=== PATIENT | male | born 1970 | race Caucasian/White ===

== ENCOUNTER 2016-10-31 15:01 | Emergency (ER) | payer OTHER ==
[2016-10-31] MEDS ORDERED: ONDANSETRON 4 MG/2 ML VIAL IVP STA (15:22)
[2016-10-31] MEDS ORDERED: SODIUM CHLORIDE 0.9% 1,000 ML IV STA ×2 (15:22)
[2016-10-31] MEDS ORDERED: ACETAMINOPHEN IV (For NPO) 1,000 MG in SALINE 100 100ML.BAG IVPB STA (15:23)
--- NOTE | 2016-10-31 15:24 | ED ---
General Adult HPI - General Chief complaint: Nausea/Vomiting/Diarrhea Stated complaint: Abd Pain Time Seen by Provider: 10/31/16 15:16 Source: patient, EMS, RN notes reviewed Mode of arrival: EMS Limitations: no limitations - History of Present Illness Initial comments: Patient 46-year-old male who presents emergency room today with chief complaint of abdominal pain. He does admit that he has been on and off over the last several months. Patient does admit that pains located in the epigastric area. He states he has not noticed that makes it better or worse. Does admit to nausea vomiting. He denies any other complaints or associated symptoms currently. Denies any past mental history. Patient denies any recent fever, chills, shortness of breath, chest pain, back pain, numbness or tingling, dysuria or hematuria, constipation or diarrhea, headaches or visual changes, or any other complaints. - Related Data Home Medications Medication Instructions Recorded Confirmed HYDROcodone/APAP 10-325MG [[place] 1 tab PO DIRECTED PRN 05/26/15 10/31/16 10-325] Previous Rx's Medication Instructions Recorded Omeprazole 20 mg PO DAILY 10 Days 10/31/16 Allergies Allergy/AdvReac Type Severity Reaction Status Date / Time No Known Allergies Allergy Verified 10/31/16 15:19 Review of Systems ROS Statement: Those systems with pertinent positive or pertinent negative responses have been documented in the HPI. ROS Other: All systems not noted in ROS Statement are negative. Past Medical History Past Medical History: No Reported History History of Any Multi-Drug Resistant Organisms: None Reported Past Surgical History: Orthopedic Surgery Additional Past Surgical History / Comment(s): foot Past Psychological History: Schizophrenia Smoking Status: Current some day smoker Past Alcohol Use History: Occasional Past Drug Use History: None Reported General Exam - General Exam Comments Initial Comments: General: The patient is awake and alert, in no distress, and does not appear acutely ill. Eye: Pupils are equal, round and reactive to light, extra-ocular movements are intact. No nystagmus. There is normal conjunctiva bilaterally. No signs of icterus. Ears, nose, mouth and throat: There are moist mucous membranes and no oral lesions. Neck: The neck is supple, there is no tenderness or JVD. Cardiovascular: There is a regular rate and rhythm. No murmur, rub or gallop is appreciated. Respiratory: Lungs are clear to auscultation, respirations are non-labored, breath sounds are equal. No wheezes, stridor, rales, or rhonchi. Gastrointestinal: Normal appearance abdomen. Normal bowel sounds. Abdomen soft on palpation. Patient does have mild tenderness epigastric and both left and right upper quadrants. No rebound tenderness. No guarding. No CVA tenderness. Musculoskeletal: Normal ROM, no tenderness. Strength 5/5. Sensation intact. Pulses equal bilaterally 2+. Neurological: A&O x 3. CN II-XII intact, There are no obvious motor or sensory deficits. Coordination appears grossly intact. Speech is normal. Skin: Skin is warm and dry and no rashes or lesions are noted. Psychiatric: Cooperative, appropriate mood & affect, normal judgment. Limitations: no limitations Course Vital Signs 10/31/16 10/31/16 15:03 16:28 Temperature 97.7 F Pulse Rate 72 77 Respiratory 15 15 Rate Blood Pressure 167/107 149/107 O2 Sat by Pulse 100 100 Oximetry - Reevaluation(s) Reevaluation #1: 10/31/16 15:54 I did review the nursing notes which does state that EMS was called for a GI bleed bright red blood per bowel movement yesterday. Did discuss with nursing staff states that he denied this to her. Did ask the patient separately and he does admit that he did have a bloody bowel movement yesterday. He states it was bright color. States never had that in the past. Patient has declined rectal exam. Procedures - Procedures Initial comment: Patient's CAT scan reviewed and does show an L5 spondylolysis with first-degree L5-S1 spondylolisthesis. Possible small hiatal hernia. Otherwise a negative computed tomography scan of the abdomen and pelvis. Results were discussed with patient. Labs were reviewed and shows elevated white count of 13,000. Again, patient declined rectal exam here. Was discussed with patient about the importance of following up with family doctor and GI for colonoscopy. Patient states understanding. At this time discharged home with starter on omeprazole. Advised return if any symptoms increase or worsen. Medical Decision Making - Lab Data Result diagrams: 10/31/16 15:26 10/31/16 02:44 Lab Results 10/31/16 10/31/16 Range/Units 02:44 15:26 WBC 13.4 H (3.8-10.6) k/uL RBC 4.72 (4.30-5.90) m/uL Hgb 14.3 (13.0-17.5) gm/dL Hct 43.4 (39.0-53.0) % MCV 91.9 (80.0-100.0) fL MCH 30.3 (25.0-35.0) pg MCHC 32.9 (31.0-37.0) g/dL RDW 13.4 (11.5-15.5) % Plt Count 327 (150-450) k/uL Neutrophils % 80 % Lymphocytes % 12 % Monocytes % 6 % Eosinophils % 1 % Basophils % 0 % Neutrophils # 10.7 H (1.3-7.7) k/uL Lymphocytes # 1.6 (1.0-4.8) k/uL Monocytes # 0.7 (0-1.0) k/uL Eosinophils # 0.2 (0-0.7) k/uL Basophils # 0.0 (0-0.2) k/uL Sodium 142 (137-145) mmol/L Potassium 4.4 (3.5-5.1) mmol/L Chloride 103 (98-107) mmol/L Carbon Dioxide 27 (22-30) mmol/L Anion Gap 12 mmol/L BUN 10 (9-20) mg/dL Creatinine 0.88 (0.66-1.25) mg/dL Est GFR (MDRD) Af Amer >60 (>60 ml/min/1.73 sqM) Est GFR (MDRD) Non-Af >60 (>60 ml/min/1.73 sqM) Glucose 104 H (74-99) mg/dL Calcium 9.7 (8.4-10.2) mg/dL Total Bilirubin 0.6 (0.2-1.3) mg/dL AST 19 (17-59) U/L ALT 33 (21-72) U/L Alkaline Phosphatase 90 (38-126) U/L Total Protein 7.3 (6.3-8.2) g/dL Albumin 4.3 (3.5-5.0) g/dL Amylase 40 (30-110) U/L Lipase 76 (23-300) U/L Disposition Clinical Impression: Abdominal pain Disposition: HOME SELF-CARE Condition: Good Instructions: Abdominal Pain (ED) Additional Instructions: Please use medication as discussed. Please follow-up with family doctor/GI specialist in the next 2 days. Please discuss options of colonoscopy. Please return to emergency room if the symptoms increase or worsen or for any other concerns. Prescriptions: Omeprazole 20 mg PO DAILY 10 Days Referrals: None,Stated [Primary Care Provider] - 1-2 days Radha Flores MD [STAFF PHYSICIAN] - 1-2 days Brianna Joy MD [STAFF PHYSICIAN] - 1-2 days Time of Disposition: 18:09
[2016-10-31 15:50] LABS: ALT 33 U/L (21-72); AST 19 U/L (17-59); Alkaline Phosphatase 90 U/L (38-126); Amylase 40 U/L (30-110); Anion Gap 12 mmol/L; Blood Urea Nitrogen 10 mg/dL (9-20); Calcium 9.7 mg/dL (8.4-10.2); Carbon Dioxide 27 mmol/L (22-30); Chloride 103 mmol/L (98-107); Glucose 104 mg/dL (74-99); Non-African American GFR(MDRD) >60 (>60 ml/min/1.73 sqM); Potassium 4.4 mmol/L (3.5-5.1); Sodium 142 mmol/L (137-145); Total Bilirubin 0.6 mg/dL (0.2-1.3); Total Protein 7.3 g/dL (6.3-8.2)
--- NOTE | 2016-10-31 15:57 | XR ---
EXAMINATION TYPE: XR KUB DATE OF EXAM: 10/31/2016 3:49 PM COMPARISON: NONE HISTORY: Abdominal pain TECHNIQUE: 2 views FINDINGS: Bowel gas pattern is normal. There is no sign of intestinal obstruction or pneumoperitoneum . Fecal pattern is normal. Lung bases are clear. There are no pathologic calcifications. Bony structu res are intact. IMPRESSION: Nonacute abdomen.
[2016-10-31 16:08] LABS: Basophils % (A) 0 %; CH 30.5; CHCM 33.4; Eosinophils # (A) 0.2 k/uL (0-0.7); Eosinophils % (A) 1 %; HCT 43.4 % (39.0-53.0); HDW 2.39; HGB 14.3 gm/dL (13.0-17.5); Luc # (Auto) 0.17; Luc % (Auto) 1; Lymphocytes # (A) 1.6 k/uL (1.0-4.8); Lymphocytes % (A) 12 %; MCH 30.3 pg (25.0-35.0); MCHC 32.9 g/dL (31.0-37.0); MCV 91.9 fL (80.0-100.0); Mean Platelet Volume 7.7; Monocytes # (A) 0.7 k/uL (0-1.0); Monocytes % (A) 6 %; Neutrophils # (A) 10.7 k/uL (1.3-7.7); Neutrophils % (A) 80 %; RBC 4.72 m/uL (4.30-5.90); RDW 13.4 % (11.5-15.5); WBC 13.4 k/uL (3.8-10.6); WBC (Perox) 13.44
[2016-10-31] MEDS ORDERED: HYDROmorphone 1 MG/ML 1 ML SYRINGE IVP STA (16:13)
[2016-10-31] MEDS ORDERED: PANTOPRAZOLE 40 MG/10 ML VIAL IVP STA (16:13)
[2016-10-31] MEDS ORDERED: RX INFO: IV CONTRAST WAS GIVEN 1 EACH MISC MISCELLANE PRN (17:03)
--- NOTE | 2016-10-31 17:54 | CT ---
EXAMINATION TYPE: CT abdomen pelvis w con DATE OF EXAM: 10/31/2016 5:43 PM COMPARISON: NONE HISTORY: Nausea, vomiting bile and bright red blood in stool. CT DLP: 443.30 mGycm Automated exposure control for dose reduction was used. TECHNIQUE: Helical acquisition of images was performed from the lung bases through the pelvis. CONTRAST: Performed without Oral Contrast and with IV Contrast, patient injected with 100 mL of Omnipaque 300. FINDINGS: Lung bases are clear. There is no pleural effusion. Heart size is normal. There is probably a small h iatal hernia. Liver spleen pancreas and gallbladder appear normal. Bile ducts are not dilated. There is no adrenal mass. Kidneys have normal size and contour. There is no hydronephrosis. There is no retroperitoneal a denopathy. I see no intestinal wall thickening. There are no dilated loops. Bladder distends smoothly. Appendix appears normal. There is no ascites. There is no pelvic mass. There is anterior subluxation of L5 in relation S1 with bilateral L5 spondylolysis. IMPRESSION: L5 SPONDYLOLYSIS WITH FIRST-DEGREE L5-S1 SPONDYLOLISTHESIS. POSSIBLE SMALL HIATAL HERNIA. OTHERWISE N EGATIVE CT SCAN OF THE ABDOMEN AND PELVIS.
[2016-10-31 18:27] VITALS: BP 151/95; PULSE 81; RESP 16; TEMP 98
== END 2016-10-31 18:38 | disposition home or self-care (01) ==
LOC: EC 15:01
DX: R10.13 Epigastric pain (principal); K92.1 Melena; F17.200 Nicotine dependence, unspecified, uncomplicated
CPT/HCPCS: 99285; 96374; 96375 ×2; 96361; 36415; 80053; 82150; 83690; 85025; 74000; 74177; J1170; Q9967; J0131; C9113

== ENCOUNTER 2018-09-25 15:28 | Inpatient (IN) | payer OTHER ==
[2018-09-25] MEDS ORDERED: KETOROLAC 30 MG/ML 1 ML VIAL IVP STA (15:43)
[2018-09-25] MEDS ORDERED: SODIUM CHLORIDE 0.9% 500 ML 500 ML IV STA ×2 (15:43→17:33)
[2018-09-25] MEDS ORDERED: SODIUM CHLORIDE 0.9% 1,000 ML IV STA ×2 (15:43→17:33)
--- NOTE | 2018-09-25 15:44 | ED ---
Abdominal Pain HPI - General Chief Complaint: Abdominal Pain Stated Complaint: ABD PAIN Time Seen by Provider: 09/25/18 15:43 Source: patient, RN notes reviewed, old records reviewed Mode of arrival: EMS Limitations: no limitations - History of Present Illness Initial Comments: This is a 48-year-old male the ER for evaluation of severe sudden onset of abdominal pain worsening abdominal pain. Patient states his pain is diffuse and severe pain with nausea and vomiting. Patient states he does have history of ulcers, denies any other significant medical history. No significant surgical history, no modifying factors for symptoms and patient denies fever. No change in bowel movements MD Complaint: abdominal pain -: hour(s) Location: diffuse, epigastric, suprapubic Radiation: none Migration to: no migration Severity scale (1-10): 10 Quality: aching, fullness, sharp Consistency: constant Improves With: nothing Worsens With: nothing Associated Symptoms: nausea, vomiting - Related Data Home Medications Medication Instructions Recorded Confirmed Ranitidine HCl [Zantac] 150 mg PO DAILY 09/25/18 09/25/18 Allergies Allergy/AdvReac Type Severity Reaction Status Date / Time No Known Allergies Allergy Verified 09/25/18 15:53 Review of Systems ROS Statement: Those systems with pertinent positive or pertinent negative responses have been documented in the HPI. ROS Other: All systems not noted in ROS Statement are negative. Past Medical History Past Medical History: No Reported History History of Any Multi-Drug Resistant Organisms: None Reported Past Surgical History: Orthopedic Surgery Additional Past Surgical History / Comment(s): foot Past Psychological History: Schizophrenia Smoking Status: Current every day smoker Past Alcohol Use History: Occasional Past Drug Use History: Marijuana General Exam Limitations: no limitations General appearance: alert, anxious, in distress Head exam: Present: atraumatic, normocephalic, normal inspection Eye exam: Present: normal appearance, PERRL, EOMI. Absent: scleral icterus, conjunctival injection, periorbital swelling ENT exam: Present: normal exam, mucous membranes moist Neck exam: Present: normal inspection. Absent: tenderness, meningismus, lymphadenopathy Respiratory exam: Present: normal lung sounds bilaterally. Absent: respiratory distress, wheezes, rales, rhonchi, stridor Cardiovascular Exam: Present: regular rate, normal rhythm, normal heart sounds. Absent: systolic murmur, diastolic murmur, rubs, gallop, clicks GI/Abdominal exam: Present: soft, distended, tenderness, guarding, normal bowel sounds. Absent: rebound, rigid Extremities exam: Present: normal inspection, full ROM, normal capillary refill. Absent: tenderness, pedal edema, joint swelling, calf tenderness Back exam: Present: normal inspection Neurological exam: Present: alert, oriented X3, CN II-XII intact Psychiatric exam: Present: normal affect, normal mood Skin exam: Present: warm, dry, intact, normal color. Absent: rash Course Vital Signs 09/25/18 09/25/18 09/25/18 15:29 17:14 18:18 Temperature 98.1 F Pulse Rate 65 78 74 Respiratory 18 20 22 Rate Blood Pressure 142/109 154/92 120/78 O2 Sat by Pulse 100 99 97 Oximetry - Reevaluation(s) Reevaluation #1: 09/25/18 18:41 Medical record is reviewed Reevaluation #2: 09/25/18 18:[address] Farmer he is aware of this patient Reevaluation #3: 09/25/18 18:41 Patient has pain control currently Medical Decision Making - Medical Decision Making 48 male the ER for evaluation. Patient presents today for evaluation regards to severe sudden onset of abdominal pain. Patient hasn't. No free air and significant inguinal hernia, small bowel suction developing, patient be admitted for IV antibiotics IV resuscitation pain control - Lab Data Result diagrams: 09/25/18 15:36 09/25/18 15:36 Lab Results 09/25/18 09/25/18 Range/Units 15:36 15:36 WBC 7.9 (3.8-10.6) k/uL RBC 4.39 (4.30-5.90) m/uL Hgb 13.8 (13.0-17.5) gm/dL Hct 40.6 (39.0-53.0) % MCV 92.6 (80.0-100.0) fL MCH 31.4 (25.0-35.0) pg MCHC 33.9 (31.0-37.0) g/dL RDW 12.9 (11.5-15.5) % Plt Count 267 (150-450) k/uL Neutrophils % 56 % Lymphocytes % 32 % Monocytes % 5 % Eosinophils % 4 % Basophils % 1 % Neutrophils # 4.4 (1.3-7.7) k/uL Lymphocytes # 2.5 (1.0-4.8) k/uL Monocytes # 0.4 (0-1.0) k/uL Eosinophils # 0.3 (0-0.7) k/uL Basophils # 0.0 (0-0.2) k/uL Sodium 141 (137-145) mmol/L Potassium 4.2 (3.5-5.1) mmol/L Chloride 106 (98-107) mmol/L Carbon Dioxide 25 (22-30) mmol/L Anion Gap 10 mmol/L BUN 14 (9-20) mg/dL Creatinine 0.74 (0.66-1.25) mg/dL Est GFR (CKD-EPI)AfAm >90 (>60 ml/min/1.73 sqM) Est GFR (CKD-EPI)NonAf >90 (>60 ml/min/1.73 sqM) Glucose 81 (74-99) mg/dL Calcium 9.0 (8.4-10.2) mg/dL Total Bilirubin 0.4 (0.2-1.3) mg/dL AST 32 (17-59) U/L ALT 33 (21-72) U/L Alkaline Phosphatase 46 (38-126) U/L Total Protein 7.1 (6.3-8.2) g/dL Albumin 4.1 (3.5-5.0) g/dL Amylase 167 H (30-110) U/L Lipase 670 H (23-300) U/L - Radiology Data Radiology results: report reviewed (CT abdomen and pelvis positive [place] perineal free air, inguinal hernia, ascites,obstruction), image reviewed Disposition Clinical Impression: Abdominal pain, Free intraperitoneal air, Pancreatitis, Ascites, SBO (small bowel obstruction), Acute abdomen Disposition: ADMITTED IP TO THIS [facility] Condition: Serious Is patient prescribed a controlled substance at d/c from ED?: No Referrals: None,Stated [Primary Care Provider] - 1-2 days
[2018-09-25] MEDS ORDERED: MORPHINE SULFATE 4 MG/ML SYRINGE IVP STA (16:02)
[2018-09-25] MEDS ORDERED: ONDANSETRON 4 MG/2 ML VIAL IVP STA (16:02)
[2018-09-25] MEDS ORDERED: PANTOPRAZOLE 40 MG/10 ML VIAL IVP STA (16:02)
[2018-09-25 16:04] LABS: Basophils % (A) 1 %; Eosinophils # (A) 0.3 k/uL (0-0.7); Eosinophils % (A) 4 %; HCT 40.6 % (39.0-53.0); HGB 13.8 gm/dL (13.0-17.5); Lymphocytes # (A) 2.5 k/uL (1.0-4.8); Lymphocytes % (A) 32 %; MCH 31.4 pg (25.0-35.0); MCHC 33.9 g/dL (31.0-37.0); MCV 92.6 fL (80.0-100.0); Mean Platelet Volume 8.3; Monocytes # (A) 0.4 k/uL (0-1.0); Monocytes % (A) 5 %; Neutrophils # (A) 4.4 k/uL (1.3-7.7); Neutrophils % (A) 56 %; Platelet Count 267 k/uL (150-450); RBC 4.39 m/uL (4.30-5.90); RDW 12.9 % (11.5-15.5); WBC 7.9 k/uL (3.8-10.6)
[2018-09-25 16:13] LABS: ALT 33 U/L (21-72); AST 32 U/L (17-59); Albumin 4.1 g/dL (3.5-5.0); Alkaline Phosphatase 46 U/L (38-126); Amylase 167 U/L (30-110); Anion Gap 10 mmol/L; Blood Urea Nitrogen 14 mg/dL (9-20); Carbon Dioxide 25 mmol/L (22-30); Chloride 106 mmol/L (98-107); Glucose 81 mg/dL (74-99); Lipase 670 U/L (23-300); Potassium 4.2 mmol/L (3.5-5.1); Sodium 141 mmol/L (137-145); Total Bilirubin 0.4 mg/dL (0.2-1.3); Total Protein 7.1 g/dL (6.3-8.2)
[2018-09-25] MEDS ORDERED: AMPICILLIN-SULBACTAM 3 GM in SODIUM CHLORIDE 0.9% 100 ML IVPB STA (17:33)
--- NOTE | 2018-09-25 17:38 | CT ---
EXAMINATION TYPE: CT abdomen pelvis w con DATE OF EXAM: 09/25/2018 COMPARISON: 10/31/2016 HISTORY: Right lower quadrant and bilateral flank pain. CT DLP: 679.6 mGycm Automated exposure control for dose reduction was used. TECHNIQUE: Helical acquisition of images was performed from the lung bases through the pelvis. CONTRAST: Performed without Oral Contrast and with IV Contrast, patient injected with 100 mL of Isovue M300. FINDINGS: Lung bases are clear. There is no pleural effusion. Heart size is normal. There is no pericardial eff usion. There is ascites. There is free air in the abdomen. Liver shows no focal defect. Bile ducts ar e not dilated. Gallbladder appears normal. Spleen appears normal. There is no pancreatic mass. There are some mid small bowel loops with wall thickening up to 1 cm in thickness. Bladder distends smoothl y. There is right-sided scrotal hernia that contains fluid. There is possible small bowel also in the right inguinal hernia. There are some fluid-filled distended loops of small bowel in the mid and low er abdomen. These measure up to 2.8 cm. Appendix appears to be partly filled with air and appears nor mal. There is spondylolysis of L5. There is a 5 mm L5-S1 spondylolisthesis. There is no evidence of a n acute fracture. Bony pelvis is intact. There is normal contrast opacification of the kidneys. There is no hydronephrosis. There is no adrena l mass. Ureters are not dilated. There is no retroperitoneal adenopathy. IMPRESSION: THERE IS MODERATE FREE AIR IN THE ABDOMEN. THERE IS ASCITES. THERE IS INCARCERATED RIGHT INGUINAL HER MARGARET THAT CONTAINS FLUID AND PROBABLY ALSO A LOOP OF SMALL BOWEL. PARTIAL MECHANICAL OBSTRUCTION IS SCOTT SPECTED. THIS EXAM WAS DISCUSSED WITH THE ER PHYSICIAN AT 5:35 PM. ABNORMALITIES ARE ALL NEW COMPARED TO OLD CT SCAN.
[2018-09-25] MEDS ORDERED: HYDROmorphone 1 MG/ML 1 ML SYRINGE IVP STA ×2 (18:26→19:05)
[2018-09-25] MEDS ORDERED: ONDANSETRON 4 MG/2 ML VIAL IVP PRN (18:26)
[2018-09-25] MEDS ORDERED: IOPAMIDOL-300 CONTRAST 30 ML VIAL (ORAL USE) PO PRN (18:42)
[2018-09-25] MEDS ORDERED: MORPHINE SULFATE 2 MG/ML SYRINGE IV PRN (20:05)
[2018-09-25] MEDS ORDERED: HYDROmorphone 0.5 MG/0.5 ML SYRINGE IVP PRN (20:05)
[2018-09-25] MEDS ORDERED: NALOXONE 0.4 MG/ML 1 ML VIAL IV PRN ×3 (20:52→22:33)
[2018-09-25] MEDS ORDERED: fentaNYL (PF) 50 MCG/ML 2 ML AMP ONE (21:12)
[2018-09-25] MEDS ORDERED: HYDROmorphone (PF) 1 MG/ML ONE (21:12)
[2018-09-25] MEDS ORDERED: LIDOCAINE 1% INJ 10MG/ML (20 ML MDV) ONE (21:12)
[2018-09-25] MEDS ORDERED: GLYCOPYRROLATE 0.2 MG/ML 2 ML VIAL ONE (21:12)
[2018-09-25] MEDS ORDERED: ROCURONIUM BROMIDE 10 MG/ML 10 ML VIAL IV ONE (21:12)
[2018-09-25] MEDS ORDERED: MIDAZOLAM 2 MG/2 ML VIAL ONE (21:12)
[2018-09-25] MEDS ORDERED: ONDANSETRON 4 MG/2 ML VIAL ONE (21:12)
[2018-09-25] MEDS ORDERED: IV FLUID CONTINUATION 1,000 ML IV ONE ×2 (21:12)
[2018-09-25] MEDS ORDERED: NEOSTIGMINE 1 MG/ML 10 ML VIAL ONE (21:12)
[2018-09-25] MEDS ORDERED: SUCCINYLCHOLINE CHLORIDE 100 MG/5 ML SYR IV ONE (21:12)
--- NOTE | 2018-09-25 21:16 | P.GSHP ---
History of Present Illness H&P Date: 09/25/18 Chief Complaint: Perforated viscus This is a 48-year-old male who presents to the emergency room with complaints of severe abdominal pain. Patient states the pain was sudden and started approximately 2 PM this afternoon. Patient underwent CAT scan was found have evidence of free air with ascites. Patient also has an incarcerated right inguinal hernia. Past Medical History Past Medical History: No Reported History History of Any Multi-Drug Resistant Organisms: None Reported Past Surgical History: Orthopedic Surgery Additional Past Surgical History / Comment(s): foot Past Psychological History: Schizophrenia Smoking Status: Current every day smoker Past Alcohol Use History: Occasional Past Drug Use History: Marijuana Medications and Allergies Home Medications Medication Instructions Recorded Confirmed Type Ranitidine HCl [Zantac] 150 mg PO DAILY 09/25/18 09/25/18 History Allergies Allergy/AdvReac Type Severity Reaction Status Date / Time No Known Allergies Allergy Verified 09/25/18 15:53 Surgical - Exam Vital Signs Temp Pulse Resp BP Pulse Ox 98.1 F 65 18 142/109 100 09/25/18 15:29 09/25/18 15:29 09/25/18 15:29 09/25/18 15:29 09/25/18 15:29 - General well developed, moderate distress - Eyes PERRL - ENT normal pinna - Neck no masses - Respiratory normal expansion - Cardiovascular Rhythm: regular - Abdomen Right inguinal hernia Abdomen: soft, tender, guarding, rigid Results - Labs 09/25/18 15:36 09/25/18 15:36 Abnormal Lab Results - Last 24 Hours (Table) 09/25/18 Range/Units 15:36 Amylase 167 H (30-110) U/L Lipase 670 H (23-300) U/L Diabetes panel 09/25/18 Range/Units 15:36 Sodium 141 (137-145) mmol/L Potassium 4.2 (3.5-5.1) mmol/L Chloride 106 (98-107) mmol/L Carbon Dioxide 25 (22-30) mmol/L BUN 14 (9-20) mg/dL Creatinine 0.74 (0.66-1.25) mg/dL Glucose 81 (74-99) mg/dL Calcium 9.0 (8.4-10.2) mg/dL AST 32 (17-59) U/L ALT 33 (21-72) U/L Alkaline Phosphatase 46 (38-126) U/L Total Protein 7.1 (6.3-8.2) g/dL Albumin 4.1 (3.5-5.0) g/dL Calcium panel 09/25/18 Range/Units 15:36 Calcium 9.0 (8.4-10.2) mg/dL Albumin 4.1 (3.5-5.0) g/dL Pituitary panel 09/25/18 Range/Units 15:36 Sodium 141 (137-145) mmol/L Potassium 4.2 (3.5-5.1) mmol/L Chloride 106 (98-107) mmol/L Carbon Dioxide 25 (22-30) mmol/L BUN 14 (9-20) mg/dL Creatinine 0.74 (0.66-1.25) mg/dL Glucose 81 (74-99) mg/dL Calcium 9.0 (8.4-10.2) mg/dL Adrenal panel 09/25/18 Range/Units 15:36 Sodium 141 (137-145) mmol/L Potassium 4.2 (3.5-5.1) mmol/L Chloride 106 (98-107) mmol/L Carbon Dioxide 25 (22-30) mmol/L BUN 14 (9-20) mg/dL Creatinine 0.74 (0.66-1.25) mg/dL Glucose 81 (74-99) mg/dL Calcium 9.0 (8.4-10.2) mg/dL Total Bilirubin 0.4 (0.2-1.3) mg/dL AST 32 (17-59) U/L ALT 33 (21-72) U/L Alkaline Phosphatase 46 (38-126) U/L Total Protein 7.1 (6.3-8.2) g/dL Albumin 4.1 (3.5-5.0) g/dL Assessment and Plan Assessment: Perforated viscus patient will undergo exploratory laparotomy today.
[2018-09-25] MEDS ORDERED: SODIUM CHLORIDE 0.9% 100 ML with ceFAZolin 2,000 MG IV ONE ×2 (21:20)
[2018-09-25] MEDS: LACTATED RINGERS 1,000 ML IV SCH (21:22)
[2018-09-25] MEDS ORDERED: LACTATED RINGERS 1,000 ML IV ONE ×4 (22:09→22:18)
--- NOTE | 2018-09-25 22:09 | P.OP ---
Date of Procedure: 09/25/18 Preoperative Diagnosis: Perforated viscus Postoperative Diagnosis: Perforated gastric ulcer Procedure(s) Performed: Repair of perforated gastric ulcer Anesthesia: CELIA Surgeon: Jordan Farmer Estimated Blood Loss (ml): 15 Pathology: none sent Condition: stable Disposition: PACU Description of Procedure: The patient's placed on the operating table in the supine position. He received general anesthesia. The abdomen was prepped and draped in sterile fashion. The abdomen was entered through midline incision. Upon entering the abdomen there is some free air noted there is also ascitic fluid approximately 300 mL of ascites was aspirated. The bowel was examined. The colon appeared normal. The small bowel appeared normal. In the stomach on the anterior gastric wall just proximal to the pylorus there was a perforation seen. This was closed with 3-0 GI silk sutures. And then a modified Bruce patch was performed using piece of omentum was placed over top the repair and secured. The abdomen was irrigated. There is no bleeding seen. A CHRISTINE drains placed through separate stab incision and placed along the ulcer repair. The fascia is closed loop #1 PDS suture. Skin was closed lebron. Patient top she will was sent to recovery in stable condition.
[2018-09-25] MEDS ORDERED: diphenhydrAMINE 50 MG/ML 1 ML VIAL IVP PRN (22:33)
[2018-09-25] MEDS: SODIUM CHLORIDE 0.9% EPIDURAL PRN ×2 (23:15→23:43)
[2018-09-25] MEDS: ROPIVACAINE EPIDURAL PRN ×2 (23:15→23:43)
[2018-09-25] MEDS: HYDROMORPHONE EPIDURAL PRN ×2 (23:15→23:43)
[2018-09-26 00:25] VITALS: BMI 27.4
[2018-09-26] MEDS: AMPICILLIN-SULBACTAM 3 GM in SODIUM CHLORIDE 0.9% 100 ML IVPB SCH ×3 (00:27→11:18)
[2018-09-26] MEDS ORDERED: ACETAMINOPHEN IV (For NPO) 1,000 MG in EMPTY BAG 1 BAG IVPB PRN (03:18)
[2018-09-26] MEDS ORDERED: SODIUM CHLORIDE 0.9% 1,000 ML IV ONE (03:20)
--- NOTE | 2018-09-26 05:51 | P.PN ---
Progress Note - Text Progress Note Date: 09/26/18 48 yo male s/p exploratory laparotomy. POD#1. He reports good pain relief from the epidural. VAS=3. No itching, no headache, no motor deficit. Bromage scale of 0. Epidural currently running at 7cc/hr. Will continue the same regimen.
[2018-09-26] MEDS: ENOXAPARIN 40 MG/0.4 ML SYRINGE SQ SCH (09:42)
[2018-09-26] MEDS ORDERED: diphenhydrAMINE 25 MG CAP PO PRN (10:54)
--- NOTE | 2018-09-26 12:29 | P.PN ---
Subjective Progress Note Date: 09/26/18 48-year-old seen in the postop surgical visit. Patient postop September 25 repair of perforated gastric ulcer currently nasal gastric tube to suction no output indwelling Kelly catheter in place CHRISTINE drain serous drainage Lipase 670, amylase 167, AST 32 ALTs 33 patient initially presented to the emergency room with a chief complaint of severe abdominal pain came on suddenly. CAT scan the emergency room showed evidence of free air with ascites. Patient was also noted to have an incarcerated right inguinal hernia Objective - Vital Signs Vital signs: Vital Signs Temp 98.9 F 09/26/18 07:27 Pulse 82 09/26/18 07:27 Resp 16 09/26/18 07:27 BP 95/60 09/26/18 07:27 Pulse Ox 95 09/26/18 07:27 Intake & Output 09/25/18 09/26/18 09/26/18 18:59 06:59 18:59 Intake Total 3457 Output Total 1175 Balance 2282 Weight 72.575 kg 72.575 kg Intake: IV 1608 Intake, IV Titration 1849 Amount ACETAMINOPHEN IV (For NPO 400 ) 1,000 mg In Empty Bag 1 bag @ 400 mls/hr IVPB Q6HR PRN Rx#:[id number] Lactated Ringers 1,000 ml 450 @ 150 mls/hr IV .Q6H40M ONE Rx#:[id number] Sodium Chloride 0.9% 1, 999 000 ml @ 999 mls/hr IV . Q1H1M ONE Rx#:[id number] Output: Drainage 170 Left Abdomen 170 Urine 975 Uretheral (Kelly) 500 Estimated Blood Loss 30 Other: Voiding Method Indwelling Catheter Indwelling Catheter - Exam Physical exam 48-year-old male resting in bed appearing in no acute distress Lungs adequate air movement bilaterally Heart S1-S2 audible regular Abdomen abdominal binder in place surgical dressing dry CHRISTINE drain in place scant amount of serous drainage noted nasal gastric tube to suction no output few hypoactive bowel tones surgical tenderness appropriate indwelling Kelly catheter in place reports no nausea vomiting tolerating ice chips Extremities no edema - Constitutional Constitutional Comment(s): Physical exam 48 year old male resting in bed appearing in no acute distress Lungs essentially clear adequate air movement sats 95% on room air Heart S1-S2 audible regular mildly tachycardic heart rate in the 90s to 100s Abdomen abdominal binder in place indwelling Kelly catheter in place nasal gastric tube connected to suction no drainage noted to drain right lower quadrant no drainage noted reports of nausea vomiting surgical tenderness appropriate nondistended few hypoactive bowel tones Extremities no edema noted - Labs CBC & Chem 7: 09/25/18 15:36 09/25/18 15:36 Labs: Abnormal Lab Results - Last 24 Hours (Table) 09/25/18 Range/Units 15:36 Amylase 167 H (30-110) U/L Lipase 670 H (23-300) U/L Assessment and Plan Assessment: Impression Present on admission severe intractable abdominal pain with nausea vomiting with a CAT scan of the abdomen and pelvis showing evidence of free air with ascites with incarcerated right inguinal hernia History of gastric ulcerative disease Repair of a perforated gastric ulcer due to perforated viscus Plan Remove the indwelling Kelly catheter now Epidural for pain control per anesthesia IV Zosyn as ordered Monitor labs Further surgical recommendations pending The above impression and plan of care have been discussed and directed by signing physician. Ritu Mcguire nurse practitioner acting as scribe for signing physician.
[2018-09-26] MEDS: HYDROmorphone 1 MG/ML 1 ML SYRINGE IVP PRN ×3 (14:48→22:49)
--- NOTE | 2018-09-26 15:53 | CONS ---
CONSULTATION DATE OF SERVICE: 09/26/2018 REASON FOR CONSULTATION: Advice regarding schizophrenia and other medical issues, requested by Dr. Farmer. HISTORY OF PRESENT ILLNESS: This 48-year-old gentleman with a past medical history of schizophrenia, current smoking and THC was having abdominal pains. Because of severe abdominal pain, the patient came in yesterday. Patient underwent repair of perforated gastric ulcer by Dr. Farmer. There is no history of any fever, rigor or chills. No history of headache, loss of consciousness, seizures at this time. PAST MEDICAL HISTORY: 1. Schizophrenia. 2. History of smoking. 3. THC. MEDICATIONS: Medications prior to admission include Zantac 150 daily. ALLERGIES: NONE. FAMILY HISTORY: No history of heart disease or strokes in the family. SOCIAL HISTORY: History of smoking. Occasional THC. REVIEW OF SYSTEMS: ENT: No diminished hearing. Diminished vision. CARDIOVASCULAR SYSTEM: No angina, palpitations. RESPIRATORY SYSTEM: No cough, hemoptysis. GI: As mentioned earlier. : No dysuria or retention. NERVOUS SYSTEM: No numbness, weakness. ALLERGY/IMMUNOLOGY: No asthma, hayfever. MUSCULOSKELETAL: As mentioned earlier. HEMATOLOGY/ONCOLOGY: No history of anemia. ENDOCRINE: No history of diabetes, hypothyroidism. CONSTITUTIONAL: As mentioned earlier. DERMATOLOGY: Negative. RHEUMATOLOGY: Negative. PSYCHIATRY: As mentioned earlier. PHYSICAL EXAMINATION: Patient is alert and oriented x3. Pulse 82, blood pressure 95/60, respiration 16, temperature 98 degrees, T-max 100.4, pulse ox 94% on room air. HEENT: Conjunctivae normal. Oral mucosa moist. NECK: No jugular venous distention. No carotid bruit. No lymph node enlargement. CARDIOVASCULAR SYSTEM: S1, S2 muffled. RESPIRATORY SYSTEM: Breath sounds diminished at the bases. A few scattered rhonchi. No crackles. ABDOMEN: Soft. Status post surgery. No mass palpable. No guarding. No rigidity. Tender. Bowel sounds diminished. LEGS: No edema. No swelling. NERVOUS SYSTEM: Higher functions as mentioned earlier. Moves all 4 limbs. No focal motor or sensory deficit. LYMPHATICS: No lymph node palpable in neck, axillae or groin. SKIN: No ulcer, rash, bleeding. LABS: CBC within normal limits. Amylase is 167, lipase 670. CT scan of abdomen and pelvis showed moderate air in the abdomen, ascites, incarcerated right inguinal hernia. ASSESSMENT: 1. Acute abdomen with perforated gastric ulcer, status repair of the perforated gastric ulcer. 2. Inguinal hernia in the CT scan. 3. Fever. 4. Increased amylase and lipase. 5. History of schizophrenia. 6. History of nicotine dependence. 7. History of tetrahydrocannabinol. RECOMMENDATIONS AND DISCUSSION: In this 48-year-old gentleman who presented with multiple complex medical issues., at this time I recommend to continue current medication, continue symptomatic treatment. I recommend broad-spectrum IV antibiotics. Cultures. Basic workup. Continue to monitor. See orders for further details. Prognosis guarded. Will follow the patient closely with you. DVT prophylaxis. Incentive spirometry. Thank you, Dr. Farmer, for letting us participate in the care of this patient. MMQASIML / IJN: [id number] /
--- NOTE | 2018-09-26 16:07 | XR ---
EXAMINATION TYPE: XR chest 1V portable DATE OF EXAM: 09/26/2018 COMPARISON: 05/19/1715 HISTORY: Chest pain TECHNIQUE: Single frontal view of the chest is obtained. FINDINGS: There is no focal air space opacity, pleural effusion, or pneumothorax seen. NG tube is seen coursin g into the stomach. The cardiac silhouette size is within normal limits. The osseous structures are intact. IMPRESSION: 1. No acute process.
[2018-09-26] MEDS: PIPERACILLIN-TAZOBACTAM 3.375 GM in SODIUM CHLORIDE 0.9% 100 ML IVPB SCH (17:52)
[2018-09-26] MEDS: LORazepam 2 MG/ML INJ IV PRN (22:59)
[2018-09-27] MEDS: LACTATED RINGERS 1,000 ML IV SCH ×2 (02:21→23:30)
[2018-09-27] MEDS: PIPERACILLIN-TAZOBACTAM 3.375 GM in SODIUM CHLORIDE 0.9% 100 ML IVPB SCH ×4 (02:21→23:29)
[2018-09-27] MEDS: HYDROmorphone 1 MG/ML 1 ML SYRINGE IVP PRN ×5 (03:59→20:53)
[2018-09-27] MEDS: ENOXAPARIN 40 MG/0.4 ML SYRINGE SQ SCH (08:08)
[2018-09-27] MEDS: NICOTINE 14MG/24HR PATCH TRANSDERM SCH (08:09)
[2018-09-27 08:13] LABS: Amylase <30 U/L (30-110); Anion Gap 5 mmol/L; Blood Urea Nitrogen 13 mg/dL (9-20); Calcium 8.5 mg/dL (8.4-10.2); Carbon Dioxide 25 mmol/L (22-30); Chloride 106 mmol/L (98-107); Glucose 73 mg/dL (74-99); Lipase 14 U/L (23-300); Potassium 4.2 mmol/L (3.5-5.1); Sodium 136 mmol/L (137-145)
[2018-09-27 08:41] LABS: Basophils % (A) 0 %; Eosinophils # (A) 0.1 k/uL (0-0.7); Eosinophils % (A) 1 %; HCT 33.8 % (39.0-53.0); HGB 10.9 gm/dL (13.0-17.5); Lymphocytes # (A) 1.4 k/uL (1.0-4.8); Lymphocytes % (A) 8 %; MCH 30.3 pg (25.0-35.0); MCHC 32.1 g/dL (31.0-37.0); MCV 94.3 fL (80.0-100.0); Mean Platelet Volume 8.8; Monocytes # (A) 0.8 k/uL (0-1.0); Monocytes % (A) 4 %; Neutrophils # (A) 14.5 k/uL (1.3-7.7); Neutrophils % (A) 86 %; Platelet Count 209 k/uL (150-450); RBC 3.59 m/uL (4.30-5.90); RDW 12.9 % (11.5-15.5); WBC 16.9 k/uL (3.8-10.6)
--- NOTE | 2018-09-27 13:42 | P.PN ---
Progress Note - Text 09/27 2273 48-year-old male status post exploratory lap by Dr. fair. Patient has an epidural catheter for postop pain control with the solution running at 8 mL an hour, his pain control is not adequate secondary to his drug use. No motor or sensory deficit noted were DC the epidural tomorrow morning
[2018-09-27] MEDS: LORazepam 2 MG/ML INJ IV PRN (14:23)
--- NOTE | 2018-09-27 15:51 | P.PN ---
Subjective Progress Note Date: 09/27/18 48-year-old male resting in bed talking out loud caring on a conversation with known in the room. Patient oriented to self and place. Epidural in place for pain control nasal gastric tube to intermittent suction. Indwelling Kelly catheter in place as well. CHRISTINE drain serous drainage. Nursing is using the [facility] protocol for impending DTs patient is slightly diaphoretic but just received IV Ativan. Heart rate in the 60s sats on room air 97% white count is elevated to 16.9 the lipase is down to 14 it was 670 the day before postop September 25 repair of perforated gastric ulcer Objective - Vital Signs Vital signs: Vital Signs Temp 98.4 F 09/27/18 14:44 Pulse 64 09/27/18 14:44 Resp 18 09/27/18 14:44 BP 127/79 09/27/18 14:44 Pulse Ox 97 09/27/18 14:44 Intake & Output 09/26/18 09/27/18 09/27/18 18:59 06:59 18:59 Intake Total 1773 550 380 Output Total 1510 1970 Balance 263 -1420 380 Intake: Intake, IV Titration 1413 550 260 Amount Lactated Ringers 1,000 ml 1350 @ 0 mls/hr IV .[facility] Rx#:[id number] Lactated Ringers 1,000 ml 350 @ 150 mls/hr IV .Q6H40M [facility] Rx#:[id number] Lactated Ringers 1,000 ml 100 160 @ 20 mls/hr IV .Q24H [facility] Rx#:[id number] Piperacillin-Tazobactam 3 100 100 .375 gm In Sodium Chloride 0.9% 100 ml @ 25 mls/hr IVPB Q8HR [facility] Rx# :[id number] Ropivacaine 500 mg 63 Hydromorphone (Pf) 7.5 mg In Sodium Chloride 0.9% 149 ml @ Per Protocol EPIDURAL .Q0M [facility] Rx#: [id number] Oral 360 120 Output: Gastric Drainage 1400 170 Drainage 110 Left Abdomen 110 Urine 1800 Uretheral (Kelly) 1800 Other: Voiding Method Indwelling Catheter - Exam Physical exam 48-year-old male resting in bed slightly diaphoretic oriented to self and place cooperative talking out loud caring on a conversation with self Lungs adequate air movement bilaterally on room air sats are 92% Heart S1-S2 audible regular heart rate in the 80s to 70s Abdomen abdominal binder in place surgical dressing dry CHRISTINE drain in place scant amount of serous drainage noted nasal gastric tube to intermittent suction few hypoactive bowel tones surgical tenderness appropriate indwelling Kelly catheter in place reports no nausea vomiting tolerating ice chips no stool Extremities no edema - Labs CBC & Chem 7: 09/27/18 07:29 09/27/18 07:29 Labs: Abnormal Lab Results - Last 24 Hours (Table) 09/27/18 09/27/18 Range/Units 07:29 07:29 WBC 16.9 H (3.8-10.6) k/uL RBC 3.59 L (4.30-5.90) m/uL Hgb 10.9 L (13.0-17.5) gm/dL Hct 33.8 L (39.0-53.0) % Neutrophils # 14.5 H (1.3-7.7) k/uL Sodium 136 L (137-145) mmol/L Glucose 73 L (74-99) mg/dL Amylase <30 L (30-110) U/L Lipase 14 L (23-300) U/L Microbiology - Last 24 Hours (Table) 09/26/18 Unknown Urine Culture - Preliminary Urine,Catheterized Assessment and Plan Assessment: Impression Present on admission severe intractable abdominal pain with nausea vomiting with a CAT scan of the abdomen and pelvis showing evidence of free air with ascites with incarcerated right inguinal hernia History of gastric ulcerative disease Repair of a perforated gastric ulcer due to perforated viscus History of daily use of alcohol use last drink 4 days prior New-onset confusion toxic encephalopathy suspected due to impending DTs from chronic alcoholism Plan Remove the indwelling Kelly catheter once the epidural has been removed Epidural for pain control per anesthesia IV Zosyn as ordered Monitor labs Further surgical recommendations pending [facility] protocol for impending DTs The above impression and plan of care have been discussed and directed by signing physician. Ritu Mcguire nurse practitioner acting as scribe for signing physician.
--- NOTE | 2018-09-27 16:39 | PN ---
PROGRESS NOTE DATE OF SERVICE: 09/27/2018 This 48-year-old gentleman who was admitted with gastric ulcer perforation had surgery. Patient has NG tube. The patient is being closely monitored. No chest pain. No palpitations. No fever. The most recent chest x-ray which was done was reviewed which showed no acute process. On exam, alert and oriented x3. Pulse is 71, blood pressure 110/73, respiration 16, temperature 98.4, pulse ox 94% on room air. HEENT: Conjunctivae normal. NECK: No jugular venous distention. CARDIOVASCULAR SYSTEM: S1, S2 muffled. RESPIRATORY SYSTEM: Breath sounds diminished at the bases. A few scattered rhonchi. No crackles. ABDOMEN: Soft. Status post surgery. LEGS: No edema. No swelling. NERVOUS SYSTEM: No focal deficit. LABS: WBC 16.9, hemoglobin 10.9. Amylase and lipase noted. ASSESSMENT: 1. Acute abdomen with perforated gastric ulcer, status post repair of perforated gastric ulcer. 2. Increased white count. 3. Inguinal hernia on the CT scan. 4. Anemia. 5. Hyponatremia, mild. 6. Increased amylase, lipase, improved. 7. History of schizophrenia. 8. History nicotine dependence. 9. History of tetrahydrocannabinol. RECOMMENDATIONS AND DISCUSSION: I recommend to continue current medication, continue symptomatic treatment. Otherwise at this time we will monitor the patient closely. Recommend a set of cultures. Guarded prognosis. Further recommendations to follow. DVT prophylaxis. Closely follow with Surgery. MMODL / THIAGON: [id number] /
[2018-09-28] MEDS: HYDROmorphone 1 MG/ML 1 ML SYRINGE IVP PRN ×6 (00:25→22:07)
[2018-09-28 08:49] LABS: Basophils % (A) 0 %; Eosinophils # (A) 0.2 k/uL (0-0.7); Eosinophils % (A) 2 %; HCT 35.4 % (39.0-53.0); HGB 11.2 gm/dL (13.0-17.5); Lymphocytes # (A) 0.9 k/uL (1.0-4.8); Lymphocytes % (A) 6 %; MCH 29.6 pg (25.0-35.0); MCHC 31.7 g/dL (31.0-37.0); MCV 93.3 fL (80.0-100.0); Mean Platelet Volume 7.8; Monocytes # (A) 0.6 k/uL (0-1.0); Monocytes % (A) 4 %; Neutrophils # (A) 13.4 k/uL (1.3-7.7); Neutrophils % (A) 88 %; Platelet Count 255 k/uL (150-450); RDW 12.8 % (11.5-15.5); WBC 15.3 k/uL (3.8-10.6)
[2018-09-28 09:05] LABS: Amylase <30 U/L (30-110); Anion Gap 11 mmol/L; Blood Urea Nitrogen 13 mg/dL (9-20); Calcium 8.4 mg/dL (8.4-10.2); Carbon Dioxide 24 mmol/L (22-30); Chloride 102 mmol/L (98-107); Glucose 59 mg/dL (74-99); Lipase 13 U/L (23-300); Potassium 3.9 mmol/L (3.5-5.1); Sodium 137 mmol/L (137-145)
[2018-09-28] MEDS: PANTOPRAZOLE 40 MG/10 ML VIAL IVP SCH ×2 (09:26→22:08)
[2018-09-28] MEDS: NICOTINE 14MG/24HR PATCH TRANSDERM SCH (09:27)
[2018-09-28] MEDS: PIPERACILLIN-TAZOBACTAM 3.375 GM in SODIUM CHLORIDE 0.9% 100 ML IVPB SCH ×2 (09:27→17:01)
[2018-09-28] MEDS: ENOXAPARIN 40 MG/0.4 ML SYRINGE SQ SCH (09:27)
[2018-09-28] MEDS: LORazepam 2 MG/ML INJ IV PRN (13:32)
[2018-09-28 15:28] LABS: Glucose,Whole Blood 71 mg/dL (75-99)
--- NOTE | 2018-09-28 16:06 | PN ---
PROGRESS NOTE DATE OF SERVICE: 09/28/2018 This 48-year-old gentleman who was admitted with acute abdomen with perforated gastric ulcer is improving significantly. No chest pain. No palpitations. No fever. On exam, alert and oriented x3. Pulse is 74, blood pressure 136/94, respiration 16, temperature 98.7, pulse ox 96% on room air. HEENT: Conjunctivae normal. NECK: No jugular venous distention. CARDIOVASCULAR SYSTEM: S1, S2 muffled. RESPIRATORY SYSTEM: Breath sounds diminished at the bases. A few scattered rhonchi. ABDOMEN: Soft. Status post surgery. NERVOUS SYSTEM: No focal deficit. LABS: WBC 15.3, hemoglobin 11.2. Other labs are noted. ASSESSMENT: 1. Acute abdomen with perforated gastric ulcer, status post repair of perforated gastric ulcer. 2. Increased white count. 3. Inguinal hernia on the CT scan. 4. Anemia. 5. Hyponatremia, mild. 6. Increased amylase and lipase, improved. 7. History of schizophrenia. 8. History of nicotine dependence. 9. History of tetrahydrocannabinol. RECOMMENDATIONS AND DISCUSSION: I recommend to continue current management, continue with symptomatic treatment. Otherwise at this time I recommend continuing with current medications. Continue with antibiotics. Closely follow with Surgery. Incentive spirometry. DVT prophylaxis. Further recommendations to follow. MMODL / IJN: [id number] /
--- NOTE | 2018-09-28 16:45 | P.PN ---
Progress Note - Text Progress Note Date: 09/28/18 postoperative day 2 Patient is doing well. He has some complaints of incisional pain. He is resting comfortably in his bed. On exam his vital signs are stable. His abdomen is soft. Incision site is clean dry and intact. Status post repair of perforated gastric ulcer. Patient will have diet starting today.
[2018-09-28 22:00] LABS: Appearance,Urine Clear (Clear); Bacteria,Urine Rare /hpf; Bilirubin,Urine Negative (Negative); Blood,Urine Trace (Negative); Color,Urine Yellow; Glucose,Urine (UA) Negative (Negative); Ketones,Urine 4+ (Negative); Leukocyte Esterase,Urine Negative (Negative); Mucus,Urine Rare /hpf; Nitrite,Urine Negative (Negative); Protein,Urine Trace (Negative); RBC,Urine 3 /hpf (0-5); Urobilinogen,Urine <2.0 mg/dL (<2.0); WBC,Urine 6 /hpf (0-5)
[2018-09-28] MEDS: LACTATED RINGERS 1,000 ML IV SCH (22:08)
[2018-09-29] MEDS: PIPERACILLIN-TAZOBACTAM 3.375 GM in SODIUM CHLORIDE 0.9% 100 ML IVPB SCH ×3 (01:12→16:30)
[2018-09-29] MEDS: HYDROmorphone 1 MG/ML 1 ML SYRINGE IVP PRN ×5 (01:12→20:18)
[2018-09-29] MEDS: LORazepam 2 MG/ML INJ IV PRN ×2 (05:19→16:30)
[2018-09-29 08:02] LABS: Basophils % (A) 0 %; Eosinophils # (A) 0.4 k/uL (0-0.7); Eosinophils % (A) 4 %; HCT 33.8 % (39.0-53.0); HGB 10.9 gm/dL (13.0-17.5); Lymphocytes # (A) 0.8 k/uL (1.0-4.8); Lymphocytes % (A) 8 %; MCH 30.1 pg (25.0-35.0); MCHC 32.3 g/dL (31.0-37.0); MCV 93.4 fL (80.0-100.0); Mean Platelet Volume 7.7; Monocytes # (A) 0.6 k/uL (0-1.0); Monocytes % (A) 6 %; Neutrophils % (A) 82 %; Platelet Count 271 k/uL (150-450); RBC 3.62 m/uL (4.30-5.90); RDW 12.6 % (11.5-15.5)
[2018-09-29 08:05] LABS: Anion Gap 9 mmol/L; Blood Urea Nitrogen 10 mg/dL (9-20); Calcium 8.3 mg/dL (8.4-10.2); Carbon Dioxide 25 mmol/L (22-30); Chloride 103 mmol/L (98-107); Glucose 106 mg/dL (74-99); Potassium 3.6 mmol/L (3.5-5.1); Sodium 137 mmol/L (137-145)
[2018-09-29] MEDS: ENOXAPARIN 40 MG/0.4 ML SYRINGE SQ SCH (09:18)
[2018-09-29] MEDS: PANTOPRAZOLE 40 MG/10 ML VIAL IVP SCH ×2 (09:18→20:18)
[2018-09-29] MEDS: NICOTINE 14MG/24HR PATCH TRANSDERM SCH (09:18)
--- NOTE | 2018-09-29 12:26 | P.PN ---
Subjective Progress Note Date: 09/29/18 48-year-old male awake resting in bed. Patient's resting comfortably. Patient states he is up ambulating in the room. Reports having incisional abdominal discomfort Abdomen soft surgical dressing dry chest Rogelio drain in place serous drainage white count 11 afebrile states urinating no difficulty no stooling Status post repair of perforated gastric ulcer Objective - Vital Signs Vital signs: Vital Signs Temp 98.6 F 09/29/18 07:15 Pulse 73 09/29/18 07:15 Resp 18 09/29/18 07:15 BP 130/82 09/29/18 07:15 Pulse Ox 96 09/29/18 07:15 Intake & Output 09/28/18 09/29/18 09/29/18 18:59 06:59 18:59 Intake Total 689 240 Output Total 180 660 Balance -180 29 240 Weight 72.575 kg Intake: Intake, IV Titration 269 Amount Lactated Ringers 1,000 ml 169 @ 20 mls/hr IV .Q24H [facility] Rx#:[id number] Piperacillin-Tazobactam 3 100 .375 gm In Sodium Chloride 0.9% 100 ml @ 25 mls/hr IVPB Q8HR [facility] Rx# :[id number] Oral 420 240 Output: Gastric Drainage 100 Drainage 80 10 Left Abdomen 80 10 Urine 650 Other: Voiding Method Indwelling Catheter Urinal # Voids 1 - Exam Physical exam Abdomen surgical dressing dry ROGELIO drain in place serous drainage surgical tenderness appropriate few hypoactive bowel tones states no stool urinating no difficulty tolerating a diet of clear liquids with no nausea no vomiting - Labs CBC & Chem 7: 09/29/18 07:21 09/29/18 07:21 Labs: Abnormal Lab Results - Last 24 Hours (Table) 09/28/18 09/28/18 09/29/18 Range/Units 15:21 21:13 07:21 WBC 11.0 H (3.8-10.6) k/uL RBC 3.62 L (4.30-5.90) m/uL Hgb 10.9 L (13.0-17.5) gm/dL Hct 33.8 L (39.0-53.0) % Neutrophils # 9.0 H (1.3-7.7) k/uL Lymphocytes # 0.8 L (1.0-4.8) k/uL Creatinine (0.66-1.25) mg/dL Glucose (74-99) mg/dL POC Glucose (mg/dL) 71 L (75-99) mg/dL Calcium (8.4-10.2) mg/dL Urine Protein Trace H (Negative) Urine Ketones 4+ H (Negative) Urine Blood Trace H (Negative) Urine WBC 6 H (0-5) /hpf Urine Bacteria Rare H (None) /hpf Urine Mucus Rare H (None) /hpf 09/29/18 Range/Units 07:21 WBC (3.8-10.6) k/uL RBC (4.30-5.90) m/uL Hgb (13.0-17.5) gm/dL Hct (39.0-53.0) % Neutrophils # (1.3-7.7) k/uL Lymphocytes # (1.0-4.8) k/uL Creatinine 0.65 L (0.66-1.25) mg/dL Glucose 106 H (74-99) mg/dL POC Glucose (mg/dL) (75-99) mg/dL Calcium 8.3 L (8.4-10.2) mg/dL Urine Protein (Negative) Urine Ketones (Negative) Urine Blood (Negative) Urine WBC (0-5) /hpf Urine Bacteria (None) /hpf Urine Mucus (None) /hpf Microbiology - Last 24 Hours (Table) 09/26/18 15:45 Blood Culture - Preliminary Blood No Growth after 48 hours 09/27/18 16:01 Blood Culture - Preliminary Blood No Growth after 24 hours Assessment and Plan Assessment: Impression Present on admission severe intractable abdominal pain with nausea vomiting with a CAT scan of the abdomen and pelvis showing evidence of free air with ascites with incarcerated right inguinal hernia History of gastric ulcerative disease Repair of a perforated gastric ulcer due to perforated viscus History of daily use of alcohol use last drink 4 days prior New-onset confusion toxic encephalopathy suspected due to impending DTs from chronic alcoholism resolved Plan [place] for pain IV Zosyn as ordered Monitor labs Further surgical recommendations pending [facility] protocol for impending DTs The above impression and plan of care have been discussed and directed by signing physician. Ritu Mcguire nurse practitioner acting as scribe for signing physician.
[2018-09-29] MEDS: HYDROcodone/APAP 7.5-325MG 1 EACH TAB PO PRN ×3 (13:01→22:12)
--- NOTE | 2018-09-29 16:20 | PN ---
PROGRESS NOTE DATE OF SERVICE: 09/29/2018 This 48-year-old gentleman who was admitted with acute abdomen with perforated gastric ulcer is being closely monitored. No chest pain. No palpitations. No fever. On exam, alert and oriented x3. Pulse 73, blood pressure 130/82, respiration 18, temperature 98.6, pulse ox 96% on room air. HEENT: Conjunctivae normal. NECK: No jugular venous distention. CARDIOVASCULAR SYSTEM: S1, S2 muffled. RESPIRATORY SYSTEM: Breath sounds diminished at the bases. Scattered rhonchi and crackles. ABDOMEN: Soft. Status post surgery. LEGS: No edema. No swelling. NERVOUS SYSTEM: No focal deficit. LABS: WBC is 11, hemoglobin 10.9. ASSESSMENT: 1. Acute abdomen with perforated gastric ulcer, status post repair of perforated gastric ulcer. 2. Increased white count. 3. Inguinal hernia on the CT scan. 4. Anemia. 5. Hyponatremia, mild. 6. Increased amylase, lipase, improved. 7. History of schizophrenia. 8. History of nicotine dependence. 9. History of tetrahydrocannabinol. RECOMMENDATIONS AND DISCUSSION: I recommend to continue current medication, continue symptomatic treatment. Continue with the broad-spectrum IV antibiotics. Monitor CBC closely. Otherwise, incentive spirometry, DVT prophylaxis. Will follow the patient closely with you. Thank you, Dr. Farmer. WOOL / THIAGON: [id number] /
[2018-09-29] MEDS: TEMAZEPAM 15 MG CAP PO PRN (22:12)
[2018-09-29] MEDS: LACTATED RINGERS 1,000 ML IV SCH (22:15)
[2018-09-30] MEDS: PIPERACILLIN-TAZOBACTAM 3.375 GM in SODIUM CHLORIDE 0.9% 100 ML IVPB SCH ×4 (01:01→23:25)
[2018-09-30] MEDS: HYDROmorphone 1 MG/ML 1 ML SYRINGE IVP PRN ×3 (02:39→23:24)
[2018-09-30] MEDS: LORazepam 2 MG/ML INJ IV PRN ×4 (03:30→23:50)
[2018-09-30] MEDS: NICOTINE 14MG/24HR PATCH TRANSDERM SCH (08:41)
[2018-09-30] MEDS: PANTOPRAZOLE 40 MG/10 ML VIAL IVP SCH ×2 (08:41→20:08)
[2018-09-30] MEDS: ENOXAPARIN 40 MG/0.4 ML SYRINGE SQ SCH (08:42)
--- NOTE | 2018-09-30 10:45 | P.PN ---
Subjective Progress Note Date: 09/30/18 Principal diagnosis: Perforated ulcer Patient still complaining of abdominal pain. He says it slightly better. He is tolerating some of his diet. He is ambulating. Drain is serosanguineous. Objective - Vital Signs Vital signs: Vital Signs Temp 98.0 F 09/30/18 08:38 Pulse 85 09/30/18 08:38 Resp 16 09/30/18 08:38 BP 136/88 09/30/18 08:38 Pulse Ox 98 09/30/18 08:38 Intake & Output 09/29/18 09/30/18 09/30/18 18:59 06:59 18:59 Intake Total 780 1220 Output Total 20 Balance 780 1200 Intake: Intake, IV Titration 140 Amount Lactated Ringers 1,000 ml 40 @ 20 mls/hr IV .Q24H [facility] Rx#:[id number] Piperacillin-Tazobactam 3 100 .375 gm In Sodium Chloride 0.9% 100 ml @ 25 mls/hr IVPB Q8HR [facility] Rx# :[id number] Oral 780 1080 Output: Drainage 20 Left Abdomen 20 Other: Voiding Method Urinal # Voids 2 2 - Exam Abdomen: Soft, nondistended, mild incisional tenderness, incision clean and dry - Labs CBC & Chem 7: 09/29/18 07:21 09/29/18 07:21 Labs: Microbiology - Last 24 Hours (Table) 09/26/18 15:45 Blood Culture - Preliminary Blood No Growth after 72 hours 09/27/18 16:01 Blood Culture - Preliminary Blood No Growth after 48 hours Assessment and Plan (1) Free intraperitoneal air Narrative/Plan: Continue antiacids. Continue pain control. Continue diet as tolerated. Repeat labs tomorrow. Current Visit: Yes Status: Acute Code(s): K66.8 - OTHER SPECIFIED DISORDERS OF PERITONEUM SNOMED Code(s): 64112042
[2018-09-30 11:15] LABS: Basophils % (A) 0 %; Eosinophils # (A) 0.5 k/uL (0-0.7); Eosinophils % (A) 5 %; HCT 34.8 % (39.0-53.0); HGB 11.3 gm/dL (13.0-17.5); Lymphocytes # (A) 1.3 k/uL (1.0-4.8); Lymphocytes % (A) 14 %; MCH 30.1 pg (25.0-35.0); MCHC 32.3 g/dL (31.0-37.0); MCV 93.2 fL (80.0-100.0); Mean Platelet Volume 7.9; Monocytes # (A) 0.8 k/uL (0-1.0); Monocytes % (A) 9 %; Neutrophils # (A) 6.4 k/uL (1.3-7.7); Neutrophils % (A) 71 %; Platelet Count 316 k/uL (150-450); RBC 3.74 m/uL (4.30-5.90); RDW 12.7 % (11.5-15.5)
[2018-09-30 11:49] LABS: Anion Gap 7 mmol/L; Calcium 8.5 mg/dL (8.4-10.2); Carbon Dioxide 29 mmol/L (22-30); Chloride 104 mmol/L (98-107); Glucose 107 mg/dL (74-99); Potassium 3.7 mmol/L (3.5-5.1); Sodium 140 mmol/L (137-145)
[2018-09-30 12:20] LABS: Blood Urea Nitrogen 6 mg/dL (9-20)
[2018-09-30] MEDS: TEMAZEPAM 15 MG CAP PO PRN (20:08)
[2018-09-30] MEDS: LACTATED RINGERS 1,000 ML IV SCH (20:45)
--- NOTE | 2018-10-01 00:05 | PN ---
PROGRESS NOTE DATE OF SERVICE: 09/30/2018 This 48-year-old gentleman admitted with abdominal gastric perforation had surgery. The patient is being closely monitored. No chest pain. No palpitations. No fever. Diet is being implemented at this time. EXAM: Alert and oriented x3. Pulse 63, blood pressure 109/68 respirations 16, temperature 98.3, pulse ox 98% on room air. HEENT: Conjunctivae normal. Oral mucosa moist. NECK: No jugular venous distention. No lymph node enlargement. CARDIOVASCULAR: S1, S2. RESPIRATORY: Diminished breath sounds at the bases. A few scattered rhonchi, no crackles. ABDOMEN: Soft, nontender. LEGS: No swelling. NERVOUS SYSTEM: No focal deficits. LABS: WBC 9 hemoglobin 7.3. UA noted. ASSESSMENT: 1. Acute abdomen with perforated gastric ulcer, status post repair of perforated gastric ulcer. 2. Increased WBC. 3. ( ) the CT scan. 4. Anemia. 5. Hyponatremia. 6. Increased amylase and lipase, improved. 7. History of schizophrenia. 8. History of nicotine dependence. 9. History of THC. RECOMMENDATIONS AND DISCUSSION: Continue current management and continue symptomatic treatment. Otherwise, at this time I recommend to continue with broad-spectrum IV antibiotics. Closely follow with surgery. Further recommendations to follow. MMODL / IJN: [id number] /
[2018-10-01] MEDS: LORazepam 2 MG/ML INJ IV PRN ×2 (05:02→08:46)
[2018-10-01] MEDS: HYDROmorphone 1 MG/ML 1 ML SYRINGE IVP PRN (06:09)
[2018-10-01 07:45] LABS: Basophils % (A) 0 %; Eosinophils # (A) 0.5 k/uL (0-0.7); Eosinophils % (A) 5 %; HCT 35.6 % (39.0-53.0); HGB 11.3 gm/dL (13.0-17.5); Lymphocytes # (A) 1.6 k/uL (1.0-4.8); Lymphocytes % (A) 15 %; MCH 29.3 pg (25.0-35.0); MCHC 31.7 g/dL (31.0-37.0); MCV 92.5 fL (80.0-100.0); Mean Platelet Volume 7.5; Monocytes # (A) 0.7 k/uL (0-1.0); Monocytes % (A) 7 %; Neutrophils # (A) 7.5 k/uL (1.3-7.7); Neutrophils % (A) 72 %; Platelet Count 366 k/uL (150-450); RBC 3.84 m/uL (4.30-5.90); RDW 12.8 % (11.5-15.5); WBC 10.5 k/uL (3.8-10.6)
[2018-10-01 07:47] LABS: Anion Gap 8 mmol/L; Blood Urea Nitrogen 7 mg/dL (9-20); Calcium 8.9 mg/dL (8.4-10.2); Carbon Dioxide 28 mmol/L (22-30); Chloride 105 mmol/L (98-107); Glucose 84 mg/dL (74-99); Potassium 4.1 mmol/L (3.5-5.1); Sodium 141 mmol/L (137-145)
[2018-10-01] MEDS: PANTOPRAZOLE 40 MG/10 ML VIAL IVP SCH (08:44)
[2018-10-01] MEDS: ENOXAPARIN 40 MG/0.4 ML SYRINGE SQ SCH (08:45)
[2018-10-01] MEDS: NICOTINE 14MG/24HR PATCH TRANSDERM SCH (08:45)
[2018-10-01] MEDS: PIPERACILLIN-TAZOBACTAM 3.375 GM in SODIUM CHLORIDE 0.9% 100 ML IVPB SCH (08:46)
--- NOTE | 2018-10-01 11:35 | P.PN ---
Subjective Progress Note Date: 10/01/18 Principal diagnosis: Perforated ulcer Patient doing well today. He would like to go home. He says he has no pain at rest. White blood cell count normal. Drain serosanguineous. Tolerating all of his regular diet. Objective - Vital Signs Vital signs: Vital Signs Temp 98.1 F 09/30/18 23:00 Pulse 70 09/30/18 23:00 Resp 16 09/30/18 23:00 BP 114/76 09/30/18 23:00 Pulse Ox 97 09/30/18 23:00 Intake & Output 09/30/18 10/01/18 10/01/18 18:59 06:59 18:59 Output Total 1420 1110 Balance -1420 -1110 Output: Drainage 20 10 Left Abdomen 20 10 Urine 1400 1100 Other: Voiding Method Urinal # Voids 1 # Bowel Movements 1 - Exam Abdomen: Soft, nondistended, incision clean and dry, minimal tenderness - Labs CBC & Chem 7: 10/01/18 06:41 10/01/18 06:41 Labs: Abnormal Lab Results - Last 24 Hours (Table) 09/30/18 10/01/18 10/01/18 Range/Units 09:24 06:41 06:41 RBC 3.84 L (4.30-5.90) m/uL Hgb 11.3 L (13.0-17.5) gm/dL Hct 35.6 L (39.0-53.0) % BUN 6 L 7 L (9-20) mg/dL Creatinine 0.65 L (0.66-1.25) mg/dL Glucose 107 H (74-99) mg/dL Microbiology - Last 24 Hours (Table) 09/26/18 15:45 Blood Culture - Preliminary Blood No Growth after 96 hours 09/27/18 16:01 Blood Culture - Preliminary Blood No Growth after 72 hours Assessment and Plan (1) Free intraperitoneal air Narrative/Plan: Continue antiacids. Continue diet as tolerated. Will remove drain. Stable for discharge. Current Visit: Yes Status: Acute Code(s): K66.8 - OTHER SPECIFIED DISORDERS OF PERITONEUM SNOMED Code(s): 19600081
[2018-10-01] MEDS: HYDROcodone/APAP 7.5-325MG 1 EACH TAB PO PRN ×2 (12:03→16:40)
[2018-10-01 14:28] VITALS: BP 169/79; PULSE 78; RESP 18; TEMP 97.9
--- NOTE | 2018-10-01 17:51 | PN ---
PROGRESS NOTE DATE OF SERVICE: 10/01/2018 This 44-year-old gentleman was admitted with acute abdominal pain, perforated gastric ulcer, status post repair of perforated gastric is improving significantly. No chest pain. No palpitations. No fever. EXAM: Alert and oriented times three. Pulse is 78. Blood pressure 169/70, respiration 18, temperature 97.9, pulse ox 92% on room air. HEENT: Conjunctivae normal. NECK: No jugular venous distention. Cardiovascular: S1, S2. Respiratory: Breath sounds diminished in the bases. No rhonchi. No crackles. Abdomen soft, status post surgery. Nontender. Legs are no edema, no swelling. Central nervous system: No focal deficits. LAB STUDIES: WBC 11.1, hemoglobin 11.3. ASSESSMENT: 1. Acute abdomen with perforated gastric ulcer, status post repair of perforated gastric ulcer. 2. Increased WBC. 3. Anemia. 4. Hyponatremia. 5. Increased amylase, lipase is improved. 6. Schizophrenia. 7. History of nicotine dependence. 8. History of THC. RECOMMENDATIONS AND DISCUSSION: Recommend to continue current medications, management. Symptomatic treatment. Otherwise, at this time, I recommend follow with primary physician in the outpatient setting. Complete the course of antibiotics also. Further recommendations surgery per surgery. Smoking cessation. Further recommendations to follow. MMODL / IJN: [id number] /
--- NOTE | 2018-10-04 07:22 | CDI ---
Last Revision, September 2017 Documentation Clarification Form Date: 10/18/18 From: Marcie Juan Sharon Wells, Adding Machine Operator Hours-8:30 am & 5 pm Toby Admit Date: 09/25/2018 6:27:00 PM Patient Name: Fred Khoury Visit Number: [id number] Discharge Date: 10/01/18 ATTENTION: The Clinical Documentation Specialists (CDI) and [facility] Coding Staff appreciate your assistance in clarifying documentation. Please respond to the clarification below the line at the bottom and electronically sign. The CDI & [facility] Coding staff will review the response and follow-up if needed. Please note: Queries are made part of the Legal Health Record. If you have any questions, please contact the author of this message via ITS. Dr. Farmer, Conflicting documentation has been found in the medical record. Pancreatitis is documented in the ED Note. Increased amylase and lipase documented in the consult, PNs 09/27, 09/28, 09/29 , 09/30 & 10/[address] Farmer [address] Lara. Risk Factors: perforated gastric ulcer repaired, alcohol dependence Clinical Indicators: amylase-167, lipase-670 Treatment: CT abd-ascites; pain meds, In your opinion what is the most clinically appropriate diagnosis for this patient? Acute pancreatitis ruled in Acute pancreatitis ruled out Other explanation of clinical findings Unable to determine (no explanation for clinical findings) ruled out MTDD
--- NOTE | 2018-10-04 07:46 | CDI ---
Last Revision, September 2017 Documentation Clarification Form Date: 10/04/18 From: Marcie Juan Sharon Wells, Clearance Cutter Hours-8:30 am & 5 pm Toby Admit Date: 09/25/2018 6:27:00 PM Patient Name: Fred Khoury Visit Number: [id number] Discharge Date: 10/01/18 ATTENTION: The Clinical Documentation Specialists (CDI) and [facility] Coding Staff appreciate your assistance in clarifying documentation. Please respond to the clarification below the line at the bottom and electronically sign. The CDI & [facility] Coding staff will review the response and follow-up if needed. Please note: Queries are made part of the Legal Health Record. If you have any questions, please contact the author of this message via ITS. Gee Cochran MD New onset of confusion - Toxic encephalopathy is documented in the 09/27 & PNs. History/Risk factors: alcoholic Clinical Indicators: CIWA total of 6: mild anxiety, agitation- slight increase activity, forehead w beads of sweat, mild itch/numbness/burn Labs: no blood alcohol CT/MRI Brain: none Treatment: Ativan 1 mg IV Q 4hr prn X 1 then IV Q 6hr prn x 1 Consults: none In your professional opinion, can you please clarify the specific type of confusion, if known? Alcoholic withdrawal delirium Alcoholic encephalopathy Toxic Encephalopathy Hepatic Encephalopathy, if indicated, please clarify: Other, please specify Unable to determine Please continue to document in your progress notes and discharge summary in order to capture severity of illness and risk of mortality. Include clinical findings that support your diagnosis. Alcoholic withdrawal delirium MTDD
--- NOTE | 2018-10-15 13:29 | P.DS ---
Providers Date of admission: 09/25/18 18:27 Expected date of discharge: 10/01/18 Attending physician: Jordan Farmer Consults: 09/25/18 22:11 Consult Physician Routine Consulting Provider: Justino Lara Consult Reason/Comments: Medical management Do you want consulting provider notified?: Yes Primary care physician: Stated None Hospital Course: This a 48-year-old male who was admitted to the emergency room with complaints of abdominal pain. Patient's workup found evidence of perforated viscus. He underwent exploratory laparotomy sent to have a perforated gastric ulcer. Please see hospital chart for details. Procedures: Exposure laparotomy, repair of gastric ulcer Patient Condition at Discharge: Serious Plan - Discharge Summary Discharge Rx Participant: Yes New Discharge Prescriptions: New HYDROcodone/APAP 7.5-325MG [[place] 7.5-325] 1 tab PO Q4H PRN 3 Days #18 tab PRN Reason: Pain Omeprazole 20 mg PO QAM #90 tablet. Amoxic-Pot Clav 875-125Mg [Augmentin 875-125] 1 tab PO BID 3 Days #21 tab No Action Ranitidine HCl [Zantac] 150 mg PO DAILY Discharge Medication List Ranitidine HCl [Zantac] 150 mg PO DAILY 09/25/18 [History] Amoxic-Pot Clav 875-125Mg [Augmentin 875-125] 1 tab PO BID 3 Days #21 tab [Rx] HYDROcodone/APAP 7.5-325MG [[place] 7.5-325] 1 tab PO Q4H PRN 3 Days #18 tab 10/01 [Rx] Omeprazole 20 mg PO QAM #90 tablet. 10/01/18 [Rx] Follow up Appointment(s)/Referral(s): Carter Ayers MD [REFERRING] - 1 Week Jordan Farmer MD [STAFF PHYSICIAN] - 1 Week Discharge Disposition: HOME SELF-CARE
--- NOTE | 2018-10-17 13:16 | P.PN ---
Progress Note - Text Progress Note Date: 09/28/18 S/p Ex -lap Pain well controlled Catheter removed today no complications, site clean, dry, intact primary team to manage
== END 2018-10-01 19:30 | disposition home or self-care (01) | DRG 330 ==
LOC: EC 15:28 → 4SSUR 18:27
PROVIDERS: ADMIT Surgery; ATTEND Surgery
PROC: 0DU907Z Supplement Duodenum with Autologous Tissue Substitute, Open Approach (ICD-10-PCS; principal; 2018-09-25 19:54)
DX: K25.5 Chronic or unspecified gastric ulcer with perforation (principal); R18.8 Other ascites; F10.231 Alcohol dependence with withdrawal delirium; E87.1 Hypo-osmolality and hyponatremia; F20.9 Schizophrenia, unspecified; D64.9 Anemia, unspecified; K40.90 Unilateral inguinal hernia, without obstruction or gangrene, not specified as recurrent; R74.8 Abnormal levels of other serum enzymes; F17.200 Nicotine dependence, unspecified, uncomplicated; Z71.6 Tobacco abuse counseling; Z79.899 Other long term (current) drug therapy; Z87.11 Personal history of peptic ulcer disease; G31.2 Degeneration of nervous system due to alcohol
CPT/HCPCS: 36415; 71045; 74177; 80048; 80053; 81001; 82150; 83690; 85025; 87040; 87086; 96360; 96361; 96365; 96375; 99285

== ENCOUNTER 2019-03-25 04:15 | Inpatient (IN) | payer OTHER ==
[2019-03-25] MEDS ORDERED: VANCOMYCIN IV PER PHARMACY 1 EACH MISC MISCELLANE PRN ×2 (04:32→06:02)
[2019-03-25] MEDS ORDERED: ACETAMINOPHEN TAB 325 MG TAB PO STA (04:32)
[2019-03-25] MEDS ORDERED: PIPERACILLIN-TAZOBACTAM 3.375 GM in SODIUM CHLORIDE 0.9% 100 ML IVPB STA (04:32)
[2019-03-25] MEDS ORDERED: MORPHINE SULFATE 4 MG/ML SYRINGE IV STA (04:33)
[2019-03-25] MEDS ORDERED: ONDANSETRON 4 MG/2 ML VIAL IVP STA (04:33)
[2019-03-25] MEDS ORDERED: VANCOMYCIN 1,000 MG in SODIUM CHLORIDE 0.9% 250 ML IVPB STA (04:34)
[2019-03-25] MEDS ORDERED: DIPH,PERTUS(ACELL)TETVAC-LF 0.5 ML VIAL IM ONE (04:38)
--- NOTE | 2019-03-25 04:38 | ED ---
Skin/Abscess/FB HPI - General Chief complaint: Skin/Abscess/Foreign Body Stated complaint: Rt arm infection Time Seen by Provider: 03/25/19 04:24 Source: patient, EMS - History of Present Illness Initial comments: This patient is a 49-year-old man who presents to be evaluated for right arm pain and swelling. The patient states this been getting worse over the past few days. He believes that it came on after he had attempted to inject methamphetamine. The patient has not noted systemic symptoms. MD complaint: abscess/boil -: days(s) Tetanus Up to Date: unsure Location: RUE Severity: moderate Quality: aching Consistency: constant Improves with: none Worsens with: palpation Context: IVDA Associated symptoms: denies other symptoms - Related Data Allergies Allergy/AdvReac Type Severity Reaction Status Date / Time No Known Allergies Allergy Verified 03/25/19 07:33 Review of Systems ROS Statement: Those systems with pertinent positive or pertinent negative responses have been documented in the HPI. ROS Other: All systems not noted in ROS Statement are negative. Constitutional: Denies: fever, chills Respiratory: Denies: cough, dyspnea Cardiovascular: Denies: chest pain, palpitations, dyspnea on exertion, orthopnea, syncope Gastrointestinal: Denies: abdominal pain, vomiting, diarrhea Musculoskeletal: Reports: as per HPI, myalgia (Right forearm). Denies: back pain Skin: Denies: rash Neurological: Denies: headache, weakness, numbness Hematological/Lymphatic: Denies: easy bleeding Past Medical History Past Medical History: No Reported History Additional Past Medical History / Comment(s): ulcers, History of Any Multi-Drug Resistant Organisms: None Reported Past Surgical History: Orthopedic Surgery Additional Past Surgical History / Comment(s): foot Past Anesthesia/Blood Transfusion Reactions: No Reported Reaction Past Psychological History: Schizophrenia Smoking Status: Current every day smoker Past Alcohol Use History: Occasional Past Drug Use History: Marijuana - Past Family History Father Family Medical History: No Reported History Mother Family Medical History: No Reported History General Exam General appearance: alert, in no apparent distress Head exam: Present: atraumatic, normocephalic Eye exam: Present: normal appearance. Absent: scleral icterus, conjunctival injection Respiratory exam: Present: normal lung sounds bilaterally. Absent: respiratory distress, wheezes, rales, rhonchi, stridor Cardiovascular Exam: Present: regular rate, normal rhythm, normal heart sounds. Absent: systolic murmur, diastolic murmur, rubs, gallop GI/Abdominal exam: Present: soft. Absent: tenderness, guarding, rebound, rigid, mass Extremities exam: Present: tenderness, normal capillary refill, other (Patient's right forearm has redness, warmth, induration. No definite fluctuant area.) Back exam: Present: normal inspection. Absent: CVA tenderness (R), CVA tenderness (L) Neurological exam: Present: alert. Absent: motor sensory deficit Skin exam: Present: warm, dry, intact, erythema (Right forearm). Absent: rash Course Vital Signs 03/25/19 03/25/19 03/25/19 04:17 05:00 05:10 Temperature Pulse Rate 96 Respiratory 16 Rate Blood Pressure 141/103 154/97 152/94 O2 Sat by Pulse 98 Oximetry 03/25/19 03/25/19 03/25/19 05:40 06:10 06:20 Temperature 98.6 F Pulse Rate 82 Respiratory 17 Rate Blood Pressure 148/87 142/93 142/93 O2 Sat by Pulse Oximetry 03/25/19 03/25/19 03/25/19 06:40 06:58 07:10 Temperature Pulse Rate 97 98 Respiratory 16 16 Rate Blood Pressure 133/87 133/87 150/81 O2 Sat by Pulse 97 Oximetry Medical Decision Making - Medical Decision Making Patient's 49-year-old man with right forearm cellulitis, possible abscess but no definite fluctuant area. Patient be admitted for IV antibiotics, ultrasound of the extremity and surgical consultation for possible I&D. - Lab Data Result diagrams: 03/29/19 09:32 03/29/19 09:32 Lab Results 03/25/19 03/25/19 03/25/19 Range/Units 04:26 04:26 04:26 WBC 27.7 H (3.8-10.6) k/uL RBC 4.98 (4.30-5.90) m/uL Hgb 15.0 (13.0-17.5) gm/dL Hct 45.2 (39.0-53.0) % MCV 90.7 (80.0-100.0) fL MCH 30.1 (25.0-35.0) pg MCHC 33.2 (31.0-37.0) g/dL RDW 13.8 (11.5-15.5) % Plt Count 285 (150-450) k/uL Neutrophils % 88 % Lymphocytes % 6 % Monocytes % 5 % Eosinophils % 1 % Basophils % 0 % Neutrophils # 24.3 H (1.3-7.7) k/uL Lymphocytes # 1.6 (1.0-4.8) k/uL Monocytes # 1.4 H (0-1.0) k/uL Eosinophils # 0.2 (0-0.7) k/uL Basophils # 0.0 (0-0.2) k/uL PT (9.0-12.0) sec INR (<1.2) APTT (22.0-30.0) sec Sodium 133 L (137-145) mmol/L Potassium 4.1 (3.5-5.1) mmol/L Chloride 102 (98-107) mmol/L Carbon Dioxide 20 L (22-30) mmol/L Anion Gap 11 mmol/L BUN 10 (9-20) mg/dL Creatinine 0.61 L (0.66-1.25) mg/dL Est GFR (CKD-EPI)AfAm >90 (>60 ml/min/1.73 sqM) Est GFR (CKD-EPI)NonAf >90 (>60 ml/min/1.73 sqM) Glucose 109 H (74-99) mg/dL Plasma Lactic Acid Daquan 1.2 (0.7-2.0) mmol/L Calcium 9.6 (8.4-10.2) mg/dL Total Bilirubin 1.1 (0.2-1.3) mg/dL AST 31 (17-59) U/L ALT 23 (21-72) U/L Alkaline Phosphatase 106 (38-126) U/L Total Protein 7.4 (6.3-8.2) g/dL Albumin 4.4 (3.5-5.0) g/dL 03/25/19 Range/Units 04:26 WBC (3.8-10.6) k/uL RBC (4.30-5.90) m/uL Hgb (13.0-17.5) gm/dL Hct (39.0-53.0) % MCV (80.0-100.0) fL MCH (25.0-35.0) pg MCHC (31.0-37.0) g/dL RDW (11.5-15.5) % Plt Count (150-450) k/uL Neutrophils % % Lymphocytes % % Monocytes % % Eosinophils % % Basophils % % Neutrophils # (1.3-7.7) k/uL Lymphocytes # (1.0-4.8) k/uL Monocytes # (0-1.0) k/uL Eosinophils # (0-0.7) k/uL Basophils # (0-0.2) k/uL PT 10.6 (9.0-12.0) sec INR 1.0 (<1.2) APTT 25.4 (22.0-30.0) sec Sodium (137-145) mmol/L Potassium (3.5-5.1) mmol/L Chloride (98-107) mmol/L Carbon Dioxide (22-30) mmol/L Anion Gap mmol/L BUN (9-20) mg/dL Creatinine (0.66-1.25) mg/dL Est GFR (CKD-EPI)AfAm (>60 ml/min/1.73 sqM) Est GFR (CKD-EPI)NonAf (>60 ml/min/1.73 sqM) Glucose (74-99) mg/dL Plasma Lactic Acid Daquan (0.7-2.0) mmol/L Calcium (8.4-10.2) mg/dL Total Bilirubin (0.2-1.3) mg/dL AST (17-59) U/L ALT (21-72) U/L Alkaline Phosphatase (38-126) U/L Total Protein (6.3-8.2) g/dL Albumin (3.5-5.0) g/dL - EKG Data -: EKG Interpreted by In EKG shows normal: sinus rhythm, axis (Normal), intervals (Normal), QRS complexes (Normal), ST-T waves (Normal) Rate: normal (Rate 82 bpm) Interpretation: normal EKG Disposition Clinical Impression: Infected forearm Disposition: ADMITTED IP TO THIS [facility] Condition: Serious Is patient prescribed a controlled substance at d/c from ED?: No
[2019-03-25 04:43] LABS: Basophils % (A) 0 %; Eosinophils # (A) 0.2 k/uL (0-0.7); Eosinophils % (A) 1 %; HCT 45.2 % (39.0-53.0); Lymphocytes # (A) 1.6 k/uL (1.0-4.8); Lymphocytes % (A) 6 %; MCH 30.1 pg (25.0-35.0); MCHC 33.2 g/dL (31.0-37.0); MCV 90.7 fL (80.0-100.0); Mean Platelet Volume 8.5; Monocytes # (A) 1.4 k/uL (0-1.0); Monocytes % (A) 5 %; Neutrophils # (A) 24.3 k/uL (1.3-7.7); Neutrophils % (A) 88 %; Platelet Count 285 k/uL (150-450); RBC 4.98 m/uL (4.30-5.90); RDW 13.8 % (11.5-15.5); WBC 27.7 k/uL (3.8-10.6)
[2019-03-25] MEDS: SODIUM CHLORIDE 0.9% 500 ML 500 ML IV SCH ×4 (04:44→08:58)
[2019-03-25 04:48] LABS: ALT 23 U/L (21-72); AST 31 U/L (17-59); Albumin 4.4 g/dL (3.5-5.0); Alkaline Phosphatase 106 U/L (38-126); Anion Gap 11 mmol/L; Blood Urea Nitrogen 10 mg/dL (9-20); Calcium 9.6 mg/dL (8.4-10.2); Carbon Dioxide 20 mmol/L (22-30); Chloride 102 mmol/L (98-107); Glucose 109 mg/dL (74-99); Potassium 4.1 mmol/L (3.5-5.1); Sodium 133 mmol/L (137-145); Total Bilirubin 1.1 mg/dL (0.2-1.3); Total Protein 7.4 g/dL (6.3-8.2)
[2019-03-25 05:16] LABS: Partial Thromboplastin Time 25.4 sec (22.0-30.0); Prothrombin Time 10.6 sec (9.0-12.0)
--- NOTE | 2019-03-25 05:21 | XR ---
EXAM: XR Chest, 1 View CLINICAL HISTORY: ITS.REASON XR Reason: Fever TECHNIQUE: Frontal view of the chest. COMPARISON: CXR 09/26/18 and 05/26/15 FINDINGS: Lungs: Left lower lung platelike atelectasis/scarring. Pleural space: Unremarkable. No pneumothorax. Heart: Unremarkable. No cardiomegaly. Mediastinum: Unremarkable. Bones/joints: Unremarkable. IMPRESSION: Left lower lung platelike atelectasis/scarring.
[2019-03-25] MEDS ORDERED: NALOXONE 0.4 MG/ML 1 ML VIAL IV PRN (05:59)
[2019-03-25] MEDS ORDERED: ACETAMINOPHEN TAB 325 MG TAB PO PRN (05:59)
[2019-03-25 07:01] LABS: Appearance,Urine Clear (Clear); Bilirubin,Urine Negative (Negative); Blood,Urine Negative (Negative); Color,Urine Yellow; Glucose,Urine (UA) Negative (Negative); Ketones,Urine 2+ (Negative); Leukocyte Esterase,Urine Negative (Negative); Nitrite,Urine Negative (Negative); PH, Urine 5.5 (5.0-8.0); Protein,Urine Negative (Negative); Urobilinogen,Urine <2.0 mg/dL (<2.0)
[2019-03-25] MEDS: MORPHINE SULFATE 4 MG/ML SYRINGE IV PRN ×3 (08:56→16:45)
[2019-03-25] MEDS: SODIUM CHLORIDE 0.9% 1,000 ML IV SCH ×2 (08:58→16:45)
[2019-03-25] MEDS: FAMOTIDINE 20 MG TAB PO SCH ×2 (08:59→23:30)
[2019-03-25] MEDS: PANTOPRAZOLE 40 MG TABLET PO SCH (08:59)
--- NOTE | 2019-03-25 10:13 | P.GSCN ---
History of Present Illness Consult date: 03/25/19 Reason for Consult: Forearm infection rule out abscess History of present illness: The patient's a 49-year-old man who presented to the ER with pain and swelling in the right arm. He attempted an injection of methamphetamine about 3 days ago. No previous history of MRSA infections or infections due to injection. No fevers or chills. Main pain is in the forearm. Some discomfort in his hand and fingers Review of Systems All systems: negative Past Medical History Past Medical History: No Reported History Additional Past Medical History / Comment(s): ulcers, History of Any Multi-Drug Resistant Organisms: None Reported Past Surgical History: Orthopedic Surgery Additional Past Surgical History / Comment(s): foot Past Anesthesia/Blood Transfusion Reactions: No Reported Reaction Past Psychological History: Schizophrenia Smoking Status: Current every day smoker Past Alcohol Use History: Occasional Past Drug Use History: Marijuana - Past Family History Father Family Medical History: No Reported History Mother Family Medical History: No Reported History Medications and Allergies Allergies Allergy/AdvReac Type Severity Reaction Status Date / Time No Known Allergies Allergy Verified 03/25/19 07:33 Surgical - Exam Osteopathic Statement: *. No significant issues noted on an osteopathic structural exam other than those noted in the History and Physical/Consult. Vital Signs Pulse Resp BP Pulse Ox 96 16 141/103 98 03/25/19 04:17 03/25/19 04:17 03/25/19 04:17 03/25/19 04:17 - General well developed, well nourished, no distress - Eyes normal ocular movement - Integumentary He has erythema from the antecubital fossa to just above the wrist. This is fairly circumferential. No definite skin breakdown. - Musculoskeletal Mild edema of the fingers of the right hand. The forearm is fairly tense. Normal radial pulse. I don't feel any definite abscess. Results - Labs 03/25/19 04:26 03/25/19 04:26 Abnormal Lab Results - Last 24 Hours (Table) 03/25/19 03/25/19 03/25/19 Range/Units 04:26 04:26 06:49 WBC 27.7 H (3.8-10.6) k/uL Neutrophils # 24.3 H (1.3-7.7) k/uL Monocytes # 1.4 H (0-1.0) k/uL Sodium 133 L (137-145) mmol/L Carbon Dioxide 20 L (22-30) mmol/L Creatinine 0.61 L (0.66-1.25) mg/dL Glucose 109 H (74-99) mg/dL Urine Ketones 2+ H (Negative) Microbiology - Last 24 Hours (Table) 03/25/19 04:32 Urine Culture - Preliminary Urine,Clean Catch Diabetes panel 03/25/19 Range/Units 04:26 Sodium 133 L (137-145) mmol/L Potassium 4.1 (3.5-5.1) mmol/L Chloride 102 (98-107) mmol/L Carbon Dioxide 20 L (22-30) mmol/L BUN 10 (9-20) mg/dL Creatinine 0.61 L (0.66-1.25) mg/dL Glucose 109 H (74-99) mg/dL Calcium 9.6 (8.4-10.2) mg/dL AST 31 (17-59) U/L ALT 23 (21-72) U/L Alkaline Phosphatase 106 (38-126) U/L Total Protein 7.4 (6.3-8.2) g/dL Albumin 4.4 (3.5-5.0) g/dL Calcium panel 03/25/19 Range/Units 04:26 Calcium 9.6 (8.4-10.2) mg/dL Albumin 4.4 (3.5-5.0) g/dL Pituitary panel 03/25/19 Range/Units 04:26 Sodium 133 L (137-145) mmol/L Potassium 4.1 (3.5-5.1) mmol/L Chloride 102 (98-107) mmol/L Carbon Dioxide 20 L (22-30) mmol/L BUN 10 (9-20) mg/dL Creatinine 0.61 L (0.66-1.25) mg/dL Glucose 109 H (74-99) mg/dL Calcium 9.6 (8.4-10.2) mg/dL Adrenal panel 03/25/19 Range/Units 04:26 Sodium 133 L (137-145) mmol/L Potassium 4.1 (3.5-5.1) mmol/L Chloride 102 (98-107) mmol/L Carbon Dioxide 20 L (22-30) mmol/L BUN 10 (9-20) mg/dL Creatinine 0.61 L (0.66-1.25) mg/dL Glucose 109 H (74-99) mg/dL Calcium 9.6 (8.4-10.2) mg/dL Total Bilirubin 1.1 (0.2-1.3) mg/dL AST 31 (17-59) U/L ALT 23 (21-72) U/L Alkaline Phosphatase 106 (38-126) U/L Total Protein 7.4 (6.3-8.2) g/dL Albumin 4.4 (3.5-5.0) g/dL Assessment and Plan (1) Infection of injection site Current Visit: Yes Status: Acute Code(s): T80.29XA - INFCT FOL OTH INFUSION, TRANSFUSE AND THERAPUTC INJECT, INIT SNOMED Code(s): 53320248 (2) Infected forearm Current Visit: Yes Status: Acute Code(s): L08.9 - LOCAL INFECTION OF THE SKIN AND SUBCUTANEOUS TISSUE, UNSP SNOMED Code(s): 94059507 Plan: I will order an urgent ultrasound of the arm to rule out abscess. If there is an abscess he'll need to be surgically drained. Have nursing assess distal pulses regularly. IV antibiotics. Further recommendations to follow.
--- NOTE | 2019-03-25 11:41 | US ---
EXAMINATION TYPE: US extremity nonvasculr ltd RT DATE OF EXAM: 03/25/2019 COMPARISON: NONE CLINICAL HISTORY: Erythema and edema. red, swollen antecubital fossa at area of puncture wound Edema with diffuse, heterogenous collection seen under skin surface. Ill-defined edema channels extend within the muscular layer as well as subcutaneous tissues. IMPRESSION: Findings compatible underlying phlegmon, abscess
[2019-03-25] MEDS ORDERED: PIPERACILLIN-TAZOBACTAM 3.375 GM in SODIUM CHLORIDE 0.9% 100 ML IVPB SCH (16:00)
[2019-03-25 16:07] VITALS: BMI 22.3
[2019-03-25] MEDS: VANCOMYCIN 1,000 MG in SODIUM CHLORIDE 0.9% 250 ML IVPB SCH (16:45)
--- NOTE | 2019-03-25 18:17 | P.PN ---
Progress Note - Text Progress Note Date: 03/25/19 The patient is reevaluated. Complaining of more swelling in his hand and now in the upper arm. Patient has some minimal edema in his fingers. There is some in his hand. No significant pain with passive movement of the fingers or thumb. The forearm is tense and red circumferentially. He now has erythema and some swelling progressing up the posterior portion of the right arm. Radial pulses palpable The ultrasound did not show a distinct abscess. There was edema and an ill- defined collection in the subcu which could be phlegmon. Assessment: Infection right upper extremity, extending from the forearm into the arm Plan: Since infection as it extending on IV antibiotics are recommended an incision and drainage. Even if there is a small amount of fluid that is drained, can be cultured and will allow relief of the pressure from the edema. At this point he does not have a compartment syndrome. Concern would be that it could occur in the future. I did discuss the case with Ortho continuous improvement facilitator in the would be available if the patient did develop a compartment syndrome. The procedure risks and complications were discussed with patient. We'll do this for him this evening.
[2019-03-25] MEDS ORDERED: PROPOFOL 10 MG/ML 20 ML VIAL IV ONE (20:15)
[2019-03-25] MEDS ORDERED: LIDOCAINE 1% INJ 10MG/ML (20 ML MDV) ONE (20:15)
[2019-03-25] MEDS ORDERED: MIDAZOLAM 2 MG/2 ML VIAL ONE (20:15)
[2019-03-25] MEDS ORDERED: fentaNYL (PF) 50 MCG/ML 2 ML AMP ONE (20:15)
[2019-03-25] MEDS ORDERED: IV FLUID CONTINUATION 1,000 ML IV ONE (20:19)
[2019-03-25] MEDS ORDERED: LACTATED RINGERS 1,000 ML IV ONE (21:10)
--- NOTE | 2019-03-25 21:25 | HP ---
HISTORY AND PHYSICAL SUBJECTIVE: Dwmkx[age][id number]-gtun-old white male with pain, swelling in the right arm, apparently injected methamphetamine in that arm 3 days ago. No previous history of MRSA. No fevers or chills. No discomfort in his hands or fingers. 14-point review of systems negative. PAST MEDICAL HISTORY: Negative. SURGICAL HISTORY: Orthopedic surgery. PAST PSYCH HISTORY: Schizophrenia. SOCIAL HISTORY: Current everyday smoker. Occasional alcohol marijuana. FAMILY HISTORY: Father negative. Mother negative for family history. ALLERGIES: Are negative. PHYSICAL EXAMINATION: VITAL SIGNS: Respiratory 14-16, pulse 90-96, blood pressure 141/103, O2 98%. HEENT normocephalic, atraumatic. CARDIOVASCULAR: S1, S2. LUNGS clear. GI soft. HEMATOLOGY negative Homans. INTEGUMENT: Left arm swollen, red. Antecubital fossa to just above the wrist. Cefepime has been ordered. Surgical consult has been ordered. Monitor CBCs. Possible infectious disease consult is also going to be ordered. Please see further orders. MMODL / IJN: [id number] /
--- NOTE | 2019-03-25 22:12 | P.CONS ---
History of Present Illness - Reason for Consult Consult date: 03/25/19 Right upper extremity cellulitis Requesting physician: Kole Leach - Chief Complaint Pain swelling and redness of the right arm 2 days - History of Present Illness Patient is a 49-year-old male with a past medical history significant for IV drug use last time he use and drug 3 days ago injected him with his right antecubital foci awaiting next day the patient started having the pain swelling and redness that has gradually progressed to involve his right forearm mostly marked in the antecubital foci area patient has been describing the pain to be probably almost 10 out of 10 with some extension of the pain to the left side of the chest patient mentioning keeping the arm down makes the pain and lipid worse induration seems some help has been complaining of chills with these symptoms patient has been evaluated by the ER physician admitted to the hospital has been seen by general surgery and ultrasound has been done we did show some phelgem formation but no definite abscess collection patient has been treated with vancomycin and Zosyn and infectious disease was consulted for further recommendation regarding antibiotic therapy Review of Systems CONSTITUTIONAL: Positive for weakness. Fever EYES: No complaint. ENT:No complaint. RESPIRATORY: No complaint. CARDIOVASCULAR: No complaint. GENITOURINARY: No complaint. GASTROINTESTINAL: No complaint. MUSCULOSKELETAL: As per history of present illness INTEGUMENTARY: As per history of present illness PSYCHOLOGICAL: No complaint. ENDOCRINE: No complaint. NEUROLOGIC: No complaint. Past Medical History Past Medical History: No Reported History Additional Past Medical History / Comment(s): ulcers, History of Any Multi-Drug Resistant Organisms: None Reported Past Surgical History: Orthopedic Surgery Additional Past Surgical History / Comment(s): foot Past Anesthesia/Blood Transfusion Reactions: No Reported Reaction Past Psychological History: Schizophrenia Smoking Status: Current every day smoker Past Alcohol Use History: Occasional Past Drug Use History: Marijuana - Past Family History Father Family Medical History: No Reported History Mother Family Medical History: No Reported History Medications and Allergies Allergies Allergy/AdvReac Type Severity Reaction Status Date / Time No Known Allergies Allergy Verified 03/25/19 07:33 Physical Exam Vitals: Vital Signs Temp Pulse Pulse Resp BP BP Pulse Ox 03/25/19 08:00 14 03/25/19 07:45 98.8 F 71 18 128/70 97 03/25/19 07:10 98 16 150/81 03/25/19 06:58 97 16 133/87 97 03/25/19 06:40 133/87 03/25/19 06:20 142/93 03/25/19 06:10 98.6 F 82 17 142/93 03/25/19 05:40 148/87 03/25/19 05:10 152/94 03/25/19 05:00 154/97 03/25/19 04:17 96 16 141/103 98 Intake and Output 03/24/19 03/25/19 03/25/19 22:59 06:59 14:59 Other: Weight 58.9 kg GENERAL DESCRIPTION: Middle-aged male lying in bed, no distress. No tachypnea or accessory muscle of respiration use. HEENT: Shows Pallor , no scleral icterus. Oral mucous membrane is dry. No pharyngeal erythema or thrush NECK: Trachea central, no thyromegaly. LUNGS: Unlabored breathing. Clear to auscultation anteriorly. No wheeze or crackle. HEART: S1, S2, regular rate and rhythm. No loud murmur ABDOMEN: Soft, no tenderness , guarding or rigidity, no organomegaly EXTREMITIES: Right upper arm is swollen most marked at the antecubital foci area slightly tense and tender to touch no open area or any drainage SKIN: No rash, no masses palpable. NEUROLOGICAL: The patient is awake, alert, oriented x3, mood and affect normal Results CBC & Chem 7: 03/25/19 04:26 03/25/19 04:26 Labs: Abnormal Lab Results - Last 24 Hours (Table) 03/25/19 03/25/19 03/25/19 Range/Units 04:26 04:26 06:49 WBC 27.7 H (3.8-10.6) k/uL Neutrophils # 24.3 H (1.3-7.7) k/uL Monocytes # 1.4 H (0-1.0) k/uL Sodium 133 L (137-145) mmol/L Carbon Dioxide 20 L (22-30) mmol/L Creatinine 0.61 L (0.66-1.25) mg/dL Glucose 109 H (74-99) mg/dL Urine Ketones 2+ H (Negative) Microbiology - Last 24 Hours (Table) 03/25/19 04:32 Urine Culture - Preliminary Urine,Clean Catch Assessment and Plan Assessment: 1-patient presented to hospital with pain swelling redness of his right arm in this patient who did have a history of IV drug use injecting the same area about 3 days ago with the likely organism due to, will be to gram-positive skin for such as strep and MRSA, gram-negative infection not entirely excluded (1) Right forearm cellulitis Current Visit: Yes Status: Acute Code(s): L03.113 - CELLULITIS OF RIGHT UPPER LIMB SNOMED Code(s): 55799313 (2) Infected forearm Current Visit: Yes Status: Acute Code(s): L08.9 - LOCAL INFECTION OF THE SKIN AND SUBCUTANEOUS TISSUE, UNSP SNOMED Code(s): 06934453 (3) Infection of injection site Current Visit: Yes Status: Acute Code(s): T80.29XA - INFCT FOL OTH INFUSION, TRANSFUSE AND THERAPUTC INJECT, INIT SNOMED Code(s): 71440797 Plan: 1-vancomycin pharmacy to dose target trough of 15 while watching his kidney f unction and Vanco trough closely 2-discontinue Zosyn to decrease risk of nephrotoxicity and add cefepime 2 g every 12hr to cover for gram negatives 3-await surgical drainage and deep cultures We will follow-up on clinical condition and cultures to further adjust medication if needed Thank you for this consultation will follow this patient along with you Time with Patient: Greater than 30
--- NOTE | 2019-03-25 22:29 | P.OP ---
Date of Procedure: 03/25/19 Preoperative Diagnosis: Infection right upper extremity Postoperative Diagnosis: Infection right upper extremity, muscle necrosis Anesthesia: HAWAA Surgeon: Giulia Mendes Whitewasher #1: Niels Robb (Case turned over intraoperatively) Pathology: other (Culture, muscle biopsy for culture) Condition: stable Disposition: PACU Indications for Procedure: Patient presented with progressive pain and swelling in the right upper extremity several days after injection of methamphetamine Operative Findings: Muscle necrosis, probably due to intramuscular injection of methamphetamine Description of Procedure: The patient's taken the operative suite where he is prepped and draped in the usual sterile manner under general endotracheal anesthetic. Lines are marked for skin incision a skin incision was made. There was no evidence of any overt abscess or phlegmon. The muscle did appear edematous and discolored through the fascia therefore the case was turned over to Dr. Robb. See his dictation for the operative report.
[2019-03-25] MEDS: CEFEPIME 2 GM in SODIUM CHLORIDE 0.9% 100 ML IVPB SCH (23:29)
--- NOTE | 2019-03-26 | P.OP ---
Date of Procedure: 03/25/19 Preoperative Diagnosis: 1. Extensive edema of the right elbow/forearm - possible abscess Postoperative Diagnosis: 1. Extensive edema of the right elbow/forearm 2. 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 Exploration of right elbow and forearm 2. Irrigation and excisional debridement of right forearm with partial resection of the brachioradialis muscle 3. Fasciotomy of the right volar forearm and anterior arm Anesthesia: CELIA Surgeon: Niels Robb Patient Account Liaison #1: Giulia Mendes Estimated Blood Loss (ml): 15 Pathology: other (Swabs and muscle for culture) Condition: stable Disposition: PACU Indications for Procedure: The patient had pain and swelling in the arm after injecting methamphetamine in the antecubital space. With suspicion for a deep abscess, he was taken for incision and drainage by Dr. Mendes. No discrete abscess was identified but the subcutaneous tissues were markedly edematous. The muscle of the mobile wad and superficial volar compartment appeared unhealthy and intraoperative consult was requested. Operative Findings: Diffuse edema throughout the anterior distal arm and volar proximal forearm with necrosis of the brachioradialis muscle Description of Procedure: The patient was positioned supine with the operative limb on an arm board. General anesthesia was administered uneventfully. The right upper extremity was prepped and draped in standard, sterile fashion. A sterile tourniquet was placed on the arm. A time-out was performed, confirming the patient, the operative side, site and the procedure to be performed: all team members expressed agreement. The limb was exsanguinated with gravity and the tourniquet was inflated. An S-shaped incision was marked over the antecubital fossa. Skin was sharply incised and full-thickness skin flaps were elevated. There was diffuse edema throughout the subcutaneous tissues as well as within the musculature of the arm and forearm. No discrete abscess or purulence was identified but there was thick exudative tissue over the mobile wad. This was sharply excised. The ulnar half of the proximal aspect of the brachioradialis appeared dusky. Th is was bluntly explored and the muscle consistency was very poor. It easily gave way and deteriorated with spreading dissection. It was noncontractile when touched with cautery. The muscle necrosis was likely secondary to direct intramuscular injection of methamphetamine. Culture swabs were obtained. The nonviable muscle was sharply resected back to pink, contractile muscle with good consistency. A specimen of the muscle was also sent for tissue culture. A fasciotomy was performed, releasing the fascia over the mobile wad, volar forearm and anterior arm were released. The underlying muscles were bluntly and explored. These were again edematous but no discrete abscess or necrotic material was identified. The tourniquet was released. Good hemostasis was obtained with held pressure and electrocautery. The wound was closed over a 10 mm flat CHRISTINE drain was inserted into the deep space left by the resected muscle. The incision was closed with interrupted 3-0 Prolene sutures. Sterile dressings of Adaptic, 4 x 4's, ABD's Kerlix and Coban were applied. All sponge, needle and instrument counts were correct at the end of the case. The patient tolerated the procedure well and was taken to recovery in stable condition.
[2019-03-26] MEDS: VANCOMYCIN 1,000 MG in SODIUM CHLORIDE 0.9% 250 ML IVPB SCH ×3 (01:17→16:12)
[2019-03-26] MEDS: MORPHINE SULFATE 4 MG/ML SYRINGE IV PRN ×5 (01:22→20:12)
[2019-03-26] MEDS: ONDANSETRON 4 MG/2 ML VIAL IVP PRN (01:31)
[2019-03-26] MEDS: SODIUM CHLORIDE 0.9% 1,000 ML IV SCH ×3 (04:34→20:12)
[2019-03-26] MEDS: PANTOPRAZOLE 40 MG TABLET PO SCH (08:53)
[2019-03-26] MEDS: FAMOTIDINE 20 MG TAB PO SCH ×2 (08:53→20:12)
[2019-03-26] MEDS: HYDROcodone/APAP 7.5-325MG 1 EACH TAB PO PRN ×3 (08:54→18:59)
[2019-03-26] MEDS: CEFEPIME 2 GM in SODIUM CHLORIDE 0.9% 100 ML IVPB SCH ×2 (08:54→20:12)
[2019-03-26 09:04] LABS: Basophils % (A) 0 %; Eosinophils # (A) 0.2 k/uL (0-0.7); Eosinophils % (A) 1 %; HCT 48.1 % (39.0-53.0); HGB 15.7 gm/dL (13.0-17.5); Lymphocytes # (A) 1.7 k/uL (1.0-4.8); Lymphocytes % (A) 6 %; MCH 29.9 pg (25.0-35.0); MCHC 32.6 g/dL (31.0-37.0); MCV 91.9 fL (80.0-100.0); Mean Platelet Volume 8.8; Monocytes # (A) 1.9 k/uL (0-1.0); Monocytes % (A) 7 %; Neutrophils # (A) 24.3 k/uL (1.3-7.7); Neutrophils % (A) 85 %; Platelet Count 208 k/uL (150-450); RBC 5.23 m/uL (4.30-5.90); WBC 28.4 k/uL (3.8-10.6)
[2019-03-26 09:15] LABS: Anion Gap 6 mmol/L; Blood Urea Nitrogen 11 mg/dL (9-20); Calcium 8.2 mg/dL (8.4-10.2); Carbon Dioxide 22 mmol/L (22-30); Chloride 103 mmol/L (98-107); Glucose 109 mg/dL (74-99); Potassium 4.8 mmol/L (3.5-5.1); Sodium 131 mmol/L (137-145)
--- NOTE | 2019-03-26 11:42 | P.PN ---
Subjective Progress Note Date: 03/26/19 The patient states that the postop pain is well-controlled. He reports decreased sensation of pressure around the elbow and forearm but still feels stiffness and swelling. He denies any numbness or tingling. Objective - Vital Signs Vital signs: Vital Signs Temp 97.3 F L 03/26/19 04:54 Pulse 75 03/26/19 04:54 Resp 18 03/26/19 04:54 BP 146/86 03/26/19 04:54 Pulse Ox 100 03/26/19 04:54 Intake & Output 03/25/19 03/26/19 03/26/19 18:59 06:59 18:59 Intake Total 1150 Output Total 645 350 Balance 505 -350 Intake: IV 1150 Output: Drainage 30 Right Arm 30 Urine 600 350 Estimated Blood Loss 15 Other: Voiding Method Urinal # Voids 1 0 # Bowel Movements 0 - Exam Dressings are clean, dry and in place. No shadowing or strikethrough. Drain is in place. Moderate persisting edema of the hand and distal arm. Increased turgor with palpation but compartments are soft and compressible. No discrete palpable fluctuance. He is able to make a loose fist and can actively extend the wrist and fingers with minimal discomfort. - Labs CBC & Chem 7: 03/26/19 08:37 03/26/19 08:37 Labs: Abnormal Lab Results - Last 24 Hours (Table) 03/25/19 03/25/19 03/26/19 Range/Units 23:29 23:29 08:37 WBC 28.4 H (3.8-10.6) k/uL Neutrophils # 24.3 H (1.3-7.7) k/uL Monocytes # 1.9 H (0-1.0) k/uL ESR 18 H (0-15) mm/hr Sodium (137-145) mmol/L Creatinine (0.66-1.25) mg/dL Glucose (74-99) mg/dL Calcium (8.4-10.2) mg/dL C-Reactive Protein 183.5 H (<10.0) mg/L 03/26/19 Range/Units 08:37 WBC (3.8-10.6) k/uL Neutrophils # (1.3-7.7) k/uL Monocytes # (0-1.0) k/uL ESR (0-15) mm/hr Sodium 131 L (137-145) mmol/L Creatinine 0.63 L (0.66-1.25) mg/dL Glucose 109 H (74-99) mg/dL Calcium 8.2 L (8.4-10.2) mg/dL C-Reactive Protein (<10.0) mg/L Microbiology - Last 24 Hours (Table) 03/25/19 21:13 Anaerobic Culture - Preliminary Arm - Right 03/25/19 21:13 Wound Culture - Preliminary Arm - Right 03/25/19 21:13 Anaerobic Culture - Preliminary Arm - Right 03/25/19 21:13 Wound Culture - Preliminary Arm - Right 03/25/19 04:32 Urine Culture - Final Urine,Clean Catch 03/25/19 04:26 Blood Culture - Preliminary Blood No Growth after 24 hours Assessment and Plan Assessment: 1. Postop day #1 status post I&D of right elbow and forearm with fasciotomies of the anterior arm and volar forearm. 2. Myonecrosis of the brachioradialis secondary to IM methamphetamine injection 3. Polysubstance abuse Plan: I discussed the intraoperative findings with the patient. Cultures are pending. There may be a superimposed infection in addition to the muscle damage. Even if cultures are initially negative, the possibility for developing an infection still remains. We discussed the possible need for a repeat surgical debridement. I encouraged him to continue working on gentle active and passive motion of his hand, wrist and elbow. I will change the dressings tomorrow and likely remove the drain if the output remains low. Encourage ambulation for DVT prophylaxis.
--- NOTE | 2019-03-26 12:10 | P.CNOR ---
History of Present Illness - HPI Consult date: 03/25/19 Requesting physician: Giulia Mendes Consult reason: other (forearm infection) History of present illness: Mr. Khoury is a pleasant 49-year-old [id number] male who was admitted for treatment of progressive pain and swelling in his right elbow and forearm. He states that this began after he allowed a friend to inject methamphetamine into his right antecubital space. He reports continued worsening, even after admission and beginning IV antibiotics. He localizes the pain to the elbow and proximal forearm as well as the distal arm. He denies numbness, tingling or pain with range of motion of the hand or wrist. He is a current smoker states he only smokes a few cigarettes a day. He smokes more marijuana. He admits to having "an addictive personality." Past Medical History Past Medical History: No Reported History Additional Past Medical History / Comment(s): ulcers, History of Any Multi-Drug Resistant Organisms: None Reported Past Surgical History: Orthopedic Surgery Additional Past Surgical History / Comment(s): foot Past Anesthesia/Blood Transfusion Reactions: No Reported Reaction Past Psychological History: Schizophrenia Smoking Status: Current every day smoker Past Alcohol Use History: Occasional Past Drug Use History: Marijuana - Past Family History Father Family Medical History: No Reported History Mother Family Medical History: No Reported History Medications and Allergies Allergies Allergy/AdvReac Type Severity Reaction Status Date / Time No Known Allergies Allergy Verified 03/25/19 07:33 Physical Examination Right upper extremity: Extensive, diffuse edema is present throughout the anterior aspect of the elbow, arm and proximal forearm. The anterior/volar compartments are quite tense but not significantly tender to palpation. There is no subcutaneous crepitus. He is able to actively open and close his hand as well as flex and extend his wrist with only mild discomfort at the extremes, though range of motion is somewhat limited. There is mild erythema and calor around the antecubital fossa. There are no visible or draining wounds. Mild edema is noted extending into the dorsal forearm but the compartment is soft and nontender. Results - Labs Labs: Abnormal Lab Results - Last 24 Hours (Table) 03/25/19 03/25/19 03/26/19 Range/Units 23:29 23:29 08:37 WBC 28.4 H (3.8-10.6) k/uL Neutrophils # 24.3 H (1.3-7.7) k/uL Monocytes # 1.9 H (0-1.0) k/uL ESR 18 H (0-15) mm/hr Sodium (137-145) mmol/L Creatinine (0.66-1.25) mg/dL Glucose (74-99) mg/dL Calcium (8.4-10.2) mg/dL C-Reactive Protein 183.5 H (<10.0) mg/L 03/26/19 Range/Units 08:37 WBC (3.8-10.6) k/uL Neutrophils # (1.3-7.7) k/uL Monocytes # (0-1.0) k/uL ESR (0-15) mm/hr Sodium 131 L (137-145) mmol/L Creatinine 0.63 L (0.66-1.25) mg/dL Glucose 109 H (74-99) mg/dL Calcium 8.2 L (8.4-10.2) mg/dL C-Reactive Protein (<10.0) mg/L Microbiology - Last 24 Hours (Table) 03/25/19 21:13 Anaerobic Culture - Preliminary Arm - Right 03/25/19 21:13 Wound Culture - Preliminary Arm - Right 03/25/19 21:13 Anaerobic Culture - Preliminary Arm - Right 03/25/19 21:13 Wound Culture - Preliminary Arm - Right 03/25/19 04:32 Urine Culture - Final Urine,Clean Catch 03/25/19 04:26 Blood Culture - Preliminary Blood No Growth after 24 hours H & H 03/25/19 03/26/19 Range/Units 04:26 08:37 Hgb 15.0 15.7 (13.0-17.5) gm/dL Hct 45.2 48.1 (39.0-53.0) % Coagulation 03/25/19 Range/Units 04:26 INR 1.0 (<1.2) Result Diagrams: 03/26/19 08:37 03/26/19 08:37 Assessment and Plan Assessment: 1. Right elbow pain and swelling status post methamphetamine injection - possible infection with concern for deep abscess 2. Polysubstance abuse Plan: I discussed the clinical findings with the patient as well as with Dr. Mendes. No acute compartment syndrome on exam but there is definitely concern for the development of one, based on the extent of the significant amount of edema and increasing pressure in the forearm. I agree with Dr. Mendes's plan for urgent surgical exploration and I will assist.
--- NOTE | 2019-03-26 14:16 | P.PN ---
Progress Note - Text Progress Note Date: 03/26/19 The patient is feeling well. He still has pain in his arm but it's much improved from preop. The dressing is clean and dry Assessment: Muscle necrosis from intramuscular injection of methamphetamine, status post debridement of necrotic muscle and fasciotomy Plan: Orthopedics will continue to follow. Cultures were sent. I'll follow up on a when necessary basis.
--- NOTE | 2019-03-26 17:32 | PN ---
PROGRESS NOTE DATE OF SERVICE: 03/26/2019. REASON FOR FOLLOWUP: Right arm cellulitis and fasciitis. INTERVAL HISTORY: The patient was taken to the OR yesterday. The patient is status post extensive debridement of the right forearm abscess fasciotomy and resection of some necrotic muscle. The patient still has significant pain to the right arm area though decreased from yesterday. Has been breathing comfortably. No chest pain. No shortness of breath or cough. No abdominal pain or diarrhea. PHYSICAL EXAMINATION: Blood pressure 146/87 with a pulse of 72, temperature 98.7, he is 97% on room air. General description is a middle-aged male lying in bed in no distress. Respiratory system: Unlabored breathing. Clear to auscultation anteriorly. Heart S1, S2. Regular rate and rhythm. Abdomen soft, no tenderness. EXTREMITIES: Right arm is currently dressed up. No obvious drainage on the dressing. LABS: Hemoglobin is 15. White count slightly improved to 8.4 with a BUN of 11, creatinine 0.63. DIAGNOSTIC IMPRESSION/PLAN: Patient with right arm abscess, cellulitis with concern for underlying fasciitis status post extensive surgery. Cultures are currently pending. Patient is covered with vancomycin and the Cefepime to continue adjusting it further based on the culture report. Continue supportive care. MMODL / IJN: [id number] /
[2019-03-26] MEDS ORDERED: VANCOMYCIN TROUGH DUE 1 EACH MISC MISCELLANE ONE (23:00)
[2019-03-27] MEDS: VANCOMYCIN 1,000 MG in SODIUM CHLORIDE 0.9% 250 ML IVPB SCH ×2 (00:03→10:14)
[2019-03-27] MEDS: MORPHINE SULFATE 4 MG/ML SYRINGE IV PRN ×6 (01:20→20:42)
[2019-03-27] MEDS: PANTOPRAZOLE 40 MG TABLET PO SCH (08:51)
[2019-03-27] MEDS: HYDROcodone/APAP 7.5-325MG 1 EACH TAB PO PRN ×3 (08:51→20:42)
[2019-03-27] MEDS: FAMOTIDINE 20 MG TAB PO SCH (08:52)
[2019-03-27] MEDS: CEFEPIME 2 GM in SODIUM CHLORIDE 0.9% 100 ML IVPB SCH ×2 (08:53→20:38)
[2019-03-27] MEDS: SODIUM CHLORIDE 0.9% 1,000 ML IV SCH ×2 (08:55→17:05)
[2019-03-27 10:03] LABS: Anion Gap 4 mmol/L; Blood Urea Nitrogen 10 mg/dL (9-20); Calcium 7.5 mg/dL (8.4-10.2); Carbon Dioxide 24 mmol/L (22-30); Chloride 102 mmol/L (98-107); Glucose 154 mg/dL (74-99); Potassium 4.3 mmol/L (3.5-5.1); Sodium 130 mmol/L (137-145)
[2019-03-27 10:07] LABS: HCT 45.9 % (39.0-53.0); HGB 14.5 gm/dL (13.0-17.5); MCH 28.9 pg (25.0-35.0); MCHC 31.7 g/dL (31.0-37.0); MCV 91.3 fL (80.0-100.0); Mean Platelet Volume 9.5; Platelet Count 199 k/uL (150-450); RBC 5.03 m/uL (4.30-5.90); RDW 14.4 % (11.5-15.5); WBC 24.7 k/uL (3.8-10.6)
--- NOTE | 2019-03-27 15:43 | P.PN ---
Subjective Progress Note Date: 03/27/19 Principal diagnosis: This is a 49-year-old gentleman admitted with myonecrosis of the right arm secondary to injection of methamphetamines, status post extensive I&D. Maintained on cefepime and vancomycin. Wound cultures pending. Pain control improving with morphine and [place] every 4 hours as needed. Denies chest pain, palpitations or shortness of breath. Afebrile, leukocytosis improving, down to 24.7. Hyponatremia, continues on IV fluid hydration. Objective - Vital Signs Vital signs: Vital Signs Temp 97.9 F 03/27/19 14:23 Pulse 79 03/27/19 14:23 Resp 18 03/27/19 14:23 BP 125/77 03/27/19 14:23 Pulse Ox 97 03/27/19 14:23 Intake & Output 03/26/19 03/27/19 03/27/19 18:59 06:59 18:59 Intake Total 900 240 Output Total 360 1020 Balance -360 900 -780 Intake: Oral 900 240 Output: Drainage 10 20 Right Arm 10 20 Urine 350 1000 Other: Voiding Method Urinal Urinal # Voids 1 2 2 # Bowel Movements 0 0 - Exam PHYSICAL EXAM: VITAL SIGNS: As above GENERAL: Sitting up in bed, no acute distress HEENT: Conjunctivae normal. eyes normal. Oral mucosa moist NECK: No JVD. No thyroid enlargement. No LNs CARDIOVASCULAR: S1, S2 regular.. No murmur, rubs or gallops. RESPIRATION: Breath sounds diminished in the bases. No rhonchi or crackles. No wheezing ABDOMEN: Soft, nontender . No guarding. no masses palpable. Bowel sounds heard. LEGS: No edema. no swelling PSYCHIATRY: Alert and oriented -3, mood and affect normal. NERVOUS SYSTEM: Cranial N 2-12 grossly normal. Moves all 4 limbs. Diffuse weakness No focal deficits. No sensory deficit. No signs of cerebellar dysfucntion. Skin: warm,dry. Right arm decreasing edema, positive radial pulse, capillary refill less than 2 seconds,initial surgical dressing intact-appears clean and dry. CHRISTINE with small amount of sanguinous drainage. Positive gross and fine motor movements. - Labs CBC & Chem 7: 03/27/19 08:50 03/27/19 08:50 Labs: Abnormal Lab Results - Last 24 Hours (Table) 03/27/19 03/27/19 Range/Units 08:50 08:50 WBC 24.7 H (3.8-10.6) k/uL Sodium 130 L (137-145) mmol/L Creatinine 0.53 L (0.66-1.25) mg/dL Glucose 154 H (74-99) mg/dL Calcium 7.5 L (8.4-10.2) mg/dL Microbiology - Last 24 Hours (Table) 03/25/19 21:13 Gram Stain - Preliminary Arm - Right Tissue Culture - Preliminary 03/25/19 21:13 Gram Stain - Preliminary Arm - Right Wound Culture - Preliminary 03/25/19 21:13 Gram Stain - Preliminary Arm - Right Wound Culture - Preliminary 03/25/19 04:26 Blood Culture - Preliminary Blood No Growth after 48 hours 03/25/19 18:09 Blood Culture - Preliminary Blood No Growth after 24 hours 03/25/19 21:13 Anaerobic Culture - Preliminary Arm - Right Assessment and Plan Assessment: -Right forearm, elbow abscess, cellulitis, status post I&D with fasciotomies of forearm with resection secondary to necrotic muscle. -Myonecrosis of the brachioradialis secondary to injecting methamphetamine -Polysubstance abuse -Hyponatremia Plan: Continue on current medication regime ,monitoring and symptomatic treatment. IV antibiotics of vancomycin and cefepime as per ID. Follow cultures closely. Wound care as per orthopedic surgery, risk of infection/fasciitis with possible repeat surgical debridement. Close monitoring of electrolytes and renal function with repeat labs ordered for a.m. Increase ambulation as tolerated. Further recommendations to follow. The impression and plan of care has been dictated as directed. : I performed a history and examination of this patient, discussed the same with the dictator. I agree with the dictator's note ,documented as a scribe. Any additional findings or plans will be noted.
[2019-03-27] MEDS: VANCOMYCIN 1,250 MG in SODIUM CHLORIDE 0.9% 250 ML IVPB SCH (17:04)
--- NOTE | 2019-03-27 18:50 | P.PN ---
Progress Note - Text Progress Note Date: 03/27/19 Cultures have been negative to date. Await final results of the cultures. Continue the antibiotics in the meantime.
--- NOTE | 2019-03-27 19:45 | PN ---
PROGRESS NOTE DATE OF SERVICE: 03/27/2019 REASON FOR FOLLOWUP: Right arm abscess, cellulitis, possible fasciitis. INTERVAL HISTORY: The patient is currently afebrile. The patient has been breathing comfortably. Pain to the right arm is currently controlled. No chest pain, shortness of breath or cough. No abdominal pain or diarrhea. PHYSICAL EXAMINATION: Blood pressure 125/77 with a pulse of 79, temperature 97.9. He is 97% on room air. General description is a middle-aged male lying in bed in no distress. RESPIRATORY SYSTEM: Unlabored breathing. Clear to auscultation anteriorly. HEART: S1, S2. Regular rate and rhythm. ABDOMEN: Soft. Right arm is currently dressed up. No obvious drainage on the dressing. LABS: Hemoglobin is 14.5, white count 24.7, BUN of 10, creatinine 0.53. Vancomycin trough has been on the low side. DIAGNOSTIC IMPRESSION AND PLAN: Patient with right arm and chest cellulitis and abscess, status post extensive debridement patient is currently covered with cefepime and vancomycin, dose to be adjusted up to keep the trough around 15 while monitoring his clinical course closely. Continue with supportive care. MMODL / IJN: [id number] /
--- NOTE | 2019-03-27 21:06 | P.PN ---
Subjective Progress Note Date: 03/27/19 Patient states the pain level is gradually decreasing. Well controlled with medication. Still feels stiffness and swelling in the elbow. Has been working on ROM. Denies new issues or concerns. Objective - Vital Signs Vital signs: Vital Signs Temp 97.9 F 03/27/19 14:23 Pulse 79 03/27/19 14:23 Resp 18 03/27/19 14:23 BP 125/77 03/27/19 14:23 Pulse Ox 97 03/27/19 14:23 Intake & Output 03/27/19 03/27/19 03/28/19 06:59 18:59 06:59 Intake Total 900 240 Output Total 1020 Balance 900 -780 Intake: Oral 900 240 Output: Drainage 20 Right Arm 20 Urine 1000 Other: Voiding Method Urinal # Voids 2 2 # Bowel Movements 0 - Exam Dressings were removed. The incision is well approximated with no erythema or purulence. Drain was removed atraumatically (20cc sanguinous drainage in reservoir). Persisting edema from hand to distal arm. Compartments are nontender and fairly soft. Able to perform active elbow ROM from 15 to 100 degrees with discomfort only at the extremes. - Labs CBC & Chem 7: 03/27/19 08:50 03/27/19 08:50 Labs: Abnormal Lab Results - Last 24 Hours (Table) 03/27/19 03/27/19 Range/Units 08:50 08:50 WBC 24.7 H (3.8-10.6) k/uL Sodium 130 L (137-145) mmol/L Creatinine 0.53 L (0.66-1.25) mg/dL Glucose 154 H (74-99) mg/dL Calcium 7.5 L (8.4-10.2) mg/dL Microbiology - Last 24 Hours (Table) 03/25/19 18:09 Blood Culture - Preliminary Blood No Growth after 48 hours 03/25/19 21:13 Gram Stain - Preliminary Arm - Right Tissue Culture - Preliminary 03/25/19 21:13 Gram Stain - Preliminary Arm - Right Wound Culture - Preliminary 03/25/19 21:13 Gram Stain - Preliminary Arm - Right Wound Culture - Preliminary 03/25/19 04:26 Blood Culture - Preliminary Blood No Growth after 48 hours Assessment and Plan Assessment: 1. POD #2 s/p I&D of right elbow and forearm with fasciotomies of the anterior arm and volar forearm 2. Myonecrosis of the brachioradialis secondary to IM injection of meth amphetamine 3. Polysubstance abuse Plan: Sterile dressings were reapplied. These may be changed as needed if saturated. Intraop cultures still pending. Continue antibiotics per ID Instructed patient to perform active and passive mobilization of the hand, wrist and elbow. Encourage ambulation for DVT prophylaxis.
[2019-03-28] MEDS: MORPHINE SULFATE 4 MG/ML SYRINGE IV PRN ×6 (01:18→21:28)
[2019-03-28] MEDS: VANCOMYCIN 1,250 MG in SODIUM CHLORIDE 0.9% 250 ML IVPB SCH ×3 (01:19→17:53)
[2019-03-28] MEDS: HYDROcodone/APAP 7.5-325MG 1 EACH TAB PO PRN ×5 (01:19→21:28)
[2019-03-28] MEDS: SODIUM CHLORIDE 0.9% 1,000 ML IV SCH ×3 (03:38→23:18)
[2019-03-28] MEDS: CEFEPIME 2 GM in SODIUM CHLORIDE 0.9% 100 ML IVPB SCH ×2 (08:24→21:28)
[2019-03-28] MEDS: PANTOPRAZOLE 40 MG TABLET PO SCH (08:24)
[2019-03-28 11:10] LABS: Anion Gap 4 mmol/L; Blood Urea Nitrogen 10 mg/dL (9-20); Calcium 7.4 mg/dL (8.4-10.2); Carbon Dioxide 27 mmol/L (22-30); Chloride 101 mmol/L (98-107); Glucose 115 mg/dL (74-99); Potassium 5.1 mmol/L (3.5-5.1); Sodium 132 mmol/L (137-145)
[2019-03-28 11:14] LABS: Basophils # (A) 0.1 k/uL (0-0.2); Basophils % (A) 0 %; Eosinophils # (A) 0.1 k/uL (0-0.7); Eosinophils % (A) 1 %; HCT 43.4 % (39.0-53.0); HGB 13.7 gm/dL (13.0-17.5); Lymphocytes # (A) 1.4 k/uL (1.0-4.8); Lymphocytes % (A) 8 %; MCH 29.1 pg (25.0-35.0); MCHC 31.6 g/dL (31.0-37.0); MCV 92.3 fL (80.0-100.0); Mean Platelet Volume 8.9; Monocytes # (A) 1.3 k/uL (0-1.0); Monocytes % (A) 8 %; Neutrophils # (A) 13.7 k/uL (1.3-7.7); Neutrophils % (A) 82 %; Platelet Count 201 k/uL (150-450); RBC 4.71 m/uL (4.30-5.90); RDW 13.9 % (11.5-15.5); WBC 16.7 k/uL (3.8-10.6)
--- NOTE | 2019-03-28 11:43 | P.PN ---
Subjective Progress Note Date: 03/28/19 The patient states the pain level is stable and well controlled. He feels the hand and wrist are moving better. Still experiencing pain and tightness in the antecubital fossa. Objective - Vital Signs Vital signs: Vital Signs Temp 98.3 F 03/28/19 05:52 Pulse 91 03/28/19 05:52 Resp 18 03/28/19 05:52 BP 146/77 03/28/19 05:52 Pulse Ox 97 03/28/19 05:52 Intake & Output 03/27/19 03/28/19 03/28/19 18:59 06:59 18:59 Intake Total 240 1000 240 Output Total 1020 350 Balance -780 1000 -110 Intake: Oral 240 1000 240 Output: Drainage 20 Right Arm 20 Urine 1000 350 Other: Voiding Method Urinal Urinal Urinal # Voids 2 3 1 # Bowel Movements 0 - Exam Dressings clean, dry and in place. No shadowing or strikethrough. Mild interval worsening of erythema and calor over the anterior distal arm at the edge of the dressing. Tenderness to palpation is unchanged but the subcutaneous tissues were marginally more tense. No palpable focal fluid collection. Minimal discomfort with midrange active elbow range of motion. - Labs CBC & Chem 7: 03/28/19 10:07 03/28/19 10:07 Labs: Abnormal Lab Results - Last 24 Hours (Table) 03/28/19 03/28/19 Range/Units 10:07 10:07 WBC 16.7 H (3.8-10.6) k/uL Neutrophils # 13.7 H (1.3-7.7) k/uL Monocytes # 1.3 H (0-1.0) k/uL Sodium 132 L (137-145) mmol/L Creatinine 0.64 L (0.66-1.25) mg/dL Glucose 115 H (74-99) mg/dL Calcium 7.4 L (8.4-10.2) mg/dL Microbiology - Last 24 Hours (Table) 03/25/19 21:13 Anaerobic Culture - Preliminary Arm - Right 03/25/19 21:13 Anaerobic Culture - Preliminary Arm - Right 03/25/19 21:13 Gram Stain - Preliminary Arm - Right Tissue Culture - Preliminary 03/25/19 21:13 Gram Stain - Final Arm - Right Wound Culture - Final 03/25/19 21:13 Gram Stain - Final Arm - Right Wound Culture - Final 03/25/19 04:26 Blood Culture - Preliminary Blood No Growth after 72 hours 03/25/19 18:09 Blood Culture - Preliminary Blood No Growth after 48 hours Assessment and Plan Assessment: 1. POD #3 s/p I&D of right elbow and forearm with fasciotomies of the anterior arm and volar forearm 2. 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 Polysubstance abuse Plan: Marginal worsening of edema and erythema. Based on the intraoperative findings and the present appearance of the arm, a repeat I&D may be necessary. Will reevaluate tomorrow morning. Intraop cultures still pending. Continue antibiotics per ID Instructed patient to perform active and passive mobilization of the hand, wrist and elbow. Encourage ambulation for DVT prophylaxis.
--- NOTE | 2019-03-28 20:32 | PN ---
PROGRESS NOTE DATE OF SERVICE: 03/28/2019 REASON FOR FOLLOWUP: Right arm cellulitis and necrotic muscle. INTERVAL HISTORY: The patient is complaining of is currently controlled. Patient denies having any chest pain or shortness of breath or cough. No abdominal pain or any diarrhea. PHYSICAL EXAMINATION: Blood pressure 135/86, pulse 84, temperature 98.2. He is 99% on room air. General description is a middle-aged male lying in bed in no distress. RESPIRATORY SYSTEM: Unlabored breathing. Clear to auscultation anteriorly. HEART: S1, S2. Regular rate and rhythm. ABDOMEN: Soft. No tenderness. Right arm incision is currently clean with no significant redness. Some swelling was there and blood-stained drainage with no purulence. LABS: Hemoglobin is 13.7, white count 16.7, BUN of 10, creatinine 0.64. Culture has been negative so far. DIAGNOSTIC IMPRESSION AND PLAN: Patient admitted to hospital with right arm swelling and redness with concern for possible abscess. However, no abscess was noted at the time of surgical drainage. He did have evidence of necrotic muscle that has been dissected and fasciotomy. Culture has been negative so far. Currently covered with cefepime and vancomycin. If the cultures remain negative, hopefully he can finish therapy with a short course of oral antibiotics. Continue with supportive care. MMODL / IJN: [id number] /
[2019-03-29] MEDS: HYDROcodone/APAP 7.5-325MG 1 EACH TAB PO PRN ×5 (02:08→22:53)
[2019-03-29] MEDS: VANCOMYCIN 1,250 MG in SODIUM CHLORIDE 0.9% 250 ML IVPB SCH ×3 (02:08→17:32)
[2019-03-29] MEDS: MORPHINE SULFATE 4 MG/ML SYRINGE IV PRN ×4 (02:09→22:43)
[2019-03-29] MEDS: CEFEPIME 2 GM in SODIUM CHLORIDE 0.9% 100 ML IVPB SCH ×2 (07:03→22:55)
[2019-03-29] MEDS: PANTOPRAZOLE 40 MG TABLET PO SCH (07:03)
--- NOTE | 2019-03-29 07:27 | P.PN ---
Subjective Progress Note Date: 03/29/19 The patient states he has been working hard on range of motion. He feels the swelling and tightness has decreased. Pain is well-controlled. Objective - Vital Signs Vital signs: Vital Signs Temp 98.1 F 03/29/19 05:28 Pulse 88 03/29/19 05:28 Resp 16 03/29/19 05:28 BP 134/98 03/29/19 05:28 Pulse Ox 95 03/29/19 05:28 Intake & Output 03/28/19 03/29/19 03/29/19 18:59 06:59 18:59 Intake Total 480 Output Total 350 550 Balance 130 -550 Intake: Oral 480 Output: Urine 350 550 Other: Voiding Method Urinal Urinal Urinal # Voids 2 1 # Bowel Movements 0 - Exam Dressings were removed. Interval improvement in erythema and edema. The incision is well approximated without dehiscence or drainage. There are a couple small evolving blisters along the proximal third of the incision. The subcutaneous tissue around the antecubital fossa is still somewhat firm but softer than yesterday. It is minimally tender to palpation. - Labs CBC & Chem 7: 03/28/19 10:07 03/28/19 10:07 Labs: Abnormal Lab Results - Last 24 Hours (Table) 03/28/19 03/28/19 Range/Units 10:07 10:07 WBC 16.7 H (3.8-10.6) k/uL Neutrophils # 13.7 H (1.3-7.7) k/uL Monocytes # 1.3 H (0-1.0) k/uL Sodium 132 L (137-145) mmol/L Creatinine 0.64 L (0.66-1.25) mg/dL Glucose 115 H (74-99) mg/dL Calcium 7.4 L (8.4-10.2) mg/dL Microbiology - Last 24 Hours (Table) 03/25/19 04:26 Blood Culture - Preliminary Blood No Growth after 96 hours 03/25/19 18:09 Blood Culture - Preliminary Blood No Growth after 72 hours 03/25/19 21:13 Anaerobic Culture - Preliminary Arm - Right 03/25/19 21:13 Anaerobic Culture - Preliminary Arm - Right 03/25/19 21:13 Gram Stain - Preliminary Arm - Right Tissue Culture - Preliminary 03/25/19 21:13 Gram Stain - Final Arm - Right Wound Culture - Final 03/25/19 21:13 Gram Stain - Final Arm - Right Wound Culture - Final Assessment and Plan Assessment: 1. POD #4 s/p I&D of right elbow and forearm with fasciotomies of the anterior arm and volar forearm 2. 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 Polysubstance abuse Plan: The elbow is showing clinical improvement. It does not need repeat debridement at this time but we will continue to monitor its progress. I recommended beginning some physical/occupational therapy to work on range of motion and mobilization of the elbow as well as addressing edema control. Intraop cultures still pending. Continue antibiotics per ID Instructed patient to perform active and passive mobilization of the hand, wrist and elbow. Encourage ambulation for DVT prophylaxis.
[2019-03-29] MEDS ORDERED: VANCOMYCIN TROUGH DUE 1 EACH MISC MISCELLANE ONE (09:00)
[2019-03-29 10:12] LABS: Basophils # (A) 0.1 k/uL (0-0.2); Basophils % (A) 0 %; Eosinophils # (A) 0.2 k/uL (0-0.7); Eosinophils % (A) 1 %; HCT 40.8 % (39.0-53.0); HGB 13.1 gm/dL (13.0-17.5); Lymphocytes # (A) 1.5 k/uL (1.0-4.8); Lymphocytes % (A) 10 %; MCH 29.3 pg (25.0-35.0); MCV 91.5 fL (80.0-100.0); Mean Platelet Volume 8.8; Monocytes % (A) 7 %; Neutrophils # (A) 11.8 k/uL (1.3-7.7); Neutrophils % (A) 80 %; Platelet Count 169 k/uL (150-450); RBC 4.46 m/uL (4.30-5.90); RDW 14.2 % (11.5-15.5); WBC 14.8 k/uL (3.8-10.6)
[2019-03-29 10:28] LABS: Anion Gap 2 mmol/L; Blood Urea Nitrogen 10 mg/dL (9-20); Calcium 7.3 mg/dL (8.4-10.2); Carbon Dioxide 26 mmol/L (22-30); Chloride 103 mmol/L (98-107); Glucose 123 mg/dL (74-99); Potassium 4.3 mmol/L (3.5-5.1); Sodium 131 mmol/L (137-145)
[2019-03-29] MEDS: SODIUM CHLORIDE 0.9% 1,000 ML IV SCH ×2 (10:42→22:55)
--- NOTE | 2019-03-29 16:57 | P.PN ---
Subjective Progress Note Date: 03/28/19 Principal diagnosis: This is a 49-year-old gentleman admitted with myonecrosis of the right arm secondary to injection of methamphetamines, status post extensive I&D. Maintained on cefepime and vancomycin. Wound cultures pending. Pain control improving with morphine and [place] every 4 hours as needed. Denies chest pain, palpitations or shortness of breath. Afebrile, leukocytosis improving, down to 24.7. Hyponatremia, continues on IV fluid hydration. 03/28/2019 maintained on cefepime and vancomycin .afebrile, WBC down to 16. Cultures pending. CHRISTINE dc'd yesterday. Surgical dressing changed, minimal serosanguineous drainage. Pain improving. Objective - Vital Signs Vital signs: Vital Signs Temp 98.2 F 03/28/19 13:17 Pulse 84 03/28/19 13:17 Resp 18 03/28/19 13:17 BP 135/86 03/28/19 13:17 Pulse Ox 99 03/28/19 13:17 Intake & Output 03/27/19 03/28/19 03/28/19 18:59 06:59 18:59 Intake Total 240 1000 480 Output Total 1020 350 Balance -780 1000 130 Intake: Oral 240 1000 480 Output: Drainage 20 Right Arm 20 Urine 1000 350 Other: Voiding Method Urinal Urinal Urinal # Voids 2 3 2 # Bowel Movements 0 0 - Exam PHYSICAL EXAM: VITAL SIGNS: As above GENERAL: Sitting up in bed, no acute distress HEENT: Conjunctivae normal. eyes normal. Oral mucosa moist NECK: No JVD. No thyroid enlargement. No LNs CARDIOVASCULAR: S1, S2 regular.. No murmur, rubs or gallops. RESPIRATION: Breath sounds diminished in the bases. No rhonchi or crackles. No wheezing ABDOMEN: Soft, nontender . No guarding. no masses palpable. Bowel sounds heard. LEGS: No edema. no swelling PSYCHIATRY: Alert and oriented -3, mood and affect normal. NERVOUS SYSTEM: Cranial N 2-12 grossly normal. Moves all 4 limbs. Diffuse weakness No focal deficits. No sensory deficit. No signs of cerebellar dysfucnt ion. Skin: warm,dry. Right arm edema,erythema, positive radial pulse, capillary refill less than 2 seconds, dressing clean dry and intact. Positive gross and fine motor movements. Microbiology - Last 24 Hours (Table) 03/25/19 21:13 Anaerobic Culture - Preliminary Arm - Right 03/25/19 21:13 Anaerobic Culture - Preliminary Arm - Right 03/25/19 21:13 Gram Stain - Preliminary Arm - Right Tissue Culture - Preliminary 03/25/19 21:13 Gram Stain - Final Arm - Right Wound Culture - Final 03/25/19 21:13 Gram Stain - Final Arm - Right Wound Culture - Final 03/25/19 04:26 Blood Culture - Preliminary Blood No Growth after 72 hours 03/25/19 18:09 Blood Culture - Preliminary Blood No Growth after 48 hours - Labs CBC & Chem 7: 03/29/19 09:32 03/29/19 09:32 Labs: Abnormal Lab Results - Last 24 Hours (Table) 03/28/19 03/28/19 Range/Units 10:07 10:07 WBC 16.7 H (3.8-10.6) k/uL Neutrophils # 13.7 H (1.3-7.7) k/uL Monocytes # 1.3 H (0-1.0) k/uL Sodium 132 L (137-145) mmol/L Creatinine 0.64 L (0.66-1.25) mg/dL Glucose 115 H (74-99) mg/dL Calcium 7.4 L (8.4-10.2) mg/dL Microbiology - Last 24 Hours (Table) 03/25/19 21:13 Anaerobic Culture - Preliminary Arm - Right 03/25/19 21:13 Anaerobic Culture - Preliminary Arm - Right 03/25/19 21:13 Gram Stain - Preliminary Arm - Right Tissue Culture - Preliminary 03/25/19 21:13 Gram Stain - Final Arm - Right Wound Culture - Final 03/25/19 21:13 Gram Stain - Final Arm - Right Wound Culture - Final 03/25/19 04:26 Blood Culture - Preliminary Blood No Growth after 72 hours 03/25/19 18:09 Blood Culture - Preliminary Blood No Growth after 48 hours Assessment and Plan Assessment: -Right forearm, elbow abscess, cellulitis, status post I&D with fasciotomies of forearm with resection secondary to necrotic muscle. -Myonecrosis of the brachioradialis secondary to injecting methamphetamine -Polysubstance abuse -Hyponatremia Plan: Continue on current medication regime ,monitoring and symptomatic treatment. IV antibiotics of vancomycin and cefepime as per ID. Final cultures pending. Wound care as per orthopedic surgery, potential repeat I&D. Increase ambulation as tolerated. Further recommendations to follow. The impression and plan of care has been dictated as directed. : I performed a history and examination of this patient, discussed the same with the dictator. I agree with the dictator's note ,documented as a scribe. Any ad ditional findings or plans will be noted.
--- NOTE | 2019-03-29 17:04 | P.PN ---
Subjective Progress Note Date: 03/28/19 Principal diagnosis: This is a 49-year-old gentleman admitted with myonecrosis of the right arm secondary to injection of methamphetamines, status post extensive I&D. Maintained on cefepime and vancomycin. Wound cultures pending. Pain control improving with morphine and [place] every 4 hours as needed. Denies chest pain, palpitations or shortness of breath. Afebrile, leukocytosis improving, down to 24.7. Hyponatremia, continues on IV fluid hydration. 03/28/2019 maintained on cefepime and vancomycin .afebrile, WBC down to 16. Cultures pending. CHRISTINE dc'd yesterday. Surgical dressing changed, minimal serosanguineous drainage. Pain improving. 03/29/2019, T-max 99.2, leukocytosis continues to improve down to 14.8. Final Cultures pending. Sodium 131. Denies chest pain, palpitations or shortness of breath. Denies lightheadedness dizziness or focal deficits. Reports decreased "tightness "of the affected extremity, Pain controlled. No repeat debridement recommended at this time per orthopedic surgery. Objective - Vital Signs Vital signs: Vital Signs Temp 96.9 F L 03/29/19 14:23 Pulse 86 03/29/19 14:23 Resp 16 03/29/19 14:23 BP 146/99 03/29/19 14:23 Pulse Ox 98 03/29/19 14:23 Intake & Output 03/28/19 03/29/19 03/29/19 18:59 06:59 18:59 Intake Total 480 Output Total 350 550 Balance 130 -550 Intake: Oral 480 Output: Urine 350 550 Other: Voiding Method Urinal Urinal Urinal # Voids 2 1 3 # Bowel Movements 0 0 - Exam PHYSICAL EXAM: VITAL SIGNS: As above GENERAL: Sitting up in bed, no acute distress HEENT: Conjunctivae normal. eyes normal. Oral mucosa moist NECK: No JVD. No thyroid enlargement. No LNs CARDIOVASCULAR: S1, S2 regular.. No murmur, rubs or gallops. RESPIRATION: Breath sounds diminished in the bases. No rhonchi or crackles. No wheezing ABDOMEN: Soft, nontender . No guarding. no masses palpable. Bowel sounds heard. LEGS: No edema. no swelling PSYCHIATRY: Alert and oriented -3, mood and affect normal. NERVOUS SYSTEM: Cranial N 2-12 grossly normal. Moves all 4 limbs. Diffuse weakness No focal deficits. No sensory deficit. No signs of cerebellar dysfucntion. Skin: warm,dry. Right arm improving edema,erythema, positive radial pulse, capillary refill less than 2 seconds, dressing clean dry and intact. Positive gross and fine motor movements. Microbiology 03/25/19 21:13 Arm - Right Anaerobic Culture - Preliminary 03/25/19 21:13 Arm - Right Gram Stain - Preliminary 03/25/19 21:13 Arm - Right Tissue Culture - Preliminary 03/25/19 04:26 Blood Blood Culture - Preliminary No Growth after 96 hours 03/25/19 18:09 Blood Blood Culture - Preliminary No Growth after 72 hours 03/25/19 21:13 Arm - Right Anaerobic Culture - Preliminary 03/25/19 21:13 Arm - Right Anaerobic Culture - Preliminary 03/25/19 21:13 Arm - Right Gram Stain - Final 03/25/19 21:13 Arm - Right Wound Culture - Final 03/25/19 21:13 Arm - Right Gram Stain - Final 03/25/19 21:13 Arm - Right Wound Culture - Final 03/25/19 04:32 Urine,Clean Catch Urine Culture - Final - Labs CBC & Chem 7: 03/29/19 09:32 03/29/19 09:32 Labs: Abnormal Lab Results - Last 24 Hours (Table) 03/29/19 03/29/19 Range/Units 09:32 09:32 WBC 14.8 H (3.8-10.6) k/uL Neutrophils # 11.8 H (1.3-7.7) k/uL Sodium 131 L (137-145) mmol/L Creatinine 0.53 L (0.66-1.25) mg/dL Glucose 123 H (74-99) mg/dL Calcium 7.3 L (8.4-10.2) mg/dL Microbiology - Last 24 Hours (Table) 03/25/19 21:13 Anaerobic Culture - Preliminary Arm - Right 03/25/19 21:13 Gram Stain - Preliminary Arm - Right Tissue Culture - Preliminary 03/25/19 04:26 Blood Culture - Preliminary Blood No Growth after 96 hours 03/25/19 18:09 Blood Culture - Preliminary Blood No Growth after 72 hours Assessment and Plan Assessment: -Right forearm, elbow abscess, cellulitis, status post I&D with fasciotomies of forearm with resection secondary to necrotic muscle. -Myonecrosis of the brachioradialis secondary to injecting methamphetamine -Polysubstance abuse -Hyponatremia Plan: Continue on current medication regime ,monitoring and symptomatic treatment. Discharge planning in progress pending Final cultures results. Wound care as per orthopedic surgery. Antibiotics as per ID. Increase ambulation as tolerated. Further recommendations to follow. The impression and plan of care has been dictated as directed. : I performed a history and examination of this patient, discussed the same with the dictator. I agree with the dictator's note ,documented as a scribe. Any additional findings or plans will be noted.
--- NOTE | 2019-03-29 17:47 | PN ---
PROGRESS NOTE DATE OF SERVICE: 03/29/2019 REASON FOR FOLLOWUP: Right arm brachioradialis myonecrosis from IV drug use and cellulitis. INTERVAL HISTORY: The patient is currently afebrile. Pain to the right hip is currently controlled. Denies having any chest pain or shortness of breath or cough. No abdominal pain or diarrhea. PHYSICAL EXAMINATION: Blood pressure 146/99 with a pulse of 86, temperature 96.9. He is 98% on room air. General description is a middle-aged male lying in bed in no distress. RESPIRATORY SYSTEM: Unlabored breathing. Clear to auscultation anteriorly. HEART: S1, S2. Regular rate and rhythm. ABDOMEN: Soft. No tenderness. LABS: Hemoglobin 13.1, white count 14.8. BUN of 10, creatinine 0.53. Cultures are still pending. DIAGNOSTIC IMPRESSION AND PLAN: Patient with right arm swelling and redness with concern for possible abscess. The patient is status post extensive surgery with resection of the brachioradialis muscle with myonecrosis, but no evidence of any abscess. Cultures are so far negative. Currently on cefepime and vancomycin. That will be transitioned to oral antibiotic if the cultures remain negative and close outpatient followup. MMODL / IJN: [id number] /
[2019-03-29 23:41] LABS: Hepatitis A Antibody IgM Non-Reactive (Non-Reactive); Hepatitis B Core IgM Non-Reactive (Non-Reactive)
[2019-03-30] MEDS: VANCOMYCIN 1,250 MG in SODIUM CHLORIDE 0.9% 250 ML IVPB SCH ×2 (01:50→09:47)
[2019-03-30] MEDS: MORPHINE SULFATE 4 MG/ML SYRINGE IV PRN ×4 (03:12→15:20)
[2019-03-30] MEDS: PANTOPRAZOLE 40 MG TABLET PO SCH (07:07)
[2019-03-30] MEDS: CEFEPIME 2 GM in SODIUM CHLORIDE 0.9% 100 ML IVPB SCH (07:08)
[2019-03-30] MEDS: SODIUM CHLORIDE 0.9% 1,000 ML IV SCH (07:08)
[2019-03-30] MEDS: HYDROcodone/APAP 7.5-325MG 1 EACH TAB PO PRN ×2 (09:48→14:09)
[2019-03-30] MEDS: ONDANSETRON 4 MG/2 ML VIAL IVP PRN (09:55)
[2019-03-30 10:19] LABS: Basophils # (A) 0.1 k/uL (0-0.2); Basophils % (A) 0 %; Eosinophils # (A) 0.1 k/uL (0-0.7); Eosinophils % (A) 1 %; HCT 40.3 % (39.0-53.0); HGB 13.1 gm/dL (13.0-17.5); Lymphocytes # (A) 1.7 k/uL (1.0-4.8); Lymphocytes % (A) 12 %; MCH 29.4 pg (25.0-35.0); MCHC 32.4 g/dL (31.0-37.0); MCV 90.8 fL (80.0-100.0); Mean Platelet Volume 9.1; Monocytes % (A) 7 %; Neutrophils # (A) 11.4 k/uL (1.3-7.7); Neutrophils % (A) 79 %; Platelet Count 166 k/uL (150-450); RBC 4.44 m/uL (4.30-5.90); RDW 14.2 % (11.5-15.5); WBC 14.5 k/uL (3.8-10.6)
[2019-03-30 10:21] LABS: Anion Gap 3 mmol/L; Blood Urea Nitrogen 10 mg/dL (9-20); Calcium 7.6 mg/dL (8.4-10.2); Carbon Dioxide 29 mmol/L (22-30); Chloride 102 mmol/L (98-107); Glucose 114 mg/dL (74-99); Sodium 134 mmol/L (137-145)
[2019-03-30 13:47] VITALS: BP 158/85; PULSE 95; RESP 16; TEMP 96.5
--- NOTE | 2019-03-30 14:15 | PN ---
PROGRESS NOTE DATE OF SERVICE: 03/30/2019 REASON FOR FOLLOWUP: Right arm cellulitis. INTERVAL HISTORY: The patient is currently afebrile. The patient has been breathing comfortably. The pain to the right arm is currently controlled. Denies having any chest pain or shortness of breath or cough. No abdominal pain or any diarrhea. Overall, he is feeling better. PHYSICAL EXAMINATION: On examination, blood pressure 138/93 with a pulse of 85, temperature 98.2. He is 98% on room air. General description is a middle-aged male lying in bed in no distress. RESPIRATORY SYSTEM: Unlabored breathing, clear to auscultation anteriorly. HEART: S1, S2. Regular rate and rhythm. ABDOMEN: Soft, no tenderness. RIGHT ARM: Swelling has improved. Did have minimal redness. No drainage. LABS: Hemoglobin 13.1, white count 14.5. BUN of 10, creatinine 0.56. Cultures remain to be negative. DIAGNOSTIC IMPRESSION AND PLAN: Patient with right arm myonecrosis of the brachioradialis muscle from into the muscle, status post resection of the same, fasciotomy and primary closure. Tissue culture has been negative as well as response antibiotic to finish with short course of oral Keflex with close outpatient followup, was cleared for discharge from ortho standpoint. Continue supportive care. MMODL / IJN: [id number] /
--- NOTE | 2019-03-30 14:50 | P.PN ---
Subjective Progress Note Date: 03/30/19 The patient is a 49-year-old male who is status post I&D of the right elbow and forearm with fasciotomies of the anterior arm and volar forearm. He is postop day #4. He states he has been continuing to work hard on range of motion. The patient feels that his swelling and tightness have continued to improve. Pain is well-controlled. Dr. Lewis prescribed Keflex for 10 days on an outpatient basis and he is now ready for discharge. Objective - Vital Signs Vital signs: Vital Signs Temp 96.5 F L 03/30/19 13:46 Pulse 95 03/30/19 13:46 Resp 16 03/30/19 13:46 BP 158/85 03/30/19 13:46 Pulse Ox 98 03/30/19 13:46 Intake & Output 03/29/19 03/30/19 03/30/19 18:59 06:59 18:59 Output Total 800 800 Balance -800 -800 Weight 58.9 kg Output: Urine 800 800 Other: Voiding Method Urinal # Voids 3 2 # Bowel Movements 0 - Exam The patient is alert and oriented 3. Dressing was removed. There is continued improvement of erythema and edema. Incision is well approximated without dehiscence or drainage. There are blisters along the proximal third of the incision that appeared to be improving. The subq tissue around the antecubital fossa continues to improve. There is minimal tenderness upon palpation. Neurological and circulatory status is intact. - Labs CBC & Chem 7: 03/30/19 09:12 03/30/19 09:12 Labs: Abnormal Lab Results - Last 24 Hours (Table) 03/30/19 03/30/19 Range/Units 09:12 09:12 WBC 14.5 H (3.8-10.6) k/uL Neutrophils # 11.4 H (1.3-7.7) k/uL Sodium 134 L (137-145) mmol/L Creatinine 0.56 L (0.66-1.25) mg/dL Glucose 114 H (74-99) mg/dL Calcium 7.6 L (8.4-10.2) mg/dL Microbiology - Last 24 Hours (Table) 03/25/19 21:13 Anaerobic Culture - Final Arm - Right 03/25/19 21:13 Anaerobic Culture - Final Arm - Right 03/25/19 21:13 Anaerobic Culture - Final Arm - Right 03/25/19 21:13 Gram Stain - Final Arm - Right Tissue Culture - Final 03/25/19 04:26 Blood Culture - Preliminary Blood No Growth after 120 hours 03/25/19 18:09 Blood Culture - Preliminary Blood No Growth after 96 hours Assessment and Plan (1) Infected forearm Current Visit: Yes Status: Acute Code(s): L08.9 - LOCAL INFECTION OF THE SKIN AND SUBCUTANEOUS TISSUE, UNSP SNOMED Code(s): 52214771 (2) Right forearm cellulitis Current Visit: Yes Status: Acute Code(s): L03.113 - CELLULITIS OF RIGHT UPPER LIMB SNOMED Code(s): 51582745 Plan: The clinical findings were discussed with the patient and Dr. Robb. The patient may discharge home today with oral antibiotics per Dr. Lewis and he will follow-up in our office in 1 week. He was instructed to call the office sooner if issues arise such as increased swelling, redness, and drainage. All questions were answered to the best of my ability and discharge instructions were written.
--- NOTE | 2019-03-30 16:20 | P.DS ---
Providers Date of admission: 03/25/19 06:02 Attending physician: Kole Leach Consults: 03/25/19 06:00 Consult Physician Urgent Consulting Provider: Giulia Mendes Consult Reason/Comments: forearm infection Do you want consulting provider notified?: Yes 03/25/19 12:27 Consult Physician Routine Consulting Provider: Yenifer Lewis Consult Reason/Comments: RIGHT ARM INFECTION Do you want consulting provider notified?: Yes 03/25/19 18:20 Consult Physician Routine Consulting Provider: Niels Robb Consult Reason/Comments: forearm infection Do you want consulting provider notified?: Already Contacted Primary care physician: Stated None Hospital Course: This is a 49-year-old gentleman admitted with myonecrosis of the right arm secondary to injection of methamphetamines, status post extensive I&D. Maintained on cefepime and vancomycin. Wound cultures pending. Pain control improving with morphine and [place] every 4 hours as needed. Denies chest pain, palpitations or shortness of breath. Afebrile, leukocytosis improving, down to 24.7. Hyponatremia, continues on IV fluid hydration. 03/28/2019 maintained on cefepime and vancomycin .afebrile, WBC down to 16. Cultures pending. CHRISTINE dc'd yesterday. Surgical dressing changed, minimal serosanguineous drainage. Pain improving. 03/29/2019, T-max 99.2, leukocytosis continues to improve down to 14.8. Final Cultures pending. Sodium 131. Denies chest pain, palpitations or shortness of breath. Denies lightheadedness dizziness or focal deficits. Reports decreased "tightness "of the affected extremity, Pain controlled. No repeat debridement recommended at this time per orthopedic surgery. 03/30/2018: Patient seen and examined covering for Dr. Granda. The patient states that his range of motion is improving markedly. The patient's been cleared by orthopedics as well as infectious disease for discharge. The patient will be placed on Keflex 500 mg 3 times a day for 10 days. He will follow-up with orthopedics as well as infectious disease. White blood cell count is improving and is 14.5. Renal function is stable. The patient has been afebrile and hemodynamically stable. Patient Condition at Discharge: Serious Plan - Discharge Summary New Discharge Prescriptions: New HYDROcodone/APAP 5-325MG [[place] 5] 1 each PO Q4HR PRN #25 tab PRN Reason: Pain Cephalexin [Keflex] 500 mg PO Q8HR #30 cap Discharge Medication List Cephalexin [Keflex] 500 mg PO Q8HR #30 cap 03/30/19 [Rx] HYDROcodone/APAP 5-325MG [[place] 5] 1 each PO Q4HR PRN #25 tab 03/30/19 [Rx] Follow up Appointment(s)/Referral(s): Kole Leach MD [STAFF PHYSICIAN] - 1 Week (Patient is to adress getting back [facility] on his own. If he obtains this he can follow-up with Dr. Leach. Otherwise see different pcp that takes his [place] insurance. ) Niels Robb DO [Medical Doctor] - 04/05/19 2:15 pm () Yenifer Lewis MD [STAFF PHYSICIAN] - 04/09/19 9:15 am Patient Instructions/Handouts: Wound Infection (DC) Activity/Diet/Wound Care/Special Instructions: Keep incision clean and dry May shower uncovered Cover incision with dressing if there is drainage. Otherwise, do not have to keep incision covered. Perform range of motion exercises of the elbow Light use of the hand Follow up with Dr. Robb in 1 week. Call [facility] with any questions or concerns, . Discharge Disposition: HOME SELF-CARE
== END 2019-03-30 16:06 | disposition home or self-care (01) | DRG 854 ==
LOC: EC 04:15 → 4MS4W 06:02
PROVIDERS: ADMIT Family Medicine; ATTEND Family Medicine
PROC: 0KB90ZZ Excision of Right Lower Arm and Wrist Muscle, Open Approach (ICD-10-PCS; principal; 2019-03-25 19:43)
PROC: 0JBG0ZZ Excision of Right Lower Arm Subcutaneous Tissue and Fascia, Open Approach (ICD-10-PCS; principal; 2019-03-25 19:43)
DX: A48.0 Gas gangrene (principal); L03.113 Cellulitis of right upper limb; E87.1 Hypo-osmolality and hyponatremia; L02.413 Cutaneous abscess of right upper limb; F17.210 Nicotine dependence, cigarettes, uncomplicated; F20.9 Schizophrenia, unspecified
CPT/HCPCS: 36415; 71045; 80048; 80053; 80074; 80202; 81003; 83605; 85025; 85027; 85610; 85652; 85730; 86140; 87040; 87070; 87075; 87086; 87205; 88304; 90471; 90715; 93005; 96365; 96366; 96374; 99285

== ENCOUNTER 2019-03-31 05:05 | Observation (INO) | payer OTHER ==
[2019-03-31 05:14] VITALS: RESP 18
--- NOTE | 2019-03-31 05:49 | ED ---
SOB HPI - General Chief Complaint: Shortness of Breath Stated Complaint: JOSE C Time Seen by Provider: 03/31/19 05:37 Source: patient, EMS Mode of arrival: EMS Limitations: no limitations - History of Present Illness Initial Comments: This patient is a 49-year-old man who presents with complaint that he feels he is developing some shortness of breath, and he also has noted some swelling into his scrotum. He states is been going on since he left the hospital a number of hours ago. Patient had been admitted in the hospital to have incision and drainage of a right forearm abscess related to IVDA. Patient denies chest pain. No fever or chills. No cough or sputum. Patient denies leg pain or swelling. He states that he does feel like his abdomen is swelling. MD Complaint: shortness of breath -: days(s) Severity: mild Consistency: constant Improves With: nothing Worsens With: nothing Associated Symptoms: other (Edema) Treatments Prior to Arrival: none - Related Data Home Oxygen Therapy: No Previous Rx's Medication Instructions Recorded Cephalexin [Keflex] 500 mg PO Q8HR #30 cap 03/30/19 HYDROcodone/APAP 5-325MG [[place] 5] 1 each PO Q4HR PRN #25 tab 03/30/19 Allergies Allergy/AdvReac Type Severity Reaction Status Date / Time No Known Allergies Allergy Verified 03/31/19 05:13 Review of Systems ROS Statement: Those systems with pertinent positive or pertinent negative responses have been documented in the HPI. ROS Other: All systems not noted in ROS Statement are negative. Constitutional: Denies: fever, chills, weakness Respiratory: Reports: dyspnea. Denies: cough, wheezes Cardiovascular: Reports: edema (Scrotum). Denies: chest pain, palpitations, syncope Gastrointestinal: Reports: nausea. Denies: abdominal pain, vomiting, diarrhea Genitourinary: Denies: dysuria, hematuria Musculoskeletal: Denies: back pain Skin: Denies: rash Neurological: Denies: headache, weakness, numbness Past Medical History Past Medical History: No Reported History Additional Past Medical History / Comment(s): ulcers, History of Any Multi-Drug Resistant Organisms: None Reported Past Surgical History: Orthopedic Surgery Additional Past Surgical History / Comment(s): foot, right elbow Past Anesthesia/Blood Transfusion Reactions: No Reported Reaction Past Psychological History: Schizophrenia Smoking Status: Current every day smoker Past Alcohol Use History: Occasional Past Drug Use History: Heroin, IV Drug Use, Marijuana - Past Family History Father Family Medical History: No Reported History Mother Family Medical History: No Reported History General Exam Limitations: no limitations General appearance: alert, in no apparent distress Head exam: Present: atraumatic, normocephalic Eye exam: Present: normal appearance. Absent: scleral icterus, conjunctival injection ENT exam: Present: normal oropharynx Neck exam: Present: normal inspection Respiratory exam: Present: normal lung sounds bilaterally. Absent: respiratory distress, wheezes, rales, rhonchi, stridor Cardiovascular Exam: Present: regular rate, normal rhythm, normal heart sounds. Absent: systolic murmur, diastolic murmur, rubs, gallop GI/Abdominal exam: Present: soft, tenderness (There is mild right upper quadrant tenderness no rebound or guarding). Absent: distended, guarding, rebound, rigid, mass Extremities exam: Present: normal capillary refill, other (Inspection of the right arm). Absent: pedal edema, calf tenderness Back exam: Present: normal inspection. Absent: CVA tenderness (R), CVA tenderness (L) Neurological exam: Present: alert Skin exam: Present: warm, dry, intact, normal color. Absent: rash Course Vital Signs 03/31/19 03/31/19 05:08 06:49 Temperature 98.7 F Pulse Rate 90 87 Respiratory 18 18 Rate Blood Pressure 154/102 143/87 O2 Sat by Pulse 97 98 Oximetry Medical Decision Making - Medical Decision Making Patient's 49-year-old man presenting with complaint of dyspnea and scrotal edema. He is found to have elevation of his transaminase levels in comparison with 5 days ago. Patient states that he has not to his knowledge overdosed on Tylenol-containing analgesic products, but I have concerns that he may have accidentally overdosed on these medications and will treat with acetylcysteine as a precaution. Case discussed with Dr. Hardy. Unfortunately Tylenol level is still pending at the time of shift change. - Lab Data Result diagrams: 03/31/19 05:23 03/31/19 05:23 Lab Results 03/31/19 03/31/19 03/31/19 Range/Units 05:23 05:23 05:23 WBC 12.5 H (3.8-10.6) k/uL RBC 3.90 L (4.30-5.90) m/uL Hgb 11.6 L (13.0-17.5) gm/dL Hct 35.4 L (39.0-53.0) % MCV 90.6 (80.0-100.0) fL MCH 29.9 (25.0-35.0) pg MCHC 32.9 (31.0-37.0) g/dL RDW 14.6 (11.5-15.5) % Plt Count 182 (150-450) k/uL Neutrophils % 76 % Lymphocytes % 10 % Monocytes % 7 % Eosinophils % 3 % Basophils % 0 % Neutrophils # 9.5 H (1.3-7.7) k/uL Lymphocytes # 1.3 (1.0-4.8) k/uL Monocytes # 0.9 (0-1.0) k/uL Eosinophils # 0.3 (0-0.7) k/uL Basophils # 0.0 (0-0.2) k/uL PT 9.9 (9.0-12.0) sec INR 0.9 (<1.2) APTT 23.5 (22.0-30.0) sec Sodium 137 (137-145) mmol/L Potassium 4.1 (3.5-5.1) mmol/L Chloride 102 (98-107) mmol/L Carbon Dioxide 31 H (22-30) mmol/L Anion Gap 4 mmol/L BUN 12 (9-20) mg/dL Creatinine 0.60 L (0.66-1.25) mg/dL Est GFR (CKD-EPI)AfAm >90 (>60 ml/min/1.73 sqM) Est GFR (CKD-EPI)NonAf >90 (>60 ml/min/1.73 sqM) Glucose 107 H (74-99) mg/dL Calcium 7.9 L (8.4-10.2) mg/dL Total Bilirubin <0.1 L (0.2-1.3) mg/dL AST 198 H (17-59) U/L ALT 124 H (21-72) U/L Alkaline Phosphatase 95 (38-126) U/L Troponin I (0.000-0.034) ng/mL NT-Pro-B Natriuret Pep pg/mL Total Protein 5.0 L (6.3-8.2) g/dL Albumin 2.6 L (3.5-5.0) g/dL Acetaminophen ug/mL 03/31/19 03/31/19 03/31/19 Range/Units 05:23 05:23 05:23 WBC (3.8-10.6) k/uL RBC (4.30-5.90) m/uL Hgb (13.0-17.5) gm/dL Hct (39.0-53.0) % MCV (80.0-100.0) fL MCH (25.0-35.0) pg MCHC (31.0-37.0) g/dL RDW (11.5-15.5) % Plt Count (150-450) k/uL Neutrophils % % Lymphocytes % % Monocytes % % Eosinophils % % Basophils % % Neutrophils # (1.3-7.7) k/uL Lymphocytes # (1.0-4.8) k/uL Monocytes # (0-1.0) k/uL Eosinophils # (0-0.7) k/uL Basophils # (0-0.2) k/uL PT (9.0-12.0) sec INR (<1.2) APTT (22.0-30.0) sec Sodium (137-145) mmol/L Potassium (3.5-5.1) mmol/L Chloride (98-107) mmol/L Carbon Dioxide (22-30) mmol/L Anion Gap mmol/L BUN (9-20) mg/dL Creatinine (0.66-1.25) mg/dL Est GFR (CKD-EPI)AfAm (>60 ml/min/1.73 sqM) Est GFR (CKD-EPI)NonAf (>60 ml/min/1.73 sqM) Glucose (74-99) mg/dL Calcium (8.4-10.2) mg/dL Total Bilirubin (0.2-1.3) mg/dL AST (17-59) U/L ALT (21-72) U/L Alkaline Phosphatase (38-126) U/L Troponin I <0.012 (0.000-0.034) ng/mL NT-Pro-B Natriuret Pep 224 pg/mL Total Protein (6.3-8.2) g/dL Albumin (3.5-5.0) g/dL Acetaminophen <10.0 ug/mL - EKG Data -: EKG Interpreted by Me EKG shows normal: sinus rhythm, axis (Normal), intervals (Normal), QRS complexes (Normal), ST-T waves (Normal) Rate: normal (Rate 90 bpm) Interpretation: normal EKG Disposition Clinical Impression: Transaminitis Disposition: ADMITTED IP TO THIS [facility] Condition: Fair Is patient prescribed a controlled substance at d/c from ED?: No Referrals: None,Stated [Primary Care Provider] - 1-2 days
--- NOTE | 2019-03-31 06:05 | XR ---
EXAM: XR Chest, 2 Views CLINICAL HISTORY: ITS.REASON XR Reason: Pain TECHNIQUE: Frontal and lateral views of the chest. COMPARISON: 03/25/19 FINDINGS: Lungs: Hazy lower lung opacities which may represent pleural effusion with infiltrates/atelectasis. Pleural space: No significant pneumothorax. Heart: Likely stable cardiomediastinal silhouette. Mediastinum: See above. Bones/joints: Stable. IMPRESSION: Hazy lower lung opacities which may represent pleural effusion with infiltrates/atelectasis.
[2019-03-31 06:14] LABS: Basophils % (A) 0 %; Eosinophils # (A) 0.3 k/uL (0-0.7); Eosinophils % (A) 3 %; HCT 35.4 % (39.0-53.0); HGB 11.6 gm/dL (13.0-17.5); Lymphocytes # (A) 1.3 k/uL (1.0-4.8); Lymphocytes % (A) 10 %; MCH 29.9 pg (25.0-35.0); MCHC 32.9 g/dL (31.0-37.0); MCV 90.6 fL (80.0-100.0); Mean Platelet Volume 8.8; Monocytes # (A) 0.9 k/uL (0-1.0); Monocytes % (A) 7 %; Neutrophils # (A) 9.5 k/uL (1.3-7.7); Neutrophils % (A) 76 %; Platelet Count 182 k/uL (150-450); RDW 14.6 % (11.5-15.5); WBC 12.5 k/uL (3.8-10.6)
[2019-03-31 06:23] LABS: INR 0.9 (<1.2); Partial Thromboplastin Time 23.5 sec (22.0-30.0); Prothrombin Time 9.9 sec (9.0-12.0)
[2019-03-31 06:39] LABS: ALT 124 U/L (21-72); AST 198 U/L (17-59); Albumin 2.6 g/dL (3.5-5.0); Alkaline Phosphatase 95 U/L (38-126); Anion Gap 4 mmol/L; Blood Urea Nitrogen 12 mg/dL (9-20); Calcium 7.9 mg/dL (8.4-10.2); Carbon Dioxide 31 mmol/L (22-30); Chloride 102 mmol/L (98-107); Glucose 107 mg/dL (74-99); Potassium 4.1 mmol/L (3.5-5.1); Sodium 137 mmol/L (137-145); Total Bilirubin <0.1 mg/dL (0.2-1.3)
[2019-03-31] MEDS ORDERED: ACETYLCYSTEINE IV 10,500 MG in DEXTROSE 5% IN WATER 200 ML IV ONE ×2 (07:24)
[2019-03-31] MEDS ORDERED: MORPHINE SULFATE 4 MG/ML SYRINGE IV PRN ×2 (07:27→08:47)
[2019-03-31] MEDS ORDERED: NALOXONE 0.4 MG/ML 1 ML VIAL IV PRN (07:27)
[2019-03-31] MEDS ORDERED: ONDANSETRON 4 MG/2 ML VIAL IVP PRN (07:27)
[2019-03-31] MEDS ORDERED: SODIUM CHLORIDE 0.9% 1,000 ML IV SCH (07:30)
[2019-03-31] MEDS ORDERED: DEXTROSE 5% IN WATER 500 ML with ACETYLCYSTEINE IV 3,500 MG IV ONE (09:00)
[2019-03-31] MEDS ORDERED: NICOTINE POLACRILEX 2 MG GUM BUCCAL PRN (10:20)
[2019-03-31] MEDS ORDERED: TEMAZEPAM 15 MG CAP PO PRN (10:20)
[2019-03-31] MEDS ORDERED: ALPRAZolam 0.5 MG TAB PO PRN (10:32)
[2019-03-31] MEDS ORDERED: MELATONIN 5 MG TABLET PO PRN (10:32)
[2019-03-31] MEDS ORDERED: cloNIDine HCL 0.1 MG TAB PO PRN (10:32)
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
[2019-03-31 10:49] VITALS: BMI 26.4
[2019-03-31] MEDS: FUROSEMIDE 10 MG/ML 4 ML VIAL IV SCH ×2 (10:55→19:41)
[2019-03-31] MEDS: KETOROLAC 30 MG/ML 1 ML VIAL IVP PRN ×2 (10:56→19:42)
--- NOTE | 2019-03-31 12:41 | US ---
EXAMINATION TYPE: US liver DATE OF EXAM: 03/31/2019 COMPARISON: CT 09/25/2018 CLINICAL HISTORY: elevated LFT. EXAM MEASUREMENTS: Liver Length: 17.4 cm Gallbladder Wall: 0.3 cm CBD: 0.6 cm Right Kidney: 10.5 x 5.5 x 5.7 cm Pancreas: Duct visualized measuring 0.3 cm Liver: Measuring upper limits of normal. Echogenic parenchyma Gallbladder: Probable polyp visualized. Gallbladder wall measuring upper limits of normal Evidence for sonographic Stringer's sign: No CBD: wnl as visualized Right Kidney: No hydronephrosis or masses seen Visualized portions of the pancreas are unremarkable. The liver is normal in size and unremarkable. There is a questionable small polyp within the body of the gallbladder. Gallbladder wall is upper key its of normal measuring 3 mm. There is no sonographic Stringer's sign. Right kidney is normal. IMPRESSION: GALLBLADDER POLYP.
[2019-03-31] MEDS ORDERED: DEXTROSE 5% IN WATER 1,000 ML with ACETYLCYSTEINE IV 7,000 MG IV ONE (13:00)
[2019-03-31] MEDS: MORPHINE SULFATE 4 MG/ML SYRINGE IV PRN ×2 (16:12→22:00)
[2019-03-31] MEDS: CEPHALEXIN 500 MG CAP PO SCH ×2 (16:13→21:59)
[2019-03-31 17:54] LABS: Hepatitis A Antibody IgM Non-Reactive (Non-Reactive); Hepatitis B Core IgM Non-Reactive (Non-Reactive)
[2019-04-01] MEDS: KETOROLAC 30 MG/ML 1 ML VIAL IVP PRN ×2 (03:32→09:30)
[2019-04-01] MEDS: MORPHINE SULFATE 4 MG/ML SYRINGE IV PRN ×2 (06:17→12:10)
[2019-04-01 07:30] LABS: HCT 35.3 % (39.0-53.0); HGB 11.6 gm/dL (13.0-17.5); MCH 30.2 pg (25.0-35.0); MCV 91.6 fL (80.0-100.0); Mean Platelet Volume 8.9; Platelet Count 195 k/uL (150-450); RBC 3.85 m/uL (4.30-5.90); RDW 14.9 % (11.5-15.5); WBC 9.5 k/uL (3.8-10.6)
[2019-04-01 07:42] LABS: ALT 120 U/L (21-72); AST 128 U/L (17-59); Albumin 2.4 g/dL (3.5-5.0); Alkaline Phosphatase 69 U/L (38-126); Anion Gap 3 mmol/L; Blood Urea Nitrogen 11 mg/dL (9-20); Calcium 7.8 mg/dL (8.4-10.2); Carbon Dioxide 34 mmol/L (22-30); Chloride 102 mmol/L (98-107); Glucose 86 mg/dL (74-99); Magnesium 1.8 mg/dL (1.6-2.3); Potassium 3.8 mmol/L (3.5-5.1); Sodium 139 mmol/L (137-145); Total Bilirubin 0.2 mg/dL (0.2-1.3); Total Protein 4.8 g/dL (6.3-8.2)
[2019-04-01] MEDS: FUROSEMIDE 10 MG/ML 4 ML VIAL IV SCH (09:30)
[2019-04-01] MEDS: CEPHALEXIN 500 MG CAP PO SCH (09:31)
--- NOTE | 2019-04-01 09:38 | ECHOF ---
Referral Reason:CHF MEASUREMENTS -------- HEIGHT: 162.6 cm WEIGHT: 70.3 kg BP: 140/95 IVSd: 1.1 cm (0.6 - 1.1) LVIDd: 3.8 cm (3.9 - 5.3) LVPWd: 1.2 cm (0.6 - 1.1) EDV(Teich): 60 ml IVSs: 1.5 cm LVIDs: 2.4 cm LVPWs: 1.9 cm %IVS Thck: 45 % ESV(Teich): 20 ml EF(Teich): 67 % %FS: 37 % SV(Teich): 41 ml LA Diam: 2.4 cm (2.7 - 3.8) RVIDd: 3.5 cm (< 3.3) IVC: 19.93 mm LALs A4C: 4.2 cm LAAs A4C: 13.8 cm LAESV A-L A4C: 39 ml LAESV MOD A4C: 38 ml LALs A2C: 5.2 cm LAAs A2C: 15.9 cm LAESV A-L A2C: 41 ml LAESV MOD A2C: 34 ml LAESV(A-L): 44 ml LAESV Index (A-L): 25.22 ml/m Ao Diam: 3.3 cm (2.0 - 3.7) AV Cusp: 2.3 cm (1.5 - 2.6) EPSS: 1.2 cm MV E Erik: 1.04 m/s MV DecT: 241 ms MV Dec [place]: 4.3 m/s MV A Erik: 0.87 m/s MV E/A Ratio: 1.19 MV PHT: 70 ms AV Vmax: 1.72 m/s AV maxP.85 mmHg AV Vmax: 1.85 m/s AV Vmean: 1.00 m/s AV maxP.70 mmHg AV meanP.12 mmHg AV Env.Ti: 277 ms AV VTI: 27.6 cm TR Vmax: 4.25 m/s TR maxP.41 mmHg RAP: 5.00 mmHg RVSP: 77.41 mmHg MV EF SLOPE: 41.34 mm/s (70 - 150) MV EXCURSION: 19.20 mm (> 18.000) FINDINGS -------- Sinus rhythm. This was a technically good study. The left ventricular size is normal. There is borderline concentric left ventricular hypertrophy. Overall left ventricular systolic function is normal with, an EF between 60 - 65 %. The right ventricle is mildly enlarged. Normal LA size by volume 22+/-6 ml/m2. The right atrium is normal in size. Interatrial and interventricular septum intact. The aortic valve is trileaflet and appears structurally normal. The mitral valve is normal. Mild tricuspid regurgitation present. There is severe pulmonary hypertension. The right ventricul ar systolic pressure, as measured by Doppler, is 77.41mmHg. There is no pulmonic regurgitation present. The aortic root size is normal. Normal inferior vena cava with normal inspiratory collapse consistent with estimated right atrial pre ssure of 5 mmHg. There is a small, generalized pericardial effusion present. CONCLUSIONS -------- 1. Sinus rhythm. 2. This was a technically good study. 3. The left ventricular size is normal. 4. There is borderline concentric left ventricular hypertrophy. 5. Overall left ventricular systolic function is normal with, an EF between 60 - 65 %. 6. The right ventricle is mildly enlarged. 7. Normal LA size by volume 22+/-6 ml/m2. 8. The right atrium is normal in size. 9. Interatrial and interventricular septum intact. 10. The aortic valve is trileaflet and appears structurally normal. 11. The mitral valve is normal. 12. Mild tricuspid regurgitation present. 13. There is severe pulmonary hypertension. 14. The right ventricular systolic pressure, as measured by Doppler, is 77.41mmHg. 15. There is no pulmonic regurgitation present. 16. The aortic root size is normal. 17. Normal inferior vena cava with normal inspiratory collapse consistent with estimated right atrial pressure of 5 mmHg. 18. There is a small, generalized pericardial effusion present. TEST DECK SUPERVISOR: Marii Diaz, DANUTA
[2019-04-01 09:49] VITALS: BP 124/79; PULSE 86; TEMP 98.6
--- NOTE | 2019-04-01 10:28 | P.DS ---
Providers Date of admission: 03/31/19 07:49 Expected date of discharge: 04/01/19 Attending physician: Melissa Lazo DO Primary care physician: Stated None Hospital Course: Discharge Diagnosis: Fluid overload due to high salt content fluids Tranaminitis, undetermined etiology Right arm infection with necrotic tissue Tobacco abuse History of IVDA use Hx of gastric ulcer Hospital Course: Patient is a 49-year-old male with a history of gastric ulcers requiring pain or for perforation, and IVDA, and tobacco abuse who presented to the ER with complaints of scrotal swelling. Patient was admitted here from 03/25 through 03/30 secondary to right forearm infection. He underwent surgery with an I&D. Cultures were negative. He was told to take Keflex and given a p rescription for [place], and was subsequently discharged home. In the ER he underwent extensive evaluation. His vital signs within normal limits on admission. Initial laboratory analysis revealed white blood cell count 12.5 (down from 14), AST 198, ALT 124, total bilirubin less than 0.1. There was concern for possible Tylenol overdose with his recent [place]'s prescription. Patient was started on IV fluids and N-acetylcysteine. Chest x-ray reviewed which showed fluid overload. He was started on lasix and the fluid overload was felt to be due to high salt content IV fluids. Second tylenol level was less than 10 and patient denied taking extra norco. His NAC drip was stopped. He had a live ultrasound that showed possible gallbladder polyp but no other acute abnormalities. Hepatitis profile negative. His breathing had improved by the morning after admission. His scrot edema also improved per patient. Verbal report of echo shows pulm HTN with preserved EF and no significant valvular dysf unction. He was determined stable for discharge home. He will follow up with Dr. Robb and Dr. Lewis as previouslt scheduled. He has also been given the [facility] to establish a PCP. He was given Dr. Farmer to see for gallbladder polyp. He can continue with his norco that was prescribed previous and he should complete his course of keflex. Patient seen and examined at bedside. Breathing better, still having arm pain, no chest pain, scrotal edema better Vital signs reviewed and stable. General: non toxic, no distress, appears at stated age, disheveled Derm: warm, dry Head: atraumatic, normocephalic, symmetric Eyes: EOMI, no lid lag, anicteric sclera Mouth: no lip lesion, mucus membranes moist Cardiovascular: S1S2 reg, no murmur, positive posterior tibial pulse bilateral, Lungs: ronchi bilateral , no accessory muscle use Abdominal: soft, nontender to palpation, no guarding, no appreciable organomegaly Ext: no gross muscle atrophy, no edema, no contractures Neuro: CN II-XI grossly intact, no focal neuro deficits Psych: Alert, oriented, appropriate affect A total of 25 minutes of time were spent preparing this complex discharge summary . Pertinent Studies: Echo- final report pending CXR- fluid overload Liver US- Possible gallbladder polyp Patient Condition at Discharge: Fair Plan - Discharge Summary Discharge Rx Participant: Yes New Discharge Prescriptions: New Furosemide [Lasix] 40 mg PO DAILY #3 tablet Ibuprofen [Motrin] 600 mg PO Q8HR PRN #30 tab PRN Reason: Pain Pantoprazole [Protonix] 40 mg PO AC-BRKFST #30 tablet. Continue Cephalexin [Keflex] 500 mg PO Q8HR #30 cap HYDROcodone/APAP 5-325MG [[place] 5-325] 1 tab PO Q4HR PRN PRN Reason: Pain Discharge Medication List Cephalexin [Keflex] 500 mg PO Q8HR #30 cap 03/30/19 [Rx] HYDROcodone/APAP 5-325MG [[place] 5-325] 1 tab PO Q4HR PRN 03/31/19 [History] Furosemide [Lasix] 40 mg PO DAILY #3 tablet 04/01/19 [Rx] Ibuprofen [Motrin] 600 mg PO Q8HR PRN #30 tab 04/01/19 [Rx] Pantoprazole [Protonix] 40 mg PO AC-BRKFST #30 tablet. 04/01/19 [Rx] Follow up Appointment(s)/Referral(s): None,Stated [Primary Care Provider] - 1-2 days [facility] [NON-STAFF] - 1-2 Days Niels Robb DO [Medical Doctor] - 04/05/19 2:15 pm Yenifer Lewis MD [STAFF PHYSICIAN] - 04/09/19 9:15 am Activity/Diet/Wound Care/Special Instructions: Regular diet Activity as tolerated Incision clean and dry, may shower with that uncovered, cover incision with dressing if there is drainage otherwise did not keep this covered. Perform range of motion exercises of the elbow. Light use of hand. [facility] of any questions or concerns. [phone]. Discharge Disposition: HOME SELF-CARE
== END 2019-04-01 13:10 | disposition home or self-care (01) ==
LOC: EC 05:05 → 3SCARD 07:49
PROVIDERS: ADMIT Internal Medicine; ATTEND Internal Medicine
DX: E87.70 Fluid overload, unspecified (principal); R74.0 Nonspecific elevation of levels of transaminase and lactic acid dehydrogenase [LDH]; F17.200 Nicotine dependence, unspecified, uncomplicated; F20.9 Schizophrenia, unspecified; R79.89 Other specified abnormal findings of blood chemistry; I27.20 Pulmonary hypertension, unspecified; K59.00 Constipation, unspecified; K82.4 Cholesterolosis of gallbladder; L08.9 Local infection of the skin and subcutaneous tissue, unspecified; Z87.11 Personal history of peptic ulcer disease; N50.89 Other specified disorders of the male genital organs; Z71.6 Tobacco abuse counseling
CPT/HCPCS: 96376 ×2; 96365; 96366; 96375; 99285; 36415; 94760 ×2; 93005; 93306; 83880; 80053 ×2; 80074; 83735; 84484; 85025; 85027; 85610; 85730; 71046; 76705; G0378 ×2; G0480; J2270 ×2; J1940 ×2; J2405; J1885 ×2; J0132; 80329

== ENCOUNTER 2019-04-02 02:59 | Inpatient (IN) | payer OTHER ==
[2019-04-02] MEDS ORDERED: METHADONE 10 MG TAB PO ONE (03:45)
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
[2019-04-02 04:44] LABS: Basophils % (A) 0 %; Eosinophils # (A) 0.4 k/uL (0-0.7); Eosinophils % (A) 3 %; HCT 34.1 % (39.0-53.0); HGB 11.1 gm/dL (13.0-17.5); Lymphocytes # (A) 1.6 k/uL (1.0-4.8); Lymphocytes % (A) 14 %; MCH 29.5 pg (25.0-35.0); MCHC 32.6 g/dL (31.0-37.0); MCV 90.4 fL (80.0-100.0); Mean Platelet Volume 8.9; Monocytes # (A) 0.6 k/uL (0-1.0); Monocytes % (A) 5 %; Neutrophils # (A) 8.4 k/uL (1.3-7.7); Neutrophils % (A) 74 %; Platelet Count 234 k/uL (150-450); RBC 3.77 m/uL (4.30-5.90); RDW 14.2 % (11.5-15.5); WBC 11.3 k/uL (3.8-10.6)
[2019-04-02] MEDS ORDERED: HYDROmorphone 1 MG/ML 1 ML SYRINGE IVP STA (04:46)
[2019-04-02 04:56] LABS: ALT 99 U/L (21-72); AST 93 U/L (17-59); African American GFR (CKD) >90 (>60 ml/min/1.73 sqM); Albumin 2.9 g/dL (3.5-5.0); Alkaline Phosphatase 86 U/L (38-126); Anion Gap 4 mmol/L; Blood Urea Nitrogen 16 mg/dL (9-20); Calcium 8.4 mg/dL (8.4-10.2); Carbon Dioxide 31 mmol/L (22-30); Chloride 104 mmol/L (98-107); Glucose 101 mg/dL (74-99); Potassium 4.5 mmol/L (3.5-5.1); Sodium 139 mmol/L (137-145); Total Bilirubin 0.2 mg/dL (0.2-1.3); Total Protein 5.6 g/dL (6.3-8.2)
[2019-04-02 05:38] LABS: Amorphous Sediment,Urine Rare /hpf; Appearance,Urine Turbid (Clear); Bilirubin,Urine Negative (Negative); Blood,Urine Negative (Negative); Color,Urine Yellow; Glucose,Urine (UA) Negative (Negative); Ketones,Urine Negative (Negative); Leukocyte Esterase,Urine Negative (Negative); Nitrite,Urine Negative (Negative); Protein,Urine Trace (Negative); Specific Gravity,Urine 1.022 (1.001-1.035)
--- NOTE | 2019-04-02 08:52 | CT ---
EXAMINATION TYPE: CT chest angio for PE DATE OF EXAM: 04/02/2019 COMPARISON: Chest x-ray 03/31/2019 HISTORY: Difficulty breathing CT DLP: 400.6 mGycm Automated exposure control for dose reduction was used. CONTRAST: CT Chest for pulmonary embolism performed with with IV Contrast, patient injected with 100 mL of Isov ue 370. FINDINGS: LUNGS: There are moderate bilateral pleural effusions with compressive atelectasis. No pneumothorax. Additional areas of groundglass change involving the upper lung zones may been the basis of alveoliti s or pulmonary edema. MEDIASTINUM: Central pulmonary vasculature enhances normally. There is some limitation with regard to the secondary branches. No obvious filling defects are seen. There is a small pericardial effusion. OTHER: Hypertrophic and degenerative changes of the vertebral column. There is soft tissue edema dian rounding the left shoulder and left soft tissues of the neck with fluid seen adjacent to the musculat ure and evidence of skin or epidermal thickening. Correlate clinically. IMPRESSION: 1. Bilateral moderate pleural effusions with compressive atelectasis and small pericardial effusion. Additional areas of groundglass change are seen involving both mid and upper lung zones. Differential diagnosis would include pulmonary edema versus alveolitis pneumonia. 2. No central pulmonary angles. There is limitation with regard to the left upper lobe secondary bran ch. Reduced enhancement in this region. This may be artifactual rather than representing pulmonary em bolism correlate clinically. 3. Soft tissue edema and fluid and involving the right shoulder and soft tissues extending into the r ight neck correlate clinically. Appears to extend in the right lower extremity with hazy pattern to t he visualized portion of the right upper extremity subcutaneous fat. Correlate for cellulitis or diff use soft tissue edema and the right upper extremity.
[2019-04-02] MEDS ORDERED: ceFAZolin IN SWFI 2 GM/20 ML SYRINGE IVP ONE (13:28)
[2019-04-02] MEDS ORDERED: NALOXONE 0.4 MG/ML 1 ML VIAL IV PRN (13:58)
[2019-04-02] MEDS ORDERED: IBUPROFEN 600 MG TAB PO PRN (14:01)
[2019-04-02] MEDS ORDERED: VANCOMYCIN IV PER PHARMACY 1 EACH MISC MISCELLANE PRN (14:02)
[2019-04-02] MEDS ORDERED: VANCOMYCIN 1,250 MG in SODIUM CHLORIDE 0.9% 250 ML IVPB ONE (14:15)
[2019-04-02] MEDS: SODIUM CHLORIDE 0.9% 1,000 ML IV SCH (14:52)
[2019-04-02] MEDS ORDERED: PIPERACILLIN-TAZOBACTAM 3.375 GM in SODIUM CHLORIDE 0.9% 100 ML IVPB SCH (16:00)
[2019-04-02] MEDS: KETOROLAC 30 MG/ML 1 ML VIAL IVP PRN (20:02)
[2019-04-02] MEDS: HYDROcodone/APAP 5-325MG 1 EACH TAB PO PRN (21:13)
--- NOTE | 2019-04-02 22:58 | P.CONS ---
History of Present Illness - Reason for Consult Consult date: 04/02/19 Right arm cellulitis Requesting physician: Kole Leach - Chief Complaint Right arm swelling redness and shortness of breath - History of Present Illness Patient is a 49-year-old male recently admitted to this facility with right arm cellulitis this patient did have extensive debridement of the right home he was noticed to have necrosis of the brachioradialis muscle from injecting into the muscles and the patient is status post resection of that necrotic muscle he did have multiple cultures those remains to be negative patient was treated with IV antibiotic therapy as the cultures were negative discharged home on 03/30/2019 with oral Keflex which the patient has been taking patient is now presenting back to the [facility] ER with chief complai nts of increasing shortness of breath with minimal exertion denies significant chest pain though he did have some cough but not bringing up any sputum also is complaining of swelling of the scrotal and leg area and has been concerned about possible Tylenol toxicity as he been taking a lot of Tylenol for his pain, patient did have CT angiogram that was negative for PE did shows evidence of some pleural effusion as well as swelling in the right side of the chest and upper arm area with concern for cellulitis the patient was started on Zosyn and vancomycin and admitted to the hospital infectious disease was consulted for further recommendation according antibiotic therapy. The patient had did have a marked placed on the area of erythema on the right arm and on today's evaluation the erythema has not extended beyond that line. The patient continued to have significant swelling of the arm and is been complaining of some dull aching pain 5-6 out of 10 and no radiation stitches are still intact and no drainage Review of Systems CONSTITUTIONAL: Positive for weakness. Denies high-grade Fever EYES: No complaint. ENT:No complaint. RESPIRATORY: As per history of present illness CARDIOVASCULAR: No complaint. GENITOURINARY: As per history of present illness GASTROINTESTINAL: No complaint. MUSCULOSKELETAL: As per history of present illness. INTEGUMENTARY: No complaint. PSYCHOLOGICAL: No complaint. ENDOCRINE: No complaint. NEUROLOGIC: No complaint. Past Medical History Past Medical History: No Reported History Additional Past Medical History / Comment(s): Pt recently admitted to [facility] with fluid overload d/t high salt fluids, transaminitis, R arm infection/necresis with surgery. Other hx: gastric ulcers, bilateral carpal tunnel syndrome, gallbladder polyp, past bilateral foot fractures-L foot surgically repaired-pt states it didn't "work" so he chose not to have surgery on his R foot. History of Any Multi-Drug Resistant Organisms: None Reported Past Surgical History: Orthopedic Surgery Additional Past Surgical History / Comment(s): I&D right forearm, fracture repair foot, repair of perforated ulcer Past Anesthesia/Blood Transfusion Reactions: No Reported Reaction Smoking Status: Former smoker - Past Family History Father Family Medical History: Sleep Apnea/CPAP/BIPAP Additional Family Medical History / Comment(s): -suffered from obstructive sleep apnea Mother Family Medical History: No Reported History Additional Family Medical History / Comment(s): Medications and Allergies Home Medications Medication Instructions Recorded Confirmed Type Cephalexin [Keflex] 500 mg PO Q8HR #30 cap 03/30/19 04/02/19 Rx HYDROcodone/APAP 5-325MG [[place] 1 tab PO Q4HR PRN 03/31/19 04/02/19 History 5-325] Furosemide [Lasix] 40 mg PO DAILY #3 tablet 04/01/19 04/02/19 Rx Ibuprofen [Motrin] 600 mg PO Q8HR PRN #30 tab 04/01/19 04/02/19 Rx Pantoprazole [Protonix] 40 mg PO AC-BRKFST #30 tablet. 04/01/19 04/02/19 Rx Allergies Allergy/AdvReac Type Severity Reaction Status Date / Time No Known Allergies Allergy Verified 04/02/19 07:14 Physical Exam Vitals: Vital Signs Temp Pulse Pulse Resp BP BP Pulse Ox 04/02/19 15:55 97.9 F 83 20 169/87 100 04/02/19 14:57 76 16 136/98 98 04/02/19 13:43 77 16 142/99 99 04/02/19 12:49 88 16 160/103 98 04/02/19 11:02 98.2 F 04/02/19 10:30 80 15 151/102 98 04/02/19 09:33 80 16 146/97 98 04/02/19 08:31 80 16 168/115 98 04/02/19 05:21 98.8 F 80 18 139/99 94 L 04/02/19 03:16 99.1 F 67 20 144/109 96 Intake and Output 04/02/19 04/02/19 04/02/19 06:59 14:59 22:59 Other: Weight 68.039 kg GENERAL DESCRIPTION: Middle-aged male lying in bed, no distress. No tachypnea or accessory muscle of respiration use. HEENT: Shows Pallor , no scleral icterus. Oral mucous membrane is dry. No pharyngeal erythema or thrush NECK: Trachea central, no thyromegaly. LUNGS: Unlabored breathing. Decreased breath sound at the base. . HEART: S1, S2, regular rate and rhythm. No loud murmur ABDOMEN: Soft, no tenderness , guarding or rigidity, no organomegaly EXTREMITIES: Right arm remains to be swollen with no erythema not extending beyond the line stitches are intact no drainage SKIN: No rash, no masses palpable. NEUROLOGICAL: The patient is awake, alert, oriented x3, mood and affect normal Results CBC & Chem 7: 04/02/19 04:35 04/02/19 04:35 Labs: Abnormal Lab Results - Last 24 Hours (Table) 04/02/19 04/02/19 04/02/19 Range/Units 04:35 04:35 05:19 WBC 11.3 H (3.8-10.6) k/uL RBC 3.77 L (4.30-5.90) m/uL Hgb 11.1 L (13.0-17.5) gm/dL Hct 34.1 L (39.0-53.0) % Neutrophils # 8.4 H (1.3-7.7) k/uL Carbon Dioxide 31 H (22-30) mmol/L Creatinine 0.55 L (0.66-1.25) mg/dL Glucose 101 H (74-99) mg/dL AST 93 H (17-59) U/L ALT 99 H (21-72) U/L Total Protein 5.6 L (6.3-8.2) g/dL Albumin 2.9 L (3.5-5.0) g/dL Urine Protein Trace H (Negative) Amorphous Sediment Rare H (None) /hpf Assessment and Plan Assessment: 1-patient with right arm cellulitis in this patient recent admission this facility after the patient had did inject into his right antecubital fossa with subsequent significant swelling and redness surgical exploration did shows evid ence of 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 The patient will benefit from pulmonary evaluation 2-as for his cellulitis of the right upper extremity currently the redness has not progressed from the linesfor the patient be discharged from hospital is not running any high-grade fever and white count is only 11,000 Plan: 1-patient will be continued on vancomycin pharmacy to dose target trough of 15 on watching his Vanco trough and kidney function closely 2-discontinue the Zosyn 3-elevation of the right arm 4-ortho to reevaluate the patient we will follow up on clinical condition and cultures to further adjust medication if needed Thank you for this consultation will follow this patient along with you Time with Patient: Greater than 30
[2019-04-02] MEDS: VANCOMYCIN 1,250 MG in SODIUM CHLORIDE 0.9% 250 ML IVPB SCH (23:26)
[2019-04-03] MEDS: KETOROLAC 30 MG/ML 1 ML VIAL IVP PRN ×3 (05:01→19:40)
[2019-04-03] MEDS: PANTOPRAZOLE 40 MG TABLET PO SCH (07:56)
[2019-04-03] MEDS: VANCOMYCIN 1,250 MG in SODIUM CHLORIDE 0.9% 250 ML IVPB SCH ×3 (07:56→23:48)
[2019-04-03] MEDS: FUROSEMIDE 40 MG TAB PO SCH (07:56)
[2019-04-03] MEDS: HYDROcodone/APAP 5-325MG 1 EACH TAB PO PRN ×3 (08:00→22:25)
[2019-04-03 09:15] LABS: Basophils # (A) 0.1 k/uL (0-0.2); Basophils % (A) 1 %; Eosinophils # (A) 0.4 k/uL (0-0.7); Eosinophils % (A) 4 %; HCT 34.5 % (39.0-53.0); HGB 10.8 gm/dL (13.0-17.5); Hypochromasia Slight; Lymphocytes # (A) 1.4 k/uL (1.0-4.8); Lymphocytes % (A) 13 %; MCH 29.8 pg (25.0-35.0); MCHC 31.3 g/dL (31.0-37.0); MCV 95.2 fL (80.0-100.0); Mean Platelet Volume 9.1; Monocytes # (A) 0.5 k/uL (0-1.0); Monocytes % (A) 5 %; Neutrophils # (A) 8.5 k/uL (1.3-7.7); Neutrophils % (A) 75 %; Platelet Count 262 k/uL (150-450); RBC 3.63 m/uL (4.30-5.90); RDW 14.8 % (11.5-15.5); WBC 11.2 k/uL (3.8-10.6)
[2019-04-03 09:33] LABS: African American GFR (CKD) >90 (>60 ml/min/1.73 sqM); Anion Gap 6 mmol/L; Blood Urea Nitrogen 11 mg/dL (9-20); Calcium 8.1 mg/dL (8.4-10.2); Carbon Dioxide 28 mmol/L (22-30); Chloride 104 mmol/L (98-107); Glucose 102 mg/dL (74-99); Potassium 4.6 mmol/L (3.5-5.1); Sodium 138 mmol/L (137-145)
--- NOTE | 2019-04-03 12:34 | P.CNOR ---
History of Present Illness - [facility] Consult date: 04/03/19 Consult reason: other (Reevaluate right arm) History of present illness: Mr. Khoury was readmitted through the Emergency Room with presenting complaints of difficulty breathing and diffuse swelling throughout his body, including his legs and scrotum. He thought this may be due to acetaminophen toxicity. He states that this has been improving and he is now breathing easier. He feels the arm and elbow have been doing very well. He has been working on range of motion and states the pain has continued to lessen. He did feel the wound break open slightly when he was stretching and extension but he denies any bleeding or substantial drainage. He is been able to use the hand for normal daily activities without difficulty. Past Medical History Past Medical History: No Reported History Additional Past Medical History / Comment(s): Pt recently admitted to [facility] with fluid overload d/t high salt fluids, transaminitis, R arm infection/necresis with surgery. Other hx: gastric ulcers, bilateral carpal tunnel syndrome, gallbladder polyp, past bilateral foot fractures-L foot surgically repaired-pt states it didn't "work" so he chose not to have surgery on his R foot. History of Any Multi-Drug Resistant Organisms: None Reported Past Surgical History: Orthopedic Surgery Additional Past Surgical History / Comment(s): I&D right forearm, fracture repair foot, repair of perforated ulcer Past Anesthesia/Blood Transfusion Reactions: No Reported Reaction Smoking Status: Former smoker - Past Family History Father Family Medical History: Sleep Apnea/CPAP/BIPAP Additional Family Medical History / Comment(s): -suffered from obstructive sleep apnea Mother Family Medical History: No Reported History Additional Family Medical History / Comment(s): Medications and Allergies Home Medications Medication Instructions Recorded Confirmed Type Cephalexin [Keflex] 500 mg PO Q8HR #30 cap 03/30/19 04/02/19 Rx HYDROcodone/APAP 5-325MG [[place] 1 tab PO Q4HR PRN 03/31/19 04/02/19 History 5-325] Furosemide [Lasix] 40 mg PO DAILY #3 tablet 04/01/19 04/02/19 Rx Ibuprofen [Motrin] 600 mg PO Q8HR PRN #30 tab 04/01/19 04/02/19 Rx Pantoprazole [Protonix] 40 mg PO AC-BRKFST #30 tablet. 04/01/19 04/02/19 Rx Allergies Allergy/AdvReac Type Severity Reaction Status Date / Time No Known Allergies Allergy Verified 04/02/19 07:14 Physical Examination The incisions are well approximated without the transverse limb in the antecubital fossa has gapped open slightly. There is less than 5 mm of diastases. The sutures are still in place. There is mild erythema but improved from previous exam and has recessed from previously demarcated borders. The surrounding subcutaneous tissues are still indurated but less firm. There is no purulence but mild serous drainage is noted from the proximal aspect of the wound. There is no tenderness to palpation. He is able to actively range the elbow, hand, and wrist with no discomfort. Results - Labs Labs: Abnormal Lab Results - Last 24 Hours (Table) 04/03/19 04/03/19 Range/Units 08:07 08:07 WBC 11.2 H (3.8-10.6) k/uL RBC 3.63 L (4.30-5.90) m/uL Hgb 10.8 L (13.0-17.5) gm/dL Hct 34.5 L (39.0-53.0) % Neutrophils # 8.5 H (1.3-7.7) k/uL Creatinine 0.52 L (0.66-1.25) mg/dL Glucose 102 H (74-99) mg/dL Calcium 8.1 L (8.4-10.2) mg/dL H & H 04/02/19 04/03/19 Range/Units 04:35 08:07 Hgb 11.1 L 10.8 L (13.0-17.5) gm/dL Hct 34.1 L 34.5 L (39.0-53.0) % Result Diagrams: 04/03/19 08:07 04/03/19 08:07 Assessment and Plan Assessment: Resolving edema status-post exploration and debridement of right elbow and forearm with 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 Khoury. The arm and forearm appear to be clinically improving. I do not see signs of infection or compartment syndrome. No further orthopedic intervention is recommended at this time. I encouraged him to continue working on range of motion but avoid the extremes of extension so as not to strain the healing wound. He may shower and wash the incision with soap and water. He should reapply dressing over central incision until completely closed. Ok to discharge from an orthopedic standpoint. Follow up outpatient in 1 week. Call sooner with questions or concerns.
[2019-04-03] MEDS: SODIUM CHLORIDE 0.9% 1,000 ML IV SCH (16:49)
--- NOTE | 2019-04-03 16:58 | US ---
EXAMINATION TYPE: US chest DATE OF EXAM: 04/03/2019 COMPARISON: CT CLINICAL HISTORY: pleural effusion. TECHNIQUE: Targeted ultrasound of the posterior lower bilateral chest EXAM MEASUREMENTS: Right Pleural Effusion pocket size: 8.2 cm A/P Right skin surface to fluid distance: 3.2 cm A/P Left Pleural Effusion pocket size: 10.0 cm A/P with lung imaged within fluid Left skin surface to fluid distance: 3.4 cm A/P Right side was marked for possible thoracentesis outside the dept. Left side was marked for possible thoracentesis outside the dept. Pulmonologists are able to review the images in the patient?s EMR. IMPRESSIONS: US chest, 11 images.
--- NOTE | 2019-04-03 17:14 | PN ---
PROGRESS NOTE DATE OF SERVICE: 04/03/2019. REASON FOR FOLLOW UP: Right arm cellulitis. INTERVAL HISTORY: The patient is currently afebrile. The patient's breathing has improved. No chest pain. Occasional cough. No abdominal pain right arm area. PHYSICAL EXAMINATION: On examination, blood pressure is 165/82 with a pulse of 78, temperature 97.9. He is 96% on room air. GENERAL DESCRIPTION: Is a middle aged male up in the room in no distress. RESPIRATORY: Unlabored breathing. Clear to auscultation anteriorly. CARDIOVASCULAR: Heart S1, S2 regular rate and rhythm. ABDOMEN: Soft, no tenderness. EXTREMITIES: Right arm swelling has slightly decreased. No drainage. LABORATORY DATA: Hemoglobin white count 11.2. DIAGNOSTIC IMPRESSION AND PLAN: The patient with right arm cellulitis in this patient who did have MRSA status post surgery, currently did have some swelling but no significant drainage. Vancomycin to continue while monitoring clinical course closely. Continue supportive care. MMODL / IJN: [id number] /
--- NOTE | 2019-04-03 18:20 | HP ---
HISTORY AND PHYSICAL 49-year-old white male admitted with right arm cellulitis, status post extensive debridement into the muscle. He went home on 03/30/2019 with oral Keflex. He came to the emergency room due to increasing shortness of breath and more sputum production and CT scan of the antrum of the chest was negative for PE but showed some pleural effusions at which time he was admitted to the hospital. He has had an increased marked erythema transmitting up his arm, failing outpatient treatment. REVIEW OF SYSTEMS: Fourteen point review of systems negative except for mentioned in the HPI. PAST MEDICAL HISTORY: [facility], fluid overload, fluids, transaminases, right arm infection, necrosis surgery, gastric ulcer, bilateral carpal tunnel syndrome, gallbladder polyp, foot fractures, orthopedic surgery, I&D, right forearm, fracture repair foot. FAMILY HISTORY: Father, sleep apnea, mother . MEDICATIONS: Home medicines: Keflex, [place], Lasix, Motrin, Protonix. ALLERGIES: Negative. PHYSICAL EXAMINATION: Vital signs: Temp 97.9, pulse 70s to 80s, respiratory 18-20, blood pressure 130 to 150s over 80s to 100. White male, disheveled. No tachypnea. Lungs show mild wheeze. HEART: S1, S2. Abdomen is soft. Extremities no cyanosis, clubbing, edema. He has right arm remains swollen. Elizabeth incisional erythema. NEUROLOGIC: Alert and oriented x3. White count 7.3, hemoglobin 11.1. ASSESSMENT: 1. Status post right arm cellulitis status post fasciotomy. 2. Increasing shortness of breath, possible fluid overload. Pulmonary evaluation. 3. Cellulitis of the right arm redness. Please see further orders. Vancomycin continue, with IV antibiotics of vancomycin and Ortho to re-evaluate the patient. Please see further orders. MMODL / IJN: [id number] /
[2019-04-04] MEDS: KETOROLAC 30 MG/ML 1 ML VIAL IVP PRN ×2 (04:34→17:07)
[2019-04-04] MEDS ORDERED: VANCOMYCIN TROUGH DUE 1 EACH MISC MISCELLANE ONE (07:00)
[2019-04-04] MEDS: HYDROcodone/APAP 5-325MG 1 EACH TAB PO PRN ×3 (08:18→20:42)
[2019-04-04] MEDS: PANTOPRAZOLE 40 MG TABLET PO SCH (08:18)
[2019-04-04] MEDS: FUROSEMIDE 40 MG TAB PO SCH (08:18)
[2019-04-04 08:19] LABS: Basophils % (A) 0 %; Eosinophils # (A) 0.3 k/uL (0-0.7); Eosinophils % (A) 3 %; HCT 30.4 % (39.0-53.0); HGB 9.9 gm/dL (13.0-17.5); Lymphocytes # (A) 1.5 k/uL (1.0-4.8); Lymphocytes % (A) 14 %; MCH 30.1 pg (25.0-35.0); MCHC 32.6 g/dL (31.0-37.0); MCV 92.4 fL (80.0-100.0); Mean Platelet Volume 8.9; Monocytes # (A) 0.5 k/uL (0-1.0); Monocytes % (A) 5 %; Neutrophils # (A) 8.3 k/uL (1.3-7.7); Neutrophils % (A) 75 %; Platelet Count 269 k/uL (150-450); RBC 3.29 m/uL (4.30-5.90); RDW 14.7 % (11.5-15.5)
[2019-04-04] MEDS: VANCOMYCIN 1,250 MG in SODIUM CHLORIDE 0.9% 250 ML IVPB SCH ×2 (08:19→15:48)
[2019-04-04 08:31] LABS: African American GFR (CKD) >90 (>60 ml/min/1.73 sqM); Anion Gap 4 mmol/L; Blood Urea Nitrogen 15 mg/dL (9-20); Carbon Dioxide 27 mmol/L (22-30); Chloride 108 mmol/L (98-107); Glucose 87 mg/dL (74-99); Potassium 4.4 mmol/L (3.5-5.1); Sodium 139 mmol/L (137-145)
--- NOTE | 2019-04-04 12:13 | P.CNPUL ---
History of Present Illness Consult date: 04/04/19 Reason for consult: dyspnea, pleural effusion Chief complaint: Shortness of breath History of present illness: 49 year old male who presented to the emergency department complaining of shortness of breath. The patient was recently admitted and discharged with right forearm cellulitis. He required fasciotomy. The patient denies fevers and chills. He does complain of cough productive of phlegm. He did have an ultrasound of the chest which showed moderate to large bilateral pleural effusions. The patient is agreeable to thoracentesis. He does state he is anxious to go home. Review of Systems All systems: negative Past Medical History Past Medical History: No Reported History Additional Past Medical History / Comment(s): Pt recently admitted to [facility] with fluid overload d/t high salt fluids, transaminitis, R arm infection/necresis with surgery. Other hx: gastric ulcers, bilateral carpal tunnel syndrome, gallbladder polyp, past bilateral foot fractures-L foot surgically repaired-pt states it didn't "work" so he chose not to have surgery on his R foot. History of Any Multi-Drug Resistant Organisms: None Reported Past Surgical History: Orthopedic Surgery Additional Past Surgical History / Comment(s): I&D right forearm, fracture repair foot, repair of perforated ulcer Past Anesthesia/Blood Transfusion Reactions: No Reported Reaction Smoking Status: Former smoker - Past Family History Father Family Medical History: Sleep Apnea/CPAP/BIPAP Additional Family Medical History / Comment(s): -suffered from obstructive sleep apnea Mother Family Medical History: No Reported History Additional Family Medical History / Comment(s): Medications and Allergies Home Medications Medication Instructions Recorded Confirmed Type Cephalexin [Keflex] 500 mg PO Q8HR #30 cap 03/30/19 04/02/19 Rx HYDROcodone/APAP 5-325MG [[place] 1 tab PO Q4HR PRN 03/31/19 04/02/19 History 5-325] Furosemide [Lasix] 40 mg PO DAILY #3 tablet 04/01/19 04/02/19 Rx Ibuprofen [Motrin] 600 mg PO Q8HR PRN #30 tab 04/01/19 04/02/19 Rx Pantoprazole [Protonix] 40 mg PO DEON-BRKFST #30 tablet. 04/01/19 04/02/19 Rx Doxycycline [Vibramycin] 100 mg PO BID #20 cap 04/03/19 Rx Allergies Allergy/AdvReac Type Severity Reaction Status Date / Time No Known Allergies Allergy Verified 04/02/19 07:14 Physical Exam Osteopathic Statement: *. No significant issues noted on an osteopathic structural exam other than those noted in the History and Physical/Consult. Vitals: Vital Signs Temp Pulse Resp BP Pulse Ox 04/04/19 05:00 97.8 F 64 20 155/89 97 04/03/19 23:00 98.3 F 98 20 146/85 95 04/03/19 16:00 18 04/03/19 15:00 97.8 F 73 18 154/93 99 Intake and Output 04/03/19 04/04/19 04/04/19 22:59 06:59 14:59 Intake Total 200 200 Balance 200 200 Intake: Oral 200 200 Other: # Voids 2 3 General: Alert and oriented, no acute distress CV: RRR, s1/s2 Lungs: Diminished breath sounds at the bases Abd: Soft, nontender, nondistended, + BS Ext: RUE erythema and edema Results - Laboratory Findings CBC and BMP: 04/04/19 07:57 04/04/19 07:57 Abnormal lab findings: Abnormal Labs 04/02/19 04/02/19 04/02/19 04:35 04:35 05:19 WBC 11.3 H RBC 3.77 L Hgb 11.1 L Hct 34.1 L Neutrophils # 8.4 H Chloride Carbon Dioxide 31 H Creatinine 0.55 L Glucose 101 H Calcium AST 93 H ALT 99 H Total Protein 5.6 L Albumin 2.9 L Urine Protein Trace H Amorphous Sediment Rare H 04/03/19 04/03/19 04/04/19 08:07 08:07 07:57 WBC 11.2 H 11.0 H RBC 3.63 L 3.29 L Hgb 10.8 L 9.9 L Hct 34.5 L 30.4 L Neutrophils # 8.5 H 8.3 H Chloride Carbon Dioxide Creatinine 0.52 L Glucose 102 H Calcium 8.1 L AST ALT Total Protein Albumin Urine Protein Amorphous Sediment 04/04/19 07:57 WBC RBC Hgb Hct Neutrophils # Chloride 108 H Carbon Dioxide Creatinine 0.58 L Glucose Calcium 8.0 L AST ALT Total Protein Albumin Urine Protein Amorphous Sediment - Diagnostic Findings Chest x-ray: report reviewed, image reviewed Assessment and Plan Assessment: Moderate to large bilateral pleural effusions Volume overload Severe pulmonary hypertension of unclear etiology with RVSP 77 mmHg IVDA Right upper extremity cellulitis Dyspnea on exertion O2 to maintain saturation greater than or equal to 90% ABX per ID Patient should be seen by a pulmonary hypertension specialist Thoracentesis today on the right Will plan for left thoracentesis tomorrow Patient is agreeable to plan of care Thank you for this consultation. We will continue to follow along.
[2019-04-04 13:33] VITALS: RESP 18
--- NOTE | 2019-04-04 14:20 | P.PCN ---
Date of Procedure: 04/04/19 Preoperative Diagnosis: Right pleural effusion Postoperative Diagnosis: Same Procedure(s) Performed: Right thoracentesis Surgeon: Stefania Barnard Condition: stable Disposition: floor Indications for Procedure: Right pleural effusion Description of Procedure: A time-out was completed verifying correct patient, procedure, site, po sitioning, and special equipment if applicable. The patient's right side was prepped and draped in a sterile manner after the appropriate infiltration level was confirmed by ultrasound. 1% lidocaine was used anesthetize the surrounding skin. A finder needle was then used to locate fluid and clear yellow fluid was obtained. A 10-blade scalpel used to make the incision. The thoracentesis catheter was then threaded without difficulty. The patient had 520 mL of clear yellow fluid removed. A post-procedure chest x-ray was ordered and the fluid will be sent for several studies. Estimated Blood Loss: 0 mL The patient tolerated the procedure well and there were no complications.
[2019-04-04] MEDS: SODIUM CHLORIDE 0.9% 1,000 ML IV SCH (14:59)
[2019-04-04 15:04] LABS: Total Protein 5.3 g/dL (6.3-8.2)
--- NOTE | 2019-04-04 15:23 | XR ---
EXAMINATION TYPE: XR chest 1V portable DATE OF EXAM: 04/04/2019 COMPARISON: 03/31/2019 HISTORY: Status post thoracentesis. Follow-up exam. TECHNIQUE: Single frontal view of the chest is obtained. FINDINGS: Resolution of the previously seen pleural effusions with no postprocedural pneumothorax. C ardiomediastinal silhouette is upper limits of normal and stable. No focal consolidation is seen. Mil d acromioclavicular arthropathy. IMPRESSION: Resolution of the previously seen pleural effusions with no postprocedural pneumothorax seen.
--- NOTE | 2019-04-04 16:18 | P.PN ---
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 Evaluated by orthopedics surgery with recommendations noted. Maintained on IV antibiotics as per infectious disease with significant clinical improvement. Chest CTA ruled out PE but reported bilateral moderate-sized pleural effusions. Chest ultrasound reporting right pleural effusion 8.2 cm and left pleural effusion 10 cm, both marked for thoracentesis. Evaluated by pulmonary and scheduled for right-sided thoracentesis today and left-sided tomorrow. Afebrile, WBC 11. Maintaining O2 sats in the high 90s on room air, respiratory rate 20. Pain controlled, denies chest pain, palpitations. Objective - Vital Signs Vital signs: Vital Signs Temp 97.8 F 04/04/19 05:00 Pulse 64 04/04/19 05:00 Resp 20 04/04/19 05:00 BP 155/89 04/04/19 05:00 Pulse Ox 97 04/04/19 05:00 Intake & Output 04/03/19 04/04/19 04/04/19 18:59 06:59 18:59 Intake Total 400 Output Total 700 Balance -700 400 Intake: Oral 400 Output: Urine 700 Other: # Voids 3 - Exam PHYSICAL EXAM: VITAL SIGNS: As above GENERAL: Sitting up in bed, no acute distress HEENT: Conjunctivae normal. eyes normal. Oral mucosa moist NECK: No JVD. No thyroid enlargement. No LNs CARDIOVASCULAR: S1, S2 regular.. No murmur, rubs or gallops. RESPIRATION: Breath sounds diminished in the bases. No rhonchi or crackles. No wheezing ABDOMEN: Soft, nontender . No guarding. no masses palpable. Bowel sounds heard. LEGS: No edema. no swelling PSYCHIATRY: Alert and oriented -3, mood and affect normal. NERVOUS SYSTEM: Cranial N 2-12 grossly normal. Moves all 4 limbs. No focal deficits. Skin: warm,dry. Right arm improving redness and edema-retracted from outlined margin, no drainage, positive radial pulse, capillary refill less than 2 seconds, dressing clean dry and intact. Positive gross and fine motor movements. - Labs CBC & Chem 7: 04/04/19 07:57 04/04/19 07:57 Labs: Abnormal Lab Results - Last 24 Hours (Table) 04/03/19 04/03/19 04/04/19 Range/Units 08:07 08:07 07:57 WBC 11.2 H 11.0 H (3.8-10.6) k/uL RBC 3.63 L 3.29 L (4.30-5.90) m/uL Hgb 10.8 L 9.9 L (13.0-17.5) gm/dL Hct 34.5 L 30.4 L (39.0-53.0) % Neutrophils # 8.5 H 8.3 H (1.3-7.7) k/uL Chloride (98-107) mmol/L Creatinine 0.52 L (0.66-1.25) mg/dL Glucose 102 H (74-99) mg/dL Calcium 8.1 L (8.4-10.2) mg/dL 04/04/19 Range/Units 07:57 WBC (3.8-10.6) k/uL RBC (4.30-5.90) m/uL Hgb (13.0-17.5) gm/dL Hct (39.0-53.0) % Neutrophils # (1.3-7.7) k/uL Chloride 108 H (98-107) mmol/L Creatinine 0.58 L (0.66-1.25) mg/dL Glucose (74-99) mg/dL Calcium 8.0 L (8.4-10.2) mg/dL Microbiology - Last 24 Hours (Table) 04/02/19 13:38 Blood Culture - Preliminary Blood No Growth after 24 hours Assessment and Plan Assessment: -Right arm cellulitis in a patient with Recent extensive I&D, fasciotomy related to 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 Evaluated by orthopedics with recommendations noted and appreciated. Antibiotics as per infectious disease. Evaluated by pulmonary with bilateral thoracentesis pending. Discharge planning in progress for tomorrow. Further recommendations to follow. The impression and plan of care has been dictated as directed. : I performed a history and examination of this patient, discussed the same with the dictator. I agree with the dictator's note ,documented as a scribe. Any additional findings or plans will be noted.
--- NOTE | 2019-04-04 17:48 | PN ---
PROGRESS NOTE DATE OF SERVICE: 04/04/2019. REASON FOR FOLLOWUP: Right arm cellulitis and wound. INTERVAL HISTORY: The patient is currently afebrile. Patient has been breathing comfortably. Denies having any chest pain or cough. Right arm still has some swelling. The redness has decreased. Currently no drainage and no diarrhea with antibiotic therapy. PHYSICAL EXAMINATION: Blood pressure 151/84 with a pulse of 63. Temperature 97.4, she is 98% on room air. General description is a middle-aged male lying in bed in no distress. Respiratory system: Unlabored breathing. Clear to auscultation anteriorly. HEART S1, S2. Regular rate and rhythm. ABDOMEN: Soft, no tenderness. EXTREMITIES: Right arm still has some swelling, minimal redness. Open area but no drainage. LABS: Hemoglobin 9.8, white count 64246, BUN of 15, creatinine 0.58. DIAGNOSTIC IMPRESSION AND PLAN: Patient with right arm cellulitis in this patient who did have recent extensive surgery for a necrotic necrosis to the brachial radius from injection drug use. Currently covered with vancomycin. Local care with Aquacel Silver dressing and Juan R wrap to keep the swelling down. Continue supportive care. MMODL / IJN: [id number] /
[2019-04-04 18:17] LABS: Appearance,BF Hazy; Nucleated Cells, Body Fluid 230 /uL
[2019-04-04 18:18] LABS: RBC, Body Fluid 345 /uL
[2019-04-04 18:19] LABS: Mononuclear WBC,Body Fluid 84 %; Polynuclear WBC,Body Fluid 16 %; Total Cells Counted,Body Fluid 100
[2019-04-05] MEDS: VANCOMYCIN 1,250 MG in SODIUM CHLORIDE 0.9% 250 ML IVPB SCH ×2 (00:06→08:06)
[2019-04-05 00:53] LABS: Total Protein, Body Fluid 1800 mg/dL
[2019-04-05] MEDS: KETOROLAC 30 MG/ML 1 ML VIAL IVP PRN (03:23)
[2019-04-05 06:05] VITALS: BP 134/79; PULSE 71; TEMP 97.6
[2019-04-05] MEDS: PANTOPRAZOLE 40 MG TABLET PO SCH (08:06)
[2019-04-05] MEDS: FUROSEMIDE 40 MG TAB PO SCH (08:06)
[2019-04-05 09:15] LABS: African American GFR (CKD) >90 (>60 ml/min/1.73 sqM); Anion Gap 5 mmol/L; Blood Urea Nitrogen 18 mg/dL (9-20); Calcium 8.1 mg/dL (8.4-10.2); Carbon Dioxide 31 mmol/L (22-30); Chloride 105 mmol/L (98-107); Glucose 102 mg/dL (74-99); Potassium 4.3 mmol/L (3.5-5.1); Sodium 141 mmol/L (137-145)
[2019-04-05 09:16] LABS: Basophils % (A) 0 %; Eosinophils # (A) 0.3 k/uL (0-0.7); Eosinophils % (A) 3 %; HCT 33.6 % (39.0-53.0); HGB 10.8 gm/dL (13.0-17.5); Lymphocytes # (A) 1.6 k/uL (1.0-4.8); Lymphocytes % (A) 14 %; MCHC 32.2 g/dL (31.0-37.0); MCV 93.2 fL (80.0-100.0); Mean Platelet Volume 9.4; Monocytes # (A) 0.5 k/uL (0-1.0); Monocytes % (A) 5 %; Neutrophils # (A) 8.6 k/uL (1.3-7.7); Neutrophils % (A) 77 %; Platelet Count 312 k/uL (150-450); RDW 14.8 % (11.5-15.5); WBC 11.2 k/uL (3.8-10.6)
--- NOTE | 2019-04-05 10:44 | XR ---
EXAMINATION TYPE: XR chest 1V portable DATE OF EXAM: 04/05/2019 COMPARISON: 04/04/2019 INDICATION: Status post thoracentesis right side TECHNIQUE: Single frontal view of the chest is obtained. FINDINGS: The heart size is normal. The pulmonary vasculature is normal. There appears be an infiltrate through the right upper lobe. No significant effusion is identified on either side. No pneumothorax is evident. IMPRESSION: 1. No pneumothorax postthoracentesis
--- NOTE | 2019-04-05 13:35 | P.PN ---
Subjective Progress Note Date: 04/05/19 04/05/2019: Patient seen and examined. Patient is currently sitting in bed on room air. He states his breathing is a little bit better. He did have a chest x-ray this morning which showed resolution of the bilateral pleural effusions. No pneumothorax status post thoracentesis. The patient has been afebrile and hemodynamically stable. Objective - Vital Signs Vital signs: Vital Signs Temp 97.6 F 04/05/19 06:04 Pulse 71 04/05/19 06:04 Resp 18 04/05/19 06:04 BP 134/79 04/05/19 06:04 Pulse Ox 97 04/05/19 06:04 Intake & Output 04/04/19 04/05/19 04/05/19 18:59 06:59 18:59 Intake Total 160 850 410 Output Total 600 1200 400 Balance -440 -350 10 Intake: Intake, IV Titration 160 410 Amount Sodium Chloride 0.9% 1, 160 160 000 ml @ 20 mls/hr IV . Q24H DANII Rx#:[id number] Vancomycin 1,250 mg In 250 Sodium Chloride 0.9% 250 ml @ 125 mls/hr IVPB Q8HR DANII Rx#:[id number] Oral 850 Output: Urine 600 1200 400 Other: # Voids 2 - Exam General: Alert and oriented, no acute distress CV: RRR, s1/s2 Lungs: Diminished breath sounds at the bases Abd: Soft, nontender, nondistended, + BS Ext: RUE erythema and edema - Labs CBC & Chem 7: 04/05/19 08:08 04/05/19 08:08 Labs: Abnormal Lab Results - Last 24 Hours (Table) 04/04/19 04/05/19 04/05/19 Range/Units 07:57 08:08 08:08 WBC 11.2 H (3.8-10.6) k/uL RBC 3.60 L (4.30-5.90) m/uL Hgb 10.8 L (13.0-17.5) gm/dL Hct 33.6 L (39.0-53.0) % Neutrophils # 8.6 H (1.3-7.7) k/uL Carbon Dioxide 31 H (22-30) mmol/L Glucose 102 H (74-99) mg/dL Calcium 8.1 L (8.4-10.2) mg/dL Lactate Dehydrogenase 635 H (313-618) U/L Total Protein 5.3 L (6.3-8.2) g/dL Microbiology - Last 24 Hours (Table) 04/04/19 13:50 Gram Stain - Preliminary Pleural Fluid Body Fluid Culture - Preliminary 04/04/19 13:50 Anaerobic Culture - Preliminary Pleural Fluid 04/04/19 13:50 Acid Fast Bacilli Culture - Preliminary Pleural Fluid 04/02/19 13:38 Blood Culture - Preliminary Blood No Growth after 48 hours Assessment and Plan Assessment: Resolution of bilateral pleural effusions, s/p right thoracentesis Severe pulmonary hypertension of unclear etiology with RVSP 77 mmHg IVDA Right upper extremity cellulitis Dyspnea on exertion O2 to maintain saturation greater than or equal to 90% ABX per ID Patient should be seen by a pulmonary hypertension specialist No plan for left thoracentesis today Patient is agreeable to plan of care
--- NOTE | 2019-04-05 13:37 | P.DS ---
Providers Date of admission: 04/02/19 13:58 Expected date of discharge: 04/05/19 Attending physician: Kole Leach Consults: 04/02/19 14:00 Consult Physician Routine Consulting Provider: Yenifer Lewis Consult Reason/Comments: Cellulitis, failed outpatient treatment Do you want consulting provider notified?: Yes 04/03/19 11:00 Consult Physician Routine Consulting Provider: Niels Robb Consult Reason/Comments: known, reevaluate arm, need clearance for possible discharge Do you want consulting provider notified?: Yes 04/03/19 14:46 Consult Physician Routine Consulting Provider: Stefania Barnard Consult Reason/Comments: bilat. 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 Evaluated by orthopedics surgery with recommendations noted. Maintained on IV antibiotics as per infectious disease with significant clinical improvement. Chest CTA ruled out PE but reported bilateral moderate-sized pleural effusions. Chest ult rasound reporting right pleural effusion 8.2 cm and left pleural effusion 10 cm, both marked for thoracentesis. Evaluated by pulmonary and scheduled for right- sided thoracentesis today and left-sided tomorrow. Afebrile, WBC 11. Maintaining O2 sats in the high 90s on room air, respiratory rate 20. Pain controlled, denies chest pain, palpitations. Status post right diagnostic/therapeutic thoracentesis with 520 MLS of clear yellow fluid removed. Tolerated procedure well. Chest x-ray this morning reports no significant effusion on either side, left thoracentesis canceled.VSS. Cleared by all consults for discharge. Patient is being discharged home in a stable condition with guarded prognosis. EXAM: GENERAL: Alert and oriented 3, in no acute distress CARDIOVASCULAR: S1, S2 regular.. No murmur, rubs or gallops. RESPIRATION: Breath sounds diminished in the bases. No rhonchi,crackles or wheezing ABDOMEN: Soft, nontender . No guarding. no masses palpable. Bowel sounds heard. NERVOUS SYSTEM: No focal deficits. Skin: warm,dry. Right arm minimal redness and edema-retracted from outlined margin, no drainage, positive radial pulse, capillary refill less than 2 seconds, dressing clean dry and intact. Positive gross and fine motor movements. The impression and plan of care has been dictated as directed. .: I performed a history and examination of this patient, discussed the same with the dictator. I agree with the dictator's note ,documented as a scribe. Any additional findings or plans will be noted. Time taken: 35 minutes Patient Condition at Discharge: Stable Plan - Discharge Summary Discharge Rx Participant: No New Discharge Prescriptions: New Doxycycline [Vibramycin] 100 mg PO BID #20 cap Furosemide [Lasix] 40 mg PO BID@0900,1600 #60 tab Continue HYDROcodone/APAP 5-325MG [[place] 5-325] 1 tab PO Q4HR PRN PRN Reason: Pain Ibuprofen [Motrin] 600 mg PO Q8HR PRN #30 tab PRN Reason: Pain Pantoprazole [Protonix] 40 mg PO AC-BRKFST #30 tablet. Discontinued Cephalexin [Keflex] 500 mg PO Q8HR #30 cap Furosemide [Lasix] 40 mg PO DAILY #3 tablet Discharge Medication List HYDROcodone/APAP 5-325MG [[place] 5-325] 1 tab PO Q4HR PRN 03/31/19 [History] Ibuprofen [Motrin] 600 mg PO Q8HR PRN #30 tab 04/01/19 [Rx] Pantoprazole [Protonix] 40 mg PO AC-BRKFST #30 tablet. 04/01/19 [Rx] Doxycycline [Vibramycin] 100 mg PO BID #20 cap 04/03/19 [Rx] Furosemide [Lasix] 40 mg PO BID@0900,1600 #60 tab 04/05/19 [Rx] Follow up Appointment(s)/Referral(s): Kole Leach MD [Primary Care Provider] - 1 Week Stefania Barnard DO [Doctor of Osteopathic Medicine] - 04/19/19 9:00 am Niels Robb DO [Medical Doctor] - 04/12/19 2:45 pm Yenifer Lewis MD [STAFF PHYSICIAN] - 04/09/19 11:45 am Ambulatory/Diagnostic Orders: Complete Blood Count w/diff [LAB.AMB] Time Frame: 3 Days, Location: None Selected Activity/Diet/Wound Care/Special Instructions: Dressing changes: Aquacell silver to incision wound, damp, cover with dry gauze and wrap right upper extremity with CARMINA wrap from hand to above elbow. Fax final pleural fluid cytology/culture results to PCP and Dr. Barnard Please call Dr. Leach office for a follow up appointment. Office is currently closed.
[2019-04-05] MEDS ORDERED: FUROSEMIDE 40 MG TAB PO SCH (16:00)
--- NOTE | 2019-04-05 17:32 | PN ---
PROGRESS NOTE DATE OF SERVICE: 04/05/2019 REASON FOR FOLLOWUP: Right arm wound cellulitis. INTERVAL HISTORY: The patient is afebrile. The patient is currently breathing comfortably. Right arm pain, swelling and redness have improved. The patient says he is ready to go home and wants to go home. No nausea, vomiting, abdominal pain or any diarrhea. He is breathing comfortably on room air. PHYSICAL EXAMINATION: Blood pressure is 134/79, pulse of 71, temperature of 97.6. He is 97% on room air. General description is a middle-aged male lying in bed in no distress. RESPIRATORY SYSTEM: Unlabored breathing. Clear to auscultation anteriorly. HEART: S1, S2. Regular rate and rhythm. Right arm swelling and redness have decreased. No drainage. LABS: White level 11.2. Blood culture negative. fluid culture negative. DIAGNOSTIC IMPRESSION AND PLAN: Right arm cellulitis. The patient has shown overall clinical improvement. Blood cultures remain negative. Antibiotic was switched over to doxycycline 100 mg twice a day for 10 days. Local wound care with Aquacel Silver packing. Follow up in the office in one week. Continue supportive care. MMODL / IJN: [id number] /
[2019-04-05 18:39] LABS: Cyclic Citrull Pep IgG Unit 1.2 U/mL; Cyclic Citrullinated Pep IgG NEGATIVE (NEGATIVE); HIV 1 AB Non-Reactive (Non-Reactive); HIV AB P24 Non-Reactive (Non-Reactive); HIV P24 AG Non-Reactive (Non-Reactive); Scleroderma SC-70 Ab <0.2 AI
[2019-04-06 14:25] LABS: C-ANCA <1:20 Titer (<1:20); P-ANCA <1:20 Titer (<1:20)
== END 2019-04-05 13:53 | disposition home or self-care (01) | DRG 186 ==
LOC: EC 02:59 → 4MS4W 13:58
PROVIDERS: ADMIT Family Medicine; ATTEND Family Medicine
PROC: 0W993ZX Drainage of Right Pleural Cavity, Percutaneous Approach, Diagnostic (ICD-10-PCS; principal; 2019-04-04)
DX: J90 Pleural effusion, not elsewhere classified (principal); J96.91 Respiratory failure, unspecified with hypoxia; L03.113 Cellulitis of right upper limb; F19.10 Other psychoactive substance abuse, uncomplicated; F20.9 Schizophrenia, unspecified; I27.20 Pulmonary hypertension, unspecified; Z79.899 Other long term (current) drug therapy; Z87.11 Personal history of peptic ulcer disease; F15.10 Other stimulant abuse, uncomplicated; Z53.8 Procedure and treatment not carried out for other reasons; Z83.6 Family history of other diseases of the respiratory system; Z79.2 Long term (current) use of antibiotics; I10 Essential (primary) hypertension; Z98.890 Other specified postprocedural states; R74.0 Nonspecific elevation of levels of transaminase and lactic acid dehydrogenase [LDH]; F17.210 Nicotine dependence, cigarettes, uncomplicated
CPT/HCPCS: 36415; 71045; 71275; 76604; 80048; 80053; 80202; 81001; 82103; 82945; 83615; 84155; 84157; 85025; 86038; 86200; 86235; 86255; 87040; 87070; 87075; 87116; 87205; 87206; 87390; 88108; 88305; 88341; 88342; 89050; 93005; 96365; 96366; 96367; 96375; 99285

== ENCOUNTER 2019-06-25 01:14 | Emergency (ER) | payer OTHER ==
[2019-06-25 01:21] VITALS: PULSE 72; RESP 18; TEMP 97.7
[2019-06-25] MEDS ORDERED: methylPREDNISolone SOD SUCCI 125 MG/2 ML VIAL IM ONE (01:34)
[2019-06-25] MEDS ORDERED: KETOROLAC 30 MG/ML 1 ML VIAL IM STA (01:34)
[2019-06-25] MEDS ORDERED: LORazepam 1 MG TAB PO STA (01:35)
--- NOTE | 2019-06-25 02:11 | ED ---
Extremity Problem HPI - General Source: patient, EMS Mode of arrival: EMS Limitations: no limitations <Nisha Gillespie - Last Filed: 06/25/19 02:06> <Darien Caraballo - Last Filed: 06/25/19 08:14> - General Chief complaint: Extremity Problem,Nontraumatic Stated complaint: Bilateral Arm Pain Time Seen by Provider: 06/25/19 01:26 - History of Present Illness Initial comments: 49-year-old male patient presented to the emergency department today for evaluation of bilateral arm pain. Patient states he is experiencing a burning sensation from the tips of his fingers to his shoulders. Patient states he has had this for a long time but he cannot take it any longer. Patient states he has not seen his primary care physician or an retail experience specialist for the pain in his arms. Patient denies taking any medication for his symptoms. Patient states that he plans to cut his arms off and bleed to so they no longer bother him. Patient denies any injury. States he has been diagnosed with carpal tunnel in the past. Denies fever or chills. He was recently treated for an infection to the right arm. Patient denies any recent rash, shortness breath, chest pain, abdominal pain, nausea, vomiting, diarrhea, constipation, back pain, numbness, tingling, dizziness, weakness, hematuria, dysuria, urinary urgency, urinary frequency, headache, visual changes, or any other complaints. (Nisha Gillespie) - Related Data Home Medications Medication Instructions Recorded Confirmed HYDROcodone/APAP 5-325MG [[place] 1 tab PO Q4HR PRN 03/31/19 04/02/19 5-325] Previous Rx's Medication Instructions Recorded Ibuprofen [Motrin] 600 mg PO Q8HR PRN #30 tab 04/01/19 Pantoprazole [Protonix] 40 mg PO AC-BRKFST #30 tablet. 04/01/19 Doxycycline [Vibramycin] 100 mg PO BID #20 cap 04/03/19 Furosemide [Lasix] 40 mg PO BID@0900,1600 #60 tab 04/05/19 Allergies Allergy/AdvReac Type Severity Reaction Status Date / Time No Known Allergies Allergy Verified 04/02/19 07:14 Review of Systems ROS Other: All systems not noted in ROS Statement are negative. <Nisha Gillespie - Last Filed: 06/25/19 02:06> ROS Other: All systems not noted in ROS Statement are negative. <Darien Caraballo - Last Filed: 06/25/19 08:14> ROS Statement: Those systems with pertinent positive or pertinent negative responses have been documented in the HPI. Past Medical History Past Medical History: No Reported History Additional Past Medical History / Comment(s): transaminitis, R arm infection/necresis with surgery. Other hx: gastric ulcers, bilateral carpal tunnel syndrome, gallbladder polyp, past bilateral foot fractures-L foot surgically repaired-pt states it didn't "work" so he chose not to have surgery on his R foot. History of Any Multi-Drug Resistant Organisms: None Reported Past Surgical History: Orthopedic Surgery Additional Past Surgical History / Comment(s): I&D right forearm, fracture repair foot, repair of perforated ulcer Past Anesthesia/Blood Transfusion Reactions: No Reported Reaction Past Psychological History: Schizophrenia Smoking Status: Former smoker - Past Family History Father Family Medical History: Sleep Apnea/CPAP/BIPAP Additional Family Medical History / Comment(s): -suffered from obstructive sleep apnea Mother Family Medical History: No Reported History Additional Family Medical History / Comment(s): <Nisha Gillespie - Last Filed: 06/25/19 02:06> General Exam Limitations: no limitations General appearance: alert, in no apparent distress, other (This is a well- developed, well-nourished adult male patient in mild distress related to pain. Vital signs upon presentation are temperature 97.7F, pulse 72, respirations 18, blood pressure 161/80, pulse ox 99% on room air.) Neck exam: Present: normal inspection, full ROM. Absent: tenderness, meningismus, lymphadenopathy Respiratory exam: Present: normal lung sounds bilaterally. Absent: respiratory distress, wheezes, rales, rhonchi, stridor Cardiovascular Exam: Present: regular rate, normal rhythm, normal heart sounds. Absent: systolic murmur, diastolic murmur, rubs, gallop, clicks Extremities exam: Present: normal inspection, full ROM, normal capillary refill, other (Skin to the bilateral arms is pink, warm, dry. Cap refills less than 3 seconds. Radial pulses are 2+ and equal bilaterally.). Absent: tenderness, pedal edema, joint swelling, calf tenderness Neurological exam: Present: alert, oriented X3, CN II-XII intact Psychiatric exam: Present: normal affect, normal mood Skin exam: Present: warm, dry, intact, normal color. Absent: rash <Nisha Gillespie - Last Filed: 06/25/19 02:06> Course Vital Signs 06/25/19 06/25/19 01:18 06:20 Temperature 97.7 F 97.7 F Pulse Rate 72 72 Respiratory 18 18 Rate Blood Pressure 161/80 142/86 O2 Sat by Pulse 99 99 Oximetry Medical Decision Making <RashmiDarien - Last Filed: 06/25/19 08:14> - Medical Decision Making Patient's 49-year-old man presenting with arm pain and with some suicidal ideation in relation to his pain. He did receive good relief with analgesia here. He will have close follow-up with orthopedic referral. Patient was seen by behavioral health who also contacted his and he is [place] for safety. They will return here should there be any change in his condition. (Darien Caraballo) - Lab Data Lab Results 06/25/19 Range/Units 02:55 Urine Opiates Screen Not Detected (NotDetected) Ur Oxycodone Screen Not Detected (NotDetected) Urine Methadone Screen Not Detected (NotDetected) Ur Propoxyphene Screen Not Detected (NotDetected) Ur Barbiturates Screen Not Detected (NotDetected) U Tricyclic Antidepress Not Detected (NotDetected) Ur Phencyclidine Scrn Not Detected (NotDetected) Ur Amphetamines Screen Detected H (NotDetected) U Methamphetamines Scrn Not Detected (NotDetected) U Benzodiazepines Scrn Not Detected (NotDetected) Urine Cocaine Screen Not Detected (NotDetected) U Marijuana (THC) Screen Detected H (NotDetected) Disposition <Nisha Gillespie - Last Filed: 06/25/19 02:06> Is patient prescribed a controlled substance at d/c from ED?: No <Darien Caraballo - Last Filed: 06/25/19 08:14> Clinical Impression: Arm pain Disposition: HOME SELF-CARE Condition: Good Instructions (If sedation given, give patient instructions): Arm Pain (ED) Referrals: Kole Leach MD [Primary Care Provider] - 1-2 days Niels Robb DO [Medical Doctor] - 1-2 days
[2019-06-25 03:25] LABS: Amphetamine Screen,Urine Detected (NotDetected); Barbiturate Screen,Urine Not Detected (NotDetected); Benzodiazepines Screen,Urine Not Detected (NotDetected); Cocaine Screen,Urine Not Detected (NotDetected); Methadone Screen, Urine Not Detected (NotDetected); Opiate Screen,Urine Not Detected (NotDetected); Oxycodone Screen, Urine Not Detected (NotDetected); Phencyclidine Screen,Urine Not Detected (NotDetected); Tricyclic Antidepressant,Urine Not Detected (NotDetected); Urn Cannabinoid Scrn Detected (NotDetected)
[2019-06-25] MEDS ORDERED: KETOROLAC 60 MG/2 ML VIAL IM STA (04:08)
[2019-06-25 06:23] VITALS: BP 142/86
== END 2019-06-25 06:18 | disposition home or self-care (01) ==
LOC: EC 01:14
DX: M79.601 Pain in right arm (principal); M79.602 Pain in left arm; R45.851 Suicidal ideations; R20.8 Other disturbances of skin sensation; Z87.891 Personal history of nicotine dependence; Z98.890 Other specified postprocedural states
CPT/HCPCS: 82075; 80306; 99284; 96372 ×3; J2930; J1885 ×2

== ENCOUNTER 2019-07-02 19:31 | Inpatient (IN) | payer OTHER ==
[2019-07-02] MEDS ORDERED: FAMOTIDINE 20 MG/2 ML VIAL IV STA (20:12)
[2019-07-02] MEDS ORDERED: SODIUM CHLORIDE 0.9% 1,000 ML IV STA (20:13)
[2019-07-02] MEDS ORDERED: SODIUM CHLORIDE 0.9% 2,000 ML IV ONE (20:13)
[2019-07-02] MEDS ORDERED: ONDANSETRON 4 MG/2 ML VIAL IVP STA (20:13)
[2019-07-02] MEDS ORDERED: KETOROLAC 30 MG/ML 1 ML VIAL IVP STA (20:13)
--- NOTE | 2019-07-02 20:16 | ED ---
Chest Pain HPI - General Chief Complaint: Chest Pain Stated Complaint: Chest pain,abd pain Time Seen by Provider: 07/02/19 19:35 Source: patient, EMS, RN notes reviewed, old records reviewed Mode of arrival: EMS - History of Present Illness Initial Comments: This is a 49-year-old male who states she's had a history of one small heart attack in the past as well as a history of an ulcer with a perforation in the past who states she's had one week of nausea vomiting and inability keep any food or fluids down also states he has severe midepigastric pain right now is currently about 8/10 severity he also had midsternal chest pain currently 7.5/10 severity he also states she's had burning pain in both arms which she's had for at least a month which is about 10/10 in severity he's not sure if they are all related he denies any fevers chills no diarrhea he feels lightheaded and dizzy he states. He states he feels very summer to what he had prior to his perforated ulcer. No other modifying factors at this time MD Complaint: chest pain, other - Related Data Home Medications Medication Instructions Recorded Confirmed No Known Home Medications 07/02/19 07/02/19 Allergies Allergy/AdvReac Type Severity Reaction Status Date / Time No Known Allergies Allergy Verified 07/02/19 20:03 Review of Systems ROS Statement: Those systems with pertinent positive or pertinent negative responses have been documented in the HPI. ROS Other: All systems not noted in ROS Statement are negative. EKG Findings - EKG Results: EKG: interpreted by CUONG, sinus rhythm (Sinus rhythm rate of 88 CT interval 148 QRS duration 90 QT since QTC 380/[address]-T wave changes) Past Medical History Past Medical History: No Reported History Additional Past Medical History / Comment(s): transaminitis, R arm infection/necresis with surgery. Other hx: gastric ulcers, bilateral carpal tunnel syndrome, gallbladder polyp, past bilateral foot fractures-L foot surgically repaired-pt states it didn't "work" so he chose not to have surgery on his R foot. History of Any Multi-Drug Resistant Organisms: None Reported Past Surgical History: Orthopedic Surgery Additional Past Surgical History / Comment(s): I&D right forearm, fracture repair foot, repair of perforated ulcer Past Anesthesia/Blood Transfusion Reactions: No Reported Reaction Past Psychological History: Anxiety, Schizophrenia Smoking Status: Former smoker Past Alcohol Use History: Heavy Past Drug Use History: Marijuana - Past Family History Father Family Medical History: Sleep Apnea/CPAP/BIPAP Additional Family Medical History / Comment(s): -suffered from obstructive sleep apnea Mother Family Medical History: No Reported History Additional Family Medical History / Comment(s): General Exam - General Exam Comments Initial Comments: This is a well-developed asthenic appearing male who is awake alert oriented 3 General appearance: alert, anxious, in distress Head exam: Present: atraumatic, normocephalic, normal inspection Eye exam: Present: normal appearance, PERRL, EOMI. Absent: scleral icterus, conjunctival injection, periorbital swelling ENT exam: Present: mucous membranes dry Neck exam: Present: normal inspection, full ROM, other (No stridor JVD or bruits). Absent: tenderness, meningismus, lymphadenopathy Respiratory exam: Present: normal lung sounds bilaterally. Absent: respiratory distress, wheezes, rales, rhonchi, stridor Cardiovascular Exam: Present: regular rate, normal rhythm, normal heart sounds. Absent: systolic murmur, diastolic murmur, rubs, gallop, clicks GI/Abdominal exam: Present: soft, tenderness (Epigastric tenderness palpation with voluntary guarding), normal bowel sounds. Absent: distended, guarding, rebound, rigid, bruit, pulsatile mass Rectal exam: Present: deferred, normal inspection, heme (+) stool, black stool Extremities exam: Present: normal inspection, full ROM, normal capillary refill. Absent: tenderness, pedal edema, joint swelling, calf tenderness Back exam: Present: normal inspection Neurological exam: Present: alert, oriented X3, CN II-XII intact Psychiatric exam: Present: normal affect, normal mood Skin exam: Present: warm, dry, intact, normal color. Absent: rash Course Vital Signs 07/02/19 19:36 Temperature 98.3 F Pulse Rate 91 Respiratory 18 Rate Blood Pressure 160/93 O2 Sat by Pulse 100 Oximetry Chest Pain MDM - MDM I did discuss findings with Dr. Leach. Patient will be admitted with GI consultation 2 units of blood been ordered. Patient has maintained his pulse and pressure. I did review the imaging and report no acute findings Critical Care Time Critical Care Time: Yes Critical Care Time: 31 minutes of critical care time which includes initial presentation with history physical labs x-rays several reevaluation patient. Discussion with the patient's attending physician admission orders review of old charting that was available documentation of the above Disposition Clinical Impression: Chest pain, Symptomatic anemia, Upper GI bleed Disposition: ADMITTED IP TO THIS [facility] Condition: Fair Referrals: Kole Leach MD [Primary Care Provider] - 1-2 days
--- NOTE | 2019-07-02 20:46 | XR ---
EXAMINATION TYPE: XR abdomen 1V DATE OF EXAM: 07/02/2019 COMPARISON: 10/31/2016 HISTORY: Abdominal pain TECHNIQUE: 2 views upright FINDINGS: There is no sign of intestinal obstruction or pneumoperitoneum. Fecal pattern is normal. Liz ng bases are clear. There are no pathologic calcifications. IMPRESSION: Nonacute abdomen. No change.
--- NOTE | 2019-07-02 20:48 | XR ---
EXAMINATION TYPE: XR chest 2V DATE OF EXAM: 07/02/2019 COMPARISON: 04/04/2019 HISTORY: Chest pain TECHNIQUE: Frontal and lateral views of the chest are obtained. FINDINGS: Heart and mediastinum are normal. Lungs are clear. Diaphragm is normal. Bony thorax appear s normal. There are chest leads. IMPRESSION: Normal chest. No adverse change compared to old exam. Normal heart.
[2019-07-02 21:02] LABS: ALT 30 U/L (21-72); AST 31 U/L (17-59); African American GFR (CKD) >90 (>60 ml/min/1.73 sqM); Albumin 3.4 g/dL (3.5-5.0); Alkaline Phosphatase 35 U/L (38-126); Anion Gap 9 mmol/L; Blood Urea Nitrogen 34 mg/dL (9-20); Calcium 8.2 mg/dL (8.4-10.2); Carbon Dioxide 21 mmol/L (22-30); Chloride 102 mmol/L (98-107); Creatine Kinase 139 U/L (55-170); Glucose 115 mg/dL (74-99); Magnesium 1.9 mg/dL (1.6-2.3); Potassium 4.6 mmol/L (3.5-5.1); Sodium 132 mmol/L (137-145); Total Bilirubin 0.2 mg/dL (0.2-1.3); Total Protein 5.8 g/dL (6.3-8.2)
[2019-07-02 21:25] LABS: Basophils % (A) 0 %; Eosinophils # (A) 0.1 k/uL (0-0.7); Eosinophils % (A) 1 %; Lymphocytes # (A) 2.1 k/uL (1.0-4.8); Lymphocytes % (A) 19 %; MCH 30.2 pg (25.0-35.0); MCHC 34.7 g/dL (31.0-37.0); MCV 87.2 fL (80.0-100.0); Mean Platelet Volume 9.3; Monocytes # (A) 0.5 k/uL (0-1.0); Monocytes % (A) 5 %; Neutrophils # (A) 8.5 k/uL (1.3-7.7); Neutrophils % (A) 75 %; Platelet Count 215 k/uL (150-450); RBC 1.85 m/uL (4.30-5.90); RDW 14.7 % (11.5-15.5); WBC 11.3 k/uL (3.8-10.6)
[2019-07-02 21:38] LABS: HCT 16.1 % (39.0-53.0); HGB 5.6 gm/dL (13.0-17.5)
[2019-07-02] MEDS ORDERED: NALOXONE 0.4 MG/ML 1 ML VIAL IV PRN (23:17)
[2019-07-03] MEDS: ONDANSETRON 4 MG/2 ML VIAL IVP PRN ×2 (03:35→13:59)
[2019-07-03 06:15] LABS: Basophils % (A) 0 %; Eosinophils # (A) 0.1 k/uL (0-0.7); Eosinophils % (A) 1 %; HCT 22.1 % (39.0-53.0); Lymphocytes # (A) 2.1 k/uL (1.0-4.8); Lymphocytes % (A) 19 %; MCH 31.3 pg (25.0-35.0); MCHC 34.7 g/dL (31.0-37.0); MCV 90.1 fL (80.0-100.0); Mean Platelet Volume 8.3; Monocytes # (A) 0.7 k/uL (0-1.0); Monocytes % (A) 6 %; Neutrophils # (A) 8.3 k/uL (1.3-7.7); Neutrophils % (A) 73 %; Platelet Count 188 k/uL (150-450); RBC 2.45 m/uL (4.30-5.90); RDW 15.4 % (11.5-15.5); WBC 11.4 k/uL (3.8-10.6)
[2019-07-03 06:35] LABS: HGB 7.7 gm/dL (13.0-17.5)
[2019-07-03] MEDS: PANTOPRAZOLE 40 MG/10 ML VIAL IV SCH ×2 (07:56→20:11)
[2019-07-03] MEDS ORDERED: KETOROLAC 30 MG/ML 1 ML VIAL IVP SCH (08:45)
[2019-07-03 09:11] LABS: ALT 32 U/L (21-72); AST 25 U/L (17-59); African American GFR (CKD) >90 (>60 ml/min/1.73 sqM); Alkaline Phosphatase 41 U/L (38-126); Anion Gap 7 mmol/L; Blood Urea Nitrogen 22 mg/dL (9-20); Calcium 8.1 mg/dL (8.4-10.2); Carbon Dioxide 23 mmol/L (22-30); Chloride 106 mmol/L (98-107); Glucose 98 mg/dL (74-99); Potassium 4.3 mmol/L (3.5-5.1); Sodium 136 mmol/L (137-145); Total Bilirubin 0.3 mg/dL (0.2-1.3); Total Protein 5.3 g/dL (6.3-8.2)
[2019-07-03] MEDS: ACETAMINOPHEN IV (For NPO) 1,000 MG in EMPTY BAG 1 BAG IVPB SCH ×2 (09:45→16:26)
[2019-07-03 13:29] LABS: HGB 7.6 gm/dL (13.0-17.5); MCH 31.1 pg (25.0-35.0); MCHC 34.6 g/dL (31.0-37.0); MCV 89.8 fL (80.0-100.0); Mean Platelet Volume 8.3; Platelet Count 201 k/uL (150-450); RBC 2.45 m/uL (4.30-5.90); WBC 8.8 k/uL (3.8-10.6)
[2019-07-03] MEDS: SODIUM CHLORIDE 0.9% 1,000 ML IV SCH (13:59)
--- NOTE | 2019-07-03 14:24 | P.HPIM ---
History of Present Illness H&P Date: 07/03/19 This is a 49-year-old gentleman with history of prior nicotine dependence, ongoing marijuana use, schizophrenia, anxiety, history of methamphetamine abuse, occasional alcohol consumption, gastric ulcers and multiple other medical issues. Reports that he has not been on his psychiatric meds 6 months secondary to financial reasons. Patient presents to the ER with complaints of nausea, vomiting 1 week, accompanied by severe mid epigastric to mid sternal pain, bilateral arms burning sensation 1 month and lightheadedness, dizziness. States that bilateral arm burning starts at fingertips travels up both anterior and posterior and lateral sides of arms continuously up through the shoulders. Denies any trauma. Reports 20 pound weight loss in 1 week. Denies diarrhea, but does report black tarry stools. Denies hemoptysis., Hematemisis. Denies any fever or chills. Hemoglobin 5.6 on admission, received 2 units and now up to 7.7. Stool positive for occult. Lipase 608 on admission, repeat 331. Chest x- ray reported negative, Nonacute abdomen.troponin negative 1, EKG normal sinus rhythm. VSS. Afebrile, WBC 11.4. Anxious appearing. Review of Systems ROS Statement: Those systems with pertinent positive or pertinent negative responses have been documented in the HPI. ROS Other: All systems not noted in ROS Statement are negative. Past Medical History Past Medical History: No Reported History Additional Past Medical History / Comment(s): transaminitis, R arm infection/necresis with surgery. Other hx: gastric ulcers, bilateral carpal tunnel syndrome, gallbladder polyp, past bilateral foot fractures-L foot surgically repaired-pt states it didn't "work" so he chose not to have surgery on his R foot. History of Any Multi-Drug Resistant Organisms: None Reported Past Surgical History: Orthopedic Surgery Additional Past Surgical History / Comment(s): I&D right forearm, fracture repair foot, repair of perforated ulcer Past Anesthesia/Blood Transfusion Reactions: No Reported Reaction Past Psychological History: Anxiety, Schizophrenia Additional Psychological History / Comment(s): Pt states he resides with friends. He uses no assistive device. He does not drive. He states he has not taken any of his psych meds for 6 mos d/t financial reasons. Smoking Status: Former smoker Past Alcohol Use History: Heavy Additional Past Alcohol Use History / Comment(s): Pt started smoking as a teen and quit 4 days ago. Past Drug Use History: Marijuana Additional Drug Use History / Comment(s): Pt tried meth through [facility] on 03/24/19 and was the first and only time. He states he smokes sometimes 5 joints a day. - Past Family History Father Family Medical History: Sleep Apnea/CPAP/BIPAP Additional Family Medical History / Comment(s): -suffered from obstructive sleep apnea Mother Family Medical History: No Reported History Additional Family Medical History / Comment(s): Medications and Allergies Home Medications Medication Instructions Recorded Confirmed Type No Known Home Medications 07/02/19 07/02/19 History Allergies Allergy/AdvReac Type Severity Reaction Status Date / Time No Known Allergies Allergy Verified 07/02/19 20:03 Physical Exam Vitals: Vital Signs Temp Pulse Pulse Resp BP BP Pulse Ox 07/03/19 08:00 97.8 F 71 14 138/76 99 07/03/19 05:20 98.1 F 79 16 134/79 07/03/19 05:18 98.7 F 79 17 136/78 97 07/03/19 03:55 16 07/03/19 03:35 98.1 F 79 17 142/71 07/03/19 03:05 98.1 F 74 15 115/78 07/03/19 02:58 98.2 F 79 16 127/63 99 07/03/19 02:55 98.3 F 80 16 103/53 97 07/03/19 00:38 98.0 F 78 16 126/75 100 07/03/19 00:21 98.0 F 75 18 122/71 99 07/03/19 00:04 98 F 98 16 147/65 98 07/02/19 23:22 97.9 F 82 16 129/74 98 07/02/19 19:36 98.3 F 91 18 160/93 100 Intake and Output 07/02/19 07/03/19 07/03/19 22:59 06:59 14:59 Intake Total 310 Output Total 300 Balance 10 Intake: Blood Product 310 Rc As-1 Unit 310 [id number] Rc As-1 Unit 0 [id number] Output: Urine 300 Other: Voiding Method Urinal Weight 63.503 kg 59.9 kg PHYSICAL EXAM: VITAL SIGNS: As above GENERAL: Sitting up in bed, no acute distress, anxious appearing HEENT: Conjunctivae normal. eyes normal. NECK: No JVD. No thyroid enlargement. No LNs CARDIOVASCULAR: S1, S2 regular.. No murmur RESPIRATION: Breath sounds diminished in the bases. No rhonchi or crackles. No bronchial breathing. ABDOMEN: Soft, nondistended, mid epigastric tenderness. No guarding. no masses palpable. No ascites, No hepatosplenomegaly.Bowel sounds heard. LEGS: No edema. no swelling PSYCHIATRY: Alert and oriented X3, mood and affect normal. NERVOUS SYSTEM: Cranial N 2-12 grossly normal. Moves all 4 limbs. Diffuse weakness No focal deficits. Strength and sensation grossly intact.; Patient has active range of motion of his arms, hands,wrists with no discomfort. Skin: no lesions, no rash Lymphatic system. No LN neck axilla. Results CBC & Chem 7: 07/03/19 12:34 07/03/19 05:34 Labs: Abnormal Lab Results - Last 24 Hours (Table) 07/02/19 07/02/19 07/02/19 Range/Units 20:00 21:13 21:15 WBC 11.3 H (3.8-10.6) k/uL RBC 1.85 L (4.30-5.90) m/uL Hgb 5.6 L* (13.0-17.5) gm/dL Hct 16.1 L* (39.0-53.0) % Neutrophils # 8.5 H (1.3-7.7) k/uL Sodium 132 L (137-145) mmol/L Carbon Dioxide 21 L (22-30) mmol/L BUN 34 H (9-20) mg/dL Glucose 115 H (74-99) mg/dL Calcium 8.2 L (8.4-10.2) mg/dL Alkaline Phosphatase 35 L (38-126) U/L Total Protein 5.8 L (6.3-8.2) g/dL Albumin 3.4 L (3.5-5.0) g/dL Lipase 608 H (23-300) U/L Crossmatch See Detail 07/03/19 Range/Units 05:34 WBC 11.4 H (3.8-10.6) k/uL RBC 2.45 L (4.30-5.90) m/uL Hgb 7.7 L D (13.0-17.5) gm/dL Hct 22.1 L (39.0-53.0) % Neutrophils # 8.3 H (1.3-7.7) k/uL Sodium (137-145) mmol/L Carbon Dioxide (22-30) mmol/L BUN (9-20) mg/dL Glucose (74-99) mg/dL Calcium (8.4-10.2) mg/dL Alkaline Phosphatase (38-126) U/L Total Protein (6.3-8.2) g/dL Albumin (3.5-5.0) g/dL Lipase (23-300) U/L Crossmatch Thrombosis Risk Factor Assmnt - Choose All That Apply Any of the Below Risk Factors Present?: No Assessment and Plan Assessment: -Acute symptomatic blood loss anemia, secondary to GI bleed in a patient with history of gastric ulcers -Chest pain, midsternal patient reports related to throwing up. Negative troponin -Hyponatremia secondary to nausea vomiting, dehydration -Mildly elevated lipase -Hypoalbuminemia -Polysubstance abuse; Ongoing THC use,History of methamphetamine use, occasional alcohol -History of nicotine dependence -Schizophrenia, noncompliant with medications -Anxiety -Severe pulmonary hypertension -Weight loss of 20 pounds in 1 week -Moderate protein calorie malnutrition, BMI 22.7 Plan: Continue current medication regime ,monitoring and symptomatic treatment. Maintain PPI, IV fluid hydration, Zofran .Close monitoring of CBC with serial CBCs ordered. GI consulted. Social work consulted related to patient's inability to afford medications. Psych consulted related to polysubstance abuse, anxiety, in a patient with schizophrenia not on any medications. Hepatitis panel ordered. Further recommendations to follow. The impression and plan of care has been dictated as directed. : I performed a history and examination of this patient, discussed the same with the dictator. I agree with the dictator's note ,documented as a scribe. Any additional findings or plans will be noted.
--- NOTE | 2019-07-03 14:51 | P.PN ---
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 HISTORY OF PRESENT ILLNESS: The patient was he tended to the hospital for 1 week history of nausea and vomiting along with abdominal pain and inability keep his food down. Patient also has GI bleed at this time and has been complaining of pain and paresthesias in his arms bilaterally. Psychiatry was consulted for ps ychiatric history. According to nurse report, patient has been taking his medications and has been cooperative, no behavioral issues and has been complaining of abdominal pain and burning in his hands. Purification Operator saw patient in room patient was lying in bed comfortably watching TV and was agreeable to be interviewed. Patient states that he is in the hospital due to his abdominal pain is GI bleed and was complaining about the ongoing pain in his hand and states that it has been an ongoing problem for months and states that he does not know what the trigger for the cause of this pain is. Patient appears to be somewhat irritable and when asked about it he states that it is due to his pain. He denies any anxiety or any mood disturbances at this time. He claims that he is having poor sleep at this time however denies any racing thoughts or any ruminations. Patient did claim that he has been diagnosed with multiple different diagnoses in the past however is unsure if he is ever been psych iatrically hospitalized. He claims that he has a diagnosis of schizophrenia, bipolar and "explosive personality". Patient currently denies any depressive symptoms at this time and claims that his energy and appetite are fair. At this time patient denies any suicidal or homical ideations, intent or plan. Patient did endorse some auditory hallucinations in the past and claims that "Chele only comes out when I'm really stressed". He denies any visual hallucinations and does not endorse any paranoia or delusions. PAST PSYCHIATRIC HISTORY: Patient claims that he has an unclear diagnosis of eit her schizophrenia, bipolar or "explosive personality". He is unsure of whether he has been ever psychiatrically hospitalized and claims that he has been tried on several different psychiatric medications in the past however does not know their names. He denies any previous suicide attempts and claims that he does not follow up with a psychiatrist as an outpatient. PAST MEDICAL HISTORY: Coronary artery disease with a previous GA. ALLERGIES: No known drug allergies. CHEMICAL DEPENDENCY HISTORY: States that she smokes marijuana daily and quantity is "a lot". FAMILY PSYCHIATRIC/SUBSTANCE USE HISTORY: He states that his mother was schizophrenic. SOCIAL HISTORY: Patient claims that he is born and raised in [place] and moved to [place]. 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 MENTAL STATUS EXAM: General Appearance: Patient appears to be older than stated age is alert, and c ooperative. Patient appears up poor hygiene and poor grooming. Behavior: Patient is calmly lying in bed without any agitated behavior. Patient hits his arms on the bed periodically after stating that they are in pain. Speech: Patient's speech is fluent and nonpressured. Mood/Affect: Patient reports their mood is "okay", affect is congruent and constricted Suicidality/Homicidality: Patient denies having any suicidal or homicidal ideation intent or plan. Perceptions: Patient denies any auditory or visual hallucinations. Though content/process: There is no evidence of any delusional thought content and thought process is linear and goal-directed. Memory and concentration: AOX3, grossly intact for the purposes of this session. Can spell "WORLD" backwards Judgment and insight: Superficial. IMPRESSIONS: Mood disorder unspecified PLAN: -At this time patient patient does NOT meet criteria for inpatient psychiatric admission. -Patient's irritability appear to be likely related to his pain that is experiencing and his frustration with being in the hospital and not being able to eat. Discussed with patient certain coping strategies and ways to work on distress tolerance. -Would recommend the following medication changes/additions: Ordered Seroquel 50 mg daily at bedtime for irritability/insomnia. Patient is unlikely to be taking his medications once he leaves the hospital. -Psychiatry will sign off at this point. Will see patient as needed if asked. Thank you for the consult
[2019-07-03] MEDS: HYDROmorphone 0.5 MG/0.5 ML SYRINGE IVP PRN ×2 (17:44→22:12)
[2019-07-03 19:23] LABS: HCT 22.2 % (39.0-53.0); HGB 7.7 gm/dL (13.0-17.5); MCH 31.1 pg (25.0-35.0); MCHC 34.6 g/dL (31.0-37.0); MCV 89.8 fL (80.0-100.0); Mean Platelet Volume 8.2; Platelet Count 205 k/uL (150-450); RBC 2.47 m/uL (4.30-5.90); WBC 10.2 k/uL (3.8-10.6)
[2019-07-03] MEDS: QUEtiapine 50 MG TAB PO SCH (20:12)
--- NOTE | 2019-07-03 23:42 | CONS ---
CONSULTATION DATE OF DICTATION: July 03, 2019. REQUESTING PHYSICIAN: Dr. Leach REASON FOR CONSULTATION: Severe epigastric pain and anemia. HISTORY OF PRESENT ILLNESS: The patient is a 49-year-old white male who came to the emergency room complaining of severe epigastric pain for the last 1 week duration. The pain is mostly in the epigastric area associated with intermittent nausea and vomiting but no coffee-ground emesis. He also noted black tarry stools for the same duration of time. When he came to the emergency room, he was noted to have a hemoglobin of 5.6, received two units of blood transfusion and hemoglobin is 7.6. Since being in the hospital, he did not have any further episodes of nausea, vomiting, or melena. The patient states that he was diagnosed with peptic ulcer disease in September of 2018 at which time he underwent surgery by Dr. Farmer for perforated gastric ulcer. The patient denies any NSAID use. He had denied being on any proton pump inhibitor therapy after the diagnosis of peptic ulcer disease. PAST MEDICAL HISTORY: Significant for perforated peptic ulcer disease, 2017 requiring exploratory laparotomy. SURGICAL HISTORY: Fracture foot, repair of perforated ulcer. MEDICATIONS: At home: None. ALLERGIES: No known drug allergies. SOCIAL HISTORY: Former smoker. No alcohol use. FAMILY HISTORY: Father , mother . REVIEW OF SYSTEMS: Cardiopulmonary: No chest pain, shortness of breath. Genitourinary: No hematuria or dysuria. MUSCULOSKELETAL: Unremarkable. SKIN: Unremarkable. Psychiatric: Unremarkable. Endocrine: Unremarkable. NEUROLOGICAL: Unremarkable. ENT/vision unremarkable. Constitutional: No recent weight loss. No fever, chills, night sweats. PHYSICAL EXAMINATION: He appears comfortable. No apparent distress. VITAL SIGNS: Vital signs stable. Blood pressure is 119/77, pulse is 72, temperature 98.3. HEENT examination unremarkable. Conjunctivae pink. Sclerae anicteric. Oral cavity no lesions. NECK: No JVD or lymph node enlargement. CHEST: Clear to auscultation. HEART: Regular rate and rhythm. ABDOMEN: Soft. Bowel sounds are positive. No organomegaly. EXTREMITIES: No pedal edema. SKIN: No rashes. NEUROLOGIC: Alert and oriented x3. No focal deficits. LABS: Done at the time of admission to the hospital: Hemoglobin 5.5, platelets normal. WBC 11.3. Today, hemoglobin 7.6. BUN is 34, creatinine 0.76, lipase is 608. Today it is 301. Stool occult blood positive. The abdominal x-ray is unremarkable. IMPRESSION: The patient presents with acute onset of severe epigastric pain for the last 1 week duration who had perforated peptic ulcer disease in August of 2018 requiring emergency exploratory laparotomy with repair of the ulcer. He has not been on any therapy since discharge from the hospital, now presents with severe epigastric pain and black tarry stools for the last 1 week duration. Most likely we are dealing with recurrent peptic ulcer disease. RECOMMENDATIONS: 1. Agree with PRBC transfusion. 2. CBC every 12 hours. 3. IV Protonix 40 mg twice daily. 4. Clear liquid diet. 5. Proceed with EGD tomorrow. 6. I discussed with the patient risks, benefits, and complications and he is agreeable to it. Thank you for this consultation. MMQASIML / THIAGON: [id number] /
[2019-07-04] MEDS: SODIUM CHLORIDE 0.9% 1,000 ML IV SCH ×3 (00:07→19:55)
[2019-07-04 00:44] LABS: HCT 20.4 % (39.0-53.0); MCH 30.7 pg (25.0-35.0); MCHC 34.3 g/dL (31.0-37.0); MCV 89.5 fL (80.0-100.0); Mean Platelet Volume 7.8; Platelet Count 196 k/uL (150-450); RBC 2.28 m/uL (4.30-5.90); RDW 14.7 % (11.5-15.5); WBC 7.8 k/uL (3.8-10.6)
[2019-07-04] MEDS: HYDROmorphone 0.5 MG/0.5 ML SYRINGE IVP PRN ×4 (04:51→20:46)
[2019-07-04 06:34] LABS: Basophils % (A) 0 %; Eosinophils # (A) 0.2 k/uL (0-0.7); Eosinophils % (A) 2 %; HCT 20.3 % (39.0-53.0); Lymphocytes % (A) 28 %; MCHC 34.5 g/dL (31.0-37.0); MCV 89.7 fL (80.0-100.0); Mean Platelet Volume 7.8; Monocytes # (A) 0.5 k/uL (0-1.0); Monocytes % (A) 6 %; Neutrophils # (A) 4.4 k/uL (1.3-7.7); Neutrophils % (A) 62 %; Platelet Count 209 k/uL (150-450); RBC 2.27 m/uL (4.30-5.90); RDW 14.8 % (11.5-15.5); WBC 7.1 k/uL (3.8-10.6)
[2019-07-04 06:52] LABS: D-Dimer 0.43 mg/L FEU (<0.60); INR 0.9 (<1.2); Prothrombin Time 9.9 sec (9.0-12.0)
[2019-07-04 06:53] LABS: ALT 27 U/L (21-72); AST 23 U/L (17-59); African American GFR (CKD) >90 (>60 ml/min/1.73 sqM); Albumin 2.7 g/dL (3.5-5.0); Alkaline Phosphatase 39 U/L (38-126); Anion Gap 4 mmol/L; Blood Urea Nitrogen 10 mg/dL (9-20); Calcium 8.1 mg/dL (8.4-10.2); Carbon Dioxide 26 mmol/L (22-30); Chloride 106 mmol/L (98-107); Glucose 86 mg/dL (74-99); Potassium 3.9 mmol/L (3.5-5.1); Sodium 136 mmol/L (137-145); Total Bilirubin 0.3 mg/dL (0.2-1.3); Total Protein 4.9 g/dL (6.3-8.2)
[2019-07-04 07:06] LABS: Partial Thromboplastin Time 21.4 sec (22.0-30.0)
[2019-07-04] MEDS: PANTOPRAZOLE 40 MG/10 ML VIAL IV SCH ×2 (09:00→21:10)
--- NOTE | 2019-07-04 11:30 | P.PN ---
Subjective Progress Note Date: 07/04/19 This is a 49-year-old gentleman with history of prior nicotine dependence, ongoing marijuana use, schizophrenia, anxiety, history of methamphetamine abuse, occasional alcohol consumption, gastric ulcers and multiple other medical issues. Reports that he has not been on his psychiatric meds 6 months secondary to financial reasons. Patient presents to the ER with complaints of nausea, vomiting 1 week, accompanied by severe mid epigastric to mid sternal pain, bilateral arms burning sensation 1 month and lightheadedness, dizziness. States that bilateral arm burning starts at fingertips travels up both anterior and posterior and lateral sides of arms continuously up through the shoulders. Denies any trauma. Reports 20 pound weight loss in 1 week. Denies diarrhea, but does report black tarry stools. Denies hemoptysis., Hematemisis. Denies any fever or chills. Hemoglobin 5.6 on admission, received 2 units and now up to 7.7. Stool positive for occult. Lipase 608 on admission, repeat 331. Chest x- ray reported negative, Nonacute abdomen.troponin negative 1, EKG normal sinus rhythm. VSS. Afebrile, WBC 11.4. Anxious appearing. 07/04/2019 evaluated by a psychiatry yesterday, recommendations noted and appreciated. Seroquel added to medication regime with less stress/agitation today. Maintained on IV PPI twice a day. Abdominal pain lessened. Hemoglobin currently at 7. Diet had been advanced up to full liquids last night and patient experienced nausea without emesis, diarrhea. Denies further melena. Evaluated by GI and patient is NPO,scheduled for EGD this afternoon. Telemetry sinus rhythm. Afebrile, normal WBC,VSS. Hepatitis screen nonreactive. Objective - Vital Signs Vital signs: Vital Signs Temp 97.4 F L 07/04/19 08:00 Pulse 68 07/04/19 08:00 Resp 16 07/04/19 08:00 BP 111/61 07/04/19 08:00 Pulse Ox 97 07/04/19 08:00 Intake & Output 07/03/19 07/04/19 07/04/19 18:59 06:59 18:59 Intake Total 420 0 0 Output Total 700 1350 Balance -280 -1350 0 Intake: Oral 420 0 0 Output: Urine 700 1350 Other: Voiding Method Toilet Toilet # Voids 1 - Exam VITAL SIGNS: As above GENERAL: Sitting up in bed, no acute distress, resting comfortably. HEENT: Conjunctivae normal. eyes normal. Oral mucosa dry. NECK: No JVD. No thyroid enlargement. No LNs CARDIOVASCULAR: S1, S2 regular.. No murmur RESPIRATION: Breath sounds diminished in the bases. No rhonchi or crackles. No wheezing ABDOMEN: Soft, nondistended, mid epigastric tenderness. No guarding. no masses palpable. Bowel sounds heard. LEGS: No edema. no swelling PSYCHIATRY: Alert and oriented X3, mood and affect normal. NERVOUS SYSTEM: Cranial N 2-12 grossly normal. Moves all 4 limbs. Diffuse weakness No focal deficits. Strength and sensation grossly intact. Skin: no rash - Labs CBC & Chem 7: 07/04/19 06:03 07/04/19 06:03 Labs: Abnormal Lab Results - Last 24 Hours (Table) 07/03/19 07/03/19 07/04/19 Range/Units 12:34 18:43 00:31 RBC 2.45 L 2.47 L 2.28 L (4.30-5.90) m/uL Hgb 7.6 L 7.7 L 7.0 L (13.0-17.5) gm/dL Hct 22.0 L 22.2 L 20.4 L (39.0-53.0) % APTT (22.0-30.0) sec Sodium (137-145) mmol/L Calcium (8.4-10.2) mg/dL Total Protein (6.3-8.2) g/dL Albumin (3.5-5.0) g/dL 07/04/19 07/04/19 07/04/19 Range/Units 06:03 06:03 06:03 RBC 2.27 L (4.30-5.90) m/uL Hgb 7.0 L (13.0-17.5) gm/dL Hct 20.3 L (39.0-53.0) % APTT 21.4 L (22.0-30.0) sec Sodium 136 L (137-145) mmol/L Calcium 8.1 L (8.4-10.2) mg/dL Total Protein 4.9 L (6.3-8.2) g/dL Albumin 2.7 L (3.5-5.0) g/dL Assessment and Plan Assessment: -Acute symptomatic blood loss anemia, secondary to GI bleed in a patient with history of gastric ulcers -Chest pain, midsternal patient reports related to throwing up. Negative troponin -Hyponatremia secondary to nausea vomiting, dehydration -Mildly elevated lipase -Hypoalbuminemia -Polysubstance abuse; Ongoing THC use,History of methamphetamine use, occasional alcohol -History of nicotine dependence -Schizophrenia, noncompliant with medications -Anxiety -Severe pulmonary hypertension -Weight loss of 20 pounds in 1 week -Moderate protein calorie malnutrition, BMI 22.7 Plan: Continue current medication regime ,monitoring and symptomatic treatment. Continue on PPI, IV fluid hydration. Pain management .Serial CBCs in place.NPO, EGD scheduled for this afternoon. Further recommendations to follow. The impression and plan of care has been dictated as directed. : I performed a history and examination of this patient, discussed the same with the dictator. I agree with the dictator's note ,documented as a scribe. Any additional findings or plans will be noted.
--- NOTE | 2019-07-04 12:33 | P.CN ---
Psychiatric Consult - . 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 HISTORY OF PRESENT ILLNESS: The patient was he tended to the hospital for 1 week history of nausea and vomiting along with abdominal pain and inability keep his food down. Patient also has GI bleed at this time and has been complaining of pain and paresthesias in his arms bilaterally. Psychiatry was consulted for psychiatric history. According to nurse report, patient has been taking his medications and has been cooperative, no behavioral issues and has been complaining of abdominal pain and burning in his hands. Personal Security Specialist saw patient in room patient was lying in bed comfortably watching TV and was agreeable to be interviewed. Patient states that he is in the hospital due to his abdominal pain is GI bleed and was complaining about the ongoing pain in his hand and states that it has been an ongoing problem for months and states that he does not know what the trigger for the cause of this pain is. Patient appears to be somewhat irritable and when asked about it he states that it is due to his pain. He denies any anxiety or any mood disturbances at this time. He claims that he is having poor sleep at this time however denies any racing thoughts or any ruminations. Patient did claim that he has been diagnosed with multiple different diagnoses in the past however is unsure if he is ever been psychiatrically hospitalized. He claims that he has a diagnosis of schizophrenia, bipolar and "explosive personality". Patient currently denies any depressive symptoms at this time and claims that his energy and appetite are fair. At this time patient denies any suicidal or homical ideations, intent or plan. Patient did endorse some auditory hallucinations in the past and claims that "Chele only comes out when I'm really stressed". He denies any visual hallucinations and does not endorse any paranoia or delusions. PAST PSYCHIATRIC HISTORY: Patient claims that he has an unclear diagnosis of either schizophrenia, bipolar or "explosive personality". He is unsure of whether he has been ever psychiatrically hospitalized and claims that he has been tried on several different psychiatric medications in the past however does not know their names. He denies any previous suicide attempts and claims that he does not follow up with a psychiatrist as an outpatient. PAST MEDICAL HISTORY: Coronary artery disease with a previous MD. ALLERGIES: No known drug allergies. CHEMICAL DEPENDENCY HISTORY: States that she smokes marijuana daily and quantity is "a lot". FAMILY PSYCHIATRIC/SUBSTANCE USE HISTORY: He states that his mother was schizophrenic. SOCIAL HISTORY: Patient claims that he is born and raised in [facility] and moved to [place]. 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 MENTAL STATUS EXAM: General Appearance: Patient appears to be older than stated age is alert, and cooperative. Patient appears up poor hygiene and poor grooming. Behavior: Patient is calmly lying in bed without any agitated behavior. Patient hits his arms on the bed periodically after stating that they are in pain. Speech: Patient's speech is fluent and nonpressured. Mood/Affect: Patient reports their mood is "okay", affect is congruent and constricted Suicidality/Homicidality: Patient denies having any suicidal or homicidal ideation intent or plan. Perceptions: Patient denies any auditory or visual hallucinations. Though content/process: There is no evidence of any delusional thought content and thought process is linear and goal-directed. Memory and concentration: AOX3, grossly intact for the purposes of this session. Can spell "WORLD" backwards Judgment and insight: Superficial. IMPRESSIONS: Mood disorder unspecified PLAN: -At this time patient patient does NOT meet criteria for inpatient psychiatric admission. -Patient's irritability appear to be likely related to his pain that is experiencing and his frustration with being in the hospital and not being able to eat. Discussed with patient certain coping strategies and ways to work on distress tolerance. -Would recommend the following medication changes/additions: Ordered Seroquel 50 mg daily at bedtime for irritability/insomnia. Patient is unlikely to be taking his medications once he leaves the hospital. -Psychiatry will sign off at this point. Will see patient as needed if asked. Thank you for the consult 07/04/19 12:33
[2019-07-04] MEDS ORDERED: IV FLUID CONTINUATION 500 ML IV ONE (13:03)
[2019-07-04] MEDS ORDERED: LIDOCAINE 1% INJ 10MG/ML (20 ML MDV) ONE (13:04)
[2019-07-04] MEDS ORDERED: PROPOFOL 10 MG/ML 20 ML VIAL IV ONE (13:04)
--- NOTE | 2019-07-04 13:23 | P.PCN ---
Date of Procedure: 07/04/19 Procedure(s) Performed: BRIEF HISTORY: Patient is a 49-year-old, pleasant, white male, admitted to the hospital with severe epigastric pain and black tarry stools for the last 1 week duration. Hemoglobin was 5.3 g of blood transfusion. Prior history of peptic ulcer disease for which she underwent extensive laparotomy for perforated ulcer in August 2018.. PROCEDURE PERFORMED: Esophagogastroduodenoscopy with biopsy and Endo Clip placement. PREOPERATIVE DIAGNOSIS: Epigastric pain and black tarry stools of 1 week duration/severe symptomatic anemia. IV sedation per anesthesia. PROCEDURE: After informed consent was obtained, the patient was brought into the endoscopy unit. IV sedation was administered by Anesthesia under continuous monitoring. Initially the Olympus GIF-140 video endoscope was inserted into the mouth. Esophagus intubated without any difficulty. It was gradually advanced int o the stomach and duodenum and carefully examined. The bulb of the duodenum appeared normal. Along the duodenal sweep there was a 2 cm ulceration identified with some oozing noted at the margin of the ulcer. There was no obvious visible vessel identified. Endo Clip was placed at the site of oozing. The scope at this time was withdrawn to the stomach, adequately insufflated with air, and upon careful examination, mucosa of the antrum had mild gastritis and biopsies were done from this area. The body, cardia and the fundus appeared normal. The scope was then withdrawn into the esophagus. The GE junction was located at 39 cm from the incisors. The esophagus appeared normal. There were no erosions or ulcerations seen and the patient tolerated the procedure well. IMPRESSION: 1. 2 cm duodenal ulcer along the duodenal sweep with some oozing status post Endo Clip placement. 2. Mild antral gastritis. RECOMMENDATIONS: The findings of this examination were discussed with the patient. He will continue on Protonix 40 mg twice daily. We will advance to full liquid diet today. Await biopsy results.
--- NOTE | 2019-07-04 15:07 | P.PN ---
Progress Note - Text Progress Note Date: 07/04/19 Interval History: Patient was seen today for psychiatry follow up. Patient recieved 50mg of sero quel last night which was started for mood stabilization/insomnia. Patient appeared to be much more cooperative and less irritable this morning. He states that he just came back from his procedure and feels "ok" with regards to his mood. He states that his irritability and anxiety have improved. He also claims that he slept better last night and claims "It was the perfect dose". Patient denies any side effects and states that his pain is about the same in terms of severity in his upper extremities. At this time patien denies any Ah or VH and denies any Si or HI. Does not endorse any delusions. Mental Status Exam: General Appearance: Patient appears to be older than stated age is alert, and cooperative. Patient appears to have improved hygiene and poor grooming. Behavior: Patient is calmly lying in bed without any agitated behavior. less irritable today Speech: Patient's speech is fluent and nonpressured. Mood/Affect: Patient reports their mood is "ok", affect is congruent Suicidality/Homicidality: Patient denies having any suicidal or homicidal ideation intent or plan. Perceptions: Patient denies any auditory or visual hallucinations. Though content/process: There is no evidence of any delusional thought content and thought process is linear and goal-directed. Memory and concentration: AOX3, grossly intact for the purposes of this session. Can spell "WORLD" backwards Judgment and insight: fair, improved IMPRESSIONS: Mood disorder unspecified pain disorder with related psychological factors PLAN: -At this time patient does NOT meet criteria for inpatient psychiatric admission. -Patient's irritability appear to be mainly related to his pain however has improved with current dose of 50mg of seroquel nightly. Can continue with current med regimen. -Psychiatry will sign off at this point. Thank you for the consult.
[2019-07-04] MEDS: GABAPENTIN 100 MG CAP PO SCH ×2 (15:46→21:10)
--- NOTE | 2019-07-04 16:41 | XR ---
EXAMINATION TYPE: XR cervical spine comp DATE OF EXAM: 07/04/2019 COMPARISON: NONE HISTORY: Neck pain TECHNIQUE: 5 views FINDINGS: Cervical vertebra have normal alignment. There is some narrowing at C6-7 disc space with sp urring. There is mild narrowing also at C3-4. Posterior elements are intact. There are no cervical ri bs. There is dense calcified thyroid cartilage. There is exostosis on the right side right transverse process of C2. The atlantoaxial facet joint is normal. Posterior elements are intact. IMPRESSION: Spondylotic changes as above. No fracture. No sign of instability.
[2019-07-04] MEDS: QUEtiapine 50 MG TAB PO SCH (21:10)
[2019-07-04 22:42] VITALS: PULSE 82
[2019-07-05] MEDS: HYDROmorphone 0.5 MG/0.5 ML SYRINGE IVP PRN ×2 (02:19→05:56)
[2019-07-05 04:48] VITALS: BP 124/74; RESP 20; TEMP 99.1
[2019-07-05] MEDS: SODIUM CHLORIDE 0.9% 1,000 ML IV SCH (08:06)
[2019-07-05] MEDS: PANTOPRAZOLE 40 MG/10 ML VIAL IV SCH (08:06)
[2019-07-05] MEDS: GABAPENTIN 100 MG CAP PO SCH (08:06)
[2019-07-05 10:51] LABS: HCT 22.2 % (39.0-53.0); HGB 7.7 gm/dL (13.0-17.5); MCH 31.9 pg (25.0-35.0); MCHC 34.6 g/dL (31.0-37.0); MCV 92.2 fL (80.0-100.0); Mean Platelet Volume 7.5; Platelet Count 315 k/uL (150-450); RBC 2.41 m/uL (4.30-5.90); RDW 15.8 % (11.5-15.5); WBC 8.5 k/uL (3.8-10.6)
--- NOTE | 2019-07-05 13:18 | P.DS ---
Providers Date of admission: 07/02/19 23:17 Expected date of discharge: 07/05/19 Attending physician: Kole Leach Consults: 07/02/19 23:18 Consult Physician Routine Consulting Provider: Radha Flores Consult Reason/Comments: Upper GI bleed with anemia Do you want consulting provider notified?: Yes, Notify in am 07/03/19 08:39 Consult Physician Urgent Consulting Provider: Eleazar Lugo Consult Reason/Comments: Anxiety, polysubstance abuse, schizophrenia currently on no meds Do you want consulting provider notified?: Yes Primary care physician: [facility] Course: Final Diagnoses: -Acute symptomatic blood loss anemia, secondary to GI bleed in a patient with history of gastric ulcers. Status post EGD reporting 2 cm duodenal ulcer along the duodenal sweep with some oozing status post Endo Clip placement, mild antral gastritis. Biopsies obtained and pending. -Chest pain, midsternal patient reports related to throwing up. Negative troponin -Hyponatremia secondary to nausea vomiting, dehydration -Mildly elevated lipase -Hypoalbuminemia -Polysubstance abuse; Ongoing THC use,History of methamphetamine use, occasional alcohol -History of nicotine dependence -Schizophrenia, noncompliant with medications -Anxiety -Severe pulmonary hypertension -Weight loss of 20 pounds in 1 week -Moderate protein calorie malnutrition, BMI 22.7 Hospital course:This is a 49-year-old gentleman with history of prior nicotine dependence, ongoing marijuana use, schizophrenia, anxiety, history of methamphetamine abuse, occasional alcohol consumption, gastric ulcers and multiple other medical issues. Reports that he has not been on his psychiatric meds 6 months secondary to financial reasons. Patient presents to the ER with complaints of nausea, vomiting 1 week, accompanied by severe mid epigastric to mid sternal pain, bilateral arms burning sensation 1 month and lightheadedness, dizziness. States that bilateral arm burning starts at fingertips travels up both anterior and posterior and lateral sides of arms continuously up through the shoulders. Denies any trauma. Reports 20 pound weight loss in 1 week. Denies diarrhea, but does report black tarry stools. Denies hemoptysis., Hematemisis. Denies any fever or chills. Hemoglobin 5.6 on admission, received 2 units and now up to 7.7. Stool positive for occult. Lipase 608 on admission, repeat 331. Chest x-ray reported negative, Nonacute abdomen.troponin negative 1, EKG normal sinus rhythm. VSS. Afebrile, WBC 11.4. Anxious appearing. 07/04/2019 evaluated by a psychiatry yesterday, recommendations noted and appreciated. Seroquel added to medication regime with less stress/agitation today. Maintained on IV PPI twice a day. Abdominal pain lessened. Hemoglobin currently at 7. Diet had been advanced up to full liquids last night and patient experienced nausea without emesis, diarrhea. Denies further melena. Evaluated by GI and patient is NPO,scheduled for EGD this afternoon. Telemetry sinus rhythm. Afebrile, normal WBC,VSS. Hepatitis screen nonreactive. Status post EGD, tolerated well. Reporting 2 cm duodenal ulcer along the duodenal sweep with some oozing status post Endo Clip placement, mild gastritis. Diet advanced, tolerated, no nausea, vomiting or diarrhea. No signs or symptoms of bleeding. Hemoglobin 7.7. Discussed with patient that he will need to be maintained outpatient on Protonix 40 twice a day. Patient verbalized understanding of. Patient will be discharged home in stable condition with guarded prognosis pending GI clearance. - Exam GENERAL: Alert and oriented 3, no acute distress CARDIOVASCULAR: S1, S2 regular.. No murmur RESPIRATION: Breath sounds diminished in the bases. No rhonchi ,crackles,No wheezing ABDOMEN: Soft, nondistended, minimal epigastric tenderness. No guarding. no masses palpable. Positive Bowel sounds. NERVOUS SYSTEM: No focal deficits. The impression and plan of care has been dictated as directed. : I performed a history and examination of this patient, discussed the same with the dictator. I agree with the dictator's note ,documented as a scribe. Any additional findings or plans will be noted. Time Taken: 35 min. Patient Condition at Discharge: Stable Plan - Discharge Summary Discharge Rx Participant: No New Discharge Prescriptions: New Pantoprazole Sodium [Protonix] 40 mg PO BID #60 tablet. QUEtiapine [SEROquel] 50 mg PO HS #30 tab Gabapentin [Neurontin] 100 mg PO TID #9 cap Discharge Medication List Gabapentin [Neurontin] 100 mg PO TID #9 cap 07/05/19 [Rx] Pantoprazole Sodium [Protonix] 40 mg PO BID #60 tablet. 07/05/19 [Rx] QUEtiapine [SEROquel] 50 mg PO HS #30 tab 07/05/19 [Rx] Follow up Appointment(s)/Referral(s): Kole Leach MD [Primary Care Provider] - 1 Week (pt has to call the office they said) Radha Flores MD [STAFF PHYSICIAN] - 2 Weeks (Office unavailable) Mariely Narayanan MD [STAFF PHYSICIAN] - 1 Week (Per Kamlesh in pain management, they need to call primary for referral and then will call pt with appointment time.) Patient Instructions/Handouts: Anemia (DC) Activity/Diet/Wound Care/Special Instructions: Soft, low fat diet Activity as tolerated. Discharge Disposition: HOME SELF-CARE
== END 2019-07-05 11:33 | disposition home or self-care (01) | DRG 378 ==
LOC: EC 19:31 → 3SCARD 23:17 → 4MS4W 07-04 22:17
PROVIDERS: ADMIT Family Medicine; ATTEND Family Medicine
PROC: 30233N1 Transfusion of Nonautologous Red Blood Cells into Peripheral Vein, Percutaneous Approach (ICD-10-PCS; 2019-07-03)
PROC: 0DB78ZX Excision of Stomach, Pylorus, Via Natural or Artificial Opening Endoscopic, Diagnostic (ICD-10-PCS; principal; 2019-07-04 08:30)
PROC: 0W3P8ZZ Control Bleeding in Gastrointestinal Tract, Via Natural or Artificial Opening Endoscopic (ICD-10-PCS; 2019-07-04 08:30)
DX: K26.4 Chronic or unspecified duodenal ulcer with hemorrhage (principal); E44.0 Moderate protein-calorie malnutrition; E87.1 Hypo-osmolality and hyponatremia; D62 Acute posthemorrhagic anemia; I27.20 Pulmonary hypertension, unspecified; F20.9 Schizophrenia, unspecified; K29.70 Gastritis, unspecified, without bleeding; E86.0 Dehydration; F39 Unspecified mood [affective] disorder; F41.9 Anxiety disorder, unspecified; F45.42 Pain disorder with related psychological factors; G47.00 Insomnia, unspecified; I25.10 Atherosclerotic heart disease of native coronary artery without angina pectoris; I25.2 Old myocardial infarction; R74.8 Abnormal levels of other serum enzymes; R07.9 Chest pain, unspecified; M47.9 Spondylosis, unspecified; Z87.11 Personal history of peptic ulcer disease; Z87.891 Personal history of nicotine dependence; Z91.14 Patient's other noncompliance with medication regimen; Z68.22 Body mass index [BMI] 22.0-22.9, adult; Z83.6 Family history of other diseases of the respiratory system
CPT/HCPCS: 36415; 43239; 43255; 71046; 72050; 74018; 80053; 80074; 82272; 82550; 83690; 83735; 83880; 84484; 85025; 85027; 85379; 85610; 85730; 86850; 86900; 86901; 86920; 88305; 88342; 93005; 96361; 96374; 96375; 99291

== ENCOUNTER 2019-09-13 11:44 | Observation (INO) | payer OTHER ==
[2019-09-13 13:11] VITALS: BMI 25.7
[2019-09-13] MEDS: HYDROcodone/APAP 10-325MG 1 EACH TAB PO PRN ×2 (13:17→20:50)
[2019-09-13] MEDS: GABAPENTIN 300 MG CAP PO SCH ×2 (13:17→20:50)
[2019-09-13 13:58] VITALS: BP 124/74; PULSE 45; RESP 16; TEMP 97.5
--- NOTE | 2019-09-13 15:26 | P.CNNES ---
History of Present Illness Consult date: 09/13/19 Requesting physician: Kole Leach Reason for Consult: Neuropathy History of Present Illness: Patient is a 49-year-old male who states that he started having burning, numbness and tingling of the hands started 4 months ago. Slowly the symptoms have extended now up to the elbows bilaterally. The left hand is worse, bothers him off and on throughout the day. However at night both hands bother him. The symptoms wakes him up and night. He states that he does not have to do anything for hands to get worse. The symptoms in the hands is 10/10. Patient states the barrel header is decreased, he cannot hold the hammer because of the symptoms. He usually holds onto objects very hard, otherwise he feels will drop it. The symptoms involves all 5 fingers of both hands not in typical median nerve distribution. He states when he lifts his arms at the shoulder, it hurts in the neck. He states he cannot turn his neck or head far and cannot turn his head fast. 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 He fell out of a roof in 2004, and shattered both of his feet and ankles. He had surgery on the left foot therefore he cannot move it as well. He states that if he is standing for long time, his feet started swelling and hurts. He also has back issues. Complains of back pain 9/10. The neck pain extends to the upper mid back. Patient states he has smoked half pack per day for 10 years, quit 4 months ago. He drinks alcohol once in a while. He smokes weed every day but denies any other drugs. Patient denies diabetes. Past Medical History Past Medical History: No Reported History Additional Past Medical History / Comment(s): Pt admitted in March 2019 with fluid overload/transaminitis/R arm infection/necrosis d/t meth IV/hypoxic respiratory failure, bilateral pleural effusions with R thoracentesis/severe pulmonary HTN, admitted in Jul 2019 with acute blood loss anemia d/t GI bleed, gastric ulcers/duodenal ulcer, gastritis, chronic back pain, bilateral carpal tunnel syndrome, gallbladder polyp, past bilateral foot fractures-L foot surgically repaired-pt states it didn't "work" so he chose not to have surgery on his R foot. History of Any Multi-Drug Resistant Organisms: None Reported Past Surgical History: Orthopedic Surgery Additional Past Surgical History / Comment(s): I&D right forearm/fasciotomy, fracture repair L foot, EGD with repair of perforated ulcer with endo clip, colonoscopy. Past Anesthesia/Blood Transfusion Reactions: No Reported Reaction Additional Past Anesthesia/Blood Transfusion Reaction / Comment(s): Pt has received blood without reaction. Smoking Status: Former smoker - Past Family History Father Family Medical History: Sleep Apnea/CPAP/BIPAP Additional Family Medical History / Comment(s): -suffered from obstructive sleep apnea Mother Family Medical History: No Reported History Additional Family Medical History / Comment(s): Medications and Allergies Home Medications Medication Instructions Recorded Confirmed Type Amitriptyline HCl [Elavil] 25 mg PO HS 09/13/19 09/13/19 History Ferrous Sulfate [Feosol] 325 mg PO DAILY 09/13/19 09/13/19 History Gabapentin [Neurontin] 300 mg PO TID 09/13/19 09/13/19 History Omeprazole 40 mg PO DAILY 09/13/19 09/13/19 History Allergies Allergy/AdvReac Type Severity Reaction Status Date / Time No Known Allergies Allergy Verified 09/13/19 13:40 Physical Examination - Vital Signs Vital Signs: Vital Signs Temp Pulse Resp BP Pulse Ox 09/13/19 13:56 97.5 F L 45 L 16 124/74 95 Intake and Output 09/13/19 09/13/19 09/13/19 06:59 14:59 22:59 Intake Total 200 Balance 200 Intake: Oral 200 Other: # Voids 2 Weight 68.039 kg On examination patient is a middle aged male, in no distress. He is upset about the back pain and pain medications not working. He is upset that he received [place] only one tablet, which is not touching it also he takes 2 tablets at home. Speech and language functions are normal. Attention and concentration fund of knowledge adequate. On cranial examination pupils are round and reacting to light, visual main are full, face is symmetric and tongue protrudes the midline. Palatal elevation and sensation normal. On muscle strength testing the strength is normal in the arms distally and proximally except for barrel header, which is about 4+ to 5-with decreased effort. His strength of lower extremities is completely normal at the toes, ankles, knees and hips all over. Reflexes are trace in the upper limbs, 1 at the knees and ankles bilaterally and plantars downgoing sensory touch is equal. No ataxia for [id number] testing tone and bulk of muscles normal. Gait deferred. No obvious bruit or murmur, peripheral pulses present. Tinel sign is positive bilaterally. Results Patient's last blood test from 07/05/2019 showed WBC 8.5 hemoglobin 7.7, platelets 315. MCV is 92. Chem-7 with sodium 132 potassium 3.9, renal functions normal. CRP 183.5 and ESR 18 on 03/25/2019. Patient's previous blood tests from 04/05/2019 showed negative CCP, BRANDI, scleroderma antibodies, C & P ANCA and rheumatoid factor. Hepatitis B, hepatitis C and HIV antibodies negative Assessment and Plan Assessment: * 49-year-old male with 4 month history of burning, numbness tingling and pain of both hands, rule out carpal tunnel syndrome. Rule out polyneuropathy. * Chronic back pain * Chronic feet pain since injury in 2004. * X tobacco user Plan: * Suggest EMG and nerve conduction studies of bilateral upper limbs to evaluate for possible carpal tunnel syndrome, rule out polyneuropathy. This can be performed as an outpatient. * We will check B12, folate, hemoglobin A1c, RPR, MMA, ONIEL and B6 level. * We will increase gabapentin to 600 mg 3 times a day. * If patient fails gabapentin, then Lyrica could be considered. * Consider use of wrist brace for the hands for possible CTS.
--- NOTE | 2019-09-13 15:33 | CT ---
EXAMINATION TYPE: CT cervical spine wo con DATE OF EXAM: 09/13/2019 COMPARISON: None HISTORY: 49-year-old male Neck pain TECHNIQUE: Contiguous axial scanning of the cervical spine without IV contrast. Coronal and sagittal reconstructions performed. CT DLP: 325.5 mGycm Automated exposure control for dose reduction was used. FINDINGS: Scattered mucosal thickening ethmoid air cells. Small amount of trapped fluid in the inferior right m astoid air cells. Some layering fluid within the right maxillary sinus. No craniocervical junction abnormality, predental space widening, or prevertebral soft tissue swellin g. Bilateral lingual tonsillar hypertrophy. Variable mild to moderate degenerative disc disease, greates t at C3-C4 and C6-C7. Disc osteophyte complexes at C3-C4 and C5-C6 causing at least mild spinal canal stenoses. Uncovertebral joint arthropathy mid to lower cervical spine. Mild facet arthropathy. At C3-C4, changes resulting in moderate left greater than right neural foraminal stenosis. At C4-C5, there is mild right neuroforaminal stenosis. At C5-C6, mild right neuroforaminal stenosis. At C6-C7, mild right neuroforaminal stenosis. IMPRESSION: 1. [id number] MULTILEVEL DEGENERATIVE DISC DISEASE. SCATTERED UNCOVERTEBRAL JOINT AND MILD FACE T ARTHROPATHY. 2. AT LEAST MILD SPINAL CANAL STENOSES AT C3-C4 AND C5-C6. 3. VARIABLE MILD AND MODERATE NEUROFORAMINAL STENOSES OUTLINED ABOVE. 4. SCATTERED MILD PARANASAL SINUS DISEASE WITH POSSIBLE ACUTE RIGHT MAXILLARY SINUSITIS. 5. SMALL AMOUNT OF TRAPPED FLUID IN THE INFERIOR RIGHT MASTOID AIR CELLS. CORRELATE FOR ANY MASTOID P AIN TO EXCLUDE MASTOIDITIS.
--- NOTE | 2019-09-13 15:38 | CT ---
EXAMINATION TYPE: CT lumbar spine wo con DATE OF EXAM: 09/13/2019 COMPARISON: None HISTORY: 49-year-old male Lower back pain TECHNIQUE: Contiguous axial scanning of the lumbar spine without IV contrast. Coronal and sagittal re constructions performed. CT DLP: 393.7 mGycm Automated exposure control for dose reduction was used. FINDINGS: Low-density thickening left adrenal gland may reflect underlying adrenal hyperplasia. Bilateral L5 pars defects with grade 1 anterolisthesis at L5-S1. There is moderate degenerative disc disease here with a disc height loss and diffuse disc bulge and some vacuum phenomenon. Additional scattered mild degenerative disc disease with disc bulging at multiple levels. No large fo majo disc herniation or significant spinal canal stenosis. Facet arthropathy mid to lower lumbar spine. Vertebral body heights are preserved. On the left, changes resulting in mild to moderate neuroforaminal stenosis at L3-L4 and mild at L4-L5 . Moderate at L5-S1 with possible impingement of the exiting L5 nerve root. On the right, changes result in moderate to severe neural foraminal stenosis at L5-S1 with possible n erve root impingement and mild at L3-L4 and L4-L5. No prevertebral or paravertebral soft tissue abnormality. IMPRESSION: 1. BILATERAL L5 PARS DEFECTS WITH GRADE 1 ANTEROLISTHESIS AT L5-S1 AND ASSOCIATED MODERATE DEGENERATI VE DISC DISEASE HERE. 2. NO LARGE FOCAL DISC HERNIATION OR SIGNIFICANT SPINAL CANAL STENOSIS. 3. MILD MULTILEVEL DEGENERATIVE DISC DISEASE WITH DISC BULGING AND SCATTERED FACET ARTHROPATHY. 4. CHANGES RESULT IN MODERATE TO SEVERE RIGHT AND MODERATE LEFT NEUROFORAMINAL STENOSIS AT L5-S1 WITH POSSIBLE IMPINGEMENT OF THE EXITING L5 NERVE ROOTS ON BOTH SIDES. 5. ADDITIONAL VARIABLE MILD NEUROFORAMINAL STENOSES OUTLINED ABOVE.
[2019-09-13] MEDS ORDERED: methylPREDNISolone SOD SUCCI 125 MG/2 ML VIAL IV SCH (16:00)
--- NOTE | 2019-09-13 16:40 | P.PAINCN ---
History of Present Illness - Reason for Consult Consult date: 09/13/19 - History of Present Illness This is a 49-year-old patient referred by Dr. Leach with a chief complaint of chronic pain in neck and bilateral arms, as well as low back pain. His primary complaint on this admission is bilateral hand and arm pain, which has been present for about 3-4 months, and worsening for the last couple of weeks. He states that this feels like his hands are "on fire". The pain initially starts as numbness, and then proceeds to burning. Pain is located in all 5 fingers and extends up to elbows. It is nondermatomal in distribution. Pain is rated as 10/10 today, and is what brought him into the hospital. He does endorse nausea when the pain is extremely bad. Patient has been taking medications from primary care physician including gabapentin 300 mg 3 times a day, which has been increased to 600 mg 3 times a day on this hospital admission. He is also been started on [place] 10 mg every 8 and Solu-Medrol 60 mg every 8 hours on this hospital admission. He was admitted approximately 3 hours ago, and has yet to experience the benefit from these medications. 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 His pain is intermittent, present throughout the day, worse at night, worse in the left than right. Patient also denies new-onset lower extremity weakness, bowel/bladder incontinence, or any other signs or symptoms of cauda equina syndrome. There are no signs of acute intoxication, and no indications of medication diversion or overuse. Patient HAS NOT had surgery-cervical or lumbar. Patient HAS NOT had injections previously. Patient HAS NOT had physical therapy recently. Of note, he has been evaluated by neurology, who recommended EMG, nerve conduction study and various lab tests. They would like to rule out polyneuropathy and carpal tunnel syndrome. In addition to above, 13-point review of systems is also negative for chest pain, shortness of breath, changes in vision, changes in hearing, new onset weakness, abdominal pain, diarrhea, extreme fatigue, malaise, fever, skin changes, homicidal or suicidal ideation, or bowel or bladder incontinence. Past Medical History Past Medical History: No Reported History Additional Past Medical History / Comment(s): Pt admitted in March 2019 with fluid overload/transaminitis/R arm infection/necrosis d/t meth IV/hypoxic respiratory failure, bilateral pleural effusions with R thoracentesis/severe pulmonary HTN, admitted in Jul 2019 with acute blood loss anemia d/t GI bleed, gastric ulcers/duodenal ulcer, gastritis, chronic back pain, bilateral carpal tunnel syndrome, gallbladder polyp, past bilateral foot fractures-L foot surgically repaired-pt states it didn't "work" so he chose not to have surgery on his R foot. History of Any Multi-Drug Resistant Organisms: None Reported Past Surgical History: Orthopedic Surgery Additional Past Surgical History / Comment(s): I&D right forearm/fasciotomy, fracture repair L foot, EGD with repair of perforated ulcer with endo clip, colonoscopy. Past Anesthesia/Blood Transfusion Reactions: No Reported Reaction Additional Past Anesthesia/Blood Transfusion Reaction / Comm: Pt has received blood without reaction. Smoking Status: Former smoker - Past Family History Father Family Medical History: Sleep Apnea/CPAP/BIPAP Additional Family Medical History / Comment(s): -suffered from obstructive sleep apnea Mother Family Medical History: No Reported History Additional Family Medical History / Comment(s): Medications and Allergies Home Medications Medication Instructions Recorded Confirmed Type Amitriptyline HCl [Elavil] 25 mg PO HS 09/13/19 09/13/19 History Ferrous Sulfate [Feosol] 325 mg PO DAILY 09/13/19 09/13/19 History Gabapentin [Neurontin] 300 mg PO TID 09/13/19 09/13/19 History Omeprazole 40 mg PO DAILY 09/13/19 09/13/19 History Allergies Allergy/AdvReac Type Severity Reaction Status Date / Time No Known Allergies Allergy Verified 09/13/19 13:40 Physical Exam Vitals: Vital Signs Temp Pulse Resp BP Pulse Ox 09/13/19 13:56 97.5 F L 45 L 16 124/74 95 Intake and Output 09/13/19 09/13/19 09/13/19 06:59 14:59 22:59 Intake Total 200 Balance 200 Intake: Oral 200 Other: # Voids 2 Weight 68.039 kg Physical exam: Vital Signs: Reviewed in EMR GENERAL: Well appearing, in no acute distress PSYCH: Mood and affect is appropriate. Awake, alert, and oriented SKIN: Skin color, texture, turgor normal, no rashes or lesions HEENT: Normocephalic, atraumatic. EOM intact CV: No pedal edema RESP: Respirations are unlabored, no audible wheezing GI: Abdomen non-distended MUSCULOSKELETAL: Bilateral upper extremity strength is normal and symmetric. No atrophy or tone abnormalities are noted. Patient has large scar at the antecubital. On right side, which is due to an injury earlier this year. It is well-healed. Neck: Tenderness to palpation over the cervical paraspinous muscles bilaterally. Spurling positive for radicular pain, bilateral, cervical spine range of motion is pain limited Extremities: Peripheral joint ROM is full and pain free without obvious instability or laxity in upper extremities. No edema or skin discolorations noted. NEUR: Bilateral upper extremity coordination and muscle stretch reflexes are physiologic and symmetric. Negative Meredith sign. No loss of sensation is noted. Cranial nerves are grossly intact. Results Results: Imaging: CT cervical spine done today shows mild to moderate multilevel degenerative disc disease, mild spinal canal stenosis at C3-4 and C5-6, mild right neuroforaminal stenosis at C4-5 and C5-6, C6-7. At C3-4 moderate left greater than right neuroforaminal stenosis. CT lumbar spine shows bilateral L5 pars defect with grade 1 anterolisthesis at L5-S1 with moderate degenerative disc disease and disc height loss. Mild to moderate neuroforaminal stenosis at L3-4 on the left and L5-S1 on the left with possible impingement of L5 nerve root. Moderate to severe neuroforaminal stenosis on the right at L5-S1 with possible nerve root impingement. Assessment and Plan Assessment: Assessment: 1. Cervical degenerative disc disease 2. Cervical spinal canal stenosis 3. Bilateral upper extremity paresthesias, unknown etiology at this timerule out polyneuropathy and carpal tunnel syndrome 4. Chronic low back pain, likely due to lumbar degenerative disc disease, lumbar spondylosis. Plan: Plan: 1. Explanation: At this time, it is unclear what is causing bilateral upper extremity paresthesias in this patient. Agree with neurology that patient requires further workup with EMG and nerve conduction studies as well as additional lab work. Some pain may be attributed to cervical degenerative disc disease and spinal canal stenosis. 2. Medications: Agree with primary care and neurology regarding increasing gabapentin to 600 mg 3 times a day. Narcotic management per primary care physician. Continue oral steroids. Would consider addition of Tylenol 1 g every 8 scheduled. 3. Procedures: If no significant benefit from above medications, would consider a cervical epidural steroid injection, to be done on Tuesday. 4. Investigations: CT cervical spine and lumbar spine reviewed Thank you for allowing us to participate in the care of this patient. We will continue to follow. PQRS Measure Charge Sheet PQRS Narrative: Smoking Status Former smoker Blood Pressure [Left Arm] 124/74 Pain Intensity [Bilateral Arm] 0 Pain Intensity [Back] 10 Pain Intensity 0 Pain Scale Used Non Verbal Pain Indicator Scale Used Non Verbal Pain Indicator Home Medications: Ambulatory Orders Amitriptyline HCl [Elavil] 25 mg PO HS 09/13/19 Ferrous Sulfate [Feosol] 325 mg PO DAILY 09/13/19 Gabapentin [Neurontin] 300 mg PO TID 09/13/19 Omeprazole 40 mg PO DAILY 09/13/19
[2019-09-13 17:34] LABS: C Reactive Protein <5.0 mg/L (<10.0)
[2019-09-14 01:02] LABS: Rheumatoid Factor, Qnt 6 IU/mL (0-15)
[2019-09-14 01:26] LABS: Folate, Serum 19.6 ng/mL
[2019-09-14 03:30] LABS: Protein, Total 6.2 g/dL (6.2-8.2)
[2019-09-14 12:37] LABS: Albumin 3.79 g/dL (3.80-4.90); Gamma Globulin 0.79 g/dL (0.70-1.50)
--- NOTE | 2019-10-01 01:56 | HP ---
HISTORY AND PHYSICAL 49-year-old had burning, numbness, tingling in his hands 4 months ago, worsening throughout the day. Irretractable pain. He cannot take care. He is suicidal if he cannot get his pain under control. He drops things. He has numbness in all of bilateral hands and legs. He cannot turn his head fast. He cannot turn his head and neck. 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 He fell off a roof in 2004 shattered his feet and ankle. Surgery on left foot, cannot move it well. His back issues, 9 out of 10 pain in his back. He smokes half pack per day for 10 years. Quit 4 months ago. Drinks alcohol. Smokes weed. PAST MEDICAL HISTORY: He was admitted in the past with right arm infection necrosis, hypoxemic respiratory failure due to meth, IV bilateral trans effusions, right thoracentesis, severe pulmonary hypertension, acute blood loss anemia and gastric ulcers, chronic back pain, carpal tunnel syndrome, gallbladder polyp, bilateral foot fractures, orthopedic surgery, ID, right forearm fasciotomy, fracture repair, right foot, EGD, repair of perforated duodenal ulcer, colonoscopy. Former smoker. Father with sleep apnea. Mother . MEDICATIONS: Home medications: Elavil, Neurontin, Johny-In-[place], omeprazole. PHYSICAL EXAMINATION: Vital signs stable. Afebrile. CARDIOVASCULAR: S1, S2. Lungs transmitted upper sounds. 4/5 strength in upper and lower extremities. Plantar reflexes downgoing. No ataxia. Positive Tinel's bilaterally. ASSESSMENT: 1. Acute irretractable pain syndrome. 2. Polyneuropathy. 3. Carpal tunnel syndrome. 4. Osteoarthritis, significant neuropathy. Unresponsive to outpatient medicines; at the hospital for neurology consult. MMODL / IJN: [id number] /
--- NOTE | 2019-10-01 09:53 | DS ---
DISCHARGE SUMMARY A white male came to hospital with severe intractable pain syndrome, seen Neurology and pain physician, who is unsure why he has such severe neuropathy versus degenerative disk disease pain and spinal stenosis. They recommend increasing gabapentin to 600 t.i.d., oral steroids and Tylenol. Patient was unhappy with not getting IV Dilaudid in the hospital and sent out AMA to follow up as an outpatient. He showed necrotic addiction behavior and would definitely be careful to prescribe narcotics with this patient in the future. Was sent to [facility] for whoever takes over his care in the future. MMODL / IJN: [id number] /
== END 2019-09-13 21:00 ==
LOC: 4MS4W 11:44
PROVIDERS: ADMIT Family Medicine; ATTEND Family Medicine
DX: G89.4 Chronic pain syndrome (principal); G62.9 Polyneuropathy, unspecified; M48.02 Spinal stenosis, cervical region; M50.31 Other cervical disc degeneration, high cervical region; M51.37 Other intervertebral disc degeneration, lumbosacral region; M48.061 Spinal stenosis, lumbar region without neurogenic claudication; M48.07 Spinal stenosis, lumbosacral region; M47.816 Spondylosis without myelopathy or radiculopathy, lumbar region; G56.00 Carpal tunnel syndrome, unspecified upper limb; M19.90 Unspecified osteoarthritis, unspecified site; K82.4 Cholesterolosis of gallbladder; F12.90 Cannabis use, unspecified, uncomplicated; M79.672 Pain in left foot; M79.671 Pain in right foot; I27.20 Pulmonary hypertension, unspecified; M54.5 Low back pain; Z79.899 Other long term (current) drug therapy; Z87.11 Personal history of peptic ulcer disease; Z87.828 Personal history of other (healed) physical injury and trauma; Z87.81 Personal history of (healed) traumatic fracture; Z87.898 Personal history of other specified conditions; Z87.19 Personal history of other diseases of the digestive system; Z84.89 Family history of other specified conditions; Z53.29 Procedure and treatment not carried out because of patient's decision for other reasons
CPT/HCPCS: 96374; 84207; 83921; 85652; 84443; 82607; 82746; 86140; 86431; 86618; 84165; 86780; 83036; 72125; 72131; G0379; G0378; J2930

== ENCOUNTER 2020-03-22 01:19 | Emergency (ER) | payer OTHER ==
[2020-03-22 01:27] VITALS: RESP 18; TEMP 98
[2020-03-22] MEDS ORDERED: SODIUM CHLORIDE 0.9% 1,000 ML IV STA (01:28)
[2020-03-22] MEDS ORDERED: FAMOTIDINE 20 MG/2 ML VIAL IV STA (01:28)
[2020-03-22] MEDS ORDERED: HYDROmorphone 0.5 MG/0.5 ML SYRINGE IVP STA (01:34)
[2020-03-22 01:45] LABS: Basophils % (A) 0 %; Eosinophils # (A) 0.2 k/uL (0-0.7); Eosinophils % (A) 1 %; HCT 43.3 % (39.0-53.0); HGB 13.9 gm/dL (13.0-17.5); Lymphocytes # (A) 1.1 k/uL (1.0-4.8); Lymphocytes % (A) 11 %; MCH 29.6 pg (25.0-35.0); MCHC 32.2 g/dL (31.0-37.0); Mean Platelet Volume 8.1; Monocytes # (A) 0.5 k/uL (0-1.0); Monocytes % (A) 4 %; Neutrophils # (A) 8.5 k/uL (1.3-7.7); Neutrophils % (A) 82 %; Platelet Count 270 k/uL (150-450); RBC 4.71 m/uL (4.30-5.90); RDW 12.6 % (11.5-15.5); WBC 10.3 k/uL (3.8-10.6)
[2020-03-22 01:55] LABS: African American GFR (CKD) >90 (>60 ml/min/1.73 sqM); Albumin 4.7 g/dL (3.5-5.0); Amylase 46 U/L (30-110); Anion Gap 8 mmol/L; Calcium 9.6 mg/dL (8.4-10.2); Carbon Dioxide 26 mmol/L (22-30); Chloride 102 mmol/L (98-107); Glucose 126 mg/dL (74-99); Non-African American GFR(CKD) >90 (>60 ml/min/1.73 sqM); Sodium 136 mmol/L (137-145); Total Bilirubin 0.7 mg/dL (0.2-1.3); Total Protein 7.8 g/dL (6.3-8.2)
--- NOTE | 2020-03-22 02:00 | ED ---
General Adult HPI - General Chief complaint: Abdominal Pain Stated complaint: Abdominal Pain Time Seen by Provider: 03/22/20 01:24 Source: patient, EMS, RN notes reviewed Mode of arrival: EMS Limitations: no limitations - History of Present Illness Initial comments: 42-year-old male presents to the emergency department for a chief complaint of abdominal pain. Patient has a a history of perforated gastric ulcer and states that this feels similar. Patient states this started around 3:00 PM. Patient has admitted to associated nausea but denies vomiting. His bowel movements have been normal. He denies fevers.Patient has no other complaints at this time including shortness of breath, chest pain, vomiting, headache, or visual changes. - Related Data Home Medications Medication Instructions Recorded Confirmed Amitriptyline HCl [Elavil] 25 mg PO HS 09/13/19 09/13/19 Ferrous Sulfate [Feosol] 325 mg PO DAILY 09/13/19 09/13/19 Gabapentin [Neurontin] 300 mg PO TID 09/13/19 09/13/19 Omeprazole 40 mg PO DAILY 09/13/19 09/13/19 Previous Rx's Medication Instructions Recorded Pantoprazole Sodium [Protonix] 40 mg PO DAILY #14 tablet. 03/22/20 Allergies Allergy/AdvReac Type Severity Reaction Status Date / Time No Known Allergies Allergy Verified 09/13/19 13:40 Review of Systems ROS Statement: Those systems with pertinent positive or pertinent negative responses have been documented in the HPI. ROS Other: All systems not noted in ROS Statement are negative. Past Medical History Past Medical History: No Reported History Additional Past Medical History / Comment(s): Pt admitted in March 2019 with fluid overload/transaminitis/R arm infection/necrosis d/t meth IV/hypoxic respiratory failure, bilateral pleural effusions with R thoracentesis/severe pulmonary HTN, admitted in Jul 2019 with acute blood loss anemia d/t GI bleed, gastric ulcers/duodenal ulcer, gastritis, chronic back pain, bilateral carpal tunnel syndrome, gallbladder polyp, past bilateral foot fractures-L foot surgically repaired-pt states it didn't "work" so he chose not to have surgery on his R foot. History of Any Multi-Drug Resistant Organisms: None Reported Past Surgical History: Hernia Repair, Orthopedic Surgery Additional Past Surgical History / Comment(s): I&D right forearm/fasciotomy, fracture repair L foot, EGD with repair of perforated ulcer with endo clip, colonoscopy. Past Anesthesia/Blood Transfusion Reactions: No Reported Reaction Additional Past Anesthesia/Blood Transfusion Reaction / Comment(s): Pt has received blood without reaction. Past Psychological History: Anxiety, Schizophrenia Smoking Status: Former smoker Past Alcohol Use History: Occasional Past Drug Use History: Heroin, Marijuana, Methamphetamine - Past Family History Father Family Medical History: Sleep Apnea/CPAP/BIPAP Additional Family Medical History / Comment(s): -suffered from obstructive sleep apnea Mother Family Medical History: No Reported History Additional Family Medical History / Comment(s): General Exam Limitations: no limitations General appearance: alert, in no apparent distress Head exam: Present: atraumatic, normocephalic, normal inspection Eye exam: Present: normal appearance, PERRL, EOMI. Absent: scleral icterus, conjunctival injection, periorbital swelling ENT exam: Present: normal exam, mucous membranes moist Neck exam: Present: normal inspection, full ROM. Absent: tenderness, meningismus, lymphadenopathy Respiratory exam: Present: normal lung sounds bilaterally. Absent: respiratory distress, wheezes, rales, rhonchi, stridor Cardiovascular Exam: Present: regular rate, normal rhythm, normal heart sounds. Absent: systolic murmur, diastolic murmur, rubs, gallop, clicks GI/Abdominal exam: Present: soft, tenderness (Epigastric and left upper quadrant tenderness without any lower abdominal tenderness.), normal bowel sounds. Absent: distended, guarding, rebound, rigid Course Vital Signs 03/22/20 01:21 Temperature 98.0 F Pulse Rate 74 Respiratory 18 Rate Blood Pressure 136/86 O2 Sat by Pulse 97 Oximetry EKG Findings - EKG Comments: EKG Findings:: Normal sinus rhythm, ventricular rate 66, OK interval 166, QTc 457 Medical Decision Making - Medical Decision Making Vitals are stable. HPI and physical exam is Viola. Patient has epigastric and left upper quadrant tenderness. CBC CMP is unremarkable. CT abdomen and pelvis shows a normal appendix. No renal stone or obstruction. Right-sided small scrotal hydrocele improved compared to last exam. No acute abnormality within the abdomen or pelvis. Patient reevaluated Indocin much better after pain medication. Patient could have gastritis or ulcer and needs to follow up with GI. He will be given protrusion for Protonix. He will return for any worsening symptoms. - Lab Data Result diagrams: 03/22/20 01:35 03/22/20 01:35 Lab Results 03/22/20 03/22/20 03/22/20 Range/Units 01:35 01:35 01:35 WBC 10.3 (3.8-10.6) k/uL RBC 4.71 (4.30-5.90) m/uL Hgb 13.9 (13.0-17.5) gm/dL Hct 43.3 (39.0-53.0) % MCV 92.0 (80.0-100.0) fL MCH 29.6 (25.0-35.0) pg MCHC 32.2 (31.0-37.0) g/dL RDW 12.6 (11.5-15.5) % Plt Count 270 (150-450) k/uL Neutrophils % 82 % Lymphocytes % 11 % Monocytes % 4 % Eosinophils % 1 % Basophils % 0 % Neutrophils # 8.5 H (1.3-7.7) k/uL Lymphocytes # 1.1 (1.0-4.8) k/uL Monocytes # 0.5 (0-1.0) k/uL Eosinophils # 0.2 (0-0.7) k/uL Basophils # 0.0 (0-0.2) k/uL Sodium 136 L (137-145) mmol/L Potassium 4.4 (3.5-5.1) mmol/L Chloride 102 (98-107) mmol/L Carbon Dioxide 26 (22-30) mmol/L Anion Gap 8 mmol/L BUN 11 (9-20) mg/dL Creatinine 0.60 L (0.66-1.25) mg/dL Est GFR (CKD-EPI)AfAm >90 (>60 ml/min/1.73 sqM) Est GFR (CKD-EPI)NonAf >90 (>60 ml/min/1.73 sqM) Glucose 126 H (74-99) mg/dL Plasma Lactic Acid Daquan 0.8 (0.7-2.0) mmol/L Calcium 9.6 (8.4-10.2) mg/dL Total Bilirubin 0.7 (0.2-1.3) mg/dL AST 35 (17-59) U/L ALT 22 (4-49) U/L Alkaline Phosphatase 79 (38-126) U/L Total Protein 7.8 (6.3-8.2) g/dL Albumin 4.7 (3.5-5.0) g/dL Amylase 46 (30-110) U/L Lipase 35 (23-300) U/L Disposition Clinical Impression: Abdominal pain Disposition: HOME SELF-CARE Condition: Good Instructions (If sedation given, give patient instructions): Abdominal Pain (ED) Additional Instructions: Please take Protonix as directed. Please follow-up with primary care and GI in 1-2 days. If you have any worsening symptoms return to the emergency room. Prescriptions: Pantoprazole Sodium [Protonix] 40 mg PO DAILY #14 tablet.dr Is patient prescribed a controlled substance at d/c from ED?: No Referrals: Radha Flores MD [STAFF PHYSICIAN] - 1-2 days Iraj Silva MD [STAFF PHYSICIAN] - 1-2 days Time of Disposition: 02:31
[2020-03-22 02:02] LABS: ALT 22 U/L (4-49); AST 35 U/L (17-59); Alkaline Phosphatase 79 U/L (38-126); Blood Urea Nitrogen 11 mg/dL (9-20); Potassium 4.4 mmol/L (3.5-5.1)
--- NOTE | 2020-03-22 02:12 | CT ---
EXAMINATION TYPE: CT abdomen pelvis w con DATE OF EXAM: 03/22/2020 COMPARISON: 09/25/2018 HISTORY: abdominal pain CT DLP: 758.4 mGycm Automated exposure control for dose reduction was used. CONTRAST: Performed with IV Contrast, patient injected with 100mL mL of Isovue 300. Lung bases are clear of infiltrate. There is no pleural effusion. Heart size is normal. There is no p ericardial effusion. Stomach is intact. The liver spleen pancreas gallbladder appear normal. Bile janna ts are not dilated. Stomach is large. There is no adrenal mass. Kidneys show satisfactory contrast opacification. There is no hydronephrosi s. There is no retroperitoneal adenopathy. Bladder distends smoothly. There is small right-sided hydr ocele. There is no definite inguinal hernia. Appendix is posterior and appears normal. There is no free fluid in the pelvis. There is no ascites o r free air. There is no bowel obstruction. There is L5 spondylolysis with first-degree L5-S1 spondylo listhesis. Bony pelvis is intact. There is no lumbar compression fracture. IMPRESSION: Normal appendix. No renal stone or obstruction. Right side small scrotal hydrocele. Improved compared to last exam. No acute abnormality within the abdomen pelvis. There is clearing of the free fluid in the pelvis compared to old exam. There is clearing of the pneumoperitoneum compared to old exam.
[2020-03-22 02:46] VITALS: BP 138/80; PULSE 66
== END 2020-03-22 03:05 | disposition home or self-care (01) ==
LOC: EC 01:19
DX: R10.9 Unspecified abdominal pain (principal); R11.0 Nausea; R10.816 Epigastric abdominal tenderness; R10.812 Left upper quadrant abdominal tenderness; N43.3 Hydrocele, unspecified; Z79.899 Other long term (current) drug therapy; Z87.891 Personal history of nicotine dependence
CPT/HCPCS: 36415; 93005; 80053; 82150; 83605; 83690; 85025; 74177; 99284; 96374; 96375; 96361; J1170; Q9967

== ENCOUNTER 2020-03-23 11:27 | Inpatient (IN) | payer OTHER ==
[2020-03-23] MEDS ORDERED: ONDANSETRON 4 MG/2 ML VIAL IVP STA (11:34)
[2020-03-23] MEDS ORDERED: HYDROmorphone 0.5 MG/0.5 ML SYRINGE IVP STA ×2 (11:34→12:33)
[2020-03-23] MEDS ORDERED: SODIUM CHLORIDE 0.9% 1,000 ML IV STA ×2 (11:34)
[2020-03-23] MEDS ORDERED: PANTOPRAZOLE 40 MG/10 ML VIAL IVP STA (11:34)
[2020-03-23 12:08] LABS: Basophils % (A) 0 %; Eosinophils # (A) 0.1 k/uL (0-0.7); Eosinophils % (A) 1 %; HGB 14.7 gm/dL (13.0-17.5); Lymphocytes # (A) 1.2 k/uL (1.0-4.8); Lymphocytes % (A) 10 %; MCH 29.8 pg (25.0-35.0); MCHC 32.8 g/dL (31.0-37.0); MCV 91.1 fL (80.0-100.0); Mean Platelet Volume 8.1; Monocytes # (A) 0.6 k/uL (0-1.0); Monocytes % (A) 5 %; Neutrophils # (A) 9.5 k/uL (1.3-7.7); Neutrophils % (A) 83 %; Platelet Count 265 k/uL (150-450); RBC 4.93 m/uL (4.30-5.90); RDW 12.2 % (11.5-15.5); WBC 11.6 k/uL (3.8-10.6)
--- NOTE | 2020-03-23 12:17 | XR ---
EXAMINATION TYPE: XR abdomen acute w cxr DATE OF EXAM: 03/23/2020 COMPARISON: NONE HISTORY: Abdominal pain. History of perforated ulcer. TECHNIQUE: 2 views of the abdomen and one view of the chest. FINDINGS: No focal consolidation, pleural effusion or pneumothorax. Cardiomediastinal silhouette is w ithin normal limits. No acute osseous pathology. No dilated large or small bowel. No suspicious calci fication in the abdomen or pelvis. Mild degenerative change of the hips. No pneumoperitoneum. IMPRESSION: Nonobstructive bowel gas pattern. No acute cardiopulmonary process.
[2020-03-23 12:20] LABS: ALT 20 U/L (4-49); AST 24 U/L (17-59); African American GFR (CKD) >90 (>60 ml/min/1.73 sqM); Albumin 4.1 g/dL (3.5-5.0); Alkaline Phosphatase 80 U/L (38-126); Anion Gap 10 mmol/L; Blood Urea Nitrogen 14 mg/dL (9-20); Calcium 9.3 mg/dL (8.4-10.2); Carbon Dioxide 25 mmol/L (22-30); Chloride 98 mmol/L (98-107); Glucose 106 mg/dL (74-99); Non-African American GFR(CKD) >90 (>60 ml/min/1.73 sqM); Potassium 3.9 mmol/L (3.5-5.1); Sodium 133 mmol/L (137-145); Total Bilirubin 0.5 mg/dL (0.2-1.3); Total Protein 7.1 g/dL (6.3-8.2)
[2020-03-23 12:32] LABS: Amylase 505 U/L (30-110)
--- NOTE | 2020-03-23 12:33 | ED ---
Abdominal Pain HPI - General Source: patient, EMS Mode of arrival: EMS Limitations: no limitations <Sierra Lozano - Last Filed: 03/23/20 13:37> <Kassi Webb - Last Filed: 03/25/20 02:14> - General Chief Complaint: Abdominal Pain Stated Complaint: abd pain Time Seen by Provider: 03/23/20 11:30 - History of Present Illness Initial Comments: 50-year-old male presenting today for chief complaint of epigastric abdominal pain x 3 days. Patient states he has had epigastric abdominal pain for 3 days. Patient states he is evaluated yesterday and was discharged home. Patient states the pain is worsening radiating to his back he was unsure if this was related to a peptic ulcer as he has known disease and has had previous perforations in the past. Patient denies any fever and no abdominal pain and denies any rectal bleeding or hematemesis. Patient denies any chest pain or shortness of breath. Patient denies any history of pancreatitis but states he does have previous history of alcohol abuse denies any current alcohol use. Patient denies any right upper quadrant pain he denies any constipation but s tates he had a loose stool the past two days. Patient has no additional complaints. Upon arrival patient appears uncomfortable however nontoxic. (Sierra Lozano) - Related Data Home Medications Medication Instructions Recorded Confirmed No Known Home Medications 03/23/20 03/23/20 Allergies Allergy/AdvReac Type Severity Reaction Status Date / Time No Known Allergies Allergy Verified 03/23/20 13:16 Review of Systems ROS Other: All systems not noted in ROS Statement are negative. <Sierra Lozano - Last Filed: 03/23/20 13:37> ROS Other: All systems not noted in ROS Statement are negative. <Kassi Webb - Last Filed: 03/25/20 02:14> ROS Statement: Those systems with pertinent positive or pertinent negative responses have been documented in the HPI. Past Medical History Past Medical History: No Reported History Additional Past Medical History / Comment(s): Pt admitted in March 2019 with fluid overload/transaminitis/R arm infection/necrosis d/t meth IV/hypoxic respiratory failure, bilateral pleural effusions with R thoracentesis/severe pulmonary HTN, admitted in Jul 2019 with acute blood loss anemia d/t GI bleed, gastric ulcers/duodenal ulcer, gastritis, chronic back pain, bilateral carpal tunnel syndrome, gallbladder polyp, past bilateral foot fractures-L foot surgically repaired-pt states it didn't "work" so he chose not to have surgery on his R foot. History of Any Multi-Drug Resistant Organisms: None Reported Past Surgical History: Hernia Repair, Orthopedic Surgery Additional Past Surgical History / Comment(s): I&D right forearm/fasciotomy, fracture repair L foot, EGD with repair of perforated ulcer with endo clip, colonoscopy. Past Anesthesia/Blood Transfusion Reactions: No Reported Reaction Additional Past Anesthesia/Blood Transfusion Reaction / Comment(s): Pt has received blood without reaction. Past Psychological History: Anxiety, Schizophrenia Smoking Status: Former smoker Past Alcohol Use History: Occasional Past Drug Use History: Heroin, Marijuana, Methamphetamine - Past Family History Father Family Medical History: Sleep Apnea/CPAP/BIPAP Additional Family Medical History / Comment(s): -suffered from obstructive sleep apnea Mother Family Medical History: No Reported History Additional Family Medical History / Comment(s): <Sierra Lozano - Last Filed: 03/23/20 13:37> General Exam Limitations: no limitations <Sierra Lozano - Last Filed: 03/23/20 13:37> - General Exam Comments Initial Comments: General: The patient is awake and alert, appears uncomfortable Eye: Pupils are equal, round and reactive to light, extra-ocular movements are intact. No nystagmus. There is normal conjunctiva bilaterally. No signs of icterus. Cardiovascular: There is a regular rate and rhythm. No murmur, rub or gallop is appreciated. Respiratory: Lungs are clear to auscultation, respirations are non-labored, breath sounds are equal. No wheezes, stridor, rales, or rhonchi. Gastrointestinal: Soft, non-distended, tender epigastric pain to the abdomen, remaining abdomen nontender and is without tenderness, masses or organomegaly noted. There is no rebound or guarding present. Musculoskeletal: Normal ROM, no tenderness. Strength 5/5. Sensation intact. Radial pulses equal bilaterally 2+. Neurological: A&O x 3. CN II-XII intact grossly, There are no obvious motor or sensory deficits. Coordination appears grossly intact. Speech is normal. Skin: Skin is warm and dry and no rashes or lesions are noted. Psychiatric: Cooperative, appropriate mood & affect, normal judgment. (Sierra Lozano) Course Vital Signs 03/23/20 03/23/20 11:29 14:21 Temperature 98.7 F Pulse Rate 88 69 Respiratory 20 18 Rate Blood Pressure 145/102 149/84 O2 Sat by Pulse 97 98 Oximetry Medical Decision Making - Lab Data Result diagrams: 03/23/20 12:00 03/23/20 12:00 <Sierra Lozano - Last Filed: 03/23/20 13:37> - Lab Data Result diagrams: 03/23/20 12:00 03/24/20 08:16 <Kassi Webb - Last Filed: 03/25/20 02:14> - Medical Decision Making 50-year-old male presented for abdominal pain epigastric rating to the back concern for pancreatitis lipase and amylase critically elevated. Patient was placed nothing by mouth and IV fluids were increased. GI on consult. Patient agreeable to admission. Dr. Webb agreeable to care plan. (Sierra Lozano) I was available for consultation in the emergency department. The history and physical exam were done by the midlevel provider. I was consulted for this patients care. I reviewed the case with the midlevel provider and based on their presentation of the patient, I agree with the assessment, medical decision making and plan of care as documented. Chart was dictated using [employer] dictation software. Attempts were made to correct any dictation errors however some typographical errors may persist. Patient was seen during a national state of emergency due to the Covid-19 pandemic. (Kassi Webb) - Lab Data Lab Results 03/23/20 03/23/20 Range/Units 12:00 12:00 WBC 11.6 H (3.8-10.6) k/uL RBC 4.93 (4.30-5.90) m/uL Hgb 14.7 (13.0-17.5) gm/dL Hct 45.0 (39.0-53.0) % MCV 91.1 (80.0-100.0) fL MCH 29.8 (25.0-35.0) pg MCHC 32.8 (31.0-37.0) g/dL RDW 12.2 (11.5-15.5) % Plt Count 265 (150-450) k/uL Neutrophils % 83 % Lymphocytes % 10 % Monocytes % 5 % Eosinophils % 1 % Basophils % 0 % Neutrophils # 9.5 H (1.3-7.7) k/uL Lymphocytes # 1.2 (1.0-4.8) k/uL Monocytes # 0.6 (0-1.0) k/uL Eosinophils # 0.1 (0-0.7) k/uL Basophils # 0.0 (0-0.2) k/uL Sodium 133 L (137-145) mmol/L Potassium 3.9 (3.5-5.1) mmol/L Chloride 98 (98-107) mmol/L Carbon Dioxide 25 (22-30) mmol/L Anion Gap 10 mmol/L BUN 14 (9-20) mg/dL Creatinine 0.72 (0.66-1.25) mg/dL Est GFR (CKD-EPI)AfAm >90 (>60 ml/min/1.73 sqM) Est GFR (CKD-EPI)NonAf >90 (>60 ml/min/1.73 sqM) Glucose 106 H (74-99) mg/dL Calcium 9.3 (8.4-10.2) mg/dL Total Bilirubin 0.5 (0.2-1.3) mg/dL AST 24 (17-59) U/L ALT 20 (4-49) U/L Alkaline Phosphatase 80 (38-126) U/L Total Protein 7.1 (6.3-8.2) g/dL Albumin 4.1 (3.5-5.0) g/dL Amylase 505 H* (30-110) U/L Lipase 2954 H (23-300) U/L Disposition Is patient prescribed a controlled substance at d/c from ED?: No Time of Disposition: 13:03 Decision to Admit Reason: Admit from EC Decision Date: 03/23/20 Decision Time: 13:03 <Sierra Lozano - Last Filed: 03/23/20 13:37> <Kassi Webb - Last Filed: 03/25/20 02:14> Clinical Impression: Pancreatitis, Epigastric pain Disposition: ADMITTED IP TO THIS [facility] Condition: Stable
[2020-03-23] MEDS ORDERED: NALOXONE 0.4 MG/ML 1 ML VIAL IV PRN (13:03)
[2020-03-23] MEDS ORDERED: SODIUM CHLORIDE 0.9% 1,000 ML IV SCH (13:15)
--- NOTE | 2020-03-23 13:33 | US ---
EXAMINATION TYPE: US abdomen limited DATE OF EXAM: 03/23/2020 COMPARISON: 03/31/2019 ultrasound in 03/22/2020 CT CLINICAL HISTORY: pancreatitis. Difficult exam as patient was in pain and could not tolerate pressure from the ultrasound probe EXAM MEASUREMENTS: Liver Length: 14.5 cm Gallbladder Wall: 0.2 cm CBD: 0.6 cm Right Kidney: 10.3 x 4.7 x 4.7 cm Pancreas: Tail obscured by overlying bowel gas, duct visualized measuring 0.4 cm Liver: wnl Gallbladder: wnl Evidence for sonographic Stringer's sign: Yes CBD: wnl Right Kidney: No hydronephrosis or masses seen IMPRESSION: 1. Mildly dilated main pancreatic duct could be in the basis of chronic pancreatitis or main branch I PMN and could be further evaluated with MRCP with and without contrast. Line 2. Sonographic Stringer sign is positive however no other sonographic evidence of acute cholecystitis a re seen at this time.
[2020-03-23] MEDS: HYDROmorphone 0.5 MG/0.5 ML SYRINGE IVP PRN ×2 (16:29→20:24)
--- NOTE | 2020-03-23 19:41 | HP ---
HISTORY AND PHYSICAL CHIEF COMPLAINT: Epigastric pain for 2 to 3 days. HISTORY OF PRESENT ILLNESS: This is another admission for this 50-year-old white male. He developed some epigastric pain 2 to 3 days ago. He came to the emergency room yesterday, was treated and released. Went home. The pain became worse and he started to have some vomiting. He has had no hematemesis, melena, hematochezia, jaundice, history of pancreatitis, etc. He drinks 4 beers on Tuesday night, that is all. He used to drink a lot of alcohol. A year ago he had either a perforated or bleeding ulcer that was treated here surgically. He takes no medications including NSAIDs. REVIEW OF SYSTEMS: He has had no fever, chills, and headache, neurologic problems, chest pain, shortness of breath, heart disease, hypertension, murmurs, rheumatic fever, orthopnea, PND, melena, hematochezia, renal failure, hematuria, frequency, urgency, dysuria, diabetes, etc. Past medical history, family history and personal and social history is unremarkable and noncontributory otherwise. The only surgery he has had is that mentioned for the ulcer. Not allergic to any medicine and does not take any. He smokes about a 3rd of a pack cigarettes a day. 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 PHYSICAL EXAMINATION: Blood pressure is 145/102 with a pulse of 88, and he is afebrile. In general, he appeared to be well developed, well nourished, no acute distress. Skin color is normal. Skin is warm, dry. Lymph nodes not enlarged. Head, ears, eyes, nose, mouth, and throat were normal. Neck veins not distended. Thyroid is not enlarged. Chest is clear. Cardiac exam is normal. No murmurs or extra sounds. Abdomen is soft and tender over the epigastrium. There are no masses. Bowel sounds present. Flanks nontender. There is no Nicole Cruz sign. Extremities: Normal. Neurologically, he is intact. IMPRESSION: He is admitted to the hospital with diagnoses: 1. Acute pancreatitis. 2. History of peptic ulcer disease. PLAN: 1. Bed rest. 2. IV fluids. 3. Analgesics. 4. Gastroenterology consult. MMODL / IJN: [id number] /
[2020-03-23 20:39] LABS: Appearance,Urine Clear (Clear); Bilirubin,Urine Negative (Negative); Blood,Urine Negative (Negative); Color,Urine Light Yellow; Glucose,Urine (UA) Negative (Negative); Ketones,Urine 1+ (Negative); Leukocyte Esterase,Urine Negative (Negative); Nitrite,Urine Negative (Negative); Protein,Urine Negative (Negative); Specific Gravity,Urine 1.011 (1.001-1.035); Urobilinogen,Urine <2.0 mg/dL (<2.0)
[2020-03-24] MEDS: HYDROmorphone 0.5 MG/0.5 ML SYRINGE IVP PRN ×6 (00:38→20:57)
[2020-03-24 08:48] LABS: ALT 15 U/L (4-49); AST 19 U/L (17-59); African American GFR (CKD) >90 (>60 ml/min/1.73 sqM); Albumin 3.4 g/dL (3.5-5.0); Alkaline Phosphatase 63 U/L (38-126); Anion Gap 9 mmol/L; Blood Urea Nitrogen 15 mg/dL (9-20); Calcium 8.5 mg/dL (8.4-10.2); Carbon Dioxide 23 mmol/L (22-30); Chloride 103 mmol/L (98-107); Glucose 73 mg/dL (74-99); Non-African American GFR(CKD) >90 (>60 ml/min/1.73 sqM); Potassium 3.8 mmol/L (3.5-5.1); Sodium 135 mmol/L (137-145); Total Bilirubin 0.5 mg/dL (0.2-1.3); Total Protein 6.1 g/dL (6.3-8.2)
[2020-03-24 09:45] LABS: Amylase 122 U/L (30-110)
--- NOTE | 2020-03-24 14:36 | CONS ---
CONSULTATION DATE OF SERVICE: 03/24/2020. REASON FOR CONSULTATION: Acute pancreatitis. HISTORY OF PRESENT ILLNESS: The patient is a 50-year-old pleasant white male admitted to the hospital with acute onset of epigastric pain for the last 3 days duration. The pain is mostly in the epigastric area associated with several episodes of nausea and vomiting. He denies any coffee-grounds emesis. He came to the emergency room and was noted to have elevated amylase and lipase consistent with acute pancreatitis. The patient had no prior history of pancreatitis. He has history of heavy alcohol abuse but he quit drinking about a year ago when he was diagnosed with peptic ulcer disease. He used to drink at least 5-6 beers a day and some hard liquor too. This morning he is feeling better. The epigastric pain is slightly improved. No further episodes of nausea, vomiting. No fever, chills, night sweats. PAST MEDICAL HISTORY: History of heavy alcohol abuse and former smoker, quit a year ago. History of peptic ulcer disease. PAST SURGICAL HISTORY: Hernia repair, exploratory laparotomy for perforated peptic ulcer, history of right forearm fasciotomy, left foot fracture repair. MEDICATIONS: None. ALLERGIES: No known drug allergies. SOCIAL HISTORY: Former smoker. Former alcohol use. FAMILY HISTORY: Father had sleep apnea. Mother . REVIEW OF SYSTEMS: CARDIOPULMONARY: No chest pain or shortness of breath. GENITOURINARY: No dysuria hematuria. MUSCULOSKELETAL: Unremarkable. SKIN: Unremarkable. ENDOCRINE: Unremarkable. PSYCHIATRY: Unremarkable. NEUROLOGY: Unremarkable. ENT/VISION: Unremarkable. CONSTITUTIONAL: No recent weight loss. No fever, chills, night sweats. PHYSICAL EXAMINATION: Blood pressure 159/75, pulse 71, temperature 98.2. HEENT examination unremarkable. Conjunctivae pink. Sclerae anicteric. Oral cavity, no lesions. NECK: No JVD or lymph node enlargement. CHEST: Clear to auscultation. HEART: Regular rate and rhythm. ABDOMEN: Soft. Bowel sounds are positive. No organomegaly. Mild tenderness in the epigastric area. EXTREMITIES: No pedal edema. SKIN: No rashes. NEUROLOGIC: Alert and oriented x3. No focal deficits. LABS: From yesterday WBC 11.6, hemoglobin 14.7, platelets normal. AST, ALT, T-bilirubin and alkaline phosphatase are normal. Amylase 505, lipase is 2954. Today, amylase is 152 and lipase is 373. IMPRESSION: 1. The patient presented to the hospital with acute onset of severe epigastric pain for the last three days duration and noted to have elevated amylase and lipase consistent with acute pancreatitis. He is doing much better. Nausea, vomiting have resolved. Epigastric pain has significantly improved. Amylase and lipase also have decreased significantly. He did have ultrasound of the abdomen done that showed no evidence of gallstones and there was mildly dilated main pancreatic duct, probably on the basis of chronic pancreatitis or main branch IPMN could not be excluded. Most likely pancreatitis is related to prior history of heavy alcohol abuse. 2. History of perforated peptic ulcer disease status post exploratory laparotomy a year ago. 3. History of heavy alcohol abuse in the past, quit drinking a year ago. RECOMMENDATIONS: 1. Start him on a clear liquid diet. 2. Pain medications as needed. 3. Repeat labs in the morning. 4. We will schedule him for an MRCP to evaluate the dilated pancreatic duct noted on ultrasound of the abdomen and we will follow with you closely. Thank you for this consultation. MMODL / IJN: [id number] /
--- NOTE | 2020-03-24 17:21 | PN ---
PROGRESS NOTE DATE OF SERVICE: 03/24/2020 CHIEF COMPLAINT: Pancreatitis. HISTORY OF PRESENT ILLNESS: This gentleman is doing well. The pain is still present, but it is slowly subsiding. Enzymes are improving. 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 Bowel sounds present. Chest is clear. Cardiac exam is normal. IMPRESSION: Acute pancreatitis-improving. PLAN: 1. Progress activity and diet. 2. Possibly home tomorrow. Gastroenterology is planning an ERCP. It is not clear if this will be done as an in or an outpatient. MMODL / IJN: [id number] /
[2020-03-25] MEDS: HYDROmorphone 0.5 MG/0.5 ML SYRINGE IVP PRN ×5 (01:32→20:16)
[2020-03-25 02:23] VITALS: RESP 18
--- NOTE | 2020-03-25 14:00 | MR ---
MRCP HISTORY: Dilated pancreatic duct Multiplanar multisequence imaging obtained through the biliary system and abdomen, 3-dimensional rakel nstructions performed on an alternate workstation Correlation to ultrasound abdomen 03/23/2020, CT 03/22/2020, CT 09/25/2018 The lung bases are clear. No evident retroperitoneal adenopathy or ascites. Pancreatic duct measures 4 mm centrally as on previous exams, minimally dilated. Common bile duct measures slightly increased in size to 6 mm on post process images as on prior ultrasound No evident stone, abnormal luminal echo . No intrahepatic ductal dilatation. Gallbladder shows no stones. impression: Appearance of the pancreatic duct is chronic as described.
[2020-03-25] MEDS: traZODone HCL 50 MG TAB PO PRN (21:30)
--- NOTE | 2020-03-25 22:23 | PN ---
PROGRESS NOTE DATE OF SERVICE: 03/25/2020 CHIEF COMPLAINT: Pancreatitis. HISTORY OF PRESENT ILLNESS: This gentleman feels like his pain is actually getting a little bit worse. He is going down today for an ERCP, but he has had no fever or chills, but he has an increasing pain and some nausea. PHYSICAL EXAMINATION: Chest is clear. Cardiac exam is normal. 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 IMPRESSION: Pancreatitis with possible exacerbation. PLAN: ERCP today. MMODL / IJN: [id number] /
--- NOTE | 2020-03-25 23:29 | PN ---
PROGRESS NOTE DATE OF DICTATION: 03/25/2020 This patient is a 50-year-old pleasant white male admitted to the hospital with acute alcohol-related pancreatitis. He is doing better today. Abdominal pain is improving. He denies any nausea or vomiting. He just returned from MRCP that was done for evaluation of slightly dilated pancreatic duct noted on recent abdominal imaging. The MRCP showed pancreatic duct measuring about 4 mm in size, which is minimally dilated. Common bile duct 6 mm. No intrahepatic and no gallstones identified. No pancreatic pseudocyst seen. PHYSICAL EXAMINATION: He appears comfortable. No apparent distress. Vital signs are stable. Blood pressure is 133/73, pulse rate 67, temperature 98.3. HEENT examination unremarkable. Conjunctivae pink. Sclerae anicteric. Oral cavity no lesions. NECK: No JVD or lymph node enlargement. CHEST: Clear to auscultation. HEART: Regular rate and rhythm. ABDOMEN: Soft. Mild tenderness in the epigastric area. Bowel sounds are positive. No organomegaly. EXTREMITIES: No pedal edema. SKIN: No rashes. NEUROLOGIC: Alert and oriented x3. No focal deficits. LABS: Labs from today show amylase down to 132, lipase down to 373. AST, ALT, total bilirubin and alkaline phosphatase are within normal limits. IMPRESSION: 1. Acute pancreatitis, possibly alcohol-related. History of alcohol use; he quit drinking about a year ago. Amylase and lipase improving. Patient is doing better. 2. Dilated pancreatic duct noted on CT of the abdomen. He had an MRCP done that once again showed mild dilation of pancreatic duct, but no pancreatic pseudocyst or anything suggestive of pancreatic neoplasm. 3. Remote history of alcohol use. 4. History of peptic ulcer disease. RECOMMENDATIONS: 1. Advance diet as tolerated to a low-fat diet. 2. Continue pain medications as needed. 3. Repeat labs in the morning. If he is doing well, he can be discharged home with outpatient followup in 2-3 weeks. Thank you for this consultation. MMODL / IJN: [id number] /
[2020-03-26] MEDS: HYDROmorphone 0.5 MG/0.5 ML SYRINGE IVP PRN ×6 (00:22→20:44)
--- NOTE | 2020-03-26 20:35 | PN ---
PROGRESS NOTE CHIEF COMPLAINT: Pancreatitis. HISTORY OF PRESENT ILLNESS: This gentleman was doing well, and now his epigastric pain has increased. He has had no vomiting. ERCP yesterday was unremarkable except for a slightly dilated pancreatic duct. PHYSICAL EXAMINATION: He is afebrile. Chest is clear. The abdomen is tender over the epigastrium, but flanks are nontender. IMPRESSION: Pancreatitis. PLAN: Hold discharge and see if pain improves. He can probably go home once it does. MMODL / IJN: [id number] /
[2020-03-26] MEDS: traZODone HCL 50 MG TAB PO PRN (20:44)
[2020-03-27] MEDS: HYDROmorphone 0.5 MG/0.5 ML SYRINGE IVP PRN ×3 (00:46→08:36)
--- NOTE | 2020-03-27 02:24 | PN ---
PROGRESS NOTE DATE OF DICTATION: 03/26/2020 The patient is a 50-year-old white male with history of acute pancreatitis, admitted to hospital with epigastric pain, nausea, vomiting. He is complaining of more epigastric pain today. He did have an MRCP done yesterday that showed dilated pancreatic duct, but no other pancreatic lesions noted. He is on a low fat diet. He denies any nausea, vomiting. No fever, chills, night sweats. PHYSICAL EXAMINATION: On physical examination, appears comfortable, no apparent distress. Vital signs are stable. Blood pressure 124/87, pulse rate 77, temperature 98.1. HEENT EXAMINATION: Unremarkable. Conjunctivae pink. Sclerae anicteric. Oral cavity, no lesions. NECK: No JVD or lymph node enlargement. CHEST: Clear to auscultation. HEART: Regular rate and rhythm. ABDOMEN: Soft. There was tenderness in the epigastric area, but no rebound or rigidity. Bowel sounds are positive. No organomegaly. EXTREMITIES: No pedal edema. SKIN: No rashes. NEUROLOGIC: Alert and oriented x3. No focal deficits. LABS: No labs available from today. Lipase yesterday was 56. IMPRESSION: 1. Acute pancreatitis, probably alcohol related. The patient quit drinking about a year ago. He complains of some epigastric discomfort today, but tolerating low-fat diet well. 2. Dilated pancreatic duct noted on CAT scan, but MRCP showed minimal dilation of the pancreatic duct, but no other abnormalities noted in the pancreas. RECOMMENDATIONS: 1. Continue with pain control. 2. Continue with low fat diet. 3. If symptoms improve, he can be discharged home tomorrow with outpatient followup in 2 weeks. Thank you for this consultation. MMODL / IJN: [id number] /
[2020-03-27 05:37] VITALS: BP 115/73; PULSE 67; TEMP 98.5
--- NOTE | 2020-03-28 00:58 | DS ---
DISCHARGE SUMMARY CHIEF COMPLAINT: Abdominal pain. HISTORY OF PRESENT ILLNESS AND PHYSICAL EXAM: Details of this man's history and physical can be found in the initial workup. LABORATORY STUDIES: While he was in the hospital he had laboratory studies, details of which can be found in the laboratory section of his chart. COURSE IN HOSPITAL: After admission he was placed on bedrest and started on intravenous fluids and analgesics. Lipase and amylase remained quite high as well as his abdominal pain. As his pain continued, he was taken for an ERCP by Gastroenterology and found to have only slightly dilated pancreatic duct. As his pain finally improved, his diet was advanced and it was felt that he could be discharged on the . He will go home on his usual activity and diet and will be followed up in the office in several days. FINAL DIAGNOSIS: Pancreatitis. OPERATIONS: ERCP. CONSULTATIONS: Gastroenterology. He is improved. PETTY / IVANNA: [id number] /
== END 2020-03-27 10:42 | disposition home or self-care (01) | DRG 440 ==
LOC: EC 11:27 → 5NMEDONC 13:18
PROVIDERS: ADMIT Family Medicine; ATTEND Family Medicine
DX: K85.20 Alcohol induced acute pancreatitis without necrosis or infection (principal); Z20.828 Contact with and (suspected) exposure to other viral communicable diseases; K86.0 Alcohol-induced chronic pancreatitis; F10.11 Alcohol abuse, in remission; F20.9 Schizophrenia, unspecified; F41.9 Anxiety disorder, unspecified; F11.11 Opioid abuse, in remission; F12.11 Cannabis abuse, in remission; F15.11 Other stimulant abuse, in remission; Z87.891 Personal history of nicotine dependence; Z87.11 Personal history of peptic ulcer disease; Z87.81 Personal history of (healed) traumatic fracture; Z98.890 Other specified postprocedural states; Z84.89 Family history of other specified conditions
CPT/HCPCS: 36415; 74022; 74181; 76705; 80053; 81003; 82150; 83690; 85025; 87635; 96361; 96374; 96375; 96376; 99285

== ENCOUNTER → 2020-07-14 | Outpatient (CLI) | payer OTHER ==
[2020-07-14 09:06] VITALS: BP 148/69; PULSE 78; RESP 16; TEMP 97.7
--- NOTE | 2020-07-14 09:10 | P.CONS ---
History of Present Illness - Reason for Consult Consult date: 07/14/20 - Chief Complaint Neck pain - History of Present Illness This is a 50-year-old gentleman with history of chronic neck pain with recent exacerbation. The neck pain started in 2004 after he fell 15 feet down on his feet and ended up with fractured ankles. He had multiple surgeries on the ankles for his fractures and has been having difficulty ambulating because of that and chronic pain in his feet. His neck pain started a few years after this accident as he states. The pain occasionally radiates down both arms to the fingers and it is more intense on the left side than the right side. He states that he has some weakness in the upper and lower extremities but he denies any bowel or bladder dysfunction. He lives with his and he has been off work and denied disability. He feels numbness in both hands due to his carpal tunnel syndrome. The numbness radiates up to his elbows and gets worse at night. He smokes cigarettes marijuana occasionally. He uses [facility] from time to time for his pain. He denies any history of diabetes and he takes baby aspirin every day. Review of Systems Constitutional: Denies chills, Denies fever Ears, nose, mouth and throat: Denies headache, Denies sore throat Cardiovascular: Denies chest pain, Denies shortness of breath Respiratory: Denies cough Gastrointestinal: Denies abdominal pain, Denies diarrhea, Denies nausea, Denies vomiting Musculoskeletal: Reports as per HPI Neurological: Reports as per HPI Psychiatric: Denies anxiety, Denies depression Past Medical History Past Medical History: Hypertension Additional Past Medical History / Comment(s): HX right arm infection/necrosis from wood splinter with surgery., bilateral pleural effusions with R thoracen tesis., GI bleed, gastric ulcers/duodenal ulcer, gastritis, chronic back pain, bilateral carpal tunnel syndrome, hx pancreatitis., gallbladder polyp, Hx of fall from roof and shattered heels & ankles., past bilateral foot fractures-L foot surgery with removal of hardware july 2020-states difficulty walking due to pain, supposed to be wearing orthopedic shoe, states no rom left foot. History of Any Multi-Drug Resistant Organisms: None Reported Past Surgical History: Hernia Repair, Orthopedic Surgery Additional Past Surgical History / Comment(s): I&D right forearm/fasciotomy, fracture repair L foot, EGD with repair of perforated ulcer with endo clip, colonoscopy., Hardware removed left foot 07/2020 Past Anesthesia/Blood Transfusion Reactions: No Reported Reaction Additional Past Anesthesia/Blood Transfusion Reaction / Comm: Pt has received blood without reaction. Past Psychological History: ADD/ADHD, Anxiety, Schizophrenia Additional Psychological History / Comment(s): . Smoking Status: Current every day smoker Past Alcohol Use History: Occasional Additional Past Alcohol Use History / Comment(s): states only drinks a few on the weekends. 1 PACK cigarettes/3 DAYS. Past Drug Use History: Marijuana, Methamphetamine Additional Drug Use History / Comment(s): Pt tried meth IV through [facility] on 03/24/19 and was the first and only time IV. Pt states marijuana use currently. - Past Family History Father Family Medical History: Sleep Apnea/CPAP/BIPAP Additional Family Medical History / Comment(s): -suffered from obstructive sleep apnea Mother Family Medical History: No Reported History Additional Family Medical History / Comment(s): Medications and Allergies Home Medications Medication Instructions Recorded Confirmed Type Multivit-Min/Folic/Vit K/Lycop 1 each PO DAILY 07/11/20 07/14/20 History [Men's Multivitamin Tablet] Naproxen (Unknown Dose) 1 tab PO BID 07/11/20 07/14/20 History Omeprazole [PriLOSEC] 20 mg PO AC-BRKFST 07/11/20 07/14/20 History Allergies Allergy/AdvReac Type Severity Reaction Status Date / Time No Known Allergies Allergy Verified 07/14/20 08:18 Physical Exam - Constitutional General appearance: average body habitus - EENT Eyes: PERRLA - Respiratory Respiratory: bilateral: CTA - Cardiovascular Rhythm: regular - Integumentary Integumentary: no calor, no cellulitis, no cyanotic, no decreased turgor, no flushed, no jaundiced, no normal, no normal turgor, no pale, no rash, no ulcer - Neurologic Neuro exam of the upper extremities showed normal and symmetrical muscle strength. Absent biceps reflex bilaterally and normal triceps reflex bilaterally. Decreased range of motion of the cervical spine especially to left rotation. Normal range of motion of the shoulder joints bilaterally however with increasing pain above 90 Degrees on the right side. Neurologic: CNII-XII intact Results Comments: Cervical spine computed tomography scan showed neural foraminal stenosis and central mild stenosis with spondylolisthesis. Assessment and Plan Plan: This is a 50-year-old gentleman with a chronic neck pain with radiation to both arms and numbness and tingling in both hands up to the elbows. His computed tomography scan the cervical spine showed a central and neural foraminal stenosis with cervical spondylosis. Diagnoses: Cervical radiculopathy Cervical stenosis Carpal tunnel syndrome bilaterally Bilateral foot pain status post multiple surgeries The patient is here today for his neck pain and I think he might benefit from getting cervical epidural steroid injection under fluoroscopic guidance at the C7-T1 level in the left paramedian approach. I asked the patient to hold his aspirin for 3-4 days before the procedure. The procedure was Explained to the patient and his questions were answered. I thank you for the referral
== END | disposition home or self-care (01) ==
LOC: PNWHC3 08:14
PROVIDERS: ATTEND Anesthesiology
DX: M48.02 Spinal stenosis, cervical region (principal); M54.12 Radiculopathy, cervical region; G56.03 Carpal tunnel syndrome, bilateral upper limbs; M79.671 Pain in right foot; M79.672 Pain in left foot; F17.200 Nicotine dependence, unspecified, uncomplicated; Z79.899 Other long term (current) drug therapy; Z79.1 Long term (current) use of non-steroidal anti-inflammatories (NSAID)
CPT/HCPCS: 99211

== ENCOUNTER 2020-07-17 11:24 | Day surgery (SDC) | payer OTHER ==
[2020-07-17 11:54] VITALS: TEMP 98
[2020-07-17] MEDS ORDERED: LACTATED RINGERS 1,000 ML IV ONE ×3 (11:54→12:20)
[2020-07-17] MEDS ORDERED: LIDOCAINE 1% (10MG/ML) FOR IV START INTRADERMA ONE (11:56)
[2020-07-17] MEDS ORDERED: MIDAZOLAM 2 MG/2 ML VIAL ONE (11:58)
[2020-07-17] MEDS ORDERED: DEXAMETHASONE SOD PHOSPHATE 10 MG/ML 1 ML VIAL ONE (11:58)
[2020-07-17] MEDS ORDERED: fentaNYL (PF) 50 MCG/ML 2 ML AMP ONE (11:58)
[2020-07-17] MEDS ORDERED: IOPAMIDOL M200 10 ML VIAL ONE (11:58)
--- NOTE | 2020-07-17 12:12 | P.PCN ---
Date of Procedure: 07/17/20 Surgeon: Lewis López Pathology: none sent Condition: stable Disposition: PACU Description of Procedure: PROCEDURE 1. Cervical epidural steroid injection under fluoroscopic guidance, C7-T1 left paramedian approach. 2. Cervical epidurogram. : PREOPERATIVE DIAGNOSIS: Cervical radiculopathy, cervical spondylosis without myelopathy POSTOPERATIVE DIAGNOSIS: : Same as above ANESTHESIA: Local anesthesia with 1% lidocaine and IV moderate conscious sedation with Versed and Fentanyl . EBL 0 PROCEDURE INDICATION: The patient with neck pain and radiculopathy unresponsive to conservative treatment consents for procedure. PROCEDURE DESCRIPTION / TECHNIQUE: The patient was seen and identified in the preoperative area. Risks, benefits, complications, including but not limited to infections ,bleeding , allergic reactions to the medications ,and not complete pain relief, and alternatives were discussed with the patient, the patient agreed to proceed with the procedure and signed the consent. Patient was taken to the OR and time out was completed. The patient was placed in the prone position on the procedure table. A pillow was placed under the patients chest to increase the flexion of the cervical spine . The cervical area was prepped and draped in the usual sterile fashion. Vital signs were closely monitored during the procedure. Conscious sedation was used during the procedure to decrease patients anxiety. Using anterior-posterior fluoroscopy, the C7-T1 interlaminar space was identified and the skin over this site was marked and then infiltrated with 1% lidocaine subcutaneously. Subsequently, a 20-gauge 3-1/2-inch Tuohy epidural needle was inserted and advanced toward the epidural space by means of loss of resistance to air technique and guided by AP and lateral fluoroscopy. The needle tip contacted the lamina of T1 vertebra first, then it was walked off bone and into the epidural space using the loss of to air and fluoroscopic guidance to identify the epidural space. The correct needle position in the epidural space was verified with the injection of 1 mL of the water soluble contrast dye Isovue and observing an excellent epidurogram with the epidural spread of the dye, after negative aspiration for blood and CSF and in the absence of paresthesias. Again after negative aspiration, a 3 ml mixture containing 20 mg of Decadron and 1 ml of preservative free Normal Saline solution was injected and a washout of epidurogram was seen. Needle was withdrawn intact, skin was cleansed, and bandages were applied. A copy of the needle placement picture was saved to the fluoroscopy machine.
--- NOTE | 2020-07-17 12:42 | FL ---
Fluoroscopy INDICATION: Pain FINDINGS: Fluoroscopy time: 4 seconds. Images obtained: 1. IMPRESSIONS: 1. Documentation of fluoroscopy.
[2020-07-17 12:43] VITALS: RESP 18
[2020-07-17] MEDS ORDERED: IV FLUID CONTINUATION 850 ML IV ONE (12:45)
[2020-07-17 12:49] VITALS: BP 128/84; PULSE 68
== END 2020-07-17 12:55 | disposition home or self-care (01) ==
LOC: ORPAIN 11:24
PROVIDERS: ATTEND Anesthesiology
DX: M47.22 Other spondylosis with radiculopathy, cervical region (principal)
CPT/HCPCS: 62321; J2250; J1100; J3010; Q9966

== ENCOUNTER 2020-08-05 07:10 | Day surgery (SDC) | payer OTHER ==
[2020-08-01 14:42] VITALS: BMI 23.1
[~2020-08-05 07:10] MED LIST: LACTATED RINGERS 1,000 ML IV SCH
[2020-08-05 07:27] VITALS: RESP 16; TEMP 98
[2020-08-05] MEDS ORDERED: LIDOCAINE 1% (10MG/ML) FOR IV START INTRADERMA ONE (07:35)
[2020-08-05] MEDS ORDERED: MIDAZOLAM 2 MG/2 ML VIAL ONE (08:05)
[2020-08-05] MEDS ORDERED: DEXAMETHASONE SOD PHOSPHATE 10 MG/ML 1 ML VIAL ONE (08:05)
[2020-08-05] MEDS ORDERED: fentaNYL (PF) 50 MCG/ML 2 ML AMP ONE (08:05)
[2020-08-05] MEDS ORDERED: IOPAMIDOL M200 10 ML VIAL ONE (08:05)
--- NOTE | 2020-08-05 08:28 | P.PCN ---
Date of Procedure: 08/05/20 Procedure(s) Performed: . PROCEDURE 1. Cervical epidural steroid injection under fluoroscopic guidance, C7-T1 (fluoroscopy images available in the radiology department ) 2. Cervical epidurogram. PREOPERATIVE DIAGNOSIS: 1- Cervical radiculopathy., 2-cervical spondylosis with cervical Facet arthropathy without myelopathy POSTOPERATIVE DIAGNOSIS: : 1- Cervical radiculopathy. 2-,cervical spondylosis with cervical Facet arthropathy without myelopathy ANESTHESIA: Local anesthesia with lidocaine 1 % , and moderate sedation, with Versed 2 mg and Fentanyl 50 mcg. EBL 0 PROCEDURE INDICATION: The patient with neck pain and radiculitis unresponsive to conservative treatment consents for procedure. PROCEDURE DESCRIPTION / TECHNIQUE: The patient was seen and identified in the preoperative area. Risks, benefits, complications, including but not limited to infections ,bleeding , allergic reactions to the medications ,and not complete pain releife, and alternatives were discussed with the patient, the patient agreed to proceed with the procedure and signed the consent. Patient was taken to the OR and time out was completed. The patient was placed in the prone position on the procedure table. A pillow was placed under the patients chest to increase the cervical interlaminar space. The cervical area was prepped and draped in the usual sterile fashion. Vital signs were closely monitored during the procedure. Conscious sedation was used during the procedure to decrease patients anxiety. Using anterior-posterior fluoroscopy, the C7-T1 interlaminar space was identified and the skin over this site was marked and then infiltrated with 1% lidocaine subcutaneously. Subsequently, a 20-gauge 3-1/2-inch Tuohy epidural needle was inserted and advanced toward the epidural space by means of the ``hanging-drop technique and guided by AP and lateral fluoroscopy. The correct needle position in the epidural space was verified with the injection of 2 mL of the water soluble contrast dye [id number]-200 and observing an excellent epidurogram with the epidural spread of the dye, after negative aspiration for blood and CSF and in the absence of paresthesias. Again after negative aspiration, mixture containing 20 mg Dexamethasone and 2 ml of preservative- free normal saline injected and a washout of epidurogram was seen. Needle was withdrawn intact, skin was cleansed, and bandages were applied. Complications= none. Disposition= patient was placed in supine position and transferred to the recovery room area in stable condition and there was no evidence of upper or lower extremity motor or sensory deficit after the procedure patient was discharged from recovery room after discharge criteria met and home discharge instructions was given by the staff and patient will follow with the pain clinic in 2-4 weeks
[2020-08-05] MEDS ORDERED: IV FLUID CONTINUATION 800 ML IV ONE (08:31)
[2020-08-05 08:47] VITALS: BP 160/92; PULSE 68
--- NOTE | 2020-08-05 09:29 | FL ---
Fluoroscopy INDICATION: Pain FINDINGS: Fluoroscopy time: 0.02 minutes Images obtained: 1. IMPRESSIONS: 1. Documentation of fluoroscopy.
== END 2020-08-05 09:01 | disposition home or self-care (01) ==
LOC: ORPAIN 07:10
PROVIDERS: ATTEND Specialist
DX: M47.22 Other spondylosis with radiculopathy, cervical region (principal); M50.10 Cervical disc disorder with radiculopathy, unspecified cervical region
CPT/HCPCS: 62321; J2250; J1100; J3010; Q9966

== ENCOUNTER → 2020-08-13 | Outpatient (CLI) | payer OTHER ==
[2020-08-13 14:09] VITALS: BP 129/88; PULSE 85; RESP 18; TEMP 98.3
--- NOTE | 2020-08-13 14:28 | P.PN ---
Subjective Progress Note Date: 08/13/20 this is a 50-year-old gentleman with history of cervical radiculopathy for which he had two cervical epidural steroid injections.his neck pain has improved since this injection however he has severe carpal tunnel syndrome bilaterally and he states that his hands are on fire because of that. The patient used to get what seems to be steroid injection around the median nerve every 3 monthsat a different clinic clinic.the patient works full-time. His hands pain wakes him up at night. He takes Neurontin 300 mg twice a day. He uses marijuana occasionally. The patient requested to be on [place]. Patient denies new-onset weakness, bowel/bladder incontinence, or any other signs or symptoms of cauda equina syndrome. There are no signs of acute intoxication, and no indications of medication diversion or overuse. In addition to above, 13-point review of systems is also negative for chest pain, shortness of breath, changes in vision, changes in hearing, new onset weakness, abdominal pain, diarrhea, extreme fatigue, malaise, fever, skin changes, homicidal or suicidal ideation, or bowel or bladder incontinence. Vital Signs: Reviewed in EMR Gen: AAOx3, NAD HEENT: PERRLA,hearing grossly normal Pulm: resp unlabored Neck: supple, trachea midline Neuro exam of the lower extremities:normal muscle strength bilaterally smaller than usual thenar muscles bilaterally Neuro: CN II-XII grossly intact, Imaging: Reviewed in EMR/chart Assessment: cervical radiculopathy Bilateral carpal tunnel syndrome Plan: 1. Explanation: Opioid and psychological risk scores were reviewed. Diagnoses, prognoses, and multiple treatment options including but not limited to physical therapy, interventional therapies, adjuvant medical therapies, narcotic medication therapies, and surgery were discussed with the patient and all questions were answered to the patient's satisfaction. 2. Opioid agreement: Signed with the patient and the patient is warned not to use opioids while driving or before driving and not to combine opioids with benzodiazepines or alcohol. 3. Counseling: The patient was counseled extensively on SMOKING CESSATION, BODY MASS INDEX, EXERCISE. Specifically, the patient was instructed regarding the importance of smoking cessation, obesity, and exercise in the context of both chronic pain and overall health. 4. Procedures: none 5. Consultations: I encouraged the patient to see an orthopedic surgeon for carpal tunnel syndrome treatment 6. Investigations: None 7. Medications: I asked the patient to go up on his Neurontin to 3 times a day 8. Disposition: return to clinic as necessary Objective - Vital Signs Vital signs: Vital Signs Temp 98.3 F 08/13/20 14:01 Pulse 85 08/13/20 14:01 Resp 18 08/13/20 14:01 BP 129/88 08/13/20 14:01 Pulse Ox 98 08/13/20 14:01 Intake & Output 08/12/20 08/13/20 08/13/20 18:59 06:59 18:59 Weight 63.503 kg
== END | disposition home or self-care (01) ==
LOC: PNWHC3 13:55
PROVIDERS: ATTEND Anesthesiology
DX: M54.12 Radiculopathy, cervical region (principal); G56.03 Carpal tunnel syndrome, bilateral upper limbs; Z79.899 Other long term (current) drug therapy
CPT/HCPCS: 99211

== ENCOUNTER 2020-09-26 07:49 | Day surgery (SDC) | payer OTHER ==
[2020-09-23 15:36] VITALS: BMI 24.0
--- NOTE | 2020-09-25 22:09 | HP ---
HISTORY AND PHYSICAL CHIEF COMPLAINT: Left hand pain and numbness. HISTORY OF PRESENT ILLNESS: The patient is a 50-year-old male who presents with left hand pain and numbness for the past 5 years. It has worsened recently. He has numbness and weakness. He has tried steroid injections with temporary relief along with bracing and medications. He notes he is having a difficult time and is dropping things. PAST MEDICAL HISTORY: Significant for peptic ulcer disease and pancreatitis. PAST SURGICAL HISTORY: Significant for previous gastric surgery along with previous foot surgery. CURRENT MEDICATIONS: Neurontin, Prilosec. He denies drug allergies. FAMILY HISTORY: Noncontributory. SOCIAL HISTORY: Significant for 1/2 pack per day tobacco use. REVIEW OF SYSTEMS: Sixteen point review of systems otherwise is reviewed and is noncontributory. PHYSICAL EXAMINATION: On examination, patient is approximately 5 foot 4 140 pounds, of mesomorphic habitus. HEENT exam is nonfocal. Neck is supple. He is nontender about the left shoulder and elbow. On examination of his left wrist, he has a positive Tinel's over the carpal canal. He has subjective numbness in all digits. Adductor pollicis brevis strength is 4- over 5 on the left. IMPRESSION: Left carpal tunnel syndrome-severe. RECOMMENDATIONS: I talked to the patient at length regarding his condition along with treatment options. At this point, he has tried extensive conservative treatment to include bracing, injections, and anti-inflammatories. After thorough discussion, he opts to proceed with surgery. We will plan to proceed with left carpal tunnel release utilizing local anesthetic and IV sedation. Risks and benefits were discussed at length in layman's terms. MMODL / IJN: [id number] /
[~2020-09-26 07:49] MED LIST changes: +DEXAMETHASONE SOD PHOSPHATE 4 MG/ML 1 ML VIAL IV ONE; +HYDROmorphone 0.5 MG/0.5 ML SYRINGE IVP PRN; +LIDOCAINE 1% (10MG/ML) FOR IV START INTRADERMA PRN; +MIDAZOLAM 2 MG/2 ML VIAL IV PRN; +ONDANSETRON 4 MG/2 ML VIAL IVP ONE
[2020-09-26 08:07] VITALS: RESP 16; TEMP 97.1
[2020-09-26 08:20] LABS: Basophils # (A) 0.1 k/uL (0-0.2); Basophils % (A) 1 %; Eosinophils # (A) 0.5 k/uL (0-0.7); Eosinophils % (A) 5 %; HCT 42.4 % (39.0-53.0); HGB 14.2 gm/dL (13.0-17.5); Lymphocytes # (A) 2.5 k/uL (1.0-4.8); Lymphocytes % (A) 28 %; MCH 31.3 pg (25.0-35.0); MCHC 33.6 g/dL (31.0-37.0); MCV 93.1 fL (80.0-100.0); Mean Platelet Volume 8.2; Monocytes # (A) 0.6 k/uL (0-1.0); Monocytes % (A) 7 %; Neutrophils # (A) 5.2 k/uL (1.3-7.7); Neutrophils % (A) 57 %; Platelet Count 295 k/uL (150-450); RBC 4.55 m/uL (4.30-5.90); RDW 13.2 % (11.5-15.5); WBC 9.1 k/uL (3.8-10.6)
[2020-09-26 08:32] LABS: ALT 14 U/L (4-49); AST 23 U/L (17-59); African American GFR (CKD) >90 (>60 ml/min/1.73 sqM); Albumin 4.1 g/dL (3.5-5.0); Alkaline Phosphatase 60 U/L (38-126); Anion Gap 4 mmol/L; Blood Urea Nitrogen 16 mg/dL (9-20); Carbon Dioxide 27 mmol/L (22-30); Chloride 108 mmol/L (98-107); Glucose 98 mg/dL (74-99); Non-African American GFR(CKD) >90 (>60 ml/min/1.73 sqM); Potassium 4.3 mmol/L (3.5-5.1); Sodium 139 mmol/L (137-145); Total Bilirubin 0.3 mg/dL (0.2-1.3)
[2020-09-26] MEDS ORDERED: fentaNYL (PF) 50 MCG/ML 2 ML AMP ONE (09:27)
[2020-09-26] MEDS ORDERED: KETAMINE 10 MG/ML 20 ML VIAL ONE (09:27)
[2020-09-26] MEDS ORDERED: PROPOFOL 10 MG/ML 20 ML VIAL IV ONE (09:27)
[2020-09-26] MEDS ORDERED: MIDAZOLAM 2 MG/2 ML VIAL ONE (09:27)
[2020-09-26] MEDS ORDERED: ceFAZolin 1,000 MG VIAL IVPB ONE (09:35)
[2020-09-26] MEDS ORDERED: BUPIVACAINE (PF) 0.25% 30 ML VIAL SQ ONE ×2 (09:46)
--- NOTE | 2020-09-26 10:00 | P.OP ---
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 Clinically and by EMG use and have evidence of symptomatic carpal tunnel syndrome. A discussion of the risks and benefits of operative intervention versus continued conservative measures was made with patient. He opted to proceed with surgery. Operative risks to include infection, neurovascular injury, development of blood clots, possible incomplete resolution of symptoms, possible recurrence of symptoms was discussed. Informed consent was obtained. Operative Findings: As below Description of Procedure: The patient was brought to the operating room, and after induction of IV sedation the left upper extremity was prepped and draped in normal fashion. The proposed incision site was outlined skin marker in line with the radial aspect the fourth ray extending from the volar wrist crease distally 2-1/2 cm. One quarter percent plain Marcaine was injected into the proposed incision site. 9 mL was utilized. The tourniquet was inflated to 250 mmHg. The skin incision was then made. The skin was incised sharply. Subcutaneous tissues were divided sharply the superficial palmar fascia was identified and split in line with the skin incision. The transverse carpal ligament was identified and transected under direct visualization distally to level the palmar fat pad. Proximal was taken level of the volar wrist crease. A plane above and below the transverse carpal ligament was then bluntly developed with tenotomies. The confluence of the distal forearm fascia and the transverse carpal ligament was then transected under direct visualization proximally with the tines pointed in the ulnar direction. I felt this was adequate proximal release. Neural lysis was not performed. The wound was irrigated with normal saline. Electrocautery was used for hemostasis. The skin was reapproximated with simple 3-0 nylon sutures. A sterile dressing was applied. The tourniquet was deflated with less than 15 minutes total tourniquet time. Patient was awoken from sedation and transferred to the recovery room in good condition. Blood loss was estimated 1 mL. No complications were incurred. Sponge and needle counts were correct at the end the case.
[2020-09-26 10:24] VITALS: BP 128/82; PULSE 86
[2020-09-26] MEDS ORDERED: HYDROcodone/APAP 7.5-325MG 1 EACH TAB ONE (10:34)
[2020-09-26] MEDS ORDERED: HYDROcodone/APAP 7.5-325MG 1 EACH TAB PO ONE (10:36)
== END 2020-09-26 11:06 | disposition home or self-care (01) ==
LOC: OR 07:49
PROVIDERS: ATTEND Orthopaedic Surgery
DX: G56.02 Carpal tunnel syndrome, left upper limb (principal); K21.9 Gastro-esophageal reflux disease without esophagitis; F17.210 Nicotine dependence, cigarettes, uncomplicated; Z79.899 Other long term (current) drug therapy; Z87.11 Personal history of peptic ulcer disease; Z98.890 Other specified postprocedural states
CPT/HCPCS: 80053; 85025; 64721; J2250; J1100; J2405; J0690; J3010; J2704

== ENCOUNTER 2020-11-20 13:26 | Emergency (ER) | payer OTHER ==
[2020-11-20 13:32] VITALS: TEMP 98.4
--- NOTE | 2020-11-20 13:52 | ED ---
Upper Extremity HPI - General Chief Complaint: Extremity Injury, Upper Stated Complaint: L Shoulder Pain Time Seen by Provider: 11/20/20 13:35 Source: patient, EMS Mode of arrival: EMS Limitations: no limitations - Related Data Home Medications Medication Instructions Recorded Confirmed Multivit-Min/Folic/Vit K/Lycop 1 each PO DAILY 07/11/20 09/23/20 [Men's Multivitamin Tablet] Naproxen [Naprosyn] 500 mg PO Q12HR PRN 07/11/20 09/23/20 Omeprazole [PriLOSEC] 20 mg PO AC-BRKFST 07/11/20 09/23/20 HYDROcodone/APAP 7.5-325MG [[place] 1 tab PO Q4-6H PRN 09/23/20 09/23/20 7.5-325] Previous Rx's Medication Instructions Recorded HYDROcodone/APAP 7.5-325MG [[place] 1 tab PO Q6HR PRN 3 Days #12 tab 11/20/20 7.5-325] Allergies Allergy/AdvReac Type Severity Reaction Status Date / Time No Known Allergies Allergy Verified 09/26/20 08:02 Review of Systems ROS Statement: Those systems with pertinent positive or pertinent negative responses have been documented in the HPI. ROS Other: All systems not noted in ROS Statement are negative. Past Medical History Past Medical History: GERD/Reflux, GI Bleed, Musculoskeletal Disorder Additional Past Medical History / Comment(s): right arm infection/necrosis, bilateral pleural effusions with R thoracentesis/severe pulmonary, GI bleed, gastric ulcers/duodenal ulcer, gastritis, chronic back pain, bilateral carpal tunnel syndrome, gallbladder polyp, past bilateral foot fractures-L foot surgically repaired-pt states it didn't "work" so he chose not to have surgery on his R foot History of Any Multi-Drug Resistant Organisms: None Reported Past Surgical History: Hernia Repair, Orthopedic Surgery Additional Past Surgical History / Comment(s): I&D right forearm/fasciotomy, fracture repair L foot, EGD with repair of perforated ulcer with endo clip, colonoscopy, pain procedures, carpal tunnel surgery on left hand Past Anesthesia/Blood Transfusion Reactions: No Reported Reaction Additional Past Anesthesia/Blood Transfusion Reaction / Comment(s): Pt has received blood without reaction. Past Psychological History: ADD/ADHD, Anxiety, Schizophrenia Smoking Status: Current every day smoker Past Alcohol Use History: Rare Past Drug Use History: Marijuana - Past Family History Father Family Medical History: Sleep Apnea/CPAP/BIPAP Additional Family Medical History / Comment(s): -suffered from obstructive sleep apnea Mother Family Medical History: No Reported History Additional Family Medical History / Comment(s): General Exam Limitations: no limitations Course Vital Signs 11/20/20 13:28 Temperature 98.4 F Pulse Rate 81 Respiratory 16 Rate Blood Pressure 144/103 O2 Sat by Pulse 98 Oximetry Medical Decision Making - Medical Decision Making X-ray reveals evidence of comminuted fracture of the humeral head he has neurovascular intact in place in a sling case discussed with Nahomy Haley on-call for orthopedics recommends the patient to follow up with Dr. Bryant and most likely surgery within one week. Return parameters were discussed. Disposition Clinical Impression: Closed fracture of left proximal humerus Disposition: HOME SELF-CARE Condition: Stable Instructions (If sedation given, give patient instructions): Arm Fracture in Adults (ED) Additional Instructions: Please return to the Emergency Department if symptoms worsen or any other concerns. Prescriptions: HYDROcodone/APAP 7.5-325MG [[place] 7.5-325] 1 tab PO Q6HR PRN 3 Days #12 tab PRN Reason: Pain Is patient prescribed a controlled substance at d/c from ED?: Yes When asked, does pt state using other controlled substances?: No If prescribed controlled substance>3 days was MAPS reviewed?: Prescribed <3 Days If opioid is for acute pain is fill amount 7 days or less?: Yes If Rx opioid, was Start Talking consent form obtained?: Yes Referrals: Iraj Silva MD [Primary Care Provider] - 1-2 days Ge Bryant MD [STAFF PHYSICIAN] - 1-2 days Time of Disposition: 14:55
[2020-11-20] MEDS ORDERED: HYDROmorphone 0.5 MG/0.5 ML SYRINGE IVP STA (14:09)
[2020-11-20] MEDS ORDERED: HYDROmorphone 1 MG/ML 1 ML SYRINGE IVP STA (14:53)
[2020-11-20 15:02] VITALS: BP 112/60; PULSE 85; RESP 18
--- NOTE | 2020-11-20 15:06 | XR ---
EXAMINATION TYPE: XR shoulder complete LT DATE OF EXAM: 11/20/2020 Comparison: None Clinical History: 50-year-old male with injury and pain Findings: Moderate degenerative change at the AC joint. Subacromial space is preserved. Comminuted fracture of the proximal left humerus with surgical neck and greater tuberosity components to the fracture. The greater tuberosity fragment is displaced by 1.3 cm. Impression: 2 part humeral head fracture with the greater tuberosity fragment displaced by 1.3 cm. The surgical n isidro component to the fracture is not significantly displaced.
== END 2020-11-20 15:20 | disposition home or self-care (01) ==
LOC: EC 13:26
DX: S42.202A Unspecified fracture of upper end of left humerus, initial encounter for closed fracture (principal); K21.9 Gastro-esophageal reflux disease without esophagitis; G89.29 Other chronic pain; M54.9 Dorsalgia, unspecified; F17.200 Nicotine dependence, unspecified, uncomplicated; Z79.899 Other long term (current) drug therapy; X50.1XXA Overexertion from prolonged static or awkward postures, initial encounter; Y93.89 Activity, other specified; Y92.89 Other specified places as the place of occurrence of the external cause
CPT/HCPCS: 73030; 99284; 96374; 96376; J1170 ×2

== ENCOUNTER 2020-11-23 11:15 | Emergency (ER) | payer OTHER ==
[2020-11-23 11:18] VITALS: RESP 16; TEMP 98.1
[2020-11-23] MEDS ORDERED: KETOROLAC 15 MG/ML 1 ML VIAL IM STA (11:27)
--- NOTE | 2020-11-23 11:55 | ED ---
General Adult HPI - General Chief complaint: Extremity Injury, Upper Stated complaint: Pain Time Seen by Provider: 11/23/20 11:17 Source: EMS, RN notes reviewed Mode of arrival: EMS Limitations: no limitations - History of Present Illness Initial comments: Patient is a 50-year-old white male who presents to the ED complaining of back pain. He was recently in the emergency department due to falling and breaking his arm on 11/20/2020. He was discharged home with a three-day supply of [place] 7.5. He stated that he was taken and is prescribed. Today he is complaining of mid to low back pain predominantly on the left side. Patient did not appear to be in any distress. Today he reported that he fell 12-16 feet which contradicts his story from the where he informed ER physician that he fell grabbed an extension ladder and extension ladder fell on him resulting in a broken arm. He was asking for pain medication upon arrival. He reported chronic numbness and tingling in his neck and his legs, but states it is worse in his legs today. She denied any loss of sensation in lower extremities. He was supposed to follow up with or so tomorrow 11/24/2020 for evaluation of her arm. He denied any chest pain, shortness of breath, headache, nausea, vomiting, diarrhea, constipation, chills, night, sweats, decreased, range of motion, weakness. Nurse noted that has called several times asking that her get more pain medications because the house Sleep. said she wasn't pushing for us to prescribe her medications. - Related Data Home Medications Medication Instructions Recorded Confirmed Multivit-Min/Folic/Vit K/Lycop 1 each PO DAILY 07/11/20 09/23/20 [Men's Multivitamin Tablet] Naproxen [Naprosyn] 500 mg PO Q12HR PRN 07/11/20 09/23/20 Omeprazole [PriLOSEC] 20 mg PO AC-BRKFST 07/11/20 09/23/20 HYDROcodone/APAP 7.5-325MG [[place] 1 tab PO Q4-6H PRN 09/23/20 09/23/20 7.5-325] Previous Rx's Medication Instructions Recorded HYDROcodone/APAP 7.5-325MG [[place] 1 tab PO Q6HR PRN 3 Days #12 tab 11/20/20 7.5-325] Ibuprofen [Motrin] 800 mg PO Q8H #9 tab 11/23/20 Allergies Allergy/AdvReac Type Severity Reaction Status Date / Time No Known Allergies Allergy Verified 11/23/20 11:18 Review of Systems ROS Statement: Those systems with pertinent positive or pertinent negative responses have been documented in the HPI. ROS Other: All systems not noted in ROS Statement are negative. Past Medical History Past Medical History: GERD/Reflux, GI Bleed, Musculoskeletal Disorder Additional Past Medical History / Comment(s): right arm infection/necrosis, bilateral pleural effusions with R thoracentesis/severe pulmonary, GI bleed, gastric ulcers/duodenal ulcer, gastritis, chronic back pain, bilateral carpal tunnel syndrome, gallbladder polyp, past bilateral foot fractures-L foot surgically repaired-pt states it didn't "work" so he chose not to have surgery on his R foot History of Any Multi-Drug Resistant Organisms: None Reported Past Surgical History: Hernia Repair, Orthopedic Surgery Additional Past Surgical History / Comment(s): I&D right forearm/fasciotomy, fracture repair L foot, EGD with repair of perforated ulcer with endo clip, colonoscopy, pain procedures, carpal tunnel surgery on left hand Past Anesthesia/Blood Transfusion Reactions: No Reported Reaction Additional Past Anesthesia/Blood Transfusion Reaction / Comment(s): Pt has received blood without reaction. Past Psychological History: ADD/ADHD, Anxiety, Schizophrenia Smoking Status: Former smoker Past Alcohol Use History: Rare Past Drug Use History: Marijuana - Past Family History Father Family Medical History: Sleep Apnea/CPAP/BIPAP Additional Family Medical History / Comment(s): -suffered from obstructive sleep apnea Mother Family Medical History: No Reported History Additional Family Medical History / Comment(s): General Exam Limitations: no limitations General appearance: alert, in no apparent distress Head exam: Present: atraumatic, normocephalic, normal inspection Eye exam: Present: normal appearance, PERRL, EOMI. Absent: scleral icterus, conjunctival injection, periorbital swelling ENT exam: Present: normal exam, mucous membranes moist Neck exam: Present: normal inspection. Absent: tenderness, meningismus, lymphadenopathy Respiratory exam: Present: normal lung sounds bilaterally. Absent: respiratory distress, wheezes, rales, rhonchi, stridor Cardiovascular Exam: Present: regular rate, normal rhythm, normal heart sounds. Absent: systolic murmur, diastolic murmur, rubs, gallop, clicks Extremities exam: Present: normal inspection, full ROM, normal capillary refill, other (Patient had 5 out of 5 strength lower extremities past physician's desk to get a room. Patient put 0 effort into leg lift exam to check for sciatica or nerve pain.). Absent: tenderness, pedal edema, joint swelling, calf tenderness Back exam: Present: normal inspection, tenderness (To very light touch over the left paravertebral muscles from mid back to low back, to right paravertebral muscles from low back to upper lobe) Neurological exam: Present: alert, oriented X3, CN II-XII intact Psychiatric exam: Present: normal affect, normal mood Skin exam: Present: warm, dry, intact, normal color. Absent: rash Course Vital Signs 11/23/20 11:16 Temperature 98.1 F Pulse Rate 82 Respiratory 16 Rate Blood Pressure 134/96 O2 Sat by Pulse 97 Oximetry Medical Decision Making - Medical Decision Making 42-year-old male complaining of back pain status post work injury, last visit to ER was 11/20/2020 for a broken arm. X-rays show no acute osseous issues. - Radiology Data Radiology results: report reviewed, image reviewed Lumbar x-ray grade 1 spondylolisthesis listhesis with probable spondylolysis of lumbar spine. No acute lumbar spine abnormality. Thoracic x-ray: No acute osseous abnormality. Cervical spine x-ray: No acute osseous abnormality. Disposition Clinical Impression: Back pain, Fracture of humerus Disposition: HOME SELF-CARE Condition: Stable Additional Instructions: Please return to the Emergency Department if symptoms worsen or any other concerns. Follow-up with orthopedic. Take Motrin as prescribed. Is patient prescribed a controlled substance at d/c from ED?: No Referrals: Iraj Silva MD [Primary Care Provider] - 1-2 days Decision Time: 13:02
--- NOTE | 2020-11-23 12:19 | XR ---
EXAMINATION TYPE: XR cervical spine comp DATE OF EXAM: 11/23/2020 COMPARISON: 07/04/2019 HISTORY: Back pain from fall TECHNIQUE: 6 view cervical spine FINDINGS: Foraminal narrowing is present on the left. Milder narrowing is present on the right forame n. Odontoid is visualized appears intact. The tip is somewhat limited with overlying maxilla. Prevert ebral space is normal. Degenerative disc changes with loss of disc height are present C3-4 and C6-7. Posterior spinal lamellar line is intact. IMPRESSION: 1. No acute osseous abnormality cervical spine. 2. Degenerative changes discussed above.
--- NOTE | 2020-11-23 12:22 | XR ---
EXAMINATION TYPE: XR lumbar spine 2 or 3V DATE OF EXAM: 11/23/2020 COMPARISON: None HISTORY: Fall, pain TECHNIQUE: Three-view lumbar spine and lateral views limited with overlying elbow. FINDINGS: There is a grade 1 spondylolisthesis of L5 anterior on S1. Spondylolysis of L5 is suspected . Vertebral body heights are preserved. Disc heights are preserved. IMPRESSION: 1. Grade 1 spondylolisthesis with probable spondylolysis of L5. 2. No acute lumbar spine abnormality.
--- NOTE | 2020-11-23 12:23 | XR ---
EXAMINATION TYPE: XR thoracic spine 2V DATE OF EXAM: 11/23/2020 COMPARISON: None HISTORY: Back pain TECHNIQUE: Three-view thoracic spine FINDINGS: Thoracic spine pedicles are intact. Mild scoliosis is noted upper thoracic spine. Disc heig hts are preserved. Vertebral body heights are preserved. IMPRESSION: 1. No acute osseous abnormality thoracic spine.
[2020-11-23 13:28] VITALS: BP 136/99; PULSE 96
== END 2020-11-23 13:28 | disposition home or self-care (01) ==
LOC: EC 11:15
DX: S42.309D Unspecified fracture of shaft of humerus, unspecified arm, subsequent encounter for fracture with routine healing (principal); M54.5 Low back pain; G89.29 Other chronic pain; M54.9 Dorsalgia, unspecified; K21.9 Gastro-esophageal reflux disease without esophagitis; Z79.899 Other long term (current) drug therapy; Z87.891 Personal history of nicotine dependence; W20.8XXD Other cause of strike by thrown, projected or falling object, subsequent encounter; Y92.69 Other specified industrial and construction area as the place of occurrence of the external cause; Y99.0 Civilian activity done for income or pay
CPT/HCPCS: 72070; 72050; 72100; 99283; 96372; J1885

== ENCOUNTER 2020-12-03 12:02 | Day surgery (SDC) | payer OTHER ==
[2020-12-01 12:49] VITALS: BMI 24.9
[~2020-12-03 12:02] MED LIST changes: -HYDROmorphone 0.5 MG/0.5 ML SYRINGE IVP PRN; -LACTATED RINGERS 1,000 ML IV SCH; -MIDAZOLAM 2 MG/2 ML VIAL IV PRN
[2020-12-03] MEDS: LACTATED RINGERS 1,000 ML IV SCH ×2 (12:58→17:50)
[2020-12-03 13:17] LABS: Basophils # (A) 0.1 k/uL (0-0.2); Basophils % (A) 1 %; Eosinophils # (A) 0.5 k/uL (0-0.7); Eosinophils % (A) 4 %; HCT 37.3 % (39.0-53.0); HGB 12.7 gm/dL (13.0-17.5); Hypochromasia Slight; Lymphocytes % (A) 18 %; MCH 31.8 pg (25.0-35.0); MCHC 33.9 g/dL (31.0-37.0); MCV 93.8 fL (80.0-100.0); Mean Platelet Volume 7.9; Monocytes # (A) 0.7 k/uL (0-1.0); Monocytes % (A) 6 %; Neutrophils # (A) 8.1 k/uL (1.3-7.7); Neutrophils % (A) 70 %; Platelet Count 371 k/uL (150-450); RBC 3.98 m/uL (4.30-5.90); RDW 13.9 % (11.5-15.5); WBC 11.5 k/uL (3.8-10.6)
--- NOTE | 2020-12-03 14:18 | CT ---
EXAMINATION TYPE: CT shoulder LT wo con DATE OF EXAM: 12/03/2020 COMPARISON: Plain film radiograph of 11/20/2020 HISTORY: Proximal humerus fracture CT DLP: 283.[address] of the left shoulder with reconstruction imaging. TECHNIQUE: Unenhanced CT of the right shoulder was performed with bone and soft tissue window setting s submitted in the axial coronal and sagittal planes. At a separate workstation [id number] TR imaging was o btained. FINDINGS: There is comminuted fracture of the proximal left humerus with surgical neck and greater tu berosity components noted. Greater tuberosity component is displaced by approximately 1 cm. Surgical neck displacement is approximately 5 mm. No additional fractures identified. No significant callus fo rmation seen. No evidence for subacromial impingement as there is a flat acromium. AC joint arthropa thy with mild spurring. Glenohumeral joint space is well-preserved. No obvious rotator cuff abnormal ity seen on CT. MRI is much more sensitive and specific to rotator cuff pathology. No soft tissue m asses appreciated. Visualized portions of the right lung demonstrate right apical scarring. IMPRESSION: 1. There is comminuted fracture of the proximal left humerus with surgical neck and greater tuberosit y components noted.
[2020-12-03] MEDS ORDERED: MIDAZOLAM 2 MG/2 ML VIAL IVP ONE (14:25)
[2020-12-03] MEDS ORDERED: fentaNYL (PF) 50 MCG/ML 2 ML AMP ONE (14:41)
[2020-12-03] MEDS ORDERED: ROPIVACAINE 5 MG/ML 30 ML VIAL ONE (14:41)
[2020-12-03] MEDS ORDERED: DEXAMETHASONE SOD PHOSPHATE 4 MG/ML 1 ML VIAL ONE (14:41)
[2020-12-03] MEDS ORDERED: SUCCINYLCHOLINE CHLORIDE 100 MG/5 ML SYR IV ONE (14:41)
[2020-12-03] MEDS ORDERED: MIDAZOLAM 2 MG/2 ML VIAL ONE (14:41)
[2020-12-03] MEDS ORDERED: LIDOCAINE 1% INJ 10MG/ML (20 ML MDV) ONE (14:41)
[2020-12-03] MEDS ORDERED: PROPOFOL 10 MG/ML 20 ML VIAL IV ONE (14:41)
[2020-12-03] MEDS ORDERED: HYDROmorphone (PF) 1 MG/ML ONE (14:41)
--- NOTE | 2020-12-03 16:41 | P.OP ---
Date of Procedure: 12/03/20 Procedure(s) Performed: PREOPERATIVE DIAGNOSES: 1. Left shoulder proximal humerus fracture, 3 part POSTOPERATIVE DIAGNOSES: 1. Left shoulder proximal humerus fracture, 3 part 2. Left shoulder rotator cuff noted to be intact PROCEDURES PERFORMED: 1. Left shoulder proximal humerus fracture open reduction and internal fixation ANESTHESIA: Gen. HALL MONITOR: Nahomy Haley PA-C (assistance with exposure, hemostasis, retraction, fixation, closure, dressing) COMPLICATIONS: None ESTIMATED BLOOD LOSS: 100 mL. DISPOSITION: To post-anesthesia care unit INDICATIONS: Fred is a 50-year-old male with a history of falling and sustaining a left shoulder proximal humerus fracture. The fracture is displaced and has been analyzed by computed tomography scan, for preoperative planning. The greater tuberosity of the humerus is widely displaced and the surgical neck fracture is in a valgus position. I have advised reduction and fixation of the proximal humerus fracture using hardware. I have described the steps of the operation as well as potential risks and complications and the patient wishes to proceed. These risks and potential complications are inclusive of, but not limited to: Bleeding, infection, scarring, discomfort, blood vessel and/or nerve damage, stiffness, hardware irritation, malunion, nonunion, arthritis, further fracture, rotator cuff injury, muscular injury to the deltoid, need for prolonged physical therapy, and other risks, including . I have also explained the seriousness of this kind of fracture and the resultant predictable stiffness and disability that results typically from this kind of fracture even despite modern surgical treatment. The patient wishes to proceed and has signed the consent form. PROCEDURE: After appropriate consent was obtained, the patient was taken to the operating room placed in the supine position. Anesthesia was initiated, and after confirmation of adequate anesthesia, the patient was carefully positioned in the beachchair position. Care was taken to make sure that all pressure points were adequately padded. A small bump was placed beneath the operative scapula. Prepping and draping were completed in the usual aseptic fashion, with the arm draped free, using ChloraPrep. Timeout was called, confirming patient identity, side, procedure, and administration of antibiotics. Standard deltopectoral incision was created with a #10 blade from the inferior border of the clavicle, across the medial aspect of the coracoid process, and down to the deltoid insertion of the humerus. Total size of the incision was approximately 7 inches. The incision was deepened using Bovie electrocautery and meticulous hemostasis was obtained. Subcutaneous dissection was carried down to muscular fascia. The cephalic vein was identified and retracted along with the deltoid laterally. Muscular perforators into the pectoralis muscle were carefully identified and cauterized. The deltopectoral interval was then carefully and bluntly and mobilization of the deep surface of the deltoid was accomplished using a Light elevator. A deltoid retractor was then placed and manual retraction of the pectoralis was performed. Standard self- retaining retractors were applied in the tissues the red stripe adjacent to the strap tendons was incised using cautery and self-retaining retractor was applied beneath the strap tendons. Excellent visualization was accomplished with this method and a small portion of the super area or aspect of the pectoralis tendon was released for good exposure to the humerus. The fracture was identified and organizing hematoma was removed. Direct visualization of the rotator cuff was accomplished by removing subdeltoid and subacromial bursa as necessary. There was no evidence of significant rotator cuff tear or chronic impingement syndrome. The fracture was carefully mobilized with attention to produce as little devascularization of the fragments as possible. Therefore, soft tissue attachments to the fragments were left intact as much as possible. C-arm imaging was used to assess reduction of the fracture. The shaft fragment was realigned with the humeral head fragment using a hoffman elevator on the medial aspect of the humeral shaft as well as gentle manipulation of the shoulder and proximal fragments. Once an acceptable reduction had been obtained with fluoroscopy, provisional pin fixation was performed and the reduction was rechecked. A Synthes proximal humeral periarticular plate was inserted with the posterior portion of the buttress against the greater tuberosity and the medial portion of the plate just lateral to the bicipital groove. Care was taken to make sure that the biceps tendon was not trapped beneath the plate or in the fracture. The plate was positioned superiorly or inferiorly as needed to reach an optimal position. This was assessed using C-arm imaging. A preliminary pin was placed and C-arm images were taken with gentle rotation of the of the shoulder to assess in multiple planes. The slotted screw hole was then utilized to place a 3.5 mm bicortical fully threaded cortical screw. The screw was used to bring the shaft to the plate and provide buttress support proximally against the humeral head. The fracture further reduced very nicely with this step. C- arm imaging confirmed proper placement and orientation of the hardware. Proximal locking screws were then placed. All screws were measured for depth and 6 mm was subtracted from the measurement so that there would be no chance of inadvertent joint penetration of the screw head. A final locking screw was placed in the distal hole of the plate to further secure the shaft fragment. Final C-arm imaging in both the AP plane and a rotated view to see a lateral projection of the proximal humerus, showed excellent alignment of the fracture. All screws were critically evaluated to make sure that there was no significant chance of screw penetration even with some anticipated subsidence of the humeral head. Gentle range of motion was performed in flexion, abduction, and rotation to assess stability of the fracture site. The fracture was completely stable, including the greater tuberosity minimally displaced fragment. Thorough irrigation and final hemostasis was obtained, and final C-arm images were taken and saved. The wound was then thoroughly irrigated with normal saline and the portion of the lateralis tendon that was released for exposure was repaired using 0 Vicryl suture. Closure of the deltopectoral interval was performed using 0 Vicryl suture followed by 2-0 Vicryl suture in subcu tissues and standard skin closure using Dermabond. Sterile dressing was then applied and the patient's arm was placed into a sling Patient tolerated the procedure well and taken to recovery room in stable condition. Sponge and needle counts were correct.
[2020-12-03] MEDS ORDERED: LACTATED RINGERS 1,000 ML IV ONE (16:44)
[2020-12-03] MEDS ORDERED: ONDANSETRON 4 MG/2 ML VIAL IVP PRN (17:02)
[2020-12-03] MEDS ORDERED: HYDROmorphone 0.2 MG/1 ML SYRINGE IVP PRN (17:02)
[2020-12-03] MEDS ORDERED: HYDROmorphone 1 MG/ML 1 ML SYRINGE IVP PRN (17:02)
[2020-12-03] MEDS ORDERED: LACTATED RINGERS 1,000 ML IV SCH (17:15)
--- NOTE | 2020-12-03 21:45 | FL ---
EXAMINATION TYPE: FL guidance operating room, XR shoulder complete LT DATE OF EXAM: 12/03/2020 CLINICAL HISTORY: Left shoulder fracture. TECHNIQUE: Fluoroscopy. Intraoperative complete views left shoulder. COMPARISON: Left shoulder x-ray November 20, 2020. FINDINGS: Fluoroscopic guidance was provided during open reduction internal fixation procedure perfo rmed by Dr. Bryant. A total of 57 seconds of fluoroscopic time was utilized during the procedure and 3 spot images was acquired. Intraoperative images obtained show placement of a lateral fixating plate with multiple fixating scre ws through comminuted displaced fracture proximal humerus. There is improved alignment after reductio n and fixation on intraoperative images obtained. IMPRESSION: As Above.
[2020-12-03] MEDS: HYDROcodone/APAP 5-325MG 1 EACH TAB PO PRN (22:56)
[2020-12-04] MEDS ORDERED: ZOLPIDEM 5 MG TAB PO PRN (01:00)
[2020-12-04] MEDS: HYDROmorphone 0.5 MG/0.5 ML SYRINGE IVP PRN ×2 (03:58→08:14)
[2020-12-04 05:01] VITALS: RESP 16
[2020-12-04 07:08] VITALS: PULSE 72
--- NOTE | 2020-12-04 09:13 | P.DS ---
Providers Expected date of discharge: 12/04/20 Attending physician: Ge Bryant Primary care physician: Iraj Silva - Discharge Diagnosis(es) (1) Fracture of humerus Current Visit: Yes Status: Acute Hospital Course: This is a 50-year-old male who was last seen in our office last week with history of injury to his left shoulder when he fell. It was recommended he have surgical fixation of the fracture. He is admitted to [facility] as outpatient on 12/03/2020 for open reduction internal fixation of the left proximal humerus. The procedure is performed without complication or sequelae. The patient was kept overnight for pain management. He may be discharged to home today in good condition. Please see med rec for accurate list of home medications. Plan - Discharge Summary Discharge Rx Participant: Yes New Discharge Prescriptions: New HYDROcodone/APAP 10-325MG [Kenmare 10-325] 1 tab PO Q6HR PRN #28 tab PRN Reason: Pain Sennosides-Docusate Sodium [Senokot-S] 1 tab PO BID #60 tablet No Action Omeprazole [PriLOSEC] 20 mg PO AC-BRKFST Naproxen [Naprosyn] 500 mg PO Q12HR PRN PRN Reason: Pain Multivit-Min/Folic/Vit K/Lycop [Men's Multivitamin Tablet] 1 each PO DAILY HYDROcodone/APAP 7.5-325MG [Kenmare 7.5-325] 1 tab PO Q6HR PRN 3 Days #12 tab PRN Reason: Pain Ibuprofen [Motrin] 800 mg PO Q8H #9 tab Discharge Medication List Multivit-Min/Folic/Vit K/Lycop [Men's Multivitamin Tablet] 1 each PO DAILY 07/11/20 [History] Naproxen [Naprosyn] 500 mg PO Q12HR PRN 07/11/20 [History] Omeprazole [PriLOSEC] 20 mg PO AC-BRKFST 07/11/20 [History] HYDROcodone/APAP 7.5-325MG [Kenmare 7.5-325] 1 tab PO Q6HR PRN 3 Days #12 tab 11/20/20 [Rx] Ibuprofen [Motrin] 800 mg PO Q8H #9 tab 11/23/20 [Rx] HYDROcodone/APAP 10-325MG [Kenmare 10-325] 1 tab PO Q6HR PRN #28 tab 12/03/20 [Rx] Sennosides-Docusate Sodium [Senokot-S] 1 tab PO BID #60 tablet 12/03/20 [Rx] Follow up Appointment(s)/Referral(s): Iraj Silva MD [Primary Care Provider] - 12/10/20 8:30 am Ge Bryant MD [STAFF PHYSICIAN] - 12/18/20 2:45 pm Patient Instructions/Handouts: *Surgery [facility] - (Anesthesia) Discharge Instructions Outpatient Surgery Activity/Diet/Wound Care/Special Instructions: Maintain sling LUE. Keep Optifoam dressing intact 10 days. May shower 48h post op.
[2020-12-04] MEDS: HYDROcodone/APAP 5-325MG 1 EACH TAB PO PRN ×2 (10:38→16:16)
[2020-12-04 12:50] VITALS: BP 155/77; TEMP 98.4
--- NOTE | 2020-12-04 18:40 | PN ---
PROGRESS NOTE DATE OF SERVICE: 12/04/2020 CHIEF COMPLAINT: Status post surgical repair of left shoulder fracture. HISTORY OF PRESENT ILLNESS: This gentleman is doing well. He has had no confusion, fever, chills, etc. Pain is under reasonably good control. PHYSICAL EXAMINATION: Color is good. Vital signs are normal. His chest is clear. Cardiac exam is normal. Dressing on the left shoulder is dry. IMPRESSION: Status post open reduction internal fixation of left shoulder fracture. PLAN: Probably home today. MMODL / IJN: [id number] /
--- NOTE | 2020-12-04 20:09 | CONS ---
CONSULTATION CHIEF COMPLAINT: Fall with fracture of the left shoulder. HISTORY OF PRESENT ILLNESS: This gentleman fell off a ladder while he was painting and fractured the left shoulder. He is in for surgical treatment. REVIEW OF SYSTEMS: He has had no syncope, neurologic problems, difficulty with vision or hearing, chest pain, cough, hemoptysis, heart disease, murmurs, rheumatic fever, hypertension, abdominal pain, nausea, vomiting, hematemesis, melena, hematochezia, jaundice, hepatitis, renal failure, frequency, urgency, dysuria, incontinence or diabetes. Past medical history, family history, and personal and social histories are otherwise unremarkable and noncontributory. He is only on Naprosyn, omeprazole and vitamin D. He is a smoker. He is NOT ALLERGIC TO ANY MEDICATION. PHYSICAL EXAMINATION: Blood pressure 118/80 with a pulse of 80, respirations 20 and he is afebrile. In general he appeared to be well developed, well nourished, and in no acute distress other than the left shoulder pain. Head, ears, eyes, nose, mouth and throat were normal. The chest was clear to auscultation. Cardiac exam is normal. Abdomen is soft and nontender. Extremities are normal except for the left shoulder, which was in a sling. Neurologically he is intact. IMPRESSION: Fracture of left shoulder. PLAN: Proceed with planned surgery. Thank you. Respectfully, Iraj Silva II, M.D. PETTY / IVANNA: [id number] /
== END 2020-12-04 17:33 | disposition home or self-care (01) ==
LOC: OR 12:02 → 4SSUR 16:55 → OR 12-04 17:33
PROVIDERS: ATTEND Orthopaedic Surgery
DX: S42.232A 3-part fracture of surgical neck of left humerus, initial encounter for closed fracture (principal); S42.252A Displaced fracture of greater tuberosity of left humerus, initial encounter for closed fracture; W11.XXXA Fall on and from ladder, initial encounter; I10 Essential (primary) hypertension; Z97.3 Presence of spectacles and contact lenses; Z87.11 Personal history of peptic ulcer disease; Z98.890 Other specified postprocedural states; Z79.899 Other long term (current) drug therapy
CPT/HCPCS: 64415; 76942; 85025; 73030; 73200; 23615; C1713; J2250; J1100; J0690; J2405; J2001; J3010; J1170 ×2; J2795; J0330; J2704

== ENCOUNTER 2020-12-06 22:52 | Inpatient (IN) | payer OTHER ==
[2020-12-06] MEDS ORDERED: IBUPROFEN 600 MG TAB PO STA (23:17)
[2020-12-06] MEDS ORDERED: SODIUM CHLORIDE 0.9% 1,000 ML IV STA (23:17)
--- NOTE | 2020-12-07 00:01 | XR ---
EXAMINATION TYPE: XR chest 1V portable DATE OF EXAM: 12/06/2020 COMPARISON: July 02, 2019 HISTORY: Fever and cough TECHNIQUE: FINDINGS: Heart and mediastinum are normal. Lungs are clear. Diaphragm is normal. Bony thorax appears normal. There is plate fixing old left humeral neck fracture. IMPRESSION: Normal chest. No change.
[2020-12-07 00:09] LABS: Basophils # (A) 0.1 k/uL (0-0.2); Basophils % (A) 0 %; Eosinophils # (A) 0.4 k/uL (0-0.7); Eosinophils % (A) 2 %; HCT 36.8 % (39.0-53.0); HGB 12.4 gm/dL (13.0-17.5); Lymphocytes # (A) 2.1 k/uL (1.0-4.8); Lymphocytes % (A) 11 %; MCH 31.2 pg (25.0-35.0); MCHC 33.8 g/dL (31.0-37.0); MCV 92.4 fL (80.0-100.0); Mean Platelet Volume 8.6; Monocytes # (A) 1.5 k/uL (0-1.0); Monocytes % (A) 8 %; Neutrophils # (A) 14.6 k/uL (1.3-7.7); Neutrophils % (A) 78 %; Platelet Count 337 k/uL (150-450); RBC 3.98 m/uL (4.30-5.90); RDW 12.8 % (11.5-15.5); WBC 18.8 k/uL (3.8-10.6)
[2020-12-07 00:21] LABS: ALT 18 U/L (4-49); AST 30 U/L (17-59); African American GFR (CKD) >90 (>60 ml/min/1.73 sqM); Albumin 4.4 g/dL (3.5-5.0); Alkaline Phosphatase 101 U/L (38-126); Anion Gap 12 mmol/L; Blood Urea Nitrogen 14 mg/dL (9-20); Calcium 9.5 mg/dL (8.4-10.2); Carbon Dioxide 23 mmol/L (22-30); Chloride 98 mmol/L (98-107); Glucose 100 mg/dL (74-99); Non-African American GFR(CKD) >90 (>60 ml/min/1.73 sqM); Potassium 4.6 mmol/L (3.5-5.1); Sodium 133 mmol/L (137-145); Total Bilirubin 0.6 mg/dL (0.2-1.3); Total Protein 7.5 g/dL (6.3-8.2)
[2020-12-07] MEDS ORDERED: VANCOMYCIN IV PER PHARMACY 1 EACH MISC MISCELLANE PRN (00:38)
[2020-12-07] MEDS ORDERED: SODIUM CHLORIDE 0.9% 1,000 ML IV ONE (00:58)
--- NOTE | 2020-12-07 00:58 | ED ---
General Adult HPI - General Chief complaint: Extremity Problem,Nontraumatic Stated complaint: shoulder pain Time Seen by Provider: 12/06/20 23:01 Source: patient, EMS Mode of arrival: EMS Limitations: no limitations - History of Present Illness Initial comments: 50 year-old male patient presents to the emergency department for evaluation of uncontrolled pain to the left shoulder. Patient is post-op day #3 after ORIF of the left proximal humerus with Dr. Bryant. Patient states that he has been taking the prescribed pain medication Spring 10/325 without relief. Patient is quite drowsy during my exam and I had to be wake him multiple times during my int erview. He did have a fever in triage, he was unaware there was an elevated temperature. He does report cough and nasal congestion. Denies any shortness of breath or sore throat. He denies any difficulty with urination. States he has been nauseated. Denies vomiting or diarrhea. Patient denies any recent rash, chest pain, abdominal pain, nausea, vomiting, diarrhea, constipation, back pain, numbness, tingling, dizziness, weakness, hematuria, dysuria, urinary urgency, urinary frequency, headache, visual changes, or any other complaints. - Related Data Home Medications Medication Instructions Recorded Confirmed Multivit-Min/Folic/Vit K/Lycop 1 each PO DAILY 07/11/20 12/03/20 [Men's Multivitamin Tablet] Naproxen [Naprosyn] 500 mg PO Q12HR PRN 07/11/20 12/03/20 Omeprazole [PriLOSEC] 20 mg PO AC-BRKFST 07/11/20 12/03/20 Previous Rx's Medication Instructions Recorded HYDROcodone/APAP 7.5-325MG [Spring 1 tab PO Q6HR PRN 3 Days #12 tab 11/20/20 7.5-325] Ibuprofen [Motrin] 800 mg PO Q8H #9 tab 11/23/20 HYDROcodone/APAP 10-325MG [Spring 1 tab PO Q6HR PRN #28 tab 12/03/20 10-325] Sennosides-Docusate Sodium 1 tab PO BID #60 tablet 12/03/20 [Senokot-S] Allergies Allergy/AdvReac Type Severity Reaction Status Date / Time No Known Allergies Allergy Verified 12/03/20 12:46 Review of Systems ROS Statement: Those systems with pertinent positive or pertinent negative responses have been documented in the HPI. ROS Other: All systems not noted in ROS Statement are negative. Past Medical History Past Medical History: GERD/Reflux, GI Bleed, Musculoskeletal Disorder Additional Past Medical History / Comment(s): right arm infection/necrosis, bilateral pleural effusions with R thoracentesis/severe pulmonary, GI bleed, gastric ulcers/duodenal ulcer, gastritis, chronic back pain, bilateral carpal tunnel syndrome, gallbladder polyp, past bilateral foot fractures-L foot surgically repaired-pt states it didn't "work" so he chose not to have surgery on his R foot History of Any Multi-Drug Resistant Organisms: None Reported Past Surgical History: Hernia Repair, Orthopedic Surgery Additional Past Surgical History / Comment(s): I&D right forearm/fasciotomy, fracture repair L foot, EGD with repair of perforated ulcer with endo clip, colonoscopy, pain procedures, carpal tunnel surgery on left hand Past Anesthesia/Blood Transfusion Reactions: No Reported Reaction Additional Past Anesthesia/Blood Transfusion Reaction / Comment(s): Pt has received blood without reaction. Past Psychological History: ADD/ADHD, Anxiety, Schizophrenia Smoking Status: Former smoker Past Alcohol Use History: Rare - Past Family History Father Family Medical History: Sleep Apnea/CPAP/BIPAP Additional Family Medical History / Comment(s): -suffered from obstructi ve sleep apnea Mother Family Medical History: No Reported History Additional Family Medical History / Comment(s): General Exam Limitations: no limitations General appearance: in no apparent distress, other (this well-developed, well- nourished adult male patient in no acute distress. He is quite drowsy.) Eye exam: Present: normal appearance, PERRL, EOMI. Absent: scleral icterus, conjunctival injection, periorbital swelling Respiratory exam: Present: normal lung sounds bilaterally. Absent: respiratory distress, wheezes, rales, rhonchi, stridor Cardiovascular Exam: Present: normal rhythm, tachycardia, normal heart sounds. Absent: systolic murmur, diastolic murmur, rubs, gallop, clicks GI/Abdominal exam: Present: soft, normal bowel sounds. Absent: distended, t enderness, guarding, rebound, rigid Neurological exam: Present: oriented X3, CN II-XII intact. Absent: alert (drowsy) Psychiatric exam: Present: normal affect, normal mood Skin exam: Present: warm, dry, intact, normal color. Absent: rash Course Vital Signs 12/06/20 12/07/20 22:53 00:36 Temperature 101.1 F H 99.5 F Pulse Rate 117 H 105 H Respiratory 16 16 Rate Blood Pressure 144/100 147/92 O2 Sat by Pulse 98 98 Oximetry Medical Decision Making - Medical Decision Making 50-year-old male patient presents to the emergency department today for evaluation of significant pain to the left shoulder. He is postop day #3 after having ORIF of the left humerus. He was febrile upon arrival at 101.1F. Labs reviewed and did reveal white blood cell count of 18.8 with neutrophils of 14.6. Tested negative for COVID-19 and influenza. Chest x-ray is negative. Urine is pending. Did discuss the case with on-call orthopedic surgeon Dr. Denise who recommends inpatient admission with IV antibiotics and medicine consult. I discussed the plan with the patient, he is agreeable. Case was discussed with my attending Dr. Caraballo. - Lab Data Result diagrams: 12/06/20 23:45 12/06/20 23:45 Lab Results 12/06/20 12/06/20 12/06/20 Range/Units 23:45 23:45 23:45 WBC 18.8 H (3.8-10.6) k/uL RBC 3.98 L (4.30-5.90) m/uL Hgb 12.4 L (13.0-17.5) gm/dL Hct 36.8 L (39.0-53.0) % MCV 92.4 (80.0-100.0) fL MCH 31.2 (25.0-35.0) pg MCHC 33.8 (31.0-37.0) g/dL RDW 12.8 (11.5-15.5) % Plt Count 337 (150-450) k/uL MPV 8.6 Neutrophils % 78 % Lymphocytes % 11 % Monocytes % 8 % Eosinophils % 2 % Basophils % 0 % Neutrophils # 14.6 H (1.3-7.7) k/uL Lymphocytes # 2.1 (1.0-4.8) k/uL Monocytes # 1.5 H (0-1.0) k/uL Eosinophils # 0.4 (0-0.7) k/uL Basophils # 0.1 (0-0.2) k/uL Sodium 133 L (137-145) mmol/L Potassium 4.6 (3.5-5.1) mmol/L Chloride 98 (98-107) mmol/L Carbon Dioxide 23 (22-30) mmol/L Anion Gap 12 mmol/L BUN 14 (9-20) mg/dL Creatinine 0.57 L (0.66-1.25) mg/dL Est GFR (CKD-EPI)AfAm >90 (>60 ml/min/1.73 sqM) Est GFR (CKD-EPI)NonAf >90 (>60 ml/min/1.73 sqM) Glucose 100 H (74-99) mg/dL Plasma Lactic Acid Daquan 1.2 (0.7-2.0) mmol/L Calcium 9.5 (8.4-10.2) mg/dL Total Bilirubin 0.6 (0.2-1.3) mg/dL AST 30 (17-59) U/L ALT 18 (4-49) U/L Alkaline Phosphatase 101 (38-126) U/L Total Protein 7.5 (6.3-8.2) g/dL Albumin 4.4 (3.5-5.0) g/dL Coronavirus (PCR) (Not Detectd) Influenza Type A RNA (Not Detectd) Influenza Type B (PCR) (Not Detectd) 12/06/20 12/06/20 Range/Units 23:45 23:45 WBC (3.8-10.6) k/uL RBC (4.30-5.90) m/uL Hgb (13.0-17.5) gm/dL Hct (39.0-53.0) % MCV (80.0-100.0) fL MCH (25.0-35.0) pg MCHC (31.0-37.0) g/dL RDW (11.5-15.5) % Plt Count (150-450) k/uL MPV Neutrophils % % Lymphocytes % % Monocytes % % Eosinophils % % Basophils % % Neutrophils # (1.3-7.7) k/uL Lymphocytes # (1.0-4.8) k/uL Monocytes # (0-1.0) k/uL Eosinophils # (0-0.7) k/uL Basophils # (0-0.2) k/uL Sodium (137-145) mmol/L Potassium (3.5-5.1) mmol/L Chloride (98-107) mmol/L Carbon Dioxide (22-30) mmol/L Anion Gap mmol/L BUN (9-20) mg/dL Creatinine (0.66-1.25) mg/dL Est GFR (CKD-EPI)AfAm (>60 ml/min/1.73 sqM) Est GFR (CKD-EPI)NonAf (>60 ml/min/1.73 sqM) Glucose (74-99) mg/dL Plasma Lactic Acid Daquan (0.7-2.0) mmol/L Calcium (8.4-10.2) mg/dL Total Bilirubin (0.2-1.3) mg/dL AST (17-59) U/L ALT (4-49) U/L Alkaline Phosphatase (38-126) U/L Total Protein (6.3-8.2) g/dL Albumin (3.5-5.0) g/dL Coronavirus (PCR) Not Detected (Not Detectd) Influenza Type A RNA Not Detected (Not Detectd) Influenza Type B (PCR) Not Detected (Not Detectd) - Radiology Data Radiology results: report reviewed, image reviewed One view x-ray of the chest is obtained. Report reviewed in its entirety. Impression by Dr. Salinas shows normal chest. No change. Disposition Clinical Impression: Fever, Leukocytosis, History of recent surgery Disposition: ADMITTED IP TO THIS [facility] Condition: Serious Referrals: Iraj Silva MD [Primary Care Provider] - 1-2 days Decision to Admit Reason: Admit from EC Decision Date: 12/07/20 Decision Time: 00:58
[2020-12-07] MEDS ORDERED: VANCOMYCIN 1,500 MG in SODIUM CHLORIDE 0.9% 250 ML IVPB ONE (01:00)
[2020-12-07] MEDS ORDERED: NALOXONE 0.4 MG/ML 1 ML VIAL IV PRN (01:36)
[2020-12-07] MEDS: SODIUM CHLORIDE 0.9% 1,000 ML IV SCH ×2 (02:43→16:10)
[2020-12-07 04:05] LABS: Glucose,Whole Blood 105 mg/dL (75-99)
[2020-12-07] MEDS: HYDROcodone/APAP 10-325MG 1 EACH TAB PO PRN ×2 (07:47→20:20)
--- NOTE | 2020-12-07 10:15 | P.HPOR ---
History of Present Illness H&P Date: 12/07/20 This is a 50-year-old male who is admitted for pain control and to rule out infection of the left shoulder. Patient is status post ORIF of a left proximal humerus fracture by Dr. Bryant. This is postoperative day #4. Patient states that after his block wore off he has been in a lot of pain. Patient states that he also feels short of breath today. Patient was found to be febrile with an elevated white count in the emergency room. Patient states that he did not know he was having fevers. Patient denies any history of blood clots. Patient's past medical history is significant for GERD, history of GI bleed, history of pleural effusions, gastric/duodenal ulcers, chronic back pain, and history of right arm infection/necrosis. Patient denies any numbness, weakness, tingling, abdominal pain or headache. Review of Systems See HPI. Past Medical History Past Medical History: GERD/Reflux, GI Bleed, Musculoskeletal Disorder Additional Past Medical History / Comment(s): right arm infection/necrosis, bilateral pleural effusions with R thoracentesis/severe pulmonary, GI bleed, gastric ulcers/duodenal ulcer, gastritis, chronic back pain, bilateral carpal tunnel syndrome, gallbladder polyp, past bilateral foot fractures-L foot surgically repaired-pt states it didn't "work" so he chose not to have surgery on his R foot History of Any Multi-Drug Resistant Organisms: None Reported Past Surgical History: Hernia Repair, Orthopedic Surgery Additional Past Surgical History / Comment(s): I&D right forearm/fasciotomy, fracture repair L foot, EGD with repair of perforated ulcer with endo clip, colonoscopy, pain procedures, carpal tunnel surgery on left hand Past Anesthesia/Blood Transfusion Reactions: No Reported Reaction Additional Past Anesthesia/Blood Transfusion Reaction / Comment(s): Pt has received blood without reaction. Past Psychological History: ADD/ADHD, Anxiety, Schizophrenia Additional Psychological History / Comment(s): Pt states his depression has been increased lately d/t back/arm/foot pain Smoking Status: Never smoker Past Alcohol Use History: Rare Additional Past Alcohol Use History / Comment(s): states only drinks a few on the weekends, smokes maybe 3-4 cigs/day Past Drug Use History: Marijuana Additional Drug Use History / Comment(s): Pt tried meth IV through [facility] on 03/24/19 and was the first and only time IV. Pt states only marijuana use currently, daily use - Past Family History Father Family Medical History: Sleep Apnea/CPAP/BIPAP Additional Family Medical History / Comment(s): -suffered from obstructive sleep apnea Mother Family Medical History: No Reported History Additional Family Medical History / Comment(s): Medications and Allergies Home Medications Medication Instructions Recorded Confirmed Type Multivit-Min/Folic/Vit K/Lycop 1 tab PO DAILY 07/11/20 12/07/20 History [Men's Multivitamin Tablet] Naproxen [Naprosyn] 500 mg PO Q12HR PRN 07/11/20 12/07/20 History Omeprazole [PriLOSEC] 20 mg PO AC-BRKFST 07/11/20 12/07/20 History HYDROcodone/APAP 10-325MG [[place] 1 tab PO Q6HR PRN #28 tab 12/03/20 12/07/20 Rx 10-325] Sennosides-Docusate Sodium 1 tab PO BID PRN 12/07/20 12/07/20 History [Senokot-S] Allergies Allergy/AdvReac Type Severity Reaction Status Date / Time No Known Allergies Allergy Verified 12/07/20 08:04 Physical Examination On exam patient is resting comfortably in bed in no acute distress. Patient is well-appearing. Patient is alert and oriented 3. Surgical dressing is removed revealing incision to be clean, dry and intact. There is no erythema or drainage. There is mild ecchymosis over the left upper arm. Mild swelling of the left upper arm. Compartments are soft. Patient has full range of motion of the left wrist and hand without pain or difficulty. Radial pulse is 2+. Sensation intact. Neurovascular status and circulatory status are intact. Head is normocephalic and atraumatic. Exam of the right upper extremity is within normal limits. There is no swelling of bilateral lower extremities. Calves are soft and nontender to palpation. Patient has full range of motion of bilateral lower extremities. Sensation intact. Neurovascular status and circulatory status are intact. Results X-rays of the left shoulder are pending. Tests for influenza and coronavirus are negative. - Labs Labs: Abnormal Lab Results - Last 24 Hours (Table) 12/06/20 12/06/20 12/07/20 Range/Units 23:45 23:45 04:03 WBC 18.8 H (3.8-10.6) k/uL RBC 3.98 L (4.30-5.90) m/uL Hgb 12.4 L (13.0-17.5) gm/dL Hct 36.8 L (39.0-53.0) % Neutrophils # 14.6 H (1.3-7.7) k/uL Monocytes # 1.5 H (0-1.0) k/uL Sodium 133 L (137-145) mmol/L Creatinine 0.57 L (0.66-1.25) mg/dL Glucose 100 H (74-99) mg/dL POC Glucose (mg/dL) 105 H (75-99) mg/dL H & H 12/06/20 Range/Units 23:45 Hgb 12.4 L (13.0-17.5) gm/dL Hct 36.8 L (39.0-53.0) % Result Diagrams: 12/06/20 23:45 12/06/20 23:45 Assessment and Plan Assessment: Status post ORIF of a left proximal humerus fracture. (1) Fever Current Visit: Yes Status: Acute Code(s): R50.9 - FEVER, UNSPECIFIED SNOMED Code(s): 812615714 (2) History of recent surgery Current Visit: Yes Status: Acute Code(s): YYK1063 - SNOMED Code(s): 918666931 (3) Leukocytosis Current Visit: Yes Status: Acute Code(s): D72.829 - ELEVATED WHITE BLOOD CELL COUNT, UNSPECIFIED SNOMED Code(s): 986508288 Plan: 1. CBC on 12/06/2020 revealed white count 18.8. Vital signs reveal temperature of 100.2 this morning along with pulse ranging from 101-111. Exam of the left shoulder is negative for erythema or drainage. Incision is intact. There is swelling and ecchymosis present as expected due to recent ORIF. 2. X-rays of the left shoulder are pending. 3. We'll obtain CT of the chest along with bilateral lower extremity Dopplers to rule out DVT/PE. 4. Continue IV antibiotics. 5. Appreciate input from internal medicine. 6. No surgical intervention planned. Will continue to monitor the patient closely.
[2020-12-07] MEDS ORDERED: VANCOMYCIN 1,250 MG in SODIUM CHLORIDE 0.9% 250 ML IVPB SCH ×2 (11:00→16:00)
--- NOTE | 2020-12-07 11:05 | US ---
EXAMINATION TYPE: US venous doppler duplex LE DATE OF EXAM: 12/07/2020 10:51 AM COMPARISON: NONE CLINICAL HISTORY: post-op. Hx recent shoulder surgery. Patient states his legs are numb. No redness . No swelling. SIDE PERFORMED: Bilateral TECHNIQUE: The lower extremity deep venous system is examined utilizing real time linear array sonog jose with graded compression, doppler sonography and color-flow sonography. VESSELS IMAGED: Common Femoral Vein Deep Femoral Vein Greater Saphenous Vein * Femoral Vein Popliteal Vein Small Saphenous Vein * Proximal Calf Veins (* superficial vessels) Right Leg: Negative for DVT Left Leg: Negative for DVT IMPRESSION: No evidence for DVT at this time.
--- NOTE | 2020-12-07 11:35 | XR ---
EXAMINATION TYPE: XR shoulder limited LT DATE OF EXAM: 12/07/2020 CLINICAL HISTORY: pain COMPARISON: NONE TECHNIQUE: Single postoperative view of the left shoulder FINDINGS: Plate and screw fixation noted of the proximal humeral fracture. Alignment is near-anatomic . IMPRESSION: As above
--- NOTE | 2020-12-07 11:51 | CT ---
EXAMINATION TYPE: CT chest angio for PE DATE OF EXAM: 12/07/2020 COMPARISON: 04/02/2019 HISTORY: Post op Left shoulder. Shortness of breath. CT DLP: 327.1 mGycm CONTRAST: CT chest with contrast and 3D reconstruction with MIP imaging is performed with IV Contrast, patient injected with 100 mL of Isovue 370. Contrast-enhanced CT of the chest was performed through the course of the pulmonary arteries with gilmar g and mediastinal window settings submitted. 3D reconstruction with MIP imaging was also performed. PULMONARY ARTERIES: The pulmonary arteries and their major tributaries are patent. I do not see nikki dence for sizable filling defect to suggest pulmonary embolic process. LUNGS: The lungs are clear and free of infiltrate. No evidence for atelectasis. No pulmonary nodule or mass is detected. No pleural effusion. MEDIASTINUM: Thoracic aorta is of normal caliber,however, evaluation is limited given timing of the contrast bolus. If there is concern for thoracic aortic pathology consider SUSAN. Correlate clinicall y . The heart is not enlarged. No evidence for mediastinal mass. No mediastinal lymph nodes greater than 1cm. HILAR STRUCTURES: No evidence for mass. No hilar lymph nodes greater than 1 cm. UPPER ABDOMEN: No significant abnormality is seen. IMPRESSION: 1. No evidence for Pulmonary embolism at this time.
[2020-12-07] MEDS: CEFEPIME 2 GM in SODIUM CHLORIDE 0.9% 100 ML IVPB SCH (19:56)
[2020-12-07] MEDS: ONDANSETRON 4 MG/2 ML VIAL IVP PRN (20:10)
--- NOTE | 2020-12-08 00:14 | CONS ---
CONSULTATION DATE OF SERVICE: 12/07/2020. REASON FOR CONSULTATION AND EVALUATION: Gram negative bacteremia. HISTORY OF PRESENT ILLNESS: The patient is a 50-year-old male who is status post left proximal humerus fracture repair. This patient was subsequently discharged home in stable condition. Patient presented to the hospital yesterday day 3 postop ORIF of the left proximal humerus fracture concerning for increasing pain to the left shoulder area. Patient described the pain to be more of a sharp pain intensity almost 10/10 and no radiation with some associated swelling. The patient still have the postop dressing which has not been removed. Denies having any drainage. With these symptoms, the patient presented to the hospital. The patient denies having any headache or URI symptoms. No chest pain. Some shortness of breath. No cough or sputum production. No abdominal pain. No diarrhea. On arrival to the ER, the patient did have a fever of 101 degrees Fahrenheit. The patient did have tachycardia and did have elevated white count of 18,000. The patient did have x-rays of left shoulder, which shows alignment of the fracture, no abnormality. CT angiogram of chest was negative for any PE. Chest x-ray was negative as well. The patient was started on Rocephin and vancomycin with concern for possible surgical site infection. Blood culture subsequently came back positive with Gram-negative bacilli that prompted this infectious disease consultation. REVIEW OF SYSTEMS: Positive points have been mentioned in HPI. Rest of the systems are negative. PAST MEDICAL HISTORY: Recent left humeral fracture, gastroesophageal reflux disease with GI bleed, gastric ulcer. PAST SURGICAL HISTORY: Previous history of I and D right forearm fasciotomy, left humeral fracture repair. Carpal tunnel release. SOCIAL HISTORY: Former smoker. Rarely drinks. denies drug use x 20yrs. FAMILY HISTORY: Father history of sleep apnea. ALLERGIES: No known drug allergies. MEDICATIONS: The patient is currently on Rocephin 1 g daily. He is on vancomycin, [place] Narcan, Zofran and IV fluid. PHYSICAL EXAMINATION: Blood pressure 154/79 with a pulse of 110, temperature 102.4. He is 94% on room air. General description: The patient is a middle-aged male lying in bed in no distress. HEENT: Examination shows no pallor or scleral icterus. Oral mucous membranes dry. NECK: Trachea central. No thyromegaly. LUNGS: Unlabored breathing, decreased breath sounds at the base. No wheeze. HEART: S1, S2. Regular rate and rhythm. ABDOMEN soft. No tenderness. No guarding. No rigidity. EXTREMITIES: No edema of the feet. Left shoulder incision is currently dressed. No drainage on the dressing. NEUROLOGICAL: The patient is awake, alert, oriented x3. Mood and affect normal. LABS: Hemoglobin is 12.4, white count 18.8. BUN of 14, creatinine 0.57. [place] influenza PCR was negative. CT angiogram was negative. DIAGNOSTIC IMPRESSION AND PLAN: Patient admitted to the hospital with sepsis in this patient who did have a fever, tachycardia and elevated white count, source possible left shoulder cellulitis/ infection and concern for possible deep infection in view of bacteremia as the patient currently with no evidence of any pneumonia on the CT angiogram. Abdomen soft on clinical examination and urine was negative and no other obvious focus of infection. PLAN: 1. Discontinue Rocephin and the vancomycin. 2. Start the patient on cefepime 2 grams q.12 hours. 3. Blood cultures will be repeated to document clearance of bacteremia. 4. We will follow on his clinical condition to further adjust medication if needed. Thank you for this consultation. Will follow this patient along with you. MMODL / IJN: [id number] / MTDAlisson
[2020-12-08] MEDS: SODIUM CHLORIDE 0.9% 1,000 ML IV SCH ×2 (04:40→19:55)
[2020-12-08] MEDS: HYDROcodone/APAP 10-325MG 1 EACH TAB PO PRN ×3 (05:28→18:35)
[2020-12-08] MEDS: CEFEPIME 2 GM in SODIUM CHLORIDE 0.9% 100 ML IVPB SCH ×2 (05:32→18:02)
[2020-12-08] MEDS ORDERED: VANCOMYCIN TROUGH DUE 1 EACH MISC MISCELLANE ONE (07:00)
--- NOTE | 2020-12-08 09:52 | P.PN ---
Subjective Progress Note Date: 12/08/20 Principal diagnosis: Status post ORIF left proximal humerus. Bacteremia. This is a 50-year-old male who is admitted for pain control and to rule out infection of the left shoulder. Patient is status post ORIF of a left proximal humerus fracture by Dr. Bryant. This is postoperative day #5. Patient states that after his block wore off he has been in a lot of pain. Patient states that he also feels short of breath today. Patient was found to be febrile with an elevated white count in the emergency room. Patient states that he did not know he was having fevers. Patient denies any history of blood clots. Patient's past medical history is significant for GERD, history of GI bleed, history of pleural effusions, gastric/duodenal ulcers, chronic back pain, and history of right arm infection/necrosis. Patient denies any numbness, weakness, tingling, abdominal pain or headache. 12/08/2020: The patient continues to have pain to the left arm and shoulder. Still running low-grade fever. Initial blood culture positive for and positive bacilli. The patient does have history of substance abuse and according to his history he has tried IV drugs. When asked today, the patient denies "self- medicating" at home recently. His current temperature is 99.3. Vital signs are stable. Objective - Vital Signs Vital signs: Vital Signs Temp 99.3 F 12/08/20 07:41 Pulse 79 12/08/20 07:41 Resp 14 12/08/20 07:41 BP 125/81 12/08/20 07:41 Pulse Ox 97 12/08/20 07:41 Intake & Output 12/07/20 12/08/20 12/08/20 18:59 06:59 18:59 Output Total 825 500 Balance -825 -500 Weight 68.039 kg Output: Urine 825 500 Other: Voiding Method Urinal # Voids 3 300 - Exam This is a 42-year-old gentleman in no acute distress. He is shivering, lying in bed. Shoulder dressing is removed. Exam of the left shoulder reveals that his incision looks good. There is some ecchymosis. Mild swelling. There is no erythema. Incision is intact with no drainage. The incisional area is soft and nontender. He has full elbow, wrist and finger motion without difficulty or pain. Radial pulse is +2/4. Neurovascular status the upper extremities intact. - Labs CBC & Chem 7: 12/06/20 23:45 12/06/20 23:45 Labs: Microbiology - Last 24 Hours (Table) 12/07/20 00:05 Blood Culture - Preliminary Blood No Growth after 24 hours 12/06/20 23:40 Blood Culture Gram Stain - Preliminary Blood 12/06/20 23:40 Blood Culture - Final Blood Assessment and Plan (1) History of substance abuse Current Visit: Yes Status: Acute Code(s): F19.11 - OTHER PSYCHOACTIVE SUBSTANCE ABUSE, IN REMISSION SNOMED Code(s): 517401289 (2) Fever Current Visit: Yes Status: Acute Code(s): R50.9 - FEVER, UNSPECIFIED SNOMED Code(s): 374705874 (3) History of recent surgery Current Visit: Yes Status: Acute Code(s): FDA6851 - SNOMED Code(s): 696257970 (4) Leukocytosis Current Visit: Yes Status: Acute Code(s): D72.829 - ELEVATED WHITE BLOOD CELL COUNT, UNSPECIFIED SNOMED Code(s): 309993069 Plan: The clinical findings are discussed with the patient. I have reviewed the case with nursing staff and with Dr. Bryant. At this time his left shoulder does not appear to have signs of infection. With his history of IV drug use and recent infection in his right antecubital area from IV drug use, this needs to be considered as a possibility as source for infection in this patient. We'll continue to follow and await most recent blood cultures.
[2020-12-08 11:31] LABS: African American GFR (CKD) 137.8 (60.0-200.0); C Reactive Protein 23.8 mg/dL (0.0-0.8); Non-African American GFR(CKD) 118.9 (60.0-200.0)
[2020-12-08] MEDS: HYDROmorphone 0.5 MG/0.5 ML SYRINGE IVP PRN ×2 (13:30→23:01)
[2020-12-08 15:36] LABS: Appearance,Urine Clear (Clear); Bilirubin,Urine Negative (Negative); Blood,Urine Trace (Negative); Color,Urine Light Yellow; Glucose,Urine (UA) Negative (Negative); Ketones,Urine Negative (Negative); Leukocyte Esterase,Urine Negative (Negative); Mucus,Urine Rare /hpf; Nitrite,Urine Negative (Negative); Protein,Urine Negative (Negative); Specific Gravity,Urine 1.004 (1.001-1.035); Urobilinogen,Urine <2.0 mg/dL (<2.0); WBC,Urine <1 /hpf (0-5)
[2020-12-08] MEDS ORDERED: IOPAMIDOL CONTRAST (ORAL USE) VIAL PO PRN (16:23)
[2020-12-08] MEDS: ONDANSETRON 4 MG/2 ML VIAL IVP PRN (18:02)
--- NOTE | 2020-12-08 18:03 | CDI ---
Documentation Clarification Form Date: 12/08/2020 05:40:03 PM From: Keyla Patino RN CCDS Admit Date: 12/08/2020 11:16:00 AM Patient Name: Fred Khoury Visit Number: [id number] Discharge Date: ATTENTION: The Clinical Documentation Specialists (CDI) and [facility] Coding Staff appreciate your assistance in clarifying documentation. Please respond to the clarification below the line at the bottom and electronically sign. The CDI & [facility] Coding staff will review the response and follow-up if needed. Please note: Queries are made part of the Legal Health Record. If you have any questions, please contact the author of this message via ITS. Dr. Ge Bryant, Patient admitted to the hospital with sepsis in this patient who did have a fever, tachycardia and elevated white count, source likely left shoulder surgical site infection with concern for possible deep infection in view of gram neg bacilli bacteremia as the patient currently with no evidence of any pneumonia on the CT angiogram. 12/07 documented in the ID Consult History/Risk Factors: 50-year-old male presents to the ED for uncontrolled pain to the left shoulder. Post op day #3 after a ORIF of the left proximal humerus. Medical History: GI bleed and Right forearm infection/necrosis, from H&P 12/07. Clinical Indicators: 12/07 H&P Ortho: Incision to be dry and intact. Mild ecchymosis over the left upper arm. Mild swelling of left upper arm. 12/06 WBC: 18.8 12/06 Lactic acid: 1.2 12/06 Blood cultures verified 12/08: Gram Negative Bacilli 12/06 Vital signs ED: B/P 144/100; HR 117; Temp 101.1 F; RR 16; SpO2 98% room air Treatment: ID Consult: See above Antibiotics: 12/07 Cefepime 2gm IVPB Q12H; 12/07 Ceftriaxone IVPB x1; 12/07 Vancomycin IVPB x1; 12/07 Vancomycin IVPB Q8H d/c after one dose 12/07. IV Bolus: 12/07 0.9NS 2L bolus In your professional opinion, please clarify if these findings signify one of the following conditions, whether the condition is POA, and cause, if known: Sepsis secondary to left shoulder surgical site infection Sepsis secondary to (please specify) Other, please specify Unable to determine Present on Admission Yes No Identify the (suspected) organism Link or clarify if there is associated (due to/with): Organ failure Shock SIRS Criteria (2 or more of the following may indicate SIRS): -Temperature < 96.8F (36C) or > 101.0F (38.3C) -Heart Rate > 90 bpm -Respiratory Rate > 20 breaths/min or PaCO2 < 32 mmHg -White Blood Cell Count > 12,000 or < 4,000 cells/mm3 or > 10% bands -Lactate >2.0 mmol/L (>4.0 is equivalent to septic shock) (Last Revision: January 2018 MTDD
--- NOTE | 2020-12-08 20:51 | CT ---
EXAMINATION TYPE: CT abdomen pelvis w con DATE OF EXAM: 12/08/2020 COMPARISON: 06/29/2020. HISTORY: Abdominal pain. CT DLP: 659 mGycm Automated exposure control for dose reduction was used. TECHNIQUE: Helical acquisition of images was performed from the lung bases through the pelvis. CONTRAST: Performed with Oral Contrast and with IV Contrast, patient injected with 100 mL of Isovue 300. FINDINGS: LUNG BASES: No significant abnormality is appreciated. LIVER/GB: No significant abnormality is appreciated. PANCREAS: No significant abnormality is seen. SPLEEN: No significant abnormality is seen. ADRENALS: No significant abnormality is seen. KIDNEYS: No significant abnormality is seen. FREE AIR: No free air is visualized. RETROPERITONEAL ADENOPATHY: None visualized REPRODUCTIVE ORGANS: No significant abnormality is seen URINARY BLADDER: No significant abnormality is seen. PELVIC ADENOPATHY: None visualized. OSSEOUS STRUCTURES: No acute abnormality is seen. Moderate L5-S1 spondylosis. BOWEL: No significant abnormality is seen. OTHER: None IMPRESSION: NO ACUTE ABNORMALITY.
--- NOTE | 2020-12-08 21:58 | PN ---
PROGRESS NOTE DATE OF SERVICE: 12/08/2020 REASON FOR FOLLOWUP: Gram-negative bacteremia. INTERVAL HISTORY: The patient is currently afebrile. The patient is breathing comfortably. Still complaining of pain to the left shoulder area, and wants his pain medication to be upped. The patient denies having any chest pain or shortness of breath or cough. Slight nausea but no vomiting. No abdominal pain or diarrhea and no urinary symptoms. PHYSICAL EXAMINATION: Blood pressure 124/78 with a pulse of 83, temperature 99.7. He is 97% on room air. General description is a middle-aged male lying in bed in no distress. RESPIRATORY SYSTEM: Unlabored breathing. Clear to auscultation anteriorly. HEART: S1, S2. Regular rate and rhythm. ABDOMEN: Soft. No tenderness. Left shoulder area has minimal swelling. No redness or any drainage. DIAGNOSTIC IMPRESSION AND PLAN: Patient with Gram-negative bacteremia in this patient with recent left proximal humeral fracture repair. He presented to hospital predominantly with pain to the left shoulder area. However, the surgical site looks clean with minimal swelling but no redness or drainage. The patient does have a history of IV drug use; however, he categorically denies using any drugs for the last 10 years and mentioned that his admission to the hospital of the right forearm abscess was related to a wooden stick and not injection drug use. We will check a UA and check a CT of abdomen and pelvis to look for other sources of this bacteremia. Continue cefepime and monitor clinical course closely. Discussed with Orthopedics. PETTY / IVANNA: [id number] / KEYLA
--- NOTE | 2020-12-08 22:43 | PN ---
PROGRESS NOTE DATE OF SERVICE: 12/08/2020 CHIEF COMPLAINT: Pain in the left shoulder following repair for fracture. HISTORY OF PRESENT ILLNESS: This gentleman is slightly lethargic. He is stating that his pain is slightly better. There is no significant redness, cellulitis or drainage from the shoulder. PHYSICAL EXAMINATION: Chest is clear. The cardiac exam is normal. Abdomen is soft, nontender. Extremities are normal. IMPRESSION: Fracture to the left shoulder, status post repair. PLAN: Continue to follow with Infectious Disease as well as Orthopedics. MMODL / IJN: [id number] /
[2020-12-08] MEDS ORDERED: ALPRAZolam 0.5 MG TAB PO STA (23:04)
--- NOTE | 2020-12-08 23:17 | CONS ---
CONSULTATION CHIEF COMPLAINT: Pain in the left shoulder. HISTORY OF PRESENT ILLNESS: This gentleman recently had a left shoulder repair for a fracture. He went home and apparently developed increasing pain and fever as well as leukocytosis. He felt a rubbing or crunching in the shoulder as well. He is a poor historian. REVIEW OF SYSTEMS: He denies any headaches, confusion, change in vision or hearing, cough, hemoptysis, sputum production, chest pain, abdominal pain, nausea, vomiting, diarrhea, dysuria, frequency, urgency, incontinence, etc. Past medical history, family history, and personal and social histories are all otherwise unchanged from his recent admitting and discharge summaries. HE DOES NOT HAVE ALLERGIES. He normally takes omeprazole, vitamin D and naproxen. PHYSICAL EXAMINATION: Blood pressure 118/80 with a pulse of 80, respirations 20, temperature 99. In general he appeared to be somewhat disheveled and uncomfortable. Skin color is normal. Skin is warm and dry. Lymph nodes were not enlarged. Hydration was good. Head, ears, eyes, nose, mouth and throat were normal. Chest was clear. Cardiac exam was normal with sinus rhythm. The abdomen is soft and nontender without any masses or visceromegaly. Extremities are normal. Neurologically he is intact. The dressing on the left shoulder is dry. IMPRESSION: Pain in the left shoulder with elevated temperature and leukocytosis. PLAN: No change in program at the present time. Follow with Orthopedics as well as Infectious Disease. MMODL / IJN: [id number] /
[2020-12-09] MEDS: HYDROcodone/APAP 10-325MG 1 EACH TAB PO PRN ×3 (02:21→17:24)
[2020-12-09] MEDS: HYDROmorphone 0.5 MG/0.5 ML SYRINGE IVP PRN ×4 (03:08→19:25)
[2020-12-09] MEDS: CEFEPIME 2 GM in SODIUM CHLORIDE 0.9% 100 ML IVPB SCH ×2 (05:23→19:26)
[2020-12-09 06:16] LABS: Basophils % (A) 0 %; Eosinophils # (A) 0.1 k/uL (0-0.7); Eosinophils % (A) 1 %; HCT 36.5 % (39.0-53.0); HGB 11.9 gm/dL (13.0-17.5); Lymphocytes # (A) 1.6 k/uL (1.0-4.8); Lymphocytes % (A) 11 %; MCH 30.3 pg (25.0-35.0); MCHC 32.7 g/dL (31.0-37.0); MCV 92.7 fL (80.0-100.0); Mean Platelet Volume 9.8; Monocytes # (A) 1.4 k/uL (0-1.0); Monocytes % (A) 10 %; Neutrophils # (A) 10.3 k/uL (1.3-7.7); Neutrophils % (A) 74 %; Platelet Count 246 k/uL (150-450); RBC 3.94 m/uL (4.30-5.90); WBC 13.9 k/uL (3.8-10.6)
[2020-12-09 06:32] LABS: African American GFR (CKD) >90 (>60 ml/min/1.73 sqM); Anion Gap 10 mmol/L; Blood Urea Nitrogen 12 mg/dL (9-20); Calcium 9.2 mg/dL (8.4-10.2); Carbon Dioxide 26 mmol/L (22-30); Chloride 98 mmol/L (98-107); Glucose 103 mg/dL (74-99); Non-African American GFR(CKD) >90 (>60 ml/min/1.73 sqM); Potassium 4.2 mmol/L (3.5-5.1); Sodium 134 mmol/L (137-145)
[2020-12-09 06:46] LABS: C Reactive Protein 195.3 mg/L (<10.0)
[2020-12-09] MEDS: IBUPROFEN 400 MG TAB PO PRN ×2 (10:05→22:29)
--- NOTE | 2020-12-09 10:13 | P.PN ---
Subjective Progress Note Date: 12/09/20 Principal diagnosis: Status post ORIF left proximal humerus. Bacteremia. This is a 50-year-old male who is admitted for pain control and to rule out infection of the left shoulder. Patient is status post ORIF of a left proximal humerus fracture by Dr. Bryant on 12/03/2020. Patient states that after his block wore off he has been in a lot of pain. Patient states that he also feels short of breath today. Patient was found to be febrile with an elevated white count in the emergency room. Patient states that he did not know he was having fevers. Patient denies any history of blood clots. Patient's past medical history is significant for GERD, history of GI bleed, history of pleural effusions, gastric/duodenal ulcers, chronic back pain, and history of right arm infection/necrosis. Patient denies any numbness, weakness, tingling, abdominal pain or headache. 12/08/2020: The patient continues to have pain to the left arm and shoulder. Still running low-grade fever. Initial blood culture positive for gram negative bacilli. The patient does have history of substance abuse and according to his history he has tried IV drugs. When asked today, the patient denies "self- medicating" at home recently. His current temperature is 99.3. Vital signs are s 12/09/2020: The patient is stable from an orthopedic standpoint. He continues to complain of severe pain in the shoulder. He is asking for Dilaudid every 3 hours. He is also getting [place] 10/325 every 6 hours. He is afebrile and white count is coming down. A blood culture from 12/06/2020 is showing Enterobacter Cloacae. Most recent blood cultures are showing no growth as of yet. Objective - Vital Signs Vital signs: Vital Signs Temp 98.3 F 12/09/20 07:58 Pulse 80 12/09/20 07:58 Resp 18 12/09/20 07:58 BP 116/71 12/09/20 07:58 Pulse Ox 96 12/09/20 07:58 Intake & Output 12/08/20 12/09/20 12/09/20 18:59 06:59 18:59 Intake Total 480 Output Total 200 200 Balance 280 -200 Intake: Oral 480 Output: Urine 200 200 Other: Voiding Method Urinal Urinal Urinal # Voids 2 1 1 - Exam This is a 42-year-old gentleman in no acute distress. He is lying in bed. Exam of the left shoulder reveals that his incision looks good. There is some ecchymosis. Mild swelling. There is no erythema. Incision is intact with no drainage. No sign of infection to the left shoulder. The incisional area is soft and nontender. He has full elbow, wrist and finger motion without difficulty or pain. Radial pulse is +2/4. Neurovascular status the upper extremities intact. - Labs CBC & Chem 7: 12/09/20 04:52 12/09/20 04:52 Labs: Abnormal Lab Results - Last 24 Hours (Table) 12/08/20 12/08/20 12/08/20 Range/Units 07:26 07:26 15:20 WBC (3.8-10.6) k/uL RBC (4.30-5.90) m/uL Hgb (13.0-17.5) gm/dL Hct (39.0-53.0) % Neutrophils # (1.3-7.7) k/uL Monocytes # (0-1.0) k/uL ESR 106 H (0-15) mm/Hr Sodium (137-145) mmol/L Creatinine (0.66-1.25) mg/dL Glucose (74-99) mg/dL C-Reactive Protein 23.8 H (0.0-0.8) mg/dL Urine Blood Trace H (Negative) Urine Mucus Rare H (None) /hpf 12/09/20 12/09/20 Range/Units 04:52 04:52 WBC 13.9 H (3.8-10.6) k/uL RBC 3.94 L (4.30-5.90) m/uL Hgb 11.9 L (13.0-17.5) gm/dL Hct 36.5 L (39.0-53.0) % Neutrophils # 10.3 H (1.3-7.7) k/uL Monocytes # 1.4 H (0-1.0) k/uL ESR (0-15) mm/Hr Sodium 134 L (137-145) mmol/L Creatinine 0.56 L (0.66-1.25) mg/dL Glucose 103 H (74-99) mg/dL C-Reactive Protein 195.3 H (0.0-0.8) mg/dL Urine Blood (Negative) Urine Mucus (None) /hpf Microbiology - Last 24 Hours (Table) 12/08/20 07:26 Blood Culture - Preliminary Blood No Growth after 24 hours 12/06/20 23:40 Blood Culture Gram Stain - Final Blood Blood Culture - Final Enterobacter cloacae 12/07/20 00:05 Blood Culture - Preliminary Blood No Growth after 48 hours Assessment and Plan (1) History of substance abuse Current Visit: Yes Status: Acute Code(s): F19.11 - OTHER PSYCHOACTIVE SUBSTANCE ABUSE, IN REMISSION SNOMED Code(s): 831765686 (2) Fever Current Visit: Yes Status: Acute Code(s): R50.9 - FEVER, UNSPECIFIED SNOMED Code(s): 189931738 (3) History of recent surgery Current Visit: Yes Status: Acute Code(s): WMC0613 - SNOMED Code(s): 473756143 (4) Leukocytosis Current Visit: Yes Status: Acute Code(s): D72.829 - ELEVATED WHITE BLOOD CELL COUNT, UNSPECIFIED SNOMED Code(s): 194709780 Plan: The clinical findings are discussed with the patient. I have reviewed the case with nursing staff and with Dr. Bryant. At this time his left shoulder does not appear to have signs of infection. With his history of IV drug use and recent infection in his right antecubital area from IV drug use, this needs to be considered as a possibility as source for infection in this patient. Dr. Bryant has discussed this with Dr. Lewis. I have concern regarding home IV antibiotics with the patient's history of IV drug use in the past. A urine drug screen has been ordered today. Home antibiotics will ultimately be up to infectious disease's discretion. I have decreased his Dilaudid 2 every 6 when necessary have discussed with the patient that would like to wean him off of the IV pain medication prior to discharge home.
[2020-12-09 11:17] LABS: Amphetamine Screen,Urine Detected (NotDetected); Barbiturate Screen,Urine Not Detected (NotDetected); Benzodiazepines Screen,Urine Detected (NotDetected); Cocaine Screen,Urine Not Detected (NotDetected); Methadone Screen, Urine Not Detected (NotDetected); Opiate Screen,Urine Detected (NotDetected); Oxycodone Screen, Urine Not Detected (NotDetected); Phencyclidine Screen,Urine Not Detected (NotDetected); Tricyclic Antidepressant,Urine Not Detected (NotDetected); Urn Cannabinoid Scrn Detected (NotDetected)
--- NOTE | 2020-12-09 19:26 | PN ---
PROGRESS NOTE CHIEF COMPLAINT: Postoperative fever and leukocytosis. HISTORY OF PRESENT ILLNESS: This gentleman is doing well. The pain is improving a little bit. He continues on IV fluids and antibiotics. His temperature is coming down. PHYSICAL EXAMINATION: Chest is clear. Cardiac exam is normal. Abdomen is soft, nontender. IMPRESSION: Postoperative left shoulder repair with fever and leukocytosis. PLAN: No change in current management. Continue with IV fluids and IV antibiotics. MMODL / IJN: [id number] /
[2020-12-09] MEDS: SODIUM CHLORIDE 0.9% 1,000 ML IV SCH (19:29)
--- NOTE | 2020-12-09 23:09 | PN ---
PROGRESS NOTE DATE OF SERVICE: 12/09/2020 REASON FOR FOLLOWUP: Enterobacter bacteremia. INTERVAL HISTORY: The patient is currently afebrile. The patient is breathing comfortably. The patient continues to complain of pain to his left shoulder area and is requesting more pain medication. The patient denies having any chest pain or shortness of breath or cough. No abdominal pain. No diarrhea. No urinary symptoms. The patient has no pain, swelling or redness to the right arm area, he site of previous abscess more than a year ago. PHYSICAL EXAMINATION: Blood pressure 114/76, pulse of 60, temperature 97.8. He is 96% on room air. General description is a middle-aged male lying in bed in no distress. RESPIRATORY SYSTEM: Unlabored breathing. Clear to auscultation anteriorly. HEART: S1, S2. Regular rate and rhythm. ABDOMEN: Soft. No tenderness. No guarding or rigidity. EXTREMITIES: No edema of the feet. Right upper extremity does have a scar from previous surgery. There is no swelling, no redness, no warmth. Right shoulder just has minimal swelling. incision currently intact. No drainage was noted. LABS: Hemoglobin is 11.9, white count 13.9, BUN of 12, creatinine 0.56. Urine is negative. Urine drug screen is positive for opiates, amphetamin and marijuana. DIAGNOSTIC IMPRESSION AND PLAN: Patient admitted to hospital with fever and left shoulder pain in this patient who recently did have a left proximal humerus fracture repair. The patient did have extensive workup to look for a source of this bacteremia, including CT of abdomen and pelvis that is negative. Urine is negative. Echo has been ordered. Will follow. However, clinically doubt endocarditis with only one positive blood culture. Patient currently does not have any signs of inflammation on the right upper extremity,to be source at the site of the abscess. concern for possible seeding to the left shoulder with recent surgery. Unfortunately, if any infection to the shoulder will not be able to completely clear this infection with antibiotic alone without removal of any infected hardware. This will be discussed further with Orthopedics. Patient is covered with cefepime and there is a risk of PICC line in a patient with a history of IV drug use. However, the patient categorically denies using any IV drugs for almost 20 years and denied he used IV drugs when he got the abscess on the right forearm, though urine drug screen is positive for marijuana and benzodiazepines. the patient awake, alert, oriented and adult. Risk of injecting to the PICC line has been explained to the patient. Despite that, if he used it or abused it, will be his own liability. Oral option with Cipro is still available. Final decision will be made after discussion with Orthopedics tomorrow . PETTY / IVANNA: [id number] / MTDD
[2020-12-10] MEDS: HYDROmorphone 0.5 MG/0.5 ML SYRINGE IVP PRN ×2 (00:30→07:23)
[2020-12-10] MEDS: SODIUM CHLORIDE 0.9% 1,000 ML IV SCH ×2 (00:37→11:48)
[2020-12-10] MEDS: HYDROcodone/APAP 10-325MG 1 EACH TAB PO PRN ×2 (04:40→10:36)
[2020-12-10] MEDS: CEFEPIME 2 GM in SODIUM CHLORIDE 0.9% 100 ML IVPB SCH (05:50)
[2020-12-10 07:46] VITALS: BP 116/71; PULSE 66; RESP 16; TEMP 98
--- NOTE | 2020-12-10 11:54 | ECHOF ---
Referral Reason:bacteremia MEASUREMENTS -------- HEIGHT: 165.1 cm WEIGHT: 68.0 kg BP: RVIDd: 3.2 cm (< 3.3) IVSd: 0.7 cm (0.6 - 1.1) LVIDd: 4.4 cm (3.9 - 5.3) LVPWd: 1.3 cm (0.6 - 1.1) IVSs: 1.1 cm LVIDs: 2.7 cm LVPWs: 1.6 cm LA Diam: 3.9 cm (2.7 - 3.8) Ao Diam: 3.2 cm (2.0 - 3.7) MV EXCURSION: 28.542 mm (> 18.000) MV EF SLOPE: 144 mm/s (70 - 150) MV E Erik: 0.90 m/s MV DecT: 159 ms MV A Erik: 0.76 m/s MV E/A Ratio: 1.19 RAP: 5.00 mmHg RVSP: 17.37 mmHg FINDINGS -------- Sinus rhythm. This was a technically adequate study. LV size, wall thickness and systolic function are normal, with an EF greater than 55%. The left jose roberto tricular size is normal. The right ventricle is normal in size. The left atrial size is normal. The right atrial size is normal. The aortic valve is trileaflet, and appears structurally normal. No aortic stenosis or regurgitation. The mitral valve leaflets are mildly thickened. Mild mitral regurgitation is present. The tricuspid valve appears structurally normal. Mild tricuspid regurgitation present. Right vent ricular systolic pressure is normal at < 35 mmHg. There is no pulmonic regurgitation present. The aortic root size is normal. There is no pericardial effusion. CONCLUSIONS -------- 1. LV size, wall thickness and systolic function are normal, with an EF greater than 55%. 2. The left atrial size is normal. 3. The aortic valve is trileaflet, and appears structurally normal. No aortic stenosis or regurgitati on. 4. The mitral valve leaflets are mildly thickened. 5. Mild mitral regurgitation is present. 6. Mild tricuspid regurgitation present. 7. There is no pericardial effusion. BANQUET STEWARDESS: Parvin Mortensen RDCS
[2020-12-10 12:47] LABS: African American GFR (CKD) 162.8 (60.0-200.0); Non-African American GFR(CKD) 140.5 (60.0-200.0)
--- NOTE | 2020-12-10 15:21 | PN ---
PROGRESS NOTE DATE OF SERVICE: 12/10/2020 REASON FOR FOLLOWUP: Enterobacter bacteremia. INTERVAL HISTORY: The patient was seen on rounds this morning. The patient has been afebrile, has been feeling better, breathing comfortably. The patient's overall pain and discomfort to the left shoulder has improved. Incision is dry, with no drainage. The patient denies having any pain, swelling or redness of the right forearm. No chest pain, shortness of breath or cough. No abdominal pain and no diarrhea. PHYSICAL EXAMINATION: Blood pressure 116/71 with a pulse of 66, temperature 98. He is 98% on room air. General description is an elderly male lying in bed in no distress. RESPIRATORY SYSTEM: Unlabored breathing. Clear to auscultation anteriorly. HEART: S1, S2. Regular rate and rhythm. ABDOMEN: Soft. No tenderness. Right arm with no swelling, no redness. Left shoulder has no redness or drainage. EXTREMITIES: No edema of the feet. LABS: Creatinine was 0.4. No CBC was done today. Blood culture repeat on 12/07 and 12/08 has been negative. DIAGNOSTIC IMPRESSION AND PLAN: Patient with Enterobacter bacteremia in this patient who did have extensive workup, including an echocardiogram that did not show any suspicion for vegetation. CT of abdomen and pelvis was negative. UA was negative. No evidence of cellulitis in the right forearm or lower extremity. In view of the recent left shoulder surgery and patient with a history of IV drug use, he has been offered IV antibiotic and [place] [facility] placement, which the patient has refused. The patient will be switched over to oral Cipro 500 mg twice a day for 2 weeks, as oral Cipro has good bioavailability, and close outpatient followup. All his questions and concerns were answered. MMODL / IJN: [id number] / KEYLA
--- NOTE | 2020-12-10 18:38 | PN ---
PROGRESS NOTE CHIEF COMPLAINT: Elevated white count, fever and pain in the left shoulder. HISTORY OF PRESENT ILLNESS: This gentleman is doing fairly well. Temperature has come down, as has his white count. It is difficult to determine the source of infection. His shoulder seems to be clinically healthy. There is no sign of infection anywhere else, including the chest or abdomen. PHYSICAL EXAMINATION: Chest is clear. Cardiac exam is normal. Abdomen is soft, nontender. Left shoulder is not swollen or inflamed. IMPRESSION: Fever of unknown origin, leukocytosis. PLAN: Await further recommendations from Infectious Disease. Orthopedics does not feel that the difficulty is in his shoulder. He could be a candidate for long-term IV antibiotics, but with his history of IVDA, there is concern about a PICC line. MMODL / IJN: [id number] /
--- NOTE | 2020-12-11 08:47 | P.DS ---
Providers Date of admission: 12/08/20 11:16 Expected date of discharge: 12/10/20 Attending physician: Ge Bryant Consults: 12/07/20 01:37 Consult Physician Routine Consulting Provider: Iraj Silva Consult Reason/Comments: Fever, leukocytosis; medical management Do you want consulting provider notified?: Yes 12/07/20 16:08 Consult Physician Routine Consulting Provider: Yenifer Lewis Consult Reason/Comments: post op wound infection gram neg bacilli positive blood culture fever Do you want consulting provider notified?: Yes Primary care physician: Iraj Silva - Discharge Diagnosis(es) (1) History of substance abuse Status: Acute (2) Fever Status: Acute (3) History of recent surgery Status: Acute (4) Leukocytosis Status: Acute Hospital Course: This is a 50-year-old male who is admitted on 12/06/2020 for pain control and to rule out infection of the left shoulder. Patient is status post ORIF of a left proximal humerus fracture by Dr. Bryant on 12/03/2020. Patient states that after his block wore off he had been in a lot of pain. Patient states that he also feels short of breath today. Patient was found to be febrile with an elevated white count in the emergency room. Patient states that he did not know he was having fevers. Patient denies any history of blood clots. Patient's past medical history is significant for GERD, history of GI bleed, history of pleural effusions, gastric/duodenal ulcers, chronic back pain, and history of right arm infection/necrosis secondary to IV drug use. He has history of admission in 2019 for cellulitis and infection to the right antecubital space. Patient denies any numbness, weakness, tingling, abdominal pain or headache. The patient was followed by infectious disease on this admission. Initial Blood culture was positive for Enterobacter. Subsequent blood cultures were negative at 48 hours. His white count and fever came down over the course of his admission. There was concern that he possibly had a septic left shoulder from his recent surgery. The shoulder remained non-erythematous, soft and not particularly tender throughout his stay. He has external and internal rotation of the shoulder without significant pain. There are no signs of infection in the shoulder. It was discussed with infectious disease that with the patient's past medical history of IV drug use, it is our opinion that his bacteremia is most likely secondary to recent IV drug use. The patient denies recent IV drug use and states that he has not used IV drugs in 20 years, even though we do have documentation of the incident in 2019, when he admitted to intravenously injecting methamphetamine into his right antecubital area, resulting in the need for operative debridement of abcess. Urine drug screen from yesterday is positive for amphetamines, opioids and marijuana. It was recommended to the patient that he have IV antibiotics and be sent to inpatient rehab for that he may be observed with the PICC line. Patient refuses IV antibiotics and would like to go home on oral antibiotics, and we did discuss extensively that this treatment may not be sufficient for his current infection. We have also extensively discussed with him that even with optimal treatment, his shoulder hardware could go on to become infected in the future, although optimal treatment would minimize this risk. The patient is discharged on oral ciprofloxacin per infectious disease, with optimal treatment being IV cefipime and monitoring in a rehab or alf facility to make sure the IV line is not used for recreational drugs. He realizes that he is opting for second tier treatment with his insistence on oral antibiotics and discharge to home. He may be discharged to home today and is to follow-up in one week with Dr. Bryant as previously scheduled. This dictation was was reviewed and edited by Dr Ge Bryant. Patient Condition at Discharge: Stable Plan - Discharge Summary Discharge Rx Participant: No New Discharge Prescriptions: New Ciprofloxacin HCl [Cipro] 500 mg PO BID 14 Days #28 tab No Action Omeprazole [PriLOSEC] 20 mg PO AC-BRKFST Naproxen [Naprosyn] 500 mg PO Q12HR PRN PRN Reason: Pain Multivit-Min/Folic/Vit K/Lycop [Men's Multivitamin Tablet] 1 tab PO DAILY HYDROcodone/APAP 10-325MG [[place] 10-325] 1 tab PO Q6HR PRN #28 tab PRN Reason: Pain Sennosides-Docusate Sodium [Senokot-S] 1 tab PO BID PRN PRN Reason: Constipation Discharge Medication List Multivit-Min/Folic/Vit K/Lycop [Men's Multivitamin Tablet] 1 tab PO DAILY 07/11/20 [History] Naproxen [Naprosyn] 500 mg PO Q12HR PRN 07/11/20 [History] Omeprazole [PriLOSEC] 20 mg PO AC-BRKFST 07/11/20 [History] HYDROcodone/APAP 10-325MG [[place] 10-325] 1 tab PO Q6HR PRN #28 tab 12/03/20 [Rx] Sennosides-Docusate Sodium [Senokot-S] 1 tab PO BID PRN 12/07/20 [History] Ciprofloxacin HCl [Cipro] 500 mg PO BID 14 Days #28 tab 12/10/20 [Rx] Follow up Appointment(s)/Referral(s): Iraj Silva MD [Primary Care Provider] - 1-2 days [facility], [NON-STAFF] - 1 Week [facility], [REFERRING] - 1 Week Yenifer Lewis MD [STAFF PHYSICIAN] - 2 Weeks Activity/Diet/Wound Care/Special Instructions: Follow-up with Dr. Bryant as previously scheduled. Antibiotics per infectious disease. No use of left shoulder. May use elbow and wrist at waist level. Discharge Disposition: HOME SELF-CARE
--- NOTE | 2020-12-29 11:41 | P.PN ---
Progress Note - Text Progress Note Date: 12/29/20 Addendum to discharge summary: It is the opinion of Orthopedic surgery that the patient's septicemia is secondary to his IV drug use and does not have a primary postoperative infection of the left shoulder.
== END 2020-12-10 14:33 | disposition home or self-care (01) | DRG 872 ==
LOC: EC 22:52 → 6NMEDSUR 12-07 00:56 → OBSVTOIN 12-08 11:16
PROVIDERS: ADMIT Orthopaedic Surgery; ATTEND Orthopaedic Surgery
DX: A41.9 Sepsis, unspecified organism (principal); Z20.822 Contact with and (suspected) exposure to COVID-19; B96.89 Other specified bacterial agents as the cause of diseases classified elsewhere; F20.9 Schizophrenia, unspecified; F32.9 Major depressive disorder, single episode, unspecified; F41.9 Anxiety disorder, unspecified; F90.9 Attention-deficit hyperactivity disorder, unspecified type; S42.202D Unspecified fracture of upper end of left humerus, subsequent encounter for fracture with routine healing; Z87.891 Personal history of nicotine dependence; G47.33 Obstructive sleep apnea (adult) (pediatric); Z87.11 Personal history of peptic ulcer disease; F15.11 Other stimulant abuse, in remission; G89.29 Other chronic pain; M54.9 Dorsalgia, unspecified; M79.672 Pain in left foot; Z83.6 Family history of other diseases of the respiratory system; K21.9 Gastro-esophageal reflux disease without esophagitis
CPT/HCPCS: 36415; 71045; 71275; 74177; 80048; 80053; 80202; 80306; 81001; 82565; 83605; 85025; 85652; 86140; 87040; 87077; 87186; 87502; 87635; 93306; 93970; 96361; 96365; 99284

== ENCOUNTER 2021-03-31 14:03 | Inpatient (IN) | payer OTHER ==
[2021-03-31 14:26] LABS: Glucose,Whole Blood 171 mg/dL (75-99)
[2021-03-31 15:17] LABS: ALT 16 U/L (4-49); AST 20 U/L (17-59); African American GFR (CKD) >90 (>60 ml/min/1.73 sqM); Albumin 3.5 g/dL (3.5-5.0); Alkaline Phosphatase 65 U/L (38-126); Anion Gap 11 mmol/L; Blood Urea Nitrogen 49 mg/dL (9-20); Calcium 8.5 mg/dL (8.4-10.2); Carbon Dioxide 17 mmol/L (22-30); Chloride 108 mmol/L (98-107); Glucose 149 mg/dL (74-99); Non-African American GFR(CKD) >90 (>60 ml/min/1.73 sqM); Potassium 4.7 mmol/L (3.5-5.1); Sodium 136 mmol/L (137-145); Total Bilirubin <0.1 mg/dL (0.2-1.3)
--- NOTE | 2021-03-31 15:18 | ED ---
General Adult HPI - General Chief complaint: Recheck/Abnormal Lab/Rx Stated complaint: Altered Mental status Time Seen by Provider: 03/31/21 14:35 Source: patient, EMS Mode of arrival: EMS Limitations: no limitations - History of Present Illness Initial comments: Is a 51-year-old male with a history of GI bleed in the past and recent admission to [facility] for a left index finger infection. He was asked the discharge earlier today and one is on his way home. The patient states he was taking a cab and he suddenly felt ill. He states he felt lightheaded and started having some visual hallucinations. He states that he had some generalized weakness and was just feeling generally poor. He states that he felt like he had have a bowel movement in the cab. He states that he did not pass out however felt like he may have. He states he felt shaky and his face and has twitching episodes in his face. He states he went home and then he had a bloody bowel movement and he called an ambulance. The patient states he currently feels improved however not completely back to normal. He denies any headache or head trauma. No history of seizures. No nausea or vomiting. No chest pain or shortness of breath. No other complaints. - Related Data Home Medications Medication Instructions Recorded Confirmed Omeprazole [PriLOSEC] 20 mg PO AC-BRKFST 07/11/20 03/31/21 Allergies Allergy/AdvReac Type Severity Reaction Status Date / Time No Known Allergies Allergy Verified 03/31/21 16:36 Review of Systems ROS Statement: Those systems with pertinent positive or pertinent negative responses have been documented in the HPI. ROS Other: All systems not noted in ROS Statement are negative. Past Medical History Past Medical History: GERD/Reflux, GI Bleed, Musculoskeletal Disorder Additional Past Medical History / Comment(s): right arm infection/necrosis, bilateral pleural effusions with R thoracentesis/severe pulmonary, GI bleed, gastric ulcers/duodenal ulcer, gastritis, chronic back pain, bilateral carpal tunnel syndrome, gallbladder polyp, past bilateral foot fractures-L foot surgically repaired-pt states it didn't "work" so he chose not to have surgery on his R foot History of Any Multi-Drug Resistant Organisms: None Reported Past Surgical History: Hernia Repair, Orthopedic Surgery Additional Past Surgical History / Comment(s): I&D right forearm/fasciotomy, fracture repair L foot, EGD with repair of perforated ulcer with endo clip, co lonoscopy, pain procedures, carpal tunnel surgery on left hand Past Anesthesia/Blood Transfusion Reactions: No Reported Reaction Additional Past Anesthesia/Blood Transfusion Reaction / Comment(s): Pt has received blood without reaction. Past Psychological History: ADD/ADHD, Anxiety, Schizophrenia Smoking Status: Current every day smoker Past Alcohol Use History: Rare Past Drug Use History: Marijuana - Past Family History Father Family Medical History: Sleep Apnea/CPAP/BIPAP Additional Family Medical History / Comment(s): -suffered from obstructive sleep apnea Mother Family Medical History: No Reported History Additional Family Medical History / Comment(s): General Exam - General Exam Comments Initial Comments: Constitutional: Awake alert Appears comfortable Head: Normocephalic atraumatic Eyes: no conjunctival injection No scleral icterus EOMI, questionable conjunctival pallor Neck: No JVD Supple Heart: Regular rate rhythm normal S1-S2 no murmurs Lungs: Clear to auscultation bilaterally No wheezing No rales Abdomen: Soft nondistended nontender, Rectal exam with no gross blood Extremities: Non edematous DP pulses intact Radial pulses intact, the left index finger has a well-healing wound without any evidence for cellulitis at this time Neuro: A&Ox3, 5 out of 5 strength in upper and lower extremities bilaterally, sensation intact to light touch in all extremities, cranial nerves II through XII are grossly intact No focal neurologic deficits Psych: Appropriate mood and affect, the patient appears somewhat anxious Limitations: no limitations Course Vital Signs 03/31/21 03/31/21 03/31/21 14:04 15:09 16:00 Temperature 97.5 F L Pulse Rate 106 H 85 85 Respiratory 20 20 18 Rate Blood Pressure 69/47 95/61 120/75 O2 Sat by Pulse 100 100 100 Oximetry 03/31/21 03/31/21 03/31/21 17:13 18:04 18:38 Temperature 97.6 F Pulse Rate 105 H 112 H 86 Respiratory 18 16 18 Rate Blood Pressure 111/61 118/75 O2 Sat by Pulse 100 100 100 Oximetry - Reevaluation(s) Reevaluation #1: 03/31/21 17:52 Pt resting when I went back to check him. When I woke him his HR went to 130s. I stood him up and he got lightheaded. Rectal exam did not reveal gross blood. Sent FOBT. Will give 1L NS and Protonix. The patient also positive for methamphe tamine but states he only takes Adderrall. EKG Findings - EKG Comments: EKG Findings:: EKG showing sinus tachycardia with a rate of 103. No abnormal ST segment changes or T-wave inversions. QTC is 4621. Other intervals normal. No ectopy. Medical Decision Making - Medical Decision Making This is a 51-year-old male who presents emergency department for feelings of lightheaded, hallucinations, generalized malaise and bloody bowel movement. The patient was hypotensive and tachycardic on arrival however this resolved without any intervention. The patient was feeling improved on my initial evaluation. Vitals were stable except for some mild tachycardia. The patient was found to have a mild drop in hemoglobin down to 9.3 area typically is in the 11-12 range. The rest of his blood work did reveal a leukocytosis which is likely from his infection however I do not have any comparison from his previous admission. Rest was blood work was also unremarkable. He did have positive guaiac however no gross hematuria on rectal examination. However due to his history of upper GI bleed and persistent tachycardia going to place him in the hospital with GI consultation. Dr. Silva except the patient for admission. - Lab Data Result diagrams: 03/31/21 14:59 03/31/21 14:59 Lab Results 03/31/21 03/31/21 03/31/21 Range/Units 14:19 14:55 14:59 WBC 16.5 H (3.8-10.6) k/uL RBC 3.10 L (4.30-5.90) m/uL Hgb 9.3 L (13.0-17.5) gm/dL Hct 28.0 L (39.0-53.0) % MCV 90.2 (80.0-100.0) fL MCH 30.1 (25.0-35.0) pg MCHC 33.3 (31.0-37.0) g/dL RDW 15.1 (11.5-15.5) % Plt Count 281 (150-450) k/uL MPV 9.5 Neutrophils % 75 % Lymphocytes % 17 % Monocytes % 5 % Eosinophils % 1 % Basophils % 0 % Neutrophils # 12.3 H (1.3-7.7) k/uL Lymphocytes # 2.9 (1.0-4.8) k/uL Monocytes # 0.8 (0-1.0) k/uL Eosinophils # 0.2 (0-0.7) k/uL Basophils # 0.1 (0-0.2) k/uL PT (9.0-12.0) sec INR (<1.2) APTT (22.0-30.0) sec Sodium (137-145) mmol/L Potassium (3.5-5.1) mmol/L Chloride (98-107) mmol/L Carbon Dioxide (22-30) mmol/L Anion Gap mmol/L BUN (9-20) mg/dL Creatinine (0.66-1.25) mg/dL Est GFR (CKD-EPI)AfAm (>60 ml/min/1.73 sqM) Est GFR (CKD-EPI)NonAf (>60 ml/min/1.73 sqM) Glucose (74-99) mg/dL POC Glucose (mg/dL) 171 H (75-99) mg/dL POC Glu Foreign Language Stenographer ID Chela Quezada Calcium (8.4-10.2) mg/dL Total Bilirubin (0.2-1.3) mg/dL AST (17-59) U/L ALT (4-49) U/L Alkaline Phosphatase (38-126) U/L Total Protein (6.3-8.2) g/dL Albumin (3.5-5.0) g/dL Stool Occult Blood (Negative) Urine Opiates Screen (NotDetected) Ur Oxycodone Screen (NotDetected) Urine Methadone Screen (NotDetected) Ur Propoxyphene Screen (NotDetected) Ur Barbiturates Screen (NotDetected) U Tricyclic Antidepress (NotDetected) Ur Phencyclidine Scrn (NotDetected) Ur Amphetamines Screen (NotDetected) U Methamphetamines Scrn (NotDetected) U Benzodiazepines Scrn (NotDetected) Urine Cocaine Screen (NotDetected) U Marijuana (THC) Screen (NotDetected) Blood Type A Positive Blood Type Recheck A Pos Bld Type Recheck Status No Antibody Screen NEGATIVE Spec Expiration Date 04/03/2021202003/31/21 03/31/21 03/31/21 Range/Units 14:59 14:59 17:13 WBC (3.8-10.6) k/uL RBC (4.30-5.90) m/uL Hgb (13.0-17.5) gm/dL Hct (39.0-53.0) % MCV (80.0-100.0) fL MCH (25.0-35.0) pg MCHC (31.0-37.0) g/dL RDW (11.5-15.5) % Plt Count (150-450) k/uL MPV Neutrophils % % Lymphocytes % % Monocytes % % Eosinophils % % Basophils % % Neutrophils # (1.3-7.7) k/uL Lymphocytes # (1.0-4.8) k/uL Monocytes # (0-1.0) k/uL Eosinophils # (0-0.7) k/uL Basophils # (0-0.2) k/uL PT 10.2 (9.0-12.0) sec INR 0.9 (<1.2) APTT 16.0 L (22.0-30.0) sec Sodium 136 L (137-145) mmol/L Potassium 4.7 (3.5-5.1) mmol/L Chloride 108 H (98-107) mmol/L Carbon Dioxide 17 L (22-30) mmol/L Anion Gap 11 mmol/L BUN 49 H (9-20) mg/dL Creatinine 0.96 (0.66-1.25) mg/dL Est GFR (CKD-EPI)AfAm >90 (>60 ml/min/1.73 sqM) Est GFR (CKD-EPI)NonAf >90 (>60 ml/min/1.73 sqM) Glucose 149 H (74-99) mg/dL POC Glucose (mg/dL) (75-99) mg/dL POC Glu Foreign Language Stenographer ID Calcium 8.5 (8.4-10.2) mg/dL Total Bilirubin <0.1 L (0.2-1.3) mg/dL AST 20 (17-59) U/L ALT 16 (4-49) U/L Alkaline Phosphatase 65 (38-126) U/L Total Protein 6.0 L (6.3-8.2) g/dL Albumin 3.5 (3.5-5.0) g/dL Stool Occult Blood (Negative) Urine Opiates Screen Detected H (NotDetected) Ur Oxycodone Screen Not Detected (NotDetected) Urine Methadone Screen Not Detected (NotDetected) Ur Propoxyphene Screen Not Detected (NotDetected) Ur Barbiturates Screen Not Detected (NotDetected) U Tricyclic Antidepress Not Detected (NotDetected) Ur Phencyclidine Scrn Not Detected (NotDetected) Ur Amphetamines Screen Detected H (NotDetected) U Methamphetamines Scrn Detected H (NotDetected) U Benzodiazepines Scrn Not Detected (NotDetected) Urine Cocaine Screen Not Detected (NotDetected) U Marijuana (THC) Screen Detected H (NotDetected) Blood Type Blood Type Recheck Bld Type Recheck Status Antibody Screen Spec Expiration Date 03/31/21 Range/Units 17:52 WBC (3.8-10.6) k/uL RBC (4.30-5.90) m/uL Hgb (13.0-17.5) gm/dL Hct (39.0-53.0) % MCV (80.0-100.0) fL MCH (25.0-35.0) pg MCHC (31.0-37.0) g/dL RDW (11.5-15.5) % Plt Count (150-450) k/uL MPV Neutrophils % % Lymphocytes % % Monocytes % % Eosinophils % % Basophils % % Neutrophils # (1.3-7.7) k/uL Lymphocytes # (1.0-4.8) k/uL Monocytes # (0-1.0) k/uL Eosinophils # (0-0.7) k/uL Basophils # (0-0.2) k/uL PT (9.0-12.0) sec INR (<1.2) APTT (22.0-30.0) sec Sodium (137-145) mmol/L Potassium (3.5-5.1) mmol/L Chloride (98-107) mmol/L Carbon Dioxide (22-30) mmol/L Anion Gap mmol/L BUN (9-20) mg/dL Creatinine (0.66-1.25) mg/dL Est GFR (CKD-EPI)AfAm (>60 ml/min/1.73 sqM) Est GFR (CKD-EPI)NonAf (>60 ml/min/1.73 sqM) Glucose (74-99) mg/dL POC Glucose (mg/dL) (75-99) mg/dL POC Glu Foreign Language Stenographer ID Calcium (8.4-10.2) mg/dL Total Bilirubin (0.2-1.3) mg/dL AST (17-59) U/L ALT (4-49) U/L Alkaline Phosphatase (38-126) U/L Total Protein (6.3-8.2) g/dL Albumin (3.5-5.0) g/dL Stool Occult Blood Positive (Negative) Urine Opiates Screen (NotDetected) Ur Oxycodone Screen (NotDetected) Urine Methadone Screen (NotDetected) Ur Propoxyphene Screen (NotDetected) Ur Barbiturates Screen (NotDetected) U Tricyclic Antidepress (NotDetected) Ur Phencyclidine Scrn (NotDetected) Ur Amphetamines Screen (NotDetected) U Methamphetamines Scrn (NotDetected) U Benzodiazepines Scrn (NotDetected) Urine Cocaine Screen (NotDetected) U Marijuana (THC) Screen (NotDetected) Blood Type Blood Type Recheck Bld Type Recheck Status Antibody Screen Spec Expiration Date Disposition Clinical Impression: Pre-syncope, GI bleed Disposition: ADMITTED IP TO THIS [facility] Condition: Stable Referrals: Iraj Silva MD [Primary Care Provider] - 1-2 days
[2021-03-31 15:22] LABS: Basophils # (A) 0.1 k/uL (0-0.2); Basophils % (A) 0 %; Eosinophils # (A) 0.2 k/uL (0-0.7); Eosinophils % (A) 1 %; HGB 9.3 gm/dL (13.0-17.5); Lymphocytes # (A) 2.9 k/uL (1.0-4.8); Lymphocytes % (A) 17 %; MCH 30.1 pg (25.0-35.0); MCHC 33.3 g/dL (31.0-37.0); MCV 90.2 fL (80.0-100.0); Mean Platelet Volume 9.5; Monocytes # (A) 0.8 k/uL (0-1.0); Monocytes % (A) 5 %; Neutrophils # (A) 12.3 k/uL (1.3-7.7); Neutrophils % (A) 75 %; Platelet Count 281 k/uL (150-450); RDW 15.1 % (11.5-15.5); WBC 16.5 k/uL (3.8-10.6)
[2021-03-31 15:33] LABS: INR 0.9 (<1.2); Prothrombin Time 10.2 sec (9.0-12.0)
--- NOTE | 2021-03-31 16:24 | CT ---
EXAMINATION TYPE: CT brain wo con DATE OF EXAM: 03/31/2021 COMPARISON: CT brain 05/26/2015 HISTORY: Altered mental status. CT DLP: 1100.4 mGycm. Automated Exposure Control for Dose Reduction was Utilized. TECHNIQUE: CT scan of the head is performed without contrast. FINDINGS: There is no acute intracranial hemorrhage, mass effect, or midline shift identified. The ventricles and sulci are within normal limits in size. The globes are intact and the visualized sin uses are remarkable for ethmoid sinus disease. IMPRESSION: No acute intracranial hemorrhage, mass effect, or midline shift is seen. Mild sinus dise ase.
[2021-03-31 17:39] LABS: Amphetamine Screen,Urine Detected (NotDetected); Barbiturate Screen,Urine Not Detected (NotDetected); Benzodiazepines Screen,Urine Not Detected (NotDetected); Cocaine Screen,Urine Not Detected (NotDetected); Methadone Screen, Urine Not Detected (NotDetected); Opiate Screen,Urine Detected (NotDetected); Oxycodone Screen, Urine Not Detected (NotDetected); Phencyclidine Screen,Urine Not Detected (NotDetected); Tricyclic Antidepressant,Urine Not Detected (NotDetected); Urn Cannabinoid Scrn Detected (NotDetected)
[2021-03-31] MEDS ORDERED: PANTOPRAZOLE 40 MG/10 ML VIAL IVP STA (17:50)
[2021-03-31] MEDS ORDERED: SODIUM CHLORIDE 0.9% 1,000 ML IV ONE (17:50)
[2021-03-31] MEDS ORDERED: NALOXONE 0.4 MG/ML 1 ML VIAL IV PRN (18:39)
[2021-03-31] MEDS: SODIUM CHLORIDE 0.9% 1,000 ML IV SCH (19:14)
[2021-04-01] MEDS: SODIUM CHLORIDE 0.9% 1,000 ML IV SCH ×3 (03:58→19:52)
[2021-04-01] MEDS: PANTOPRAZOLE 40 MG/10 ML VIAL IVP SCH ×2 (09:28→20:24)
[2021-04-01 13:58] LABS: MCH 29.9 pg (25.0-35.0); MCV 88.1 fL (80.0-100.0); Mean Platelet Volume 8.5; Platelet Count 226 k/uL (150-450); RBC 2.09 m/uL (4.30-5.90); RDW 15.2 % (11.5-15.5); WBC 6.6 k/uL (3.8-10.6)
[2021-04-01 14:10] LABS: HCT 18.4 % (39.0-53.0)
[2021-04-01 14:12] LABS: HGB 6.2 gm/dL (13.0-17.5)
[2021-04-01] MEDS: ALPRAZolam 0.25 MG TAB PO PRN (16:22)
[2021-04-01] MEDS: busPIRone HCl 5 MG TAB PO SCH ×3 (16:22→20:24)
--- NOTE | 2021-04-01 19:51 | HP ---
HISTORY AND PHYSICAL CHIEF COMPLAINT: Bright red rectal bleeding. HISTORY OF PRESENT ILLNESS: This gentleman came to emergency room after he had a single episode of bright red rectal bleeding. He had no palpitations, shortness of breath and his hemoglobin was not significantly abnormal in the emergency room. However, he was admitted as an active GI bleed. He has had no significant abdominal pain, nausea, vomiting, etc. REVIEW OF SYSTEMS: Otherwise unremarkable and normal. Past medical history, family history and personal and social histories reveal that he was hospitalized in the recent past with a fracture of the left shoulder. He does smoke and has used drugs in the past. He has a history of gastroesophageal reflux. He has used NSAIDs in the past. He is presently not taking any medications. PHYSICAL EXAMINATION: Blood pressure 118/80, pulse of 80 and regular, respirations 20 and he is afebrile. In general, he appeared to be well developed, well nourished, in no acute distress. Skin color is normal. Skin is warm, dry. Lymph nodes are not enlarged. Head, ears, eyes, nose, mouth and throat were normal. Neck veins not distended. Thyroid is not enlarged. Chest is clear. Cardiac exam is normal. Abdomen is soft and nontender. There are no masses or visceromegaly. There is no distention. Extremities are normal. Neurological he is intact. Rectal was not performed at this time. IMPRESSION: He is admitted to the hospital at this time with diagnosis: Lower gastrointestinal bleed. PLAN: 1. Bedrest. 2. IV fluids. 3. GI consult. 4. Monitor vital signs and hemoglobin. MMODL / IJN: [id number] /
[2021-04-01 20:01] LABS: HCT 20.4 % (39.0-53.0); MCH 30.1 pg (25.0-35.0); MCHC 34.2 g/dL (31.0-37.0); Mean Platelet Volume 8.2; Platelet Count 198 k/uL (150-450); RBC 2.31 m/uL (4.30-5.90); RDW 14.7 % (11.5-15.5); WBC 6.6 k/uL (3.8-10.6)
--- NOTE | 2021-04-01 20:12 | PN ---
PROGRESS NOTE CHIEF COMPLAINT: Hematochezia. HISTORY OF PRESENT ILLNESS: This gentleman is doing well. His hemoglobin has been stable. He has had no further bleeding. PHYSICAL EXAMINATION: Color is good. Chest is clear. Cardiac exam is normal. Abdomen is soft and nontender and no masses. Vital signs normal. IMPRESSION: 1. Hematochezia. 2. History of previous gastric peptic ulcer disease. 3. Previous history of left humeral fracture. PLAN: 1. Continue with IV fluids and n.p.o. status. 2. BuSpar for anxiety. 3. Await consult from GI. MMODL / IJN: [id number] /
--- NOTE | 2021-04-01 23:38 | P.CONS ---
History of Present Illness - Reason for Consult Consult date: 04/01/21 GI bleed Requesting physician: Iraj Silva - Chief Complaint GI bleed - History of Present Illness 51-year-old male with multiple medical comorbidities including prior history of GI bleed recently hospitalized at an outside hospital for an infection in his left index finger who presented to the hospital due to concerns over GI bleed. The patient reports seeing dark colored stool with some bright red blood mixed prior to presentation. He reports associated abdominal cramping with the episodes. No further episodes of GI bleeding today. He was found to have an acute fall in his hemoglobin initially at 9.3 this hemoglobin subsequently fell to 6.2. The patient does report daily use of naproxen for shoulder pain. He is also on Prilosec daily. He has a history of GI bleed and peptic ulcer disease in 2019 with an EGD showed a 2 cm duodenal ulcer with oozing of blood as well as mild antral gastritis and clipping of the duodenal ulcer with hemostasis ac hieved. Currently the patient is hemodynamically stable and as stated and no further signs of GI bleeding since presentation. Review of Systems REVIEW OF SYSTEMS: CONSTITUTIONAL: Denies any fevers, chills, weight change or fatigue. CARDIOVASCULAR: Denies any chest pain, palpitations high or low blood pressures RESPIRATORY: Denies any shortness of breath, hemoptysis or cough. GENITOURINARY: No dysuria or hematuria. MUSCULOSKELETAL: No weakness reported, but the patient does have multiple musculoskeletal complaints. SKIN: Denies any new rashes or lesions, jaundice or pallor. PSYCHIATRIC: Denies any depression or anxiety. NEUROLOGY: Denies headache, denies any new focal deficits. EARS/NOSE/THROAT: No recent hearing change, congestion, nasal discharge or sore throat. EYES: No pain in eyes, discharge or change in vision. GASTROINTESTINAL: As per HPI. Past Medical History Past Medical History: GERD/Reflux, GI Bleed, Musculoskeletal Disorder Additional Past Medical History / Comment(s): right arm infection/necrosis, bilateral pleural effusions with R thoracentesis/severe pulmonary, GI bleed, gastric ulcers/duodenal ulcer, gastritis, chronic back pain, bilateral carpal tunnel syndrome, gallbladder polyp, past bilateral foot fractures-L foot surgically repaired-pt states it didn't "work" so he chose not to have surgery on his R foot History of Any Multi-Drug Resistant Organisms: None Reported Past Surgical History: Hernia Repair, Orthopedic Surgery Additional Past Surgical History / Comment(s): I&D right forearm/fasciotomy, fracture repair L foot, EGD with repair of perforated ulcer with endo clip, colonoscopy, pain procedures, carpal tunnel surgery on left hand Past Anesthesia/Blood Transfusion Reactions: No Reported Reaction Additional Past Anesthesia/Blood Transfusion Reaction / Comm: Pt has received blood without reaction. Past Psychological History: ADD/ADHD, Anxiety, Schizophrenia Additional Psychological History / Comment(s): Pt states his depression has been increased lately d/t back/arm/foot pain Smoking Status: Current some day smoker Past Alcohol Use History: Rare Additional Past Alcohol Use History / Comment(s): states only drinks a few on the weekends, smokes maybe 3-4 cigs/day Past Drug Use History: Marijuana Additional Drug Use History / Comment(s): Pt tried meth IV through [facility] on 03/24/19 and was the first and only time IV. Pt states only marijuana use currently, daily use - Past Family History Father Family Medical History: Sleep Apnea/CPAP/BIPAP Additional Family Medical History / Comment(s): -suffered from obstructive sleep apnea Mother Family Medical History: No Reported History Additional Family Medical History / Comment(s): Medications and Allergies Home Medications Medication Instructions Recorded Confirmed Type Omeprazole [PriLOSEC] 20 mg PO AC-BRKFST 07/11/20 03/31/21 History Allergies Allergy/AdvReac Type Severity Reaction Status Date / Time No Known Allergies Allergy Verified 03/31/21 16:36 Physical Exam Vitals: Vital Signs Temp Pulse Pulse Resp BP BP Pulse Ox 04/01/21 16:34 98.5 F 75 16 137/78 99 04/01/21 16:29 97.8 F 77 16 110/58 100 04/01/21 16:04 97.9 F 81 18 110/69 100 04/01/21 15:54 98 F 84 18 96/58 100 04/01/21 14:58 98.1 F 83 18 113/63 98 04/01/21 14:00 16 04/01/21 07:00 98.7 F 82 16 117/74 100 04/01/21 00:33 98.4 F 88 16 126/75 100 03/31/21 20:10 98.1 F 101 H 14 155/82 100 03/31/21 18:38 86 18 118/75 100 Intake and Output 04/01/21 04/01/21 04/01/21 06:59 14:59 22:59 Intake Total 0 Output Total 400 900 Balance -400 -900 0 Intake: Blood Product 0 Rc As-1 Unit 0 [id number] Output: Urine 400 900 Other: Voiding Method Toilet # Voids 1 # Bowel Movements 1 On physical examination, patient appears comfortable in no apparent distress. HEAD: Normocephalic, atraumatic. EYES: No scleral icterus. No conjunctival injection. MOUTH: No lesions, tongue midline. NECK: Trachea midline, no gross abnormalities. CHEST: Clear to auscultation with no wheezing or rhonchi appreciated. HEART: Regular rate and rhythm. ABDOMEN: Soft, obese. Bowel sounds are positive. No organomegaly. No guarding or rigidity. EXTREMITIES: No pedal edema. SKIN: No rashes, no jaundice. NEUROLOGIC: Alert and oriented x3. No focal deficits. Results CBC & Chem 7: 04/01/21 19:34 03/31/21 14:59 Labs: Abnormal Lab Results - Last 24 Hours (Table) 03/31/21 04/01/21 Range/Units 14:55 13:09 RBC 2.09 L (4.30-5.90) m/uL Hgb 6.2 L* D (13.0-17.5) gm/dL Hct 18.4 L* (39.0-53.0) % Crossmatch See Detail Assessment and Plan (1) GI bleed Narrative/Plan: 51-year-old male with multiple medical comorbidities including a history of peptic ulcer disease and chronic NSAID use who presented to the hospital due to concerns of GI bleed. He reports dark colored and red blood with associated abdominal cramping. Found to have actively elevated BUN and acute fall in hemoglobin from 9.3 on presentation to 6.2. No further signs or symptoms of bleeding and patient has been hemodynamically stable. He does have a history of peptic ulcer disease in 2019 with a large duodenal ulcer found at that time with active oozing treated with Endo Clip placement. Suspicion is for recurrent peptic ulcer disease with differential including AVM, Dieulafoy lesion, gastritis or esophagitis or other etiology. Current Visit: Yes Status: Acute Code(s): K92.2 - GASTROINTESTINAL HEMORRHAG E, UNSPECIFIED SNOMED Code(s): 44981398 (2) Anemia associated with acute blood loss Current Visit: Yes Status: Acute Code(s): D62 - ACUTE POSTHEMORRHAGIC ANEMIA SNOMED Code(s): 779528714 (3) History of peptic ulcer disease Current Visit: Yes Status: Acute Code(s): Z87.11 - PERSONAL HISTORY OF PEPTIC ULCER DISEASE SNOMED Code(s): 303225080 (4) Abdominal pain Current Visit: No Status: Acute Code(s): R10.9 - UNSPECIFIED ABDOMINAL PAIN SNOMED Code(s): 45720744 Plan: Supportive care Nothing by mouth except for ice chips and nothing by mouth after midnight Continue to monitor serial H&H and transfuse as needed IV Protonix therapy NSAID avoidance Continue to monitor stool output Extensive discussion with the patient regarding plan of care including EGD tomorrow with all of the risks, benefits and possible complications discussed with the patient at length with all his questions answered to his satisfaction Thank you for allowing us to participate in the care of the patient
[2021-04-02 01:33] LABS: MCH 29.9 pg (25.0-35.0); MCHC 34.1 g/dL (31.0-37.0); MCV 87.6 fL (80.0-100.0); Platelet Count 192 k/uL (150-450); RBC 2.28 m/uL (4.30-5.90); RDW 14.8 % (11.5-15.5); WBC 6.3 k/uL (3.8-10.6)
[2021-04-02 02:18] LABS: HGB 6.8 gm/dL (13.0-17.5)
[2021-04-02] MEDS: SODIUM CHLORIDE 0.9% 1,000 ML IV SCH ×4 (02:35→22:49)
[2021-04-02] MEDS: ALPRAZolam 0.25 MG TAB PO PRN ×3 (04:16→22:05)
[2021-04-02] MEDS: busPIRone HCl 5 MG TAB PO SCH ×3 (08:54→19:52)
[2021-04-02] MEDS: PANTOPRAZOLE 40 MG/10 ML VIAL IVP SCH ×2 (08:54→19:52)
[2021-04-02 09:22] LABS: HCT 21.6 % (39.6-50.0); MCH 29.4 pg (27.0-32.0); MCHC 32.4 g/dL (32.0-37.0); MCV 90.8 fL (80.0-97.0); Mean Platelet Volume 11.9 fL (9.5-12.2); Platelet Count 227 X 10*3/uL (140-440); RBC 2.38 X 10*6/uL (4.40-5.60); RDW 14.6 % (11.5-14.5); WBC 6.91 X 10*3/uL (4.50-10.00)
[2021-04-02] MEDS ORDERED: IV FLUID CONTINUATION 1,000 ML IV ONE (11:22)
[2021-04-02] MEDS ORDERED: LIDOCAINE 1% INJ 10MG/ML (20 ML MDV) ONE (11:23)
[2021-04-02] MEDS ORDERED: PROPOFOL 10 MG/ML 20 ML VIAL IV ONE (11:23)
[2021-04-02] MEDS ORDERED: GLYCOPYRROLATE 0.2 MG/ML 2 ML VIAL ONE (11:23)
[2021-04-02] MEDS ORDERED: EPINEPHrine 10 ML SYRINGE (0.1 MG/ML) MISCELLANE ONE ×2 (11:43)
--- NOTE | 2021-04-02 11:58 | P.PCN ---
Date of Procedure: 04/02/21 Description of Procedure: BRIEF HISTORY: 51-year-old male with multiple medical comorbidities including prior history of GI bleed recently hospitalized at an outside hospital for an infection in his left index finger who presented to the hospital due to concerns over GI bleed. The patient reports seeing dark colored stool with some bright red blood mixed prior to presentation. He reports associated abdominal cramping with the episodes. No further episodes of GI bleeding today. He was found to have an acute fall in his hemoglobin initially at 9.3 this hemoglobin subsequently fell to 6.2. The patient does report daily use of naproxen for shoulder pain. He is also on Prilosec daily. He has a history of GI bleed and peptic ulcer disease in 2019 with an EGD showed a 2 cm duodenal ulcer with oozing of blood as well as mild antral gastritis and clipping of the duodenal ulcer with hemostasis achieved. Currently the patient is hemodynamically stable and as stated and no further signs of GI bleeding since presentation. PROCEDURE PERFORMED: Esophagogastroduodenoscopy with epinephrine injection and Endo Clip placement 2 . PREOPERATIVE DIAGNOSIS: GI bleed, anemia of acute blood loss, history of peptic ulcer disease. ESTIMATED BLOOD LOSS: Minimal. IV sedation per anesthesia. PROCEDURE: After informed consent was obtained, the patient was brought into the endoscopy unit. IV sedation was administered by Anesthesia under continuous monitoring. Initially the Olympus GIF-190 video endoscope was inserted into the mouth. Esophagus intubated without any difficulty. It was gradually advanced into the stomach and duodenum and carefully examined. The bulb and the second part of the duodenumwas significant for a few cratered ulcers in the duodenal bulb measuring 5 and 6 mm in size with some active bleeding from the larger ulcer with some oozing of blood treated with epinephrine injection 6 mL and Endo Clip placement 2 with hemostasis achieved. The scope at this time was withdrawn to the stomach, adequately insufflated with air, and upon careful examination, mucosa of the antrum, body, cardia and the fundus appeared normal. The scope was then withdrawn into the esophagus. The GE junction was located at 36 cm from the incisors With a small 1 cm hiatal hernia noted and widely patent distal Schatzki's ring noted . The esophagus appeared normal. There were no erosions or ulcerations seen and the patient tolerated the procedure well. IMPRESSION: 1. 2 cratered duodenal ulcers with active oozing of blood treated with epinephrine injection and Endo Clip placement 2. 2. Small hiatal hernia. 3. Widely patent distal Schatzki's ring. RECOMMENDATIONS: The findings of this examination were discussed with the patient in the medical team. Okay for full liquid diet. Continue IV Protonix twice a day with transition to oral Protonix twice daily after discharge which should be continued for at least 8 weeks. Okay for discharge tomorrow if hemodynamically stable with no further bleeding.
[2021-04-02] MEDS ORDERED: MORPHINE SULFATE 2 MG/ML SYRINGE IVP STA (12:12)
[2021-04-02] MEDS: HYDROmorphone 0.5 MG/0.5 ML SYRINGE IVP PRN (17:52)
--- NOTE | 2021-04-02 19:02 | PN ---
PROGRESS NOTE DATE OF SERVICE: 04/02/2021 CHIEF COMPLAINT: GI bleed and blood-loss anemia. HISTORY OF PRESENT ILLNESS: This gentleman continues to bleed and drop his hemoglobin below 7. He is scheduled to go for endoscopies today. PHYSICAL EXAMINATION: Chest is clear. Cardiac exam is normal. The abdomen is flat, soft and nontender. IMPRESSION: 1. Gastrointestinal bleed. 2. Blood loss anemia. PLAN: GI endoscopies today. MMODL / IJN: [id number] /
[2021-04-02 19:32] VITALS: RESP 16
[2021-04-02] MEDS ORDERED: traZODone HCL 50 MG TAB PO SCH (21:00)
[2021-04-03] MEDS: HYDROmorphone 0.5 MG/0.5 ML SYRINGE IVP PRN ×2 (01:37→09:30)
[2021-04-03] MEDS: SODIUM CHLORIDE 0.9% 1,000 ML IV SCH (07:12)
[2021-04-03] MEDS: busPIRone HCl 5 MG TAB PO SCH (09:29)
[2021-04-03] MEDS: ALPRAZolam 0.25 MG TAB PO PRN (09:29)
[2021-04-03] MEDS: PANTOPRAZOLE 40 MG/10 ML VIAL IVP SCH (09:30)
[2021-04-03] MEDS ORDERED: FAMOTIDINE 20 MG TAB PO STA (12:03)
[2021-04-03] MEDS ORDERED: SUCRALFATE 1 GM TAB PO SCH (12:30)
[2021-04-03 14:10] LABS: Basophils # (A) 0.1 k/uL (0-0.2); Basophils % (A) 1 %; Eosinophils # (A) 0.3 k/uL (0-0.7); Eosinophils % (A) 3 %; HCT 25.1 % (39.0-53.0); Lymphocytes # (A) 2.6 k/uL (1.0-4.8); Lymphocytes % (A) 32 %; MCH 30.1 pg (25.0-35.0); MCHC 33.7 g/dL (31.0-37.0); MCV 89.4 fL (80.0-100.0); Mean Platelet Volume 9.2; Monocytes # (A) 0.4 k/uL (0-1.0); Monocytes % (A) 5 %; Neutrophils # (A) 4.7 k/uL (1.3-7.7); Neutrophils % (A) 58 %; Platelet Count 248 k/uL (150-450); RBC 2.81 m/uL (4.30-5.90); WBC 8.1 k/uL (3.8-10.6)
[2021-04-03 14:15] LABS: HGB 8.5 gm/dL (13.0-17.5)
[2021-04-03 14:58] VITALS: BP 123/78; PULSE 81; TEMP 98.8
--- NOTE | 2021-04-03 14:59 | P.PN ---
Subjective Progress Note Date: 04/03/21 Principal diagnosis: GI bleed, duodenal ulcer The patient is seen sitting bedside. No acute complaints. No signs or symptoms of GI bleeding. Tolerating diet. Asking for discharge. Objective - Vital Signs Vital signs: Vital Signs Temp 97.9 F 04/03/21 07:00 Pulse 77 04/03/21 07:00 Resp 16 04/03/21 07:00 BP 109/67 04/03/21 07:00 Pulse Ox 100 04/03/21 07:00 Intake & Output 04/02/21 04/03/21 04/03/21 18:59 06:59 18:59 Intake Total 1060 458 Output Total 600 850 Balance 460 -392 Intake: IV 300 Oral 450 458 Blood Product 310 Rc As-1 Unit 310 [id number] Output: Urine 600 850 Other: Voiding Method Toilet Toilet # Voids 2 - Exam On physical examination, patient appears comfortable in no apparent distress. HEAD: Normocephalic, atraumatic. EYES: No scleral icterus. No conjunctival injection. MOUTH: No lesions, tongue midline. NECK: Trachea midline, no gross abnormalities. ABDOMEN: Soft, thin and nontender to palpation. Bowel sounds are positive. No organomegaly. No guarding or rigidity. EXTREMITIES: No pedal edema. SKIN: No rashes, no jaundice. NEUROLOGIC: Alert and oriented x3. No focal deficits. - Labs CBC & Chem 7: 04/03/21 13:26 03/31/21 14:59 Labs: Abnormal Lab Results - Last 24 Hours (Table) 03/31/21 Range/Units 14:55 Crossmatch See Detail Microbiology - Last 24 Hours (Table) 03/31/21 18:55 Blood Culture - Preliminary Blood No Growth after 48 hours Assessment and Plan (1) GI bleed Narrative/Plan: 51-year-old male with multiple medical comorbidities including a history of peptic ulcer disease and chronic NSAID use who presented to the hospital due to concerns of GI bleed. He reports dark colored and red blood with associated abdominal cramping. Found to have actively elevated BUN and acute fall in hemoglobin from 9.3 on presentation to 6.2. No further signs or symptoms of bleeding and patient has been hemodynamically stable. He does have a history of peptic ulcer disease in 2019 with a large duodenal ulcer found at that time with active oozing treated with Endo Clip placement. S EGD on 04/02/21 again showed a duodenal ulcer with some active oozing of blood treated with epinephrine injection and Endo Clip placement. Currently tolerating diet with no signs or symptoms of GI bleeding and asking for discharge. Current Visit: Yes Status: Acute Code(s): K92.2 - GASTROINTESTINAL HEMORRHAGE, UNSPECIFIED SNOMED Code(s): 41206120 (2) Anemia associated with acute blood loss Current Visit: Yes Status: Acute Code(s): D62 - ACUTE POSTHEMORRHAGIC ANEMIA SNOMED Code(s): 696865490 (3) History of peptic ulcer disease Current Visit: Yes Status: Acute Code(s): Z87.11 - PERSONAL HISTORY OF PEPTIC ULCER DISEASE SNOMED Code(s): 154567834 (4) Abdominal pain Current Visit: No Status: Acute Code(s): R10.9 - UNSPECIFIED ABDOMINAL PAIN SNOMED Code(s): 37397982 Plan: Supportive care Okay for diet as tolerated Recommend twice daily PPI therapy with either omeprazole twice daily or pantoprazole twice daily NSAID avoidance Continue to monitor stool output Thank you for allowing us to participate in the care of the patient
[2021-04-03] MEDS ORDERED: PANTOPRAZOLE 40 MG TABLET PO SCH (17:30)
--- NOTE | 2021-04-04 08:04 | DS ---
DISCHARGE SUMMARY CHIEF COMPLAINT: GI bleed. HISTORY OF PRESENT ILLNESS AND PHYSICAL EXAMINATION: Details of this man's history and physical can be found in the initial workup. LABORATORY STUDIES: While he was in a hospital he had laboratory studies, details of which can be found in the laboratory section of his chart. COURSE IN THE HOSPITAL: After admission he was placed on bedrest, started on intravenous fluids and seen by Gastroenterology. His hemoglobin remained unstable and he was transfused on several different occasions. He was taken to the operating room for upper GI endoscopy and was found to have a duodenal ulcer which was bleeding, at which time this source of hemorrhage was stopped. He is doing well. It was felt he could be discharged. He will go home on usual activity, a regular diet and Protonix 40 mg twice a day and Carafate q.i.d. He will be seen in the office in a day or so. FINAL DIAGNOSES: 1. Upper gastrointestinal hemorrhage. 2. Blood-loss anemia. 3. Duodenal and peptic ulcer disease. OPERATIONS: Endoscopy. CONSULTATIONS: General Surgery. He is improved. MMODL / THIAGON: [id number] /
[2021-04-04] MEDS ORDERED: IRON POLYSACCHARIDES COMPLEX 150 MG CAP PO SCH (12:00)
== END 2021-04-03 14:46 | disposition home or self-care (01) | DRG 378 ==
LOC: EC 14:03 → 6NMEDSUR 18:39 → OBSVTOIN 04-02 10:04
PROVIDERS: ADMIT Family Medicine; ATTEND Family Medicine
PROC: 30233N1 Transfusion of Nonautologous Red Blood Cells into Peripheral Vein, Percutaneous Approach (ICD-10-PCS; 2021-03-31)
PROC: 0W3P8ZZ Control Bleeding in Gastrointestinal Tract, Via Natural or Artificial Opening Endoscopic (ICD-10-PCS; principal; 2021-04-02 11:40)
PROC: 3E0G8GC Introduction of Other Therapeutic Substance into Upper GI, Via Natural or Artificial Opening Endoscopic (ICD-10-PCS; 2021-04-02 11:40)
DX: K26.4 Chronic or unspecified duodenal ulcer with hemorrhage (principal); D62 Acute posthemorrhagic anemia; F17.200 Nicotine dependence, unspecified, uncomplicated; F41.9 Anxiety disorder, unspecified; F32.9 Major depressive disorder, single episode, unspecified; F90.9 Attention-deficit hyperactivity disorder, unspecified type; K22.2 Esophageal obstruction; K44.9 Diaphragmatic hernia without obstruction or gangrene; F12.90 Cannabis use, unspecified, uncomplicated; F20.9 Schizophrenia, unspecified; Z79.1 Long term (current) use of non-steroidal anti-inflammatories (NSAID); Z20.822 Contact with and (suspected) exposure to COVID-19
CPT/HCPCS: 36415; 43255; 44404; 70450; 80053; 80306; 82272; 83605; 85025; 85027; 85610; 85730; 86850; 86900; 86901; 86920; 87040; 87635; 93005; 96374; 99285

== ENCOUNTER 2024-02-11 11:40 | Emergency (ER) | payer OTHER ==
--- NOTE | 2024-02-11 12:37 | ED ---
Abdominal Pain HPI - General Chief Complaint: Abdominal Pain Stated Complaint: abd pain Time Seen by Provider: 02/11/24 11:50 Source: patient, EMS, RN notes reviewed Mode of arrival: ambulatory Limitations: no limitations - History of Present Illness Initial Comments: 55-year-old male presents emergency department with chief complaint of abdominal pain. Patient states started yesterday worsened today. Patient does not admit to nausea vomiting states that he had a prior peptic ulcer rupture states this is a few years ago he supposed to be on prednisone states that he ran out over a week ago. Patient denies any change in bowel habits denies any hematemesis he states he just has severe diffuse abdominal pain. Denies chest pain shortness of breath headache or dizziness no back pain - Related Data Previous Rx's Medication Instructions Recorded Ferrous Sulfate [Feosol] 325 mg PO TID #30 tab 04/03/21 Pantoprazole [Protonix] 40 mg PO AC-BID #20 tablet. 04/03/21 Sucralfate [Carafate] 1 gm PO ACHS #60 tab 04/03/21 Pantoprazole [Protonix] 40 mg PO DAILY #30 tab 02/11/24 Sucralfate [Carafate] 1 gm PO BID #60 tablet 02/11/24 Allergies Allergy/AdvReac Type Severity Reaction Status Date / Time No Known Allergies Allergy Verified 02/11/24 12:00 Review of Systems ROS Statement: Those systems with pertinent positive or pertinent negative responses have been documented in the HPI. ROS Other: All systems not noted in ROS Statement are negative. Past Medical History Past Medical History: GERD/Reflux, GI Bleed, Musculoskeletal Disorder Additional Past Medical History / Comment(s): right arm infection/necrosis, bilateral pleural effusions with R thoracentesis/severe pulmonary, GI bleed, gastric ulcers/duodenal ulcer, gastritis, chronic back pain, bilateral carpal tunnel syndrome, gallbladder polyp, past bilateral foot fractures-L foot surgically repaired-pt states it didn't "work" so he chose not to have surgery on his R foot History of Any Multi-Drug Resistant Organisms: None Reported Past Surgical History: Hernia Repair, Orthopedic Surgery Additional Past Surgical History / Comment(s): I&D right forearm/fasciotomy, fracture repair L foot, EGD with repair of perforated ulcer with endo clip, colonoscopy, pain procedures, carpal tunnel surgery on left hand, left shoulder surgery 2021 Past Anesthesia/Blood Transfusion Reactions: No Reported Reaction Additional Past Anesthesia/Blood Transfusion Reaction / Comment(s): Pt has received blood without reaction. Past Psychological History: ADD/ADHD, Anxiety, Schizophrenia Smoking Status: Former smoker Past Alcohol Use History: Rare Past Drug Use History: Marijuana - Past Family History Father Family Medical History: Sleep Apnea/CPAP/BIPAP Additional Family Medical History / Comment(s): -suffered from obstructive sleep apnea Mother Family Medical History: No Reported History Additional Family Medical History / Comment(s): General Exam Limitations: no limitations General appearance: alert, in no apparent distress Head exam: Present: atraumatic, normocephalic, normal inspection Eye exam: Present: normal appearance, PERRL, EOMI. Absent: scleral icterus, conjunctival injection, periorbital swelling ENT exam: Present: mucous membranes moist. Absent: normal exam, normal oropharynx Neck exam: Present: normal inspection. Absent: tenderness, meningismus, lymphadenopathy Respiratory exam: Present: normal lung sounds bilaterally. Absent: respiratory distress, wheezes, rales, rhonchi, stridor Cardiovascular Exam: Present: regular rate, normal rhythm, normal heart sounds. Absent: systolic murmur, diastolic murmur, rubs, gallop, clicks GI/Abdominal exam: Present: soft, tenderness, guarding, normal bowel sounds. Absent: distended, rebound, rigid Course Vital Signs 02/11/24 02/11/24 02/11/24 11:48 12:08 13:04 Temperature 98.2 F Pulse Rate 82 77 71 Respiratory 16 16 14 Rate Blood Pressure 160/103 160/110 175/106 O2 Sat by Pulse 97 97 98 Oximetry 02/11/24 13:32 Temperature Pulse Rate 74 Respiratory 18 Rate Blood Pressure 154/109 O2 Sat by Pulse 99 Oximetry Medical Decision Making - Medical Decision Making Was pt. sent in by a medical professional or institution (, PA, [facility], urgent care, hospital, or [place] health care facility...) When possible be specific @ -No Did you speak to anyone other than the patient for history (EMS, parent, family, police, friend...)? What history was obtained from this source @ -No Did you review nursing and triage notes (agree or disagree)? Why? @ -I reviewed and agree with nursing and triage notes Were old charts reviewed (outside hosp., previous admission, EMS record, old EKG, old radiological studies, urgent care reports/EKG's, [place] health care facility records)? Report findings @ -Prior admission, CBC, comp Differential Diagnosis (chest pain, altered mental status, abdominal pain women, abdominal pain men, vaginal bleeding, weakness, fever, dyspnea, syncope, headache, dizziness, GI bleed, back pain, seizure, CVA, palpatations, mental health, musculoskeletal)? @ -Differential Abdominal Pain Men: Appendicitis, cholecystitis, diverticulosis, ischemic bowel, pancreatitis, hepatitis, UTI, gastroenteritis, AAA, incarcerated hernia, bowel obstruction, constipation, inflammatory bowel, hepatitis, peptic ulcer disease, splenic infarction, perforated viscus, testicular torsion, this is not meant to be an all-inclusive list EKG interpreted by me (3pts min.). @ -None X-rays interpreted by me (1pt min.). @ -None done CT interpreted by me (1pt min.). @ -CT abdomen pelvis shows no acute intra-abdominal process no evidence of free air U/S interpreted by me (1pt. min.). @ -None done What testing was considered but not performed or refused? (CT, X-rays, U/S, labs)? Why? @ -None What meds were considered but not given or refused? Why? @ -None Did you discuss the management of the patient with other professionals (professionals i.e. , PA, [facility] [employer], lab, RT, psych nurse, administrator social welfare, entry level web developer, teacher, crime prevention police officer, rehabilitation case coordinator)? Give summary @ -No Was smoking cessation discussed for >3mins.? @ -No Was critical care preformed (if so, how long)? @ -No Were there social determinants of health that impacted care today? How? (Homelessness, low income, unemployed, alcoholism, drug addiction, transportation, low edu. Level, literacy, decrease access to med. care, shelter, rehab)? @ -No Was there de-escalation of care discussed even if they declined (Discuss DNR or withdrawal of care, Hospice)? DNR status @ -No What co-morbidities impacted this encounter? (DM, HTN, Smoking, COPD, CAD, Cancer, CVA, ARF, Chemo, Hep., AIDS, mental health diagnosis, sleep apnea, morbid obesity)? @ -GERD, peptic ulcer disease Was patient admitted / discharged? Hospital course, mention meds given and route, prescriptions, significant lab abnormalities, going to OR and other pertinent info. @ -Chest is laboratory findings, CT is unremarkable feels improved after GI cocktail and Protonix he has been off his meds for over a week for his ulcers. He will be restarted on his medications including Carafate Undiagnosed new problem with uncertain prognosis? @ -No Drug Therapy requiring intensive monitoring for toxicity (Heparin, Nitro, Insulin, Cardizem)? @ -No Were any procedures done? @ -No Diagnosis/symptom? @ -Peptic ulcer disease, abdominal pain Acute, or Chronic, or Acute on Chronic? @ -Acute Uncomplicated (without systemic symptoms) or Complicated (systemic symptoms)? @ -Uncomplicated Side effects of treatment? @ -No Exacerbation, Progression, or Severe Exacerbation? @ -No Poses a threat to life or bodily function? How? (Chest pain, [place], [place], pneumonia, PE, COPD, DKA, ARF, appy, cholecystitis, CVA, Diverticulitis, Homicidal, Suicidal, threat to staff... and all critical care pts) @ -No - Lab Data Result diagrams: 02/11/24 12:38 02/11/24 12:38 Lab Results 02/11/24 02/11/24 02/11/24 Range/Units 12:38 12:38 12:38 WBC 10.4 (3.8-10.6) k/uL RBC 4.89 (4.30-5.90) m/uL Hgb 14.6 (13.0-17.5) gm/dL Hct 46.6 (39.0-53.0) % MCV 95.4 (80.0-100.0) fL MCH 29.8 (25.0-35.0) pg MCHC 31.3 (31.0-37.0) g/dL RDW 12.8 (11.5-15.5) % Plt Count 263 (150-450) k/uL MPV 9.0 Neutrophils % 82 % Lymphocytes % 11 % Monocytes % 5 % Eosinophils % 1 % Basophils % 0 % Neutrophils # 8.6 H (1.3-7.7) k/uL Lymphocytes # 1.2 (1.0-4.8) k/uL Monocytes # 0.5 (0-1.0) k/uL Eosinophils # 0.1 (0-0.7) k/uL Basophils # 0.0 (0-0.2) k/uL PT 9.9 L (10.0-12.5) sec INR 0.9 (<1.2) APTT 21.1 L (22.0-30.0) sec Sodium 138 (137-145) mmol/L Potassium 4.6 (3.5-5.1) mmol/L Chloride 107 (98-107) mmol/L Carbon Dioxide 26 (22-30) mmol/L Anion Gap 5 mmol/L BUN 12 (9-20) mg/dL Creatinine 0.66 (0.66-1.25) mg/dL Est GFR (CKD-EPI)AfAm >90 (>60 ml/min/1.73 sqM) Est GFR (CKD-EPI)NonAf >90 (>60 ml/min/1.73 sqM) Glucose 112 H (74-99) mg/dL Plasma Lactic Acid Daquan (0.7-2.0) mmol/L Calcium 9.1 (8.4-10.2) mg/dL Total Bilirubin 0.3 (0.2-1.3) mg/dL AST 30 (17-59) U/L ALT 26 (4-49) U/L Alkaline Phosphatase 85 (38-126) U/L Total Protein 7.3 (6.3-8.2) g/dL Albumin 4.3 (3.5-5.0) g/dL Lipase 140 (23-300) U/L 02/11/24 Range/Units 12:38 WBC (3.8-10.6) k/uL RBC (4.30-5.90) m/uL Hgb (13.0-17.5) gm/dL Hct (39.0-53.0) % MCV (80.0-100.0) fL MCH (25.0-35.0) pg MCHC (31.0-37.0) g/dL RDW (11.5-15.5) % Plt Count (150-450) k/uL MPV Neutrophils % % Lymphocytes % % Monocytes % % Eosinophils % % Basophils % % Neutrophils # (1.3-7.7) k/uL Lymphocytes # (1.0-4.8) k/uL Monocytes # (0-1.0) k/uL Eosinophils # (0-0.7) k/uL Basophils # (0-0.2) k/uL PT (10.0-12.5) sec INR (<1.2) APTT (22.0-30.0) sec Sodium (137-145) mmol/L Potassium (3.5-5.1) mmol/L Chloride (98-107) mmol/L Carbon Dioxide (22-30) mmol/L Anion Gap mmol/L BUN (9-20) mg/dL Creatinine (0.66-1.25) mg/dL Est GFR (CKD-EPI)AfAm (>60 ml/min/1.73 sqM) Est GFR (CKD-EPI)NonAf (>60 ml/min/1.73 sqM) Glucose (74-99) mg/dL Plasma Lactic Acid Daquan 1.0 (0.7-2.0) mmol/L Calcium (8.4-10.2) mg/dL Total Bilirubin (0.2-1.3) mg/dL AST (17-59) U/L ALT (4-49) U/L Alkaline Phosphatase (38-126) U/L Total Protein (6.3-8.2) g/dL Albumin (3.5-5.0) g/dL Lipase (23-300) U/L Disposition Clinical Impression: History of peptic ulcer disease, Epigastric pain Disposition: HOME SELF-CARE Condition: Stable Instructions (If sedation given, give patient instructions): Diet for Stomach Ulcers and Gastritis (ED), Gastritis (ED) Additional Instructions: Please return to the Emergency Department if symptoms worsen or any other concerns. Prescriptions: Sucralfate [Carafate] 1 gm PO BID #60 tablet Pantoprazole [Protonix] 40 mg PO DAILY #30 tab Is patient prescribed a controlled substance at d/c from ED?: No Referrals: Iraj Silva MD [Primary Care Provider] - 1-2 days Time of Disposition: 14:27
[2024-02-11] MEDS: SODIUM CHLORIDE 0.9% 1,000 ML IV STA (12:56)
[2024-02-11] MEDS: PANTOPRAZOLE 40 MG/10 ML VIAL IVP STA (12:58)
[2024-02-11] MEDS: SODIUM CHLORIDE 0.9% 500 ML 500 ML IV STA (12:59)
[2024-02-11] MEDS: METOCLOPRAMIDE 5 MG/ML 2 ML VIAL IVP STA (13:00)
[2024-02-11 13:02] LABS: Basophils % (A) 0 %; Eosinophils # (A) 0.1 k/uL (0-0.7); Eosinophils % (A) 1 %; HCT 46.6 % (39.0-53.0); HGB 14.6 gm/dL (13.0-17.5); Lymphocytes # (A) 1.2 k/uL (1.0-4.8); Lymphocytes % (A) 11 %; MCH 29.8 pg (25.0-35.0); MCHC 31.3 g/dL (31.0-37.0); MCV 95.4 fL (80.0-100.0); Monocytes # (A) 0.5 k/uL (0-1.0); Monocytes % (A) 5 %; Neutrophils # (A) 8.6 k/uL (1.3-7.7); Neutrophils % (A) 82 %; Platelet Count 263 k/uL (150-450); RBC 4.89 m/uL (4.30-5.90); RDW 12.8 % (11.5-15.5); WBC 10.4 k/uL (3.8-10.6)
[2024-02-11 13:17] LABS: ALT 26 U/L (4-49); AST 30 U/L (17-59); African American GFR (CKD) >90 (>60 ml/min/1.73 sqM); Albumin 4.3 g/dL (3.5-5.0); Alkaline Phosphatase 85 U/L (38-126); Anion Gap 5 mmol/L; Blood Urea Nitrogen 12 mg/dL (9-20); Calcium 9.1 mg/dL (8.4-10.2); Carbon Dioxide 26 mmol/L (22-30); Chloride 107 mmol/L (98-107); Glucose 112 mg/dL (74-99); Lipase 140 U/L (23-300); Non-African American GFR(CKD) >90 (>60 ml/min/1.73 sqM); Potassium 4.6 mmol/L (3.5-5.1); Sodium 138 mmol/L (137-145); Total Bilirubin 0.3 mg/dL (0.2-1.3); Total Protein 7.3 g/dL (6.3-8.2)
[2024-02-11] MEDS: HYDROmorphone 0.5 MG/0.5 ML SYRINGE IVP STA (13:30)
[2024-02-11 13:37] LABS: INR 0.9 (<1.2); Prothrombin Time 9.9 sec (10.0-12.5)
[2024-02-11 13:56] LABS: Partial Thromboplastin Time 21.1 sec (22.0-30.0)
--- NOTE | 2024-02-11 14:02 | CT ---
EXAMINATION TYPE: CT abdomen pelvis w con CT DLP: 404.4 mGycm, Automated exposure control for dose reduction was used. DATE OF EXAM: 02/11/2024 1:33 PM COMPARISON: 12/08/2020 CLINICAL INDICATION:Male, 54 years old with history of abdominal pain; ABD PAIN TECHNIQUE: Axial CT abdomen pelvis w con;Sagittal and coronal reformats were created on a separate w orkstation. Contrast used:100 mL of Isovue 300 with IV Contrast, (none if empty) Oral contrast used: without Oral Contrast (none if empty) FINDINGS: LOWER CHEST: Unremarkable ABDOMEN LIVER: Unremarkable GALLBLADDER AND BILE DUCTS: Unremarkable. PANCREAS: Unremarkable. SPLEEN: Unremarkable. ADRENAL GLANDS: Unremarkable. KIDNEYS AND URETERS: There is a 4 mm left renal calculus. No right renal calculus. No obstructive uro lee. PELVIS BLADDER: Unremarkable REPRODUCTIVE: Unremarkable. ABDOMEN & PELVIS STOMACH AND BOWEL: No evidence of bowel obstruction. The appendix is normal. PERITONEUM/RETROPERITONEUM: No evidence of pneumoperitoneum or free fluid. VASCULATURE: No evidence of aortic aneurysm. MUSCULOSKELETAL: No acute osseous abnormalities LYMPH NODES: No gross evidence for lymphadenopathy. SOFT TISSUE/ABDOMINAL WALL: There is a fluid collection in the right inguinal canal with the right te stis in the inguinal canal. No left inguinal hernia. No abdominal wall hernia. IMPRESSION: 1. There is a fluid collection in the right inguinal canal with the right testis in the inguinal can al. 2. No evidence of left inguinal hernia. No abdominal wall hernia. 3. Normal appendix. No obstructive uropathy. 4. Nonobstructing left renal calculus.
[2024-02-11] MEDS: MAG HYDROX/AL HYDROX/SIMETH 30 ML, HYOSCYAMINE ELIXIR 10 ML, LIDOCAINE VISCOUS 2% 10 ML PO STA (14:20)
[2024-02-11 15:46] VITALS: BP 163/108; PULSE 58; RESP 16; TEMP 97.9
== END 2024-02-11 15:31 | disposition home or self-care (01) ==
LOC: EC 11:40
DX: R10.13 Epigastric pain (principal); Z87.11 Personal history of peptic ulcer disease; F12.90 Cannabis use, unspecified, uncomplicated; Z87.891 Personal history of nicotine dependence
CPT/HCPCS: 36415; 80053; 83605; 83690; 85025; 85610; 85730; 74177; 96374; 96375 ×2; 96361 ×2; 99285; J2765; C9113; J1170; Q9967

== ENCOUNTER 2024-02-16 08:20 | Observation (INO) | payer OTHER ==
--- NOTE | 2024-02-16 08:41 | ED ---
General Adult HPI - General Chief complaint: GI Bleed Stated complaint: Black stool Time Seen by Provider: 02/16/24 08:25 Source: patient, EMS, RN notes reviewed, old records reviewed Mode of arrival: EMS Limitations: no limitations - History of Present Illness Initial comments: This is a 54-year-old male who presents to the emergency department stating he has had a GI bleed in the past. Patient states he comes in today because his stools are black and he vomited up a little bit of blood so he thinks his symptoms are getting worse. Patient denies any lightheadedness or dizziness. Patient has any shortness of breath or difficulty breathing. Patient has any chest pain. Patient states he is having lower abdominal cramping. Patient denies any blood thinners. Patient denies any drinking. - Related Data Previous Rx's Medication Instructions Recorded Pantoprazole [Protonix] 40 mg PO DAILY #30 tab 02/11/24 Sucralfate [Carafate] 1 gm PO BID #60 tablet 02/11/24 Allergies Allergy/AdvReac Type Severity Reaction Status Date / Time No Known Allergies Allergy Verified 02/16/24 09:34 Review of Systems ROS Statement: Those systems with pertinent positive or pertinent negative responses have been documented in the HPI. ROS Other: All systems not noted in ROS Statement are negative. Past Medical History Past Medical History: GERD/Reflux, GI Bleed, Musculoskeletal Disorder Additional Past Medical History / Comment(s): right arm infection/necrosis, bilateral pleural effusions with R thoracentesis/severe pulmonary, GI bleed, gastric ulcers/duodenal ulcer, gastritis, chronic back pain, bilateral carpal tunnel syndrome, gallbladder polyp, past bilateral foot fractures-L foot surgically repaired-pt states it didn't "work" so he chose not to have surgery on his R foot History of Any Multi-Drug Resistant Organisms: None Reported Past Surgical History: Hernia Repair, Orthopedic Surgery Additional Past Surgical History / Comment(s): I&D right forearm/fasciotomy, fracture repair L foot, EGD with repair of perforated ulcer with endo clip, colonoscopy, pain procedures, carpal tunnel surgery on left hand, left shoulder surgery 2021 Past Anesthesia/Blood Transfusion Reactions: No Reported Reaction Additional Past Anesthesia/Blood Transfusion Reaction / Comment(s): Pt has received blood without reaction. Past Psychological History: ADD/ADHD, Anxiety, Schizophrenia Smoking Status: Former smoker Past Alcohol Use History: Rare Past Drug Use History: Marijuana - Past Family History Father Family Medical History: Sleep Apnea/CPAP/BIPAP Additional Family Medical History / Comment(s): -suffered from obstru ctive sleep apnea Mother Family Medical History: No Reported History Additional Family Medical History / Comment(s): General Exam - General Exam Comments Initial Comments: GENERAL: Patient is well-developed and well-nourished. Patient is nontoxic and well- hydrated and is in mild distress. ENT: Neck is soft and supple. No significant lymphadenopathy is noted. Oropharynx is clear. Moist mucous membranes. Neck has full range of motion without eliciting any pain. EYES: The sclera were anicteric and conjunctiva were pink and moist. Extraocular movements were intact and pupils were equal round and reactive to light. Eyelids were unremarkable. PULMONARY: Unlabored respirations. Good breath sounds bilaterally. No audible rales rhonchi or wheezing was noted. CARDIOVASCULAR: There is a regular rate and rhythm without any murmurs gallops or rubs. ABDOMEN: Soft and nontender with normal bowel sounds. No palpable organomegaly was noted. There is no palpable pulsatile mass. SKIN: Skin is clear with no lesions or rashes and otherwise unremarkable. NEUROLOGIC: Patient is alert and oriented x3. Cranial nerves II through XII are grossly intact. Motor and sensory are also intact. Normal speech, volume and content. Symmetrical smile. MUSCULOSKELETAL: Normal extremities with adequate strength and full range of motion. LYMPHATICS: No significant lymphadenopathy is noted PSYCHIATRIC: Normal psychiatric evaluation. Limitations: no limitations Course Vital Signs 02/16/24 08:24 Temperature 98.1 F Pulse Rate 79 Respiratory 18 Rate Blood Pressure 136/97 O2 Sat by Pulse 99 Oximetry Medical Decision Making - Medical Decision Making EKG is interpreted by myself but EKG shows a paced rhythm at 61 bpm QRS 173 QT interval is 483 QTc is 485. Was pt. sent in by a medical professional or institution (, PA, MAT CLEANING MACHINE OPERATOR, urgent care, hospital, or [facility]...) When possible be specific @ -No Did you speak to anyone other than the patient for history (EMS, parent, family, police, friend...)? What history was obtained from this source @ -No Did you review nursing and triage notes (agree or disagree)? Why? @ -I reviewed and agree with nursing and triage notes Were old charts reviewed (outside hosp., previous admission, EMS record, old EKG, old radiological studies, urgent care reports/EKG's, [facility] records)? Report findings @ -I compared patient's lab work today from the prior visit in the emergency department of 5 days ago. Patient's lab work had not changed at all hemoglobin was stable. Differential Diagnosis (chest pain, altered mental status, abdominal pain women, abdominal pain men, vaginal bleeding, weakness, fever, dyspnea, syncope, headache, dizziness, GI bleed, back pain, seizure, CVA, palpatations, mental health, musculoskeletal)? @ -Differential GI Bleed: Esophageal varices, aortoenteric fistula, Sana-Melgar, gastritis, peptic ulcer disease, diverticulosis, inflammatory bowel disease, hemorrhoids, fissure, colitis, malignancy, Meckels diverticulum, this is not meant to be an all- inclusive list. EKG interpreted by me (3pts min.). @ -As above X-rays interpreted by me (1pt min.). @ -None done CT interpreted by me (1pt min.). @ -None done U/S interpreted by me (1pt. min.). @ -None done What testing was considered but not performed or refused? (CT, X-rays, U/S, labs)? Why? @ -None What meds were considered but not given or refused? Why? @ -None Did you discuss the management of the patient with other professionals (professionals i.e. , PA, MAT CLEANING MACHINE OPERATOR, lab, RT, psych nurse, social sciences professor, bar back, teacher, biosecurity officer, rn field case manager)? Give summary @ -I spoke with Dr. Lawton and he agreed to admit the patient admit the patient wrote admitting orders Was smoking cessation discussed for >3mins.? @ -No Was critical care preformed (if so, how long)? @ -No Were there social determinants of health that impacted care today? How? (Homelessness, low income, unemployed, alcoholism, drug addiction, transportation, low edu. Level, literacy, decrease access to med. care, half-way, rehab)? @ -No Was there de-escalation of care discussed even if they declined (Discuss DNR or withdrawal of care, Hospice)? DNR status @ -No What co-morbidities impacted this encounter? (DM, HTN, Smoking, COPD, CAD, Cancer, CVA, ARF, Chemo, Hep., AIDS, mental health diagnosis, sleep apnea, morbid obesity)? @ -None Was patient admitted / discharged? Hospital course, mention meds given and route, prescriptions, significant lab abnormalities, going to OR and other pertinent info. @ -Patient's hemoglobin was stable so there was no need to get blood at this time. Patient will be admitted I gave the patient IV fluids while in the emergency department. I talked to Dr. Silva and he agreed to admit the patient admit the patient wrote admitting orders I consulted GI Undiagnosed new problem with uncertain prognosis? @ -No Drug Therapy requiring intensive monitoring for toxicity (Heparin, Nitro, Insulin, Cardizem)? @ -No Were any procedures done? @ -No Diagnosis/symptom? @ -GI bleed Acute, or Chronic, or Acute on Chronic? @ -Acute Uncomplicated (without systemic symptoms) or Complicated (systemic symptoms)? @ -Complicated Side effects of treatment? @ -No Exacerbation, Progression, or Severe Exacerbation? @ -No Poses a threat to life or bodily function? How? (Chest pain, USA, ND, pneumonia, PE, COPD, DKA, ARF, appy, cholecystitis, CVA, Diverticulitis, Homicidal, Suic idal, threat to staff... and all critical care pts) @ -Yes this can lead to anemia and hypoxia and endorgan dysfunction - Lab Data Result diagrams: 02/16/24 08:27 02/16/24 08:27 Lab Results 02/16/24 02/16/24 02/16/24 Range/Units 08:27 08:27 08:27 WBC 9.0 (3.8-10.6) k/uL RBC 4.25 L (4.30-5.90) m/uL Hgb 13.2 (13.0-17.5) gm/dL Hct 40.1 (39.0-53.0) % MCV 94.4 (80.0-100.0) fL MCH 31.2 (25.0-35.0) pg MCHC 33.0 (31.0-37.0) g/dL RDW 12.7 (11.5-15.5) % Plt Count 267 (150-450) k/uL MPV 9.0 Neutrophils % 63 % Lymphocytes % 22 % Monocytes % 9 % Eosinophils % 3 % Basophils % 1 % Neutrophils # 5.6 (1.3-7.7) k/uL Lymphocytes # 2.0 (1.0-4.8) k/uL Monocytes # 0.8 (0-1.0) k/uL Eosinophils # 0.3 (0-0.7) k/uL Basophils # 0.1 (0-0.2) k/uL PT 10.4 (10.0-12.5) sec INR 0.9 (<1.2) APTT 23.1 (22.0-30.0) sec Sodium 137 (137-145) mmol/L Potassium 4.3 (3.5-5.1) mmol/L Chloride 105 (98-107) mmol/L Carbon Dioxide 27 (22-30) mmol/L Anion Gap 5 mmol/L BUN 21 H (9-20) mg/dL Creatinine 0.68 (0.66-1.25) mg/dL Est GFR (CKD-EPI)AfAm >90 (>60 ml/min/1.73 sqM) Est GFR (CKD-EPI)NonAf >90 (>60 ml/min/1.73 sqM) Glucose 94 (74-99) mg/dL Plasma Lactic Acid Daquan (0.7-2.0) mmol/L Calcium 8.7 (8.4-10.2) mg/dL Magnesium 2.0 (1.6-2.3) mg/dL Total Bilirubin 0.3 (0.2-1.3) mg/dL AST 25 (17-59) U/L ALT 26 (4-49) U/L Alkaline Phosphatase 64 (38-126) U/L Troponin I (0.000-0.034) ng/mL Total Protein 6.9 (6.3-8.2) g/dL Albumin 4.1 (3.5-5.0) g/dL Blood Type Blood Type Recheck Bld Type Recheck Status Antibody Screen Spec Expiration Date 02/16/24 02/16/24 02/16/24 Range/Units 08:27 08:27 08:27 WBC (3.8-10.6) k/uL RBC (4.30-5.90) m/uL Hgb (13.0-17.5) gm/dL Hct (39.0-53.0) % MCV (80.0-100.0) fL MCH (25.0-35.0) pg MCHC (31.0-37.0) g/dL RDW (11.5-15.5) % Plt Count (150-450) k/uL MPV Neutrophils % % Lymphocytes % % Monocytes % % Eosinophils % % Basophils % % Neutrophils # (1.3-7.7) k/uL Lymphocytes # (1.0-4.8) k/uL Monocytes # (0-1.0) k/uL Eosinophils # (0-0.7) k/uL Basophils # (0-0.2) k/uL PT (10.0-12.5) sec INR (<1.2) APTT (22.0-30.0) sec Sodium (137-145) mmol/L Potassium (3.5-5.1) mmol/L Chloride (98-107) mmol/L Carbon Dioxide (22-30) mmol/L Anion Gap mmol/L BUN (9-20) mg/dL Creatinine (0.66-1.25) mg/dL Est GFR (CKD-EPI)AfAm (>60 ml/min/1.73 sqM) Est GFR (CKD-EPI)NonAf (>60 ml/min/1.73 sqM) Glucose (74-99) mg/dL Plasma Lactic Acid Daquan 0.8 (0.7-2.0) mmol/L Calcium (8.4-10.2) mg/dL Magnesium (1.6-2.3) mg/dL Total Bilirubin (0.2-1.3) mg/dL AST (17-59) U/L ALT (4-49) U/L Alkaline Phosphatase (38-126) U/L Troponin I <0.012 (0.000-0.034) ng/mL Total Protein (6.3-8.2) g/dL Albumin (3.5-5.0) g/dL Blood Type A Positive Blood Type Recheck A Pos Bld Type Recheck Status No Antibody Screen NEGATIVE Spec Expiration Date 02/19/20242326 Disposition Clinical Impression: GI bleeding Disposition: ADMITTED IP TO THIS [facility] Referrals: Iraj Silva MD [Primary Care Provider] - 1-2 days Time of Disposition: 11:06
[2024-02-16] MEDS: SODIUM CHLORIDE 0.9% 1,000 ML IV STA (08:50)
[2024-02-16] MEDS: HYDROmorphone 0.5 MG/0.5 ML SYRINGE IVP STA ×3 (08:50→18:18)
[2024-02-16 09:10] LABS: Basophils # (A) 0.1 k/uL (0-0.2); Basophils % (A) 1 %; Eosinophils # (A) 0.3 k/uL (0-0.7); Eosinophils % (A) 3 %; HCT 40.1 % (39.0-53.0); HGB 13.2 gm/dL (13.0-17.5); Lymphocytes % (A) 22 %; MCH 31.2 pg (25.0-35.0); MCV 94.4 fL (80.0-100.0); Monocytes # (A) 0.8 k/uL (0-1.0); Monocytes % (A) 9 %; Neutrophils # (A) 5.6 k/uL (1.3-7.7); Neutrophils % (A) 63 %; Platelet Count 267 k/uL (150-450); RBC 4.25 m/uL (4.30-5.90); RDW 12.7 % (11.5-15.5)
[2024-02-16 09:11] LABS: INR 0.9 (<1.2); Partial Thromboplastin Time 23.1 sec (22.0-30.0); Prothrombin Time 10.4 sec (10.0-12.5)
[2024-02-16 09:25] LABS: ALT 26 U/L (4-49); AST 25 U/L (17-59); African American GFR (CKD) >90 (>60 ml/min/1.73 sqM); Albumin 4.1 g/dL (3.5-5.0); Alkaline Phosphatase 64 U/L (38-126); Anion Gap 5 mmol/L; Blood Urea Nitrogen 21 mg/dL (9-20); Calcium 8.7 mg/dL (8.4-10.2); Carbon Dioxide 27 mmol/L (22-30); Chloride 105 mmol/L (98-107); Glucose 94 mg/dL (74-99); Non-African American GFR(CKD) >90 (>60 ml/min/1.73 sqM); Potassium 4.3 mmol/L (3.5-5.1); Sodium 137 mmol/L (137-145); Total Bilirubin 0.3 mg/dL (0.2-1.3); Total Protein 6.9 g/dL (6.3-8.2)
[2024-02-16] MEDS: SODIUM CHLORIDE 0.9% 1,000 ML IV ONE (13:43)
[2024-02-16] MEDS: SUCRALFATE 1 GM TAB PO SCH (21:09)
[2024-02-16] MEDS: PANTOPRAZOLE 40 MG/10 ML VIAL IVP SCH (21:09)
[2024-02-16] MEDS: HYDROcodone/APAP 5-325MG 1 EACH TAB PO PRN (21:55)
--- NOTE | 2024-02-17 08:20 | P.CONS ---
History of Present Illness - Reason for Consult Consult date: 02/17/24 GI bleed Requesting physician: Randal Hernandez - Chief Complaint Melena - History of Present Illness This is a pleasant 54-year-old male with a history of previous duodenal ulcer and GI bleed and GERD. Patient states for the last 4 days duration he has been noticing black stool. He also had an episode of emesis which he thought that he saw some blood. He has been taking NSAIDs for the last few days as well. He denies any anticoagulation. He has a history of previous duodenal ulcers. Last upper endoscopy was [address] Bradley with finding of 2 bleeding duodenal ulcers status post epinephrine and clip placement. He states he has a little bit of epigastric pain. No nausea or vomiting at this time. Admitting labs WBC 9.0 hemoglobin 13.2 hematocrit 40 platelet count 267,000 INR 0.9 sodium 137 potassium 4.3 BUN 21 creatinine 0.6 total bilirubin 0.3 AST 25 ALT 26 alkaline phosphatase 64. Today's labs are currently pending. Review of Systems REVIEW OF SYSTEMS: CARDIOPULMONARY: No chest pain or shortness of breath. Gastrointestinal: Acid reflux. Epigastric discomfort. No nausea or vomiting. No hematemesis, coffee-ground emesis. No rectal bleeding, patient reports dark black stool for 4 days. GENITOURINARY: No dysuria or hematuria. MUSCULOSKELETAL: Reports normal range of motion., Joint pain. SKIN: No rashes. No jaundice. ENDOCRINE: No chills, fevers. No excessive weight gain or loss. No polydipsia or polyuria. PSYCHIATRIC: Unremarkable. NEUROLOGY: No change in mental status. Denies dizziness, headache. ENT: Vision unremarkable. CONSTITUTIONAL: No recent weight loss. No fever, chills, night sweats. Past Medical History Past Medical History: GERD/Reflux, GI Bleed, Musculoskeletal Disorder Additional Past Medical History / Comment(s): right arm infection/necrosis, bilateral pleural effusions with R thoracentesis/severe pulmonary, GI bleed, gastric ulcers/duodenal ulcer, gastritis, chronic back pain, bilateral carpal tunnel syndrome, gallbladder polyp, past bilateral foot fractures-L foot surgically repaired-pt states it didn't "work" so he chose not to have surgery on his R foot History of Any Multi-Drug Resistant Organisms: None Reported Past Surgical History: Hernia Repair, Orthopedic Surgery Additional Past Surgical History / Comment(s): I&D right forearm/fasciotomy, fracture repair L foot, EGD with repair of perforated ulcer with endo clip, colonoscopy, pain procedures, carpal tunnel surgery on left hand, left shoulder surgery 2021 Past Anesthesia/Blood Transfusion Reactions: No Reported Reaction Additional Past Anesthesia/Blood Transfusion Reaction / Comm: Pt has received blood without reaction. Past Psychological History: ADD/ADHD, Anxiety, Schizophrenia Additional Psychological History / Comment(s): Pt states his depression has been increased lately d/t back/arm/foot pain Smoking Status: Former smoker Past Alcohol Use History: Rare Additional Past Alcohol Use History / Comment(s): states only drinks a few on the weekends, smokes maybe 3-4 cigs/day Past Drug Use History: Marijuana Additional Drug Use History / Comment(s): Pt tried meth IV through [facility] on 03/24/19 and was the first and only time IV. Pt states only marijuana use currently, daily use - Past Family History Father Family Medical History: Sleep Apnea/CPAP/BIPAP Additional Family Medical History / Comment(s): -suffered from obstructive sleep apnea Mother Family Medical History: No Reported History Additional Family Medical History / Comment(s): Medications and Allergies Home Medications Medication Instructions Recorded Confirmed Type Pantoprazole [Protonix] 40 mg PO DAILY #30 tab 02/11/24 02/16/24 Rx Sucralfate [Carafate] 1 gm PO BID #60 tablet 02/11/24 02/16/24 Rx Allergies Allergy/AdvReac Type Severity Reaction Status Date / Time No Known Allergies Allergy Verified 02/16/24 09:34 Physical Exam Vitals: Vital Signs Temp Pulse Pulse Resp BP BP Pulse Ox 02/17/24 02:32 74 14 02/17/24 01:03 98.0 F 74 14 107/66 98 02/16/24 20:40 97.8 F 70 16 133/88 98 02/16/24 19:53 87 18 131/98 98 02/16/24 08:24 98.1 F 79 18 136/97 99 Intake and Output 02/16/24 02/16/24 02/17/24 14:59 22:59 06:59 Other: Voiding Method Toilet # Voids 1 1 Weight 65.771 kg 65.771 kg General appearance: The patient is alert, oriented, appears in no acute dis tress. HET: Head is normocephalic and atraumatic. Conjunctiva pink. Sclera anicteric. Neck: Supple without lymphadenopathy. Trachea midline. Heart: Regular. Lungs: Equal expansion, normal respiratory effort. Abdomen: Soft mild epigastric tenderness, nondistended. Skin: No rashes. No jaundice. Extremities: Normal skin color and turgor. No pedal edema. Neurological: No focal deficits. Alert and oriented x3. Results CBC & Chem 7: 02/16/24 08:27 02/16/24 08:27 Labs: Abnormal Lab Results - Last 24 Hours (Table) 02/16/24 02/16/24 Range/Units 08:27 08:27 RBC 4.25 L (4.30-5.90) m/uL BUN 21 H (9-20) mg/dL Assessment and Plan (1) GI bleed Narrative/Plan: 54-year-old presenting with melena for last 4 days duration with a history of bleeding duodenal ulcers back in 2020 requiring epinephrine injection and clipping. Patient had recently been taking some increased amounts of NSAIDs. Possible etiologies include ulcer, esophagitis, gastritis, AVM or other possible etiologies. Will proceed with upper endoscopy. Avoid NSAIDs. Current Visit: Yes Status: Acute Code(s): K92.2 - GASTROINTESTINAL HEMORRHAGE, UNSPECIFIED SNOMED Code(s): 88486472 (2) Melena Current Visit: Yes Status: Acute Code(s): K92.1 - MELENA SNOMED Code(s): 1671990 (3) Epigastric pain Current Visit: No Status: Acute Code(s): R10.13 - EPIGASTRIC PAIN SNOMED Code(s): 57374106 Plan: 1. Continue symptomatic and supportive care 2. Keep n.p.o. 3. Repeat CBC, BMP. Transfuse for hemoglobin less than 7 4. Continue Protonix 40 mg twice daily 5. Avoid NSAIDs 6. Plan for upper endoscopy today 7. Further recommendations following endoscopy Thank you for allowing us to participate in the care of the patient, the GI service will sign off, gastroenterology will not be available at the hospital this weekend and through next week. If further evaluation by gastroenterology is required the patient will need transfer as per the primary team's discretion. Dr. Anthony Flores I agree with the dictator's note, documented as a scribe by Meenu Rodriguez.
[2024-02-17 10:49] LABS: HCT 43.2 % (39.0-53.0); HGB 13.6 gm/dL (13.0-17.5); MCH 30.8 pg (25.0-35.0); MCHC 31.5 g/dL (31.0-37.0); MCV 97.9 fL (80.0-100.0); Mean Platelet Volume 8.5; Platelet Count 239 k/uL (150-450); RBC 4.41 m/uL (4.30-5.90); RDW 12.6 % (11.5-15.5); WBC 8.6 k/uL (3.8-10.6)
[2024-02-17 11:04] LABS: African American GFR (CKD) >90 (>60 ml/min/1.73 sqM); Anion Gap 5 mmol/L; Blood Urea Nitrogen 11 mg/dL (9-20); Calcium 8.6 mg/dL (8.4-10.2); Carbon Dioxide 24 mmol/L (22-30); Chloride 109 mmol/L (98-107); Glucose 73 mg/dL (74-99); Non-African American GFR(CKD) >90 (>60 ml/min/1.73 sqM); Potassium 4.5 mmol/L (3.5-5.1); Sodium 138 mmol/L (137-145)
[2024-02-17 13:38] VITALS: BP 114/70; PULSE 71; RESP 16; TEMP 98.3
--- NOTE | 2024-02-17 23:36 | HP ---
HISTORY AND PHYSICAL CHIEF COMPLAINT: Abdominal pain, hematemesis, and melena. HISTORY OF PRESENT ILLNESS: This is another admission for this 54-year-old male. He came to emergency room with above-mentioned complaints. His hemoglobin was normal. He did have a positive stool for blood. REVIEW OF SYSTEMS: He denies any syncope, fever, chills, etc. Past medical history, family history, personal and social histories are unremarkable and noncontributory otherwise. It is not known about his drinking. PHYSICAL EXAMINATION: VITAL SIGNS: Normal. HEAD, EARS, EYES, NOSE, MOUTH AND THROAT: Normal. CHEST: Clear. CARDIAC: Normal with sinus rhythm. ABDOMEN: Soft, and nontender. EXTREMITIES: Normal. NEUROLOGICAL: He seemed to be intact. IMPRESSION: 1. Hematemesis. 2. Melena. PLAN: 1. Bedrest. 2. IV fluids. 3. GI consult. 4. Follow with symptoms as well as hemoglobin. MMODL / IJN: [id number] /
--- NOTE | 2024-02-17 23:51 | DS ---
DISCHARGE SUMMARY CHIEF COMPLAINT: Hematemesis. HISTORY OF PRESENT ILLNESS AND PHYSICAL EXAMINATION: Details of this man's history and physical can be found in the initial workup. LABORATORY STUDIES: While he was in the hospital, he had laboratory studies, details of which can be found in the laboratory section of his chart. COURSE IN THE HOSPITAL: After admission, he was placed on bedrest, started on intravenous fluids and was to be seen by Gastroenterology. He was going to be taken for an endoscopy. He got upset because he kept demanding narcotic injections and wanted them more frequently and at higher dose. He left AMA. FINAL DIAGNOSES: 1. Hematemesis. 2. Analgesic abuse. OPERATIONS: None. CONSULTATIONS: Gastroenterology. MMODL / IJN: [id number] /
== END 2024-02-17 15:53 | disposition left against medical advice (07) ==
LOC: EC 08:20 → 6NMEDSUR 11:06
PROVIDERS: ADMIT Family Medicine; ATTEND Family Medicine
DX: K92.0 Hematemesis (principal); K92.2 Gastrointestinal hemorrhage, unspecified; K92.1 Melena; R10.13 Epigastric pain; F55.8 Abuse of other non-psychoactive substances; K21.9 Gastro-esophageal reflux disease without esophagitis; F20.9 Schizophrenia, unspecified; F41.9 Anxiety disorder, unspecified; F90.9 Attention-deficit hyperactivity disorder, unspecified type; Z87.891 Personal history of nicotine dependence; Z79.899 Other long term (current) drug therapy; Z53.9 Procedure and treatment not carried out, unspecified reason
CPT/HCPCS: 96376 ×2; 96361 ×3; 96375; 96374; 99285; 36415; 86900; 86901; 80053; 80048; 83605; 83735; 84484; 85025; 85027; 85610; 85730; 86850; G0378 ×2; C9113 ×2; J1170

== ENCOUNTER 2024-03-06 09:45 | Inpatient (IN) | payer OTHER ==
[2024-03-06] MEDS ORDERED: MORPHINE SULFATE 4 MG/ML SYRINGE IVP STA (09:49)
[2024-03-06] MEDS: HYDROmorphone 1 MG/ML 1 ML SYRINGE IVP STA ×2 (09:56→10:45)
[2024-03-06] MEDS: SODIUM CHLORIDE 0.9% 1,000 ML IV STA ×2 (09:56→12:07)
[2024-03-06] MEDS: HYDROmorphone 0.5 MG/0.5 ML SYRINGE IVP STA (10:09)
[2024-03-06 10:11] LABS: Basophils % (A) 0 %; Eosinophils # (A) 0.3 k/uL (0-0.7); Eosinophils % (A) 4 %; HCT 39.7 % (39.0-53.0); Lymphocytes # (A) 1.8 k/uL (1.0-4.8); Lymphocytes % (A) 25 %; MCH 31.3 pg (25.0-35.0); MCHC 32.7 g/dL (31.0-37.0); MCV 95.8 fL (80.0-100.0); Monocytes # (A) 0.5 k/uL (0-1.0); Monocytes % (A) 7 %; Neutrophils # (A) 4.6 k/uL (1.3-7.7); Neutrophils % (A) 62 %; Platelet Count 266 k/uL (150-450); RBC 4.14 m/uL (4.30-5.90); WBC 7.3 k/uL (3.8-10.6)
[2024-03-06 10:24] LABS: INR 0.9 (<1.2); Partial Thromboplastin Time 22.2 sec (22.0-30.0); Prothrombin Time 10.4 sec (10.0-12.5)
[2024-03-06 10:29] LABS: ALT 22 U/L (4-49); AST 29 U/L (17-59); African American GFR (CKD) >90 (>60 ml/min/1.73 sqM); Alcohol <10 mg/dL; Alkaline Phosphatase 72 U/L (38-126); Anion Gap 4 mmol/L; Blood Urea Nitrogen 17 mg/dL (9-20); Calcium 8.8 mg/dL (8.4-10.2); Carbon Dioxide 25 mmol/L (22-30); Chloride 110 mmol/L (98-107); Glucose 106 mg/dL (74-99); Non-African American GFR(CKD) >90 (>60 ml/min/1.73 sqM); Potassium 4.2 mmol/L (3.5-5.1); Sodium 139 mmol/L (137-145); Total Bilirubin 0.3 mg/dL (0.2-1.3); Total Protein 6.8 g/dL (6.3-8.2)
[2024-03-06] MEDS: DIPH,PERTUS(ACELL)TETVAC-LF 0.5 ML VIAL IM ONE (10:50)
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
--- NOTE | 2024-03-06 11:11 | XR ---
EXAMINATION TYPE: XR ankle limited RT DATE OF EXAM: 03/06/2024 COMPARISON: NONE HISTORY: Pain FINDINGS: Three views of the ankle demonstrate a displaced transverse fracture through the distal diaphysis of the fibula, avulsion fracture of the medial malleolus and posterior dislocation of the tibia relative to the talus. Suspect a chip fracture off the anterior cortex of the tibia. Hypertrophic arthropathy of the first MTP and calcaneus noted. Could not exclude a talar dome injury. IMPRESSION: 1. Acute fracture or dislocation of the tibia. There appears to be a displaced transverse fracture th rough the distal diaphysis of the fibula. 2. Mildly displaced medial malleolar fracture. 3. Suspect a chip fracture off the anterior cortex of the tibia.
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
--- NOTE | 2024-03-06 11:38 | ED ---
General Adult HPI - General Chief complaint: Fall Stated complaint: IHS-R ankle injury Time Seen by Provider: 03/06/24 09:45 Source: patient, RN notes reviewed, old records reviewed Mode of arrival: EMS Limitations: no limitations - History of Present Illness Initial comments: Patient is a 54-year-old male who presents emergency department after a fall off a roof. Patient was on top of the roof when he fell down approximately 10 feet landing on shingles. Primarily landed on his right foot. Did not hit his head. No loss of consciousness. Is not on blood thinners. Currently is complaining of acute on chronic neck pain as well as some lower back pain. Also complaining of right ankle pain. Denies any abdominal pain, chest pain. Denies any shortness of breath. Has no other acute complaints at this time. Presents for further evaluation. - Related Data Previous Rx's Medication Instructions Recorded Pantoprazole [Protonix] 40 mg PO DAILY #30 tab 02/11/24 Sucralfate [Carafate] 1 gm PO BID #60 tablet 02/11/24 Allergies Allergy/AdvReac Type Severity Reaction Status Date / Time No Known Allergies Allergy Verified 03/06/24 11:09 Review of Systems ROS Statement: Those systems with pertinent positive or pertinent negative responses have been documented in the HPI. Review of Systems: CONST: Denies fever EYES: Denies blurry vision ENT: Denies nasal congestion C/V: Denies Chest pain RESP: Denies shortness of breath GI: Denies abdominal pain : Denies dysuria SKIN: Denies rash. MSK: Endorses back pain, right ankle pain NEURO: Denies headache ROS Other: All systems not noted in ROS Statement are negative. Past Medical History Past Medical History: GERD/Reflux, GI Bleed, Musculoskeletal Disorder Additional Past Medical History / Comment(s): right arm infection/necrosis, bilateral pleural effusions with R thoracentesis/severe pulmonary, GI bleed, gastric ulcers/duodenal ulcer, gastritis, chronic back pain, bilateral carpal tunnel syndrome, gallbladder polyp, past bilateral foot fractures-L foot surgically repaired-pt states it didn't "work" so he chose not to have surgery on his R foot History of Any Multi-Drug Resistant Organisms: None Reported Past Surgical History: Hernia Repair, Orthopedic Surgery Additional Past Surgical History / Comment(s): I&D right forearm/fasciotomy, fracture repair L foot, EGD with repair of perforated ulcer with endo clip, colonoscopy, pain procedures, carpal tunnel surgery on left hand, left shoulder surgery 2021 Past Anesthesia/Blood Transfusion Reactions: No Reported Reaction Additional Past Anesthesia/Blood Transfusion Reaction / Comment(s): Pt has received blood without reaction. Past Psychological History: ADD/ADHD, Anxiety, Schizophrenia Smoking Status: Former smoker Past Alcohol Use History: Rare Past Drug Use History: Marijuana - Past Family History Father Family Medical History: Sleep Apnea/CPAP/BIPAP Additional Family Medical History / Comment(s): -suffered from obstructive sleep apnea Mother Family Medical History: No Reported History Additional Family Medical History / Comment(s): General Exam - General Exam Comments Initial Comments: General: Appears in moderate distress secondary to pain. HEAD: Normal with no signs of head trauma. Negative Streeter sign. Negative raccoon eyes. EYES: PERRLA, EOMI, conjunctiva normal, no discharge. Pupils 2 mm and equal bilaterally. ENT: Hearing grossly intact, normal oropharynx. RESPIRATORY: Clear breath sounds bilaterally. No wheezes, rales, or rhonchi. C/V: Regular rate and rhythm. S1 and S2 auscultated, no edema, peripheral pulses 2+ and intact throughout ABD: Abd is soft, nontender, nondistended EXT: There is an obvious deformity of the right ankle. Suspect fracture or dislocation. Neurovascularly intact with good PT and DP pulses. Sensation intact. Mild midline cervical spine tenderness to palpation, mild lumbar spine tenderness to palpation. No step-offs or deformities of the spine appreciated. No thoracic tenderness to palpation. Pelvis is stable. SKIN: Approximate 2 cm diameter laceration to the posterior right ankle. Suspect open fracture. NEURO: Alert and oriented x 4. Cranial nerves II-XII intact. GCS of 15. Weakness in the right foot secondary to obvious deformity. Limitations: no limitations Course Vital Signs 03/06/24 09:53 Pulse Rate 71 Respiratory 18 Rate Blood Pressure 153/97 O2 Sat by Pulse 98 Oximetry Medical Decision Making - Medical Decision Making Was pt. sent in by a medical professional or institution (, PA, PHLEBOTOMY TECHNICIAN, urgent care, hospital, or fdc...) When possible be specific @ -No Did you speak to anyone other than the patient for history (EMS, parent, family, police, friend...)? What history was obtained from this source @ -No Did you review nursing and triage notes (agree or disagree)? Why? @ -I reviewed and agree with nursing and triage notes Were old charts reviewed (outside hosp., previous admission, EMS record, old EKG, old radiological studies, urgent care reports/EKG's, fdc records)? Report findings @ -Old charts reviewed Differential Diagnosis (chest pain, altered mental status, abdominal pain women, abdominal pain men, vaginal bleeding, weakness, fever, dyspnea, syncope, headache, dizziness, GI bleed, back pain, seizure, CVA, palpatations, mental health, musculoskeletal)? @ -Differential Musculoskeletal Muscular strain, contusion, ligament sprain, fracture, arthritis, septic arthritis, bursitis, cellulitis, muscle spasm, nerve compression, DVT, arterial occlusion, herpes zoster, electrolyte abnormality, tumor.... This is not meant to be in all inclusive list. Also includes intracranial, intra-abdominal, intrathoracic trauma. EKG interpreted by me (3pts min.). @ -As above X-rays interpreted by me (1pt min.). @ -Chest x-ray, pelvis x-ray negative for any obvious traumatic injury. Ankle x-ray remarkable for what appears to be a ankle dislocation and by mall fracture. Postreduction x-ray of the right ankle shows successful reduction of the bimalleolar fracture/dislocation. CT interpreted by me (1pt min.). @ -CT brain, spine, chest abdomen pelvis negative for any obvious traumatic injury. U/S interpreted by me (1pt. min.). @ -None done What testing was considered but not performed or refused? (CT, X-rays, U/S, labs)? Why? @ -None What meds were considered but not given or refused? Why? @ -None Did you discuss the management of the patient with other professionals (professionals i.e. , PA, PHLEBOTOMY TECHNICIAN, lab, RT, psych nurse, social worker masters, dairy scientist, teacher, fiscal officer, case management associate)? Give summary @ -I spoke with on-call orthopedics, Dr. Ralph who evaluated the imaging and did accept the patient onto his service. Did request CT imaging of the right ankle to be obtained which was ordered. Dr. Silva updated the medical consult. He was in agreement this plan. Was smoking cessation discussed for >3mins.? @ -No Was critical care preformed (if so, how long)? @ -Yes, 35 minutes. Were there social determinants of health that impacted care today? How? (Homelessness, low income, unemployed, alcoholism, drug addiction, transportation, low edu. Level, literacy, decrease access to med. care, skilled nursing, rehab)? @ -No Was there de-escalation of care discussed even if they declined (Discuss DNR or withdrawal of care, Hospice)? DNR status @ -No What co-morbidities impacted this encounter? (DM, HTN, Smoking, COPD, CAD, Cancer, CVA, ARF, Chemo, Hep., AIDS, mental health diagnosis, sleep apnea, mo rbid obesity)? @ -None Was patient admitted / discharged? Hospital course, mention meds given and r oute, prescriptions, significant lab abnormalities, going to OR and other pertinent info. @ -Patient presents after fall off a roof. Presents as a level 2 trauma activation. ATLS protocol followed. Did not lose consciousness. Is not on blood thinners after initially thinking he may be. Vital signs currently within acceptable limits. Obvious right ankle deformity. Neurovascular intact in the right ankle. Does have an open fracture with some oozing at the site but no keeley or pulsatile bleeding. Patient will be given IV fluids, Ancef, tetanus booster, IV pain medications. Chest and pelvis x-rays unremarkable. Patient does have a by mall fracture with what appears to be anterior ankle dislocation. This was successfully reduced bedside and splinted after wrapping the open fracture as well. Patient tolerated the procedure well. Patient's laboratory studies are within acceptable limits. CT imaging had a delay in reads however returned negative for any obvious acute process. On reevaluation, patient's pain is improved. He remains neurovascular intact in the right lower extremity. Splint remains in place. I discussed with the patient, and he does require surgery for washout and repair. He was in agreement this plan. I spoke with on-call orthopedics, Dr. Ralph who evaluated the imaging and did accept the patient onto his service. Did request CT imaging of the right ankle to be obtained which was ordered. Dr. Silva updated the medical consult. He was in agreement this plan. Patient updated. Cervical collar has been removed. He was in agreement this plan. Patient made n.p.o. Undiagnosed new problem with uncertain prognosis? @ -No Drug Therapy requiring intensive monitoring for toxicity (Heparin, Nitro, Insulin, Cardizem)? @ -No Were any procedures done? @ -No Diagnosis/symptom? @ -Fall, open fracture of right ankle, bimalleolar fracture of right ankle Acute, or Chronic, or Acute on Chronic? @ -Acute Uncomplicated (without systemic symptoms) or Complicated (systemic symptoms)? @ -Complicated Side effects of treatment? @ -None Exacerbation, Progression, or Severe Exacerbation] @ -No Poses a threat to life or bodily function? @ -Yes - Lab Data Result diagrams: 03/06/24 09:48 03/06/24 09:48 Lab Results 03/06/24 03/06/24 03/06/24 Range/Units 09:48 09:48 09:50 WBC 7.3 (3.8-10.6) k/uL RBC 4.14 L (4.30-5.90) m/uL Hgb 13.0 (13.0-17.5) gm/dL Hct 39.7 (39.0-53.0) % MCV 95.8 (80.0-100.0) fL MCH 31.3 (25.0-35.0) pg MCHC 32.7 (31.0-37.0) g/dL RDW 13.0 (11.5-15.5) % Plt Count 266 (150-450) k/uL MPV 9.0 Neutrophils % 62 % Lymphocytes % 25 % Monocytes % 7 % Eosinophils % 4 % Basophils % 0 % Neutrophils # 4.6 (1.3-7.7) k/uL Lymphocytes # 1.8 (1.0-4.8) k/uL Monocytes # 0.5 (0-1.0) k/uL Eosinophils # 0.3 (0-0.7) k/uL Basophils # 0.0 (0-0.2) k/uL PT 10.4 (10.0-12.5) sec INR 0.9 (<1.2) APTT 22.2 (22.0-30.0) sec Sodium 139 (137-145) mmol/L Potassium 4.2 (3.5-5.1) mmol/L Chloride 110 H (98-107) mmol/L Carbon Dioxide 25 (22-30) mmol/L Anion Gap 4 mmol/L BUN 17 (9-20) mg/dL Creatinine 0.72 (0.66-1.25) mg/dL Est GFR (CKD-EPI)AfAm >90 (>60 ml/min/1.73 sqM) Est GFR (CKD-EPI)NonAf >90 (>60 ml/min/1.73 sqM) Glucose 106 H (74-99) mg/dL Calcium 8.8 (8.4-10.2) mg/dL Total Bilirubin 0.3 (0.2-1.3) mg/dL AST 29 (17-59) U/L ALT 22 (4-49) U/L Alkaline Phosphatase 72 (38-126) U/L Total Protein 6.8 (6.3-8.2) g/dL Albumin 4.0 (3.5-5.0) g/dL Urine Color Urine Appearance (Clear) Urine pH (5.0-8.0) Ur Specific [place] (1.001-1.035) Urine Protein (Negative) Urine Glucose (UA) (Negative) Urine Ketones (Negative) Urine Blood (Negative) Urine Nitrite (Negative) Urine Bilirubin (Negative) Urine Urobilinogen (<2.0) mg/dL Ur Leukocyte Esterase (Negative) Urine Opiates Screen (NotDetected) Ur Oxycodone Screen (NotDetected) Urine Methadone Screen (NotDetected) Ur Barbiturates Screen (NotDetected) U Tricyclic Antidepress (NotDetected) Ur Phencyclidine Scrn (NotDetected) Ur Amphetamines Screen (NotDetected) U Methamphetamines Scrn (NotDetected) U Benzodiazepines Scrn (NotDetected) Urine Cocaine Screen (NotDetected) U Marijuana (THC) Screen (NotDetected) Serum Alcohol <10 mg/dL Blood Type Blood Type Recheck Bld Type Recheck Status Antibody Screen Spec Expiration Date 03/06/24 03/06/24 Range/Units 09:50 11:23 WBC (3.8-10.6) k/uL RBC (4.30-5.90) m/uL Hgb (13.0-17.5) gm/dL Hct (39.0-53.0) % MCV (80.0-100.0) fL MCH (25.0-35.0) pg MCHC (31.0-37.0) g/dL RDW (11.5-15.5) % Plt Count (150-450) k/uL MPV Neutrophils % % Lymphocytes % % Monocytes % % Eosinophils % % Basophils % % Neutrophils # (1.3-7.7) k/uL Lymphocytes # (1.0-4.8) k/uL Monocytes # (0-1.0) k/uL Eosinophils # (0-0.7) k/uL Basophils # (0-0.2) k/uL PT (10.0-12.5) sec INR (<1.2) APTT (22.0-30.0) sec Sodium (137-145) mmol/L Potassium (3.5-5.1) mmol/L Chloride (98-107) mmol/L Carbon Dioxide (22-30) mmol/L Anion Gap mmol/L BUN (9-20) mg/dL Creatinine (0.66-1.25) mg/dL Est GFR (CKD-EPI)AfAm (>60 ml/min/1.73 sqM) Est GFR (CKD-EPI)NonAf (>60 ml/min/1.73 sqM) Glucose (74-99) mg/dL Calcium (8.4-10.2) mg/dL Total Bilirubin (0.2-1.3) mg/dL AST (17-59) U/L ALT (4-49) U/L Alkaline Phosphatase (38-126) U/L Total Protein (6.3-8.2) g/dL Albumin (3.5-5.0) g/dL Urine Color Colorless Urine Appearance Clear (Clear) Urine pH 6.5 (5.0-8.0) Ur Specific [place] 1.044 H (1.001-1.035) Urine Protein Negative (Negative) Urine Glucose (UA) Negative (Negative) Urine Ketones Negative (Negative) Urine Blood Negative (Negative) Urine Nitrite Negative (Negative) Urine Bilirubin Negative (Negative) Urine Urobilinogen <2.0 (<2.0) mg/dL Ur Leukocyte Esterase Negative (Negative) Urine Opiates Screen Detected H (NotDetected) Ur Oxycodone Screen Not Detected (NotDetected) Urine Methadone Screen Not Detected (NotDetected) Ur Barbiturates Screen Not Detected (NotDetected) U Tricyclic Antidepress Not Detected (NotDetected) Ur Phencyclidine Scrn Not Detected (NotDetected) Ur Amphetamines Screen Detected H (NotDetected) U Methamphetamines Scrn Detected H (NotDetected) U Benzodiazepines Scrn Not Detected (NotDetected) Urine Cocaine Screen Not Detected (NotDetected) U Marijuana (THC) Screen Detected H (NotDetected) Serum Alcohol mg/dL Blood Type A Positive Blood Type Recheck A Pos Bld Type Recheck Status No Antibody Screen NEGATIVE Spec Expiration Date 03/09/20242347 - EKG Data -: EKG Interpreted by Me EKG Comments: 12-lead Electrocardiogram Interpretation Note EKG was reviewed and interpreted by myself. 12-lead ECG performed at 1039 is interpreted by me as revealing normal sinus rhythm at a rate of 71 beats per minute. [place] is normal. [place] interval is 183 ms, QRS durations 114 ms, QTc is 446 ms.. There were no ST or T wave abnormalities to suggest myocardial ischemia or injury. R wave progression across the precordium was satisfactory. By my interpretation this EKG is non-diagnostic for acute ischemia. Disposition Clinical Impression: Fall, Bimalleolar ankle fracture, Fibula fracture, Open fracture Disposition: ADMITTED IP TO THIS HOSP Condition: Stable Referrals: Iraj Silva MD [Primary Care Provider] - 1-2 days Time of Disposition: 12:15
--- NOTE | 2024-03-06 11:46 | CT ---
EXAMINATION TYPE: CT brain cspine wo con CT DLP: 1319.5 mGycm, Automated exposure control for dose reduction was used. DATE OF EXAM: 03/06/2024 10:43 AM COMPARISON: 03/31/2021 CT brain CLINICAL INDICATION:Male, 54 years old with history of trauma; fall TECHNIQUE: Brain: Multiple axial CT images of the brain were obtained without IV contrast. Cspine: Axial CT images from the skull base to the inferior aspect of T2 we obtained without intraven ous contrast. Coronal and sagittal reformatted images were also reviewed. FINDINGS: Brain: Extra-axial spaces: No abnormal extra-axial fluid collections. Ventricular system: Within normal limits Cerebral parenchyma: No acute intraparenchymal hemorrhage or mass effect. The chatterjee-white junction is well differentiated. Cerebellum: Unremarkable. Mass effect: No evidence of midline shift. Intracranial vasculature: unremarkable Soft tissues: Normal. Calvarium/osseous structures: No depressed skull fracture. Paranasal sinuses and mastoid air cells: Clear. Visualized orbits: Orbital contents are intact. Cervical spine: Fracture: None. Osseous structures: Multilevel loss of disc height from degenerative disc disease and endplate spondy losis Vertebral alignment: Within normal limits. Spinal canal/Neural Foramina: No evidence of significant spinal canal narrowing. No evidence for sign ificant neural foraminal stenosis. Neck soft tissues: Prevertebral soft tissues are within normal limits. Other: The airway is patent. The lung apices are clear. IMPRESSION: No acute intracranial process. No evidence of cervical spine fracture. Mild multilevel degenerative disc disease.
[2024-03-06 11:49] LABS: Appearance,Urine Clear (Clear); Bilirubin,Urine Negative (Negative); Blood,Urine Negative (Negative); Color,Urine Colorless; Glucose,Urine (UA) Negative (Negative); Ketones,Urine Negative (Negative); Leukocyte Esterase,Urine Negative (Negative); Nitrite,Urine Negative (Negative); PH, Urine 6.5 (5.0-8.0); Protein,Urine Negative (Negative); Specific Gravity,Urine 1.044 (1.001-1.035); Urobilinogen,Urine <2.0 mg/dL (<2.0)
--- NOTE | 2024-03-06 12:01 | CT ---
EXAMINATION TYPE: CT thor lumbar spine wo con CT DLP: recons same DLP in with CAP mGycm, Automated exposure control for dose reduction was used. DATE OF EXAM: 03/06/2024 10:44 AM CLINICAL INDICATION:Male, 54 years old with history of trauma; fall, initial encounter. COMPARISON: CT lumbar spine 09/13/2019. CT chest pelvis 03/06/2024 today is reported separately. TECHNIQUE: Axial images of the thoracic and lumbar spine were obtained without contrast. Coronal and sagittal reformats were performed. 3-D reformats of the bones were created on a separate workstation and submitted for review. CT Contrast: Contrast used: mL of , none. Oral contrast used: none. FINDINGS: Thoracic: The thoracic vertebral bodies have preserved heights and alignment. Intervertebral discs and osseou s structures have normal appearance. I do not see any evidence of extradural defects nor significant spinal canal narrowing at any thoraci c vertebral body level. Lumbar: Alignment: There are 5 lumbar type vertebral bodies within normal alignment. Bone: No evidence of fracture is identified. Spina bifida occulta at L5. Grade 1 anterolisthesis o f L5 on S1. Discs: Vacuum disc phenomenon at L5-S1. Otherwise unremarkable disc heights and appearance. Other: None IMPRESSION: 1. No evidence of fracture of the thoracic or lumbar spine. 2. Anterior spondylolisthesis L5 on S1. 3. Vacuum disc phenomenon L5-S1, the discs are otherwise unremarkable
--- NOTE | 2024-03-06 12:08 | CT ---
EXAMINATION TYPE: CT chest, abdomen and pelvis with IV contrast CT DLP: 956.4 mGycm, Automated exposure control for dose reduction was used. DATE OF EXAM: 03/06/2024 11:06 AM COMPARISON: None. CLINICAL INDICATION:Male, 54 years old with history of trauma; PHH, all, anticoagulant therapy, initi al encounter. Technique: CT chest, abdomen and pelvis with IV contrast; Multiple axial images were obtained. Two-di mensional coronal and sagittal reconstructions were obtained. Contrast used:100 mL of Isovue 300 with IV Contrast, Oral contrast used: without Oral Contrast Findings: CHEST: LUNGS/ PLEURA: The lung parenchyma appears unremarkable. AIRWAY: Patent and unremarkable. HEART: Size within normal limits. MEDIASTINUM: No gross evidence of adenopathy. VASCULATURE: No aortic aneurysm. MUSCULOSKELETAL: No acute osseous abnormalities. SOFT TISSUES/LYMPH NODES: Unremarkable. LOWER NECK: No significant findings. ABDOMEN: ABDOMEN LIVER: Unremarkable GALLBLADDER AND BILE DUCTS: Unremarkable. PANCREAS: Unremarkable. SPLEEN: Unremarkable. ADRENAL GLANDS: Unremarkable. KIDNEYS AND URETERS: No evidence of hydronephrosis or renal calculus. The ureters are unremarkable. PELVIS BLADDER: Unremarkable REPRODUCTIVE: Unremarkable. ABDOMEN & PELVIS STOMACH AND BOWEL: Stomach and duodenum are unremarkable No evidence of bowel obstruction. PERITONEUM: No evidence of pneumoperitoneum or free fluid. VASCULATURE: No evidence of aortic aneurysm. MUSCULOSKELETAL: No acute osseous abnormalities LYMPH NODES: No gross evidence for lymphadenopathy. SOFT TISSUE/ABDOMINAL WALL: Unremarkable IMPRESSION: No CT evidence of internal organ injury or fracture. Follow up recommendations for incidental pulmonary nodules are per [employer] or [employer].
[2024-03-06 12:18] LABS: Amphetamine Screen,Urine Detected (NotDetected); Barbiturate Screen,Urine Not Detected (NotDetected); Benzodiazepines Screen,Urine Not Detected (NotDetected); Cocaine Screen,Urine Not Detected (NotDetected); Methadone Screen, Urine Not Detected (NotDetected); Opiate Screen,Urine Detected (NotDetected); Oxycodone Screen, Urine Not Detected (NotDetected); Phencyclidine Screen,Urine Not Detected (NotDetected); Tricyclic Antidepressant,Urine Not Detected (NotDetected); Urn Cannabinoid Scrn Detected (NotDetected)
[2024-03-06] MEDS: ALPRAZolam 0.25 MG TAB PO STA (12:19)
[2024-03-06] MEDS ORDERED: NALOXONE 0.4 MG/ML 1 ML VIAL IV PRN ×3 (12:22→20:28)
[2024-03-06] MEDS ORDERED: ONDANSETRON 4 MG/2 ML VIAL IVP PRN ×2 (12:22→20:32)
[2024-03-06] MEDS: HYDROmorphone 0.5 MG/0.5 ML SYRINGE IVP PRN ×2 (13:30→23:06)
--- NOTE | 2024-03-06 13:38 | CT ---
EXAMINATION TYPE: CT ankle RT wo con DATE OF EXAM: 03/06/2024 COMPARISON: X-ray 03/06/2024 HISTORY: Pain CT DLP: 604.5 mGycm TECHNIQUE: Axial, sagittal and coronal images are obtained. Findings: There is a mildly displaced fracture involving the medial malleolus. There is a displaced fracture in volving the lateral margin of the distal tibia. There is a displaced transverse fracture of the distal diaphysis of the fibula. There is a fracture involving the anterior margin of the tibia extending to the articular surface whi ch appears to be comminuted. Fracture line extends posteriorly and affects the posterior and medial m argin of the tibia as well. Arthropathy of the subtalar joint is noted but there appears to be a fracture involving the inferior margin of the talus extending to the subtalar joint as seen on coronal image 49 series 202. There soft tissue edema and emphysema with air also noted within the joint space. Calcaneal spurs are noted. There is a abnormal attenuation in the soft tissues posteriorly which coul d represent a retracted Achilles tendon. IMPRESSION: 1. Comminuted displaced fracture transverse orientation distal diaphysis fibula 2. Acute fracture intra-articular anterior tibia. The Fracture line extends into the posterior tibia. This fracture line also likely extends\communicates with the medial malleolar avulsion fracture 3. There is a mildly displaced medial malleolar intra-articular fracture. 4. Fracture involving the base of the talus extending to the subtalar joint. 5. Chronic-appearing deformity of the calcaneus with subtalar joint arthropathy. 6. There is a additional distal tibial fracture along the lateral margin of the distal tibia extendin g to the articular surface. 7. Soft tissue edema and emphysema\air. 8. Correlate for possible Achilles tendon rupture with retraction. This would be best evaluated with MRI.
[2024-03-06] MEDS: LACTATED RINGERS 1,000 ML IV ONE ×2 (15:51→18:25)
[2024-03-06] MEDS: DEXAMETHASONE SOD PHOSPHATE 4 MG/ML 1 ML VIAL IV ONE (15:56)
[2024-03-06] MEDS: ONDANSETRON 4 MG/2 ML VIAL IVP ONE (15:57)
--- NOTE | 2024-03-06 17:02 | P.HPOR ---
History of Present Illness H&P Date: 03/06/24 Chief Complaint: Open ankle fracture s/p fall from height 54 yo male presented to the ED after falling 10 ft from a roof onto his leg and back. he complained of significant pain in his ankle which was grossly deformed as well as low and mid back. Denied any BHT or LOC with the fall. He was brought to [facility] as Level II trauma activation. He was found to have an open ankle fracture dislocation on the right with a 2 cm posterior laceration and exposed bone. This was reduced by the ED physician under sedation and washed out in the ED. He was started on Ancef in the ED and tetanus was updated. He was then admitted to hospital for evaluation and urgent surgical evaluation and treatment. Review of Systems 14 points review of systems completed and as stated in HPI, all other systems reviewed are negative. Constitutional: Reports as per HPI Past Medical History Past Medical History: GERD/Reflux, GI Bleed, Musculoskeletal Disorder Additional Past Medical History / Comment(s): right arm infection/necrosis, bilateral pleural effusions with R thoracentesis/severe pulmonary, GI bleed, gastric ulcers/duodenal ulcer, gastritis, chronic back pain, bilateral carpal tunnel syndrome, gallbladder polyp, past bilateral foot fractures-L foot surgically repaired-pt states it didn't "work" so he chose not to have surgery on his R foot History of Any Multi-Drug Resistant Organisms: None Reported Past Surgical History: Hernia Repair, Orthopedic Surgery Additional Past Surgical History / Comment(s): I&D right forearm/fasciotomy, fracture repair L foot, EGD with repair of perforated ulcer with endo clip, colonoscopy, pain procedures, carpal tunnel surgery on left hand, left shoulder surgery 2021 Past Anesthesia/Blood Transfusion Reactions: No Reported Reaction Additional Past Anesthesia/Blood Transfusion Reaction / Comment(s): Pt has received blood without reaction. Past Psychological History: ADD/ADHD, Anxiety, Schizophrenia Smoking Status: Former smoker Past Alcohol Use History: Rare Past Drug Use History: Marijuana - Past Family History Father Family Medical History: Sleep Apnea/CPAP/BIPAP Additional Family Medical History / Comment(s): -suffered from obstructive sleep apnea Mother Family Medical History: No Reported History Additional Family Medical History / Comment(s): Medications and Allergies Home Medications Medication Instructions Recorded Confirmed Type Pantoprazole [Protonix] 40 mg PO DAILY #30 tab 02/11/24 03/06/24 Rx Sucralfate [Carafate] 1 gm PO BID #60 tablet 02/11/24 03/06/24 Rx Allergies Allergy/AdvReac Type Severity Reaction Status Date / Time No Known Allergies Allergy Verified 03/06/24 11:09 Physical Examination Osteopathic Statement: *. No significant issues noted on an osteopathic structural exam other than those noted in the History and Physical/Consult. Physical Exam: -Patient is alert and oriented 3 appears well-nourished well-hydrated is in no acute distress. They do not appear septic. -There is TTP right ankle which is in the splint currently. He c/o numbness to the medial 3 toes that has been present since the accident. 2 cm transverse laceration posteriomedial aspect of the ankle. -Upper extremities show [5] out of 5 strength in all major muscle groups. -Lower extremities with [5] out of 5 strength in all major muscle groups except for right ankle which is splinted currently. Fracture -There is [FROM] that is [painless] of the b/l UE and LE in all major joints. Log roll negative bilaterally. Limited range of motion right lower extremity secondary splint and fracture. This shows some soreness in bilateral upper shoulders and knees with motion. -They are intact to light touch sensation in C5 to T1 and L2 to S1 nerve distribution. -DTR [2]/4 all upper and lower extremities -Patient has palpable distal pulses all 4 ext -Compartments are soft and compressible. -Patient shows a negative Latesha's [-Neg Hoffmans b/l] [-Neg Clonus b/l] [-Neg babinski b/l] Cranial nerves II through XII are grossly intact. - Ankle & Foot right Ankle appearance: swelling, laceration, effusion Effusion grade: grade 2 Foot appearance: swelling Foot swelling: dorsal, medial, lateral Tenderness with palpation: anterior ankle, posterolateral ankle, lateral ankle, dorsal foot, heel Ankle pain worse with weight bearing: Yes Ankle pain relieved by non-weight bearing: No Foot pain worse with weight bearing: Yes Foot pain relieved by non-weight bearing: No Tingling/Numbness: foot, toes Ankle alignment: other (splint holding alignment. ) Crepitus with motion: Yes - Lumbar Spine Back pain: gradual onset Pain modifiers: throughout ROM Nerve symptoms: tingling of leg or foot: right, burning pain in leg or foot: right Previous treatment: traction: not effective, previous hospitalization: somewhat effective, heat: not effective, ice: not effective, NSAIDs: effective, pain medication: somewhat effective, muscle relaxant: effective, nerve block: somewhat effective, corticosteroid injection: not effective, surgery: somewhat effective, brace: somewhat effective, exercise: not effective, physical therapy: not effective, chiropractic: not effective, accupuncture: somewhat effective, biofeedback: not effective, TENS unit: somewhat effective, psychotherapy: somewhat effective Tenderness with palpation: L/S junction, muscle spasm Appearance: normal Crepitus with motion: No Results x-rays of the right ankle as well as CT of the right ankle are reviewed. This demonstrates a right ankle bimalleolar fracture dislocation with distal fragment dorsal. The tibial plafond. Have gone through the posterior aspect of the skin on the right side. This was reduced and postreduction films demonstrate a congruent ankle with a high Plascencia C-type fracture with a medial malleolar fracture. No posterior malleolar fracture noted. Syndesmotic injury is suspe cted based on the fracture pattern and type. - Labs Labs: Abnormal Lab Results - Last 24 Hours (Table) 03/06/24 03/06/24 03/06/24 Range/Units 09:48 09:48 11:23 RBC 4.14 L (4.30-5.90) m/uL Chloride 110 H (98-107) mmol/L Glucose 106 H (74-99) mg/dL Ur Specific [place] 1.044 H (1.001-1.035) Urine Opiates Screen Detected H (NotDetected) Ur Amphetamines Screen Detected H (NotDetected) U Methamphetamines Scrn Detected H (NotDetected) U Marijuana (THC) Screen Detected H (NotDetected) H & H 03/06/24 Range/Units 09:48 Hgb 13.0 (13.0-17.5) gm/dL Hct 39.7 (39.0-53.0) % Coagulation 03/06/24 Range/Units 09:50 INR 0.9 (<1.2) Result Diagrams: 03/06/24 09:48 03/06/24 09:48 Assessment and Plan Assessment: 54-year-old male status post fall from height 10 feet off a roof trauma activation Right ankle bimalleolar fracture dislocation grade 2 open Plan: Orthopedic Surgery Risk Review Fred Khoury is a 54 yo male presenting for evaluation of sudden onset Right ankle pain, inability to ambulate after fall from 10 ft height off roof. It was my pleasure to have seen and examined Fred Khoury. In our visit today we have had a chance to go over subjective complaints, physical examination findings and treatments including the natural course history without intervention and various interventional options. His imaging demonstrates Grade II open right bimalleolar ankle fracture dislocation. On physical exam, Fred Khoury demonstrates pain with motion of RLE which is NV intact at this time. I have explained to the patient that this fracture needs stabilization. Based on the patients imaging, physical exam, and the rapid progression and disabling nature of her symptoms, at this time I recommend surgery in the form or a: Right ankle ORIF with washout I discussed the risk and benefits of this procedure at length with Fred Khoury. Questions were invited and answered, and the patient wishes to proceed as outlined below. Currently, I am recommendin. Right ankle open reduction and internal fixation with irrigation and debridment 2. Review of surgical risks and benefits as well as an educational packet on the proposed surgical procedure. Risks: All surgical procedures come with inherent risks, including those related to positioning, anesthesia, intraoperative findings, and postoperative complications. It is important to understand that surgery does not come with any guarantee of a successful outcome as complications and adverse events are always possible. The patient was given a handout discussing the surgical procedure and risks associated with the intervention, both of which were discussed with the patient. These risks include but are not limited to the following: - Experiencing same, different or even worse symptoms compared to before surgery. - Requiring further surgery or other forms of treatment presently or at some time in the future . - On an extreme but fortunately relatively rare basis severe complication such as blindness, stroke, heart attack, temporary and/or permanent nerve injury, paralysis, coma, or may occur, sometimes without known explanation. - Surgical complications may include but are not limited to risk of infection, fluid accumulation in the surgical dissection site, including a seroma or hematoma, that requires additional surgery, wound drainage, bleeding, new numbness or weakness, vision changes/loss, spinal fluid leakage, non-healing and/or infected incision, headaches, difficulty or inability to swallow, hoarseness, hemopneumothorax, pneumothorax, injury to nerves, spinal cord, blood vessels, lymphatics or other vital organs (i.e., bowel injury, injury to the great vessels); heterotopic bone formation; complications related to the preston rdware such as screws, rods, including misplaced hardware, device failure, hardware fracture/breakage, or hardware loosening; retained surgical instrumentations or devices and the need for further surgery. - Medical risks of the planned surgery include but are not limited to generalized Infections to the whole body or local areas outside of the surgical site (sepsis), heart attack, bleeding, anaphylaxis, meningitis, seizure, epilepsy, hearing loss, burn carter, laceration of the head or other areas of the body, bruising, hypersensitivity of the skin, bladder over distension; allergic reaction; shoulder injury related to positioning; fat, blood and air clots to other areas of the body like heart, lungs, brain; failure of internal organs such as lungs, kidneys, liver and excessive bleeding. If blood transfusions are necessary, note that transfusions may cause intolerance reactions such as anaphylaxis or other complex reactions. Despite best efforts, the results of surgery might not heal in terms of bone, soft tissues such as skin, fascia, ligaments, and joints. [facility] with single and overlapping rooms running daily. They currently function under the required guidelines as produced by the Senate Finance Committee with regards to the overlapping rooms and will continue to comply with changes to this policy as they occur. The requirements include and are complied with as follows: (1) the critical portions of the overlapping rooms will not occur at the same time, (2) the attending physician will be physically present during the critical portions of the procedure and immediately available during the entire case, and (3) a back-up attending is designated should the primary attending not be immediately available. The patient has had a chance to review all the listed information, has been given print outs detailing this information, and has had all his/her questions answered to their satisfaction. It was my pleasure to have seen and examined Fred Khoury. In our visit today we have had a chance to go over my understanding of our patient's current condition, the natural course history without intervention and various interventional options. Questions were invited and answered, and the patient wishes to proceed as outlined above. I have seen and examined the patient for 25 minutes and we have spent more than 50% of the time in repeat and detailed counseling about the patient's condition, its natural course history with out and as much as can be predicted with surgery and re-review of various surgical treatment options. In conclusion, Fred Khoury requested we proceed with the above suggested surgery and are willing to accept risks and limitations of the suggested surgery as nature of the disease process and our best attempts at treatment for the condition. Thank you again for allowing us to be part of your patient's care. Please don't hesitate to contact me if you have any further questions. Signed and authenticated by: Maximino Vanessa [facility] [address], [address] [address]
[2024-03-06] MEDS ORDERED: MORPHINE SULFATE (PF) 0.3 MG/0.3 ML SYR ONE (17:08)
[2024-03-06] MEDS ORDERED: fentaNYL (PF) 50 MCG/ML 2 ML AMP ONE (17:08)
[2024-03-06] MEDS ORDERED: KETAMINE HCL IN 0.9 % NACL 50 MG/5 ML SYRINGE ONE (17:08)
[2024-03-06] MEDS ORDERED: PROPOFOL 10 MG/ML 20 ML VIAL IV ONE (17:08)
[2024-03-06] MEDS ORDERED: GLYCOPYRROLATE 0.2 MG/ML 2 ML VIAL ONE (17:08)
[2024-03-06] MEDS ORDERED: MIDAZOLAM 2 MG/2 ML VIAL ONE (17:08)
[2024-03-06] MEDS: ceFAZolin 3,000 MG in SODIUM CHLORIDE 0.9% IRRIGATIO 3,000 ML IRRIGATION ONE (17:41)
[2024-03-06] MEDS: GENTAMICIN 80 MG in SODIUM CHLORIDE 0.9% IRRIGATIO 3,000 ML IRRIGATION ONE (17:41)
[2024-03-06] MEDS ORDERED: MAGNESIUM HYDROXIDE 2,400 MG/30 ML CUP PO PRN (20:28)
[2024-03-06] MEDS ORDERED: HYDROcodone/APAP 5-325MG 1 EACH TAB PO PRN (20:28)
--- NOTE | 2024-03-06 20:39 | P.OP ---
Date of Procedure: 03/06/24 Preoperative Diagnosis: 1. RIGHT ANKLE BIMALLEOLAR ANKLE FRACTURE DISLOCATION GRADE II OPEN 2. S/P FALL FROM HEIGHT 10 FT OFF ROOF 3. COMPLEX MEDICAL PATIENT Postoperative Diagnosis: 1. RIGHT ANKLE BIMALLEOLAR ANKLE FRACTURE DISLOCATION GRADE II OPEN 2. RIGHT ACHILLES RUPTURE SECONDARY TO FRACTURE DISLOCATION AND OPEN WOUND 3. S/P FALL FROM HEIGHT 10 FT OFF ROOF 4. COMPLEX MEDICAL PATIENT Procedure(s) Performed: 1. OPEN REDUCTION AND INTERNAL FIXATION RIGHT ANKLE TRIMALLEOLAR FRACTURE, OPEN GRADE II 2. RIGHT ACHILLES RECONSTRUCTION WITH SPEED BRIDGE TECHNIQUE 3. IRRIGATION AND DEBRIDMENT OF THE RIGHT LOWER EXTREMITY OPEN FRACTURE, ACHILL ES 6X6X4 CM USING THE FOLLOWING -SKIN KNIFE TO INCISE AND EXPLORE -CURETTE TO DEBRIDE SOFT TISSUES -KNIFE AND WATERS TO DEBRIDE ACHILLES TENDON -6L ABX IRRIGATION 4. APPLICATION SHORT LEG AO SPLINT RLE Implants: ARTHREX FIBULOCK NAIL 2 MEDIAL MALLEOLAR LAG SCREWS 55 MM 4.0 CANNULATED ARTHREX ACHILLES SPEED BRIDGE TECHNIQUE Anesthesia: spinal, other (sedation) Surgeon: Maximino Ralph Echocardiologist #1: Glory Gardner (WAS PRESENT AND ASSISTED WITH ALL ASPECTS OF THE CASE FROM POSITION TO CLOUSRE) Estimated Blood Loss (ml): 75 IV fluids (ml): 1,100 Urine output (ml): 0 Pathology: none sent Condition: stable Disposition: PACU Indications for Procedure: Fred Khoury is a 54 yo male presenting for evaluation of sudden onset Right ankle pain, inability to ambulate after fall from 10 ft height off roof. It was my pleasure to have seen and examined Fred Khoury. In our visit today we have had a chance to go over subjective complaints, physical examination findings and treatments including the natural course his tory without intervention and various interventional options. His imaging demonstrates Grade II open right bimalleolar ankle fracture dislocation. On physical exam, Fred Khoury demonstrates pain with motion of RLE which is NV intact at this time. I have explained to the patient that this fracture needs stabilization. Based on the patients imaging, physical exam, and the rapid progression and disabling nature of her symptoms, at this time I recommend surgery in the form or a: Right ankle ORIF with washout I discussed the risk and benefits of this procedure at length with Frde Khoury. Questions were invited and answered, and the patient wishes to proceed as outlined below. Currently, I am recommendin. Right ankle open reduction and internal fixation with irrigation and debridment Description of Procedure: Right ankle ORIF Fibulock, syndesmosis fixation screws, medial mal screws, Achilles fix, Open fracture. The patient was seen and examined in the preoperative area. All preoperative protocols were followed. Informed consent was obtained, risks and benefits of the procedure were discussed at length. Risks including bleeding infection damage to the surrounding tissue and risk of reoperation were discussed with the patient. Risk of anesthesia up to and including was discussed with the patient. These are outlined in the risk reviewed. They were willing to accept these risks and all of the risks of surgery. The patient was given a weight- based dose of antibiotics in the form of 2 g Ancef. The patient was seen and evaluated by the anesthesia team who deemed them fit for surgery. The site was marked, the patient was willing to proceed with the procedure. The patient was transferred to the operative suite by the Department of anesthesia. They were then drifted off to sleep by the department of anesthesia and a spinal was done by anesthesia and sedation was used. Once adequate anesthesia had been obtained the patient was carefully transferred to the operative bed. All bony prominences were padded accordingly. SCDs were placed on the nonoperative lower extremities. Arms were well padded. Right lower extremity was then exposed placed on a bone phone ramp and secured a bump was placed left hip tourniquet was placed on the patient's left upper thigh Preoperative briefing was done with the operative team and everyone was ready for the procedure to start. The patient's right leg was then prepped and draped in the normal sterile fashion. Timeout was then performed and all parties in agreement with the procedure to be performed. We inspected the posterior wound which was about 5 cm proximal to the calcaneus region transverse and about 4 cm in length. This was extended proximally and distally due to the suspicion of achilles injury based on the degree of degloving and subcutaneous injury noted. Blunt dissection was taken down and the distal end of the achilles tendon presented itself in the proximal portion of the wound which had ruptured from its insertion point. Distally we inspected the insertion on the calcaneus and there was no good tendon left to fix too and so we opted for reconstruction with Arthrex speed bridge. First, we debrided the open wound of any necrotic tissues skin, soft tissues, muscle and bone. Then 6 L of NSS and abx irrigant was sent through the wound while debriding. An Michelle clamp was placed on the distal end of the achilles to assess the length and tensioning. There was reasonable length and tension available for reconstruction to its insertion. After this, we debrided the insertion site for bleeding bone. The Arthrex speed bridge technique was then done for repair. 4 tunnels were drilled 1 cm apart and 1 cm proximal and 1 cm distal to the insertion point. These were all tapped. Then the proximal row anchors were placed and had good purchase. 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 We then set tension appropriately, marked the sutures and passed through the distal row anchors. The distal row anchors were then placed as is described in the technique. These had good purchase and the achilles tendon was appropriate. The tendon was then over sewn with the rescue sutures in the distal row to allow for flattened tendon and protection of the repair. What was left of the epitendinous structure was then repaired with 0 Vicryl and the area washed out again. ROM of the ankle showed good tension and stable repair. Provisional closure was then done of the skin with 0 Vicryl to take tension off the area for the remainder of the procedure. We then turned our attention to fracture fixation Skin knife used to incise and blunt dissection taken down to the lateral malleolus distal tip and a wire for the Fibulock nail was placed optimally in the AP and Lat image. Once in position the wire was advanced to the fracture site which was reduced and the wire passed into the proximal fragment. Opening reamer was then passed, followed by a proximal reamer. Then Fibulock nail was placed. The proximal fins were deployed and the fracture was reduced. Two distal locking screws were then placed through the nail and had good purchase. They were drilled unicortial as is described in technique. Once this was done, we turned our attention to the medial malleolus. Two wires were placed optimally in the AP and LAT into the lateral malleolar region reducing the fracture. These were then measured and two long thread 4.0 lag screws were placed stabilizing the fracture. We then tested the stability of the ankle and on Cotton test, we noted syndesmotic widening still as well as decreased Tib/Fib overlap. We then elected for two syndesmotic screws to be placed through the nail jig. These were drilled optimally 30 deg angled anterior and placed. They were confirmed to be in good position in AP and LAT imaging. The ankle was then tested again and was stable. We then thoroughly irrigated the wound and took final fluoroscopic imaging confirming good length alignment and rotation of the fracture and stable ankle joint. Then proceeded with layered closure first with 0 Vicryl in the deep fascia and subcu followed by 2-0 Vicryl in the subcutaneous tissue followed by 2-0 nylon in a running trauma style fashion suture. The wound was then cleaned and dressed sterilely with Jumpstart, Adaptic 4 x 4 ABDs. The patient was placed in a well molded and well-padded AO short leg splint on the left. The patient was then transferred back to their hospital bed. They were awakened by the department of anesthesia having tolerated the procedure very well with no complications. The patient was then transported to the postoperative care unit in stable condition. The patient was NV intact in PACU on exam.
[2024-03-06] MEDS: SENNOSIDES-DOCUSATE SODIUM 1 EACH TAB PO SCH (22:14)
[2024-03-07] MEDS: HYDROcodone/APAP 7.5-325MG 1 EACH TAB PO PRN (01:38)
[2024-03-07] MEDS: HYDROmorphone 1 MG/ML 1 ML SYRINGE IVP PRN (03:09)
--- NOTE | 2024-03-07 06:57 | P.PN ---
Progress Note - Text Progress Note Date: 03/07/24 Adequate analgesia. No complication from intrathecal Duramorph.
[2024-03-07 08:34] LABS: Basophils # (A) 0.02 X 10*3/uL (0.00-0.10); Basophils % (A) 0.2 %; Eosinophils # (A) 0 X 10*3/uL (0.04-0.35); Eosinophils % (A) 0 %; HCT 34.4 % (39.6-50.0); HGB 11.3 g/dL (13.0-17.0); Lymphocytes # (A) 1.18 X 10*3/uL (0.90-5.00); Lymphocytes % (A) 9.6 %; MCH 30.5 pg (27.0-32.0); MCHC 32.8 g/dL (32.0-37.0); Mean Platelet Volume 11.8 FL (9.5-12.2); Monocytes # (A) 1.11 X 10*3/uL (0.20-1.00); Monocytes % (A) 9.1 %; NRBC Per 100 WBC 0 X 10*3/uL (0.00-0.01); Neutrophils % (A) 80.8 %; Platelet Count 236 X 10*3/uL (140-440); RDW 13.7 % (11.5-14.5); WBC 12.25 X 10*3/uL (4.50-10.00)
[2024-03-07 08:53] LABS: ALT 17 U/L (10-49); AST 23 U/L (14-35); Albumin 3.8 g/dL (3.8-4.9); Alkaline Phosphatase 67 U/L (41-126); BUN/Creat Ratio 12.86 Ratio (12.00-20.00); Calcium 8.5 mg/dL (8.7-10.3); Carbon Dioxide 23.1 mmol/L (21.6-31.8); Chloride 103 mmol/L (96-109); Globulin 1.9 g/dL (1.6-3.3); Glucose 126 mg/dL (70-110); Potassium 4.3 mmol/L (3.5-5.5); Sodium 138 mmol/L (135-145); Total Bilirubin 0.2 mg/dL (0.3-1.2); Total Protein 5.7 g/dL (6.2-8.2)
--- NOTE | 2024-03-07 09:29 | P.PN ---
Subjective Progress Note Date: 03/07/24 Principal diagnosis: Open ankle fracture s/p fall from height patient seen and examined this morning. Patient is resting comfortably in bed. He states he has not been up since procedure. Informed patient that he is to be nonweightbearing of the right lower extremity. Prescription has been placed in chart for standard walker and crutches. Informed patient that physical therapy will begin to work with him today. Patient reports that his pain is managed on current regimen although he is having anxiety. Medications have been adjusted. Bandage and splint to the right lower extremity is clean dry and intact. Patient is able to wiggle toes of the right lower extremity and are warm to touch. Continue to encourage patient to utilize incentive spirometer. Objective - Vital Signs Vital signs: Vital Signs Temp 98.4 F 03/07/24 07:00 Pulse 71 03/07/24 07:00 Resp 17 03/07/24 07:00 BP 128/68 03/07/24 07:00 Pulse Ox 99 03/07/24 07:00 FiO2 Intake & Output 03/06/24 03/07/24 03/07/24 18:59 06:59 18:59 Intake Total 1352 700 Output Total 500 75 Balance 852 625 Weight 68.039 kg 68.039 kg Intake: IV 1352 100 Oral 600 Output: Urine 500 Estimated Blood Loss 75 - Exam Physical Examination General: The patient is awake and alert, in no acute distress Skin: Skin is warm and dry with no obvious rashes or lesions. Surgical incisions to the right lower extremity, splint is clean dry and intact. Eye: Pupils are equal, round and reactive to light, extra-ocular movements are intact; there is normal conjunctiva bilaterally. Neck: The neck is supple, there is no tenderness and ROM intact. Cardiovascular: There is a regular rate and rhythm. No murmur, rub or gallop is appreciated. Respiratory: Respirations are non-labored, breath sounds are equal. Gastrointestinal: Soft, non-distended, non-tender abdomen. Back: There is no tenderness to palpation in the midline, paralumbar, parathoracic or buttocks region. There is no obvious deformity . Musculoskeletal: ROM limited secondary to pain and stiffness from surgical procedure. Muscle strength in all major muscle groups of bilateral upper extremities 5/5, Left lower extremities 5/5, Right lower extremity limited assessment due to splint, 4/5 EHL Neurological: CN 2-12 intact. There are no obvious motor or sensory deficits. Movement and coordination equal and intact. Sensory exam to light touch intact C5-T1 and intact from L2-S1. Reflexes 2/4 in bilateral upper and lower extremities. Negative Hoffmans, babinski, and clonus signs. Psychiatric: Cooperative, appropriate mood & affect, normal judgment. - Labs CBC & Chem 7: 03/07/24 04:36 03/07/24 04:36 Labs: Abnormal Lab Results - Last 24 Hours (Table) 03/06/24 03/06/24 03/06/24 Range/Units 09:48 09:48 11:23 RBC 4.14 L (4.30-5.90) m/uL Chloride 110 H (98-107) mmol/L Glucose 106 H (74-99) mg/dL Ur Specific [place] 1.044 H (1.001-1.035) Urine Opiates Screen Detected H (NotDetected) Ur Amphetamines Screen Detected H (NotDetected) U Methamphetamines Scrn Detected H (NotDetected) U Marijuana (THC) Screen Detected H (NotDetected) Assessment and Plan Assessment: Postop day 1: Right ankle ORIF with Right Achilles Reconstruction; Irrigation and Debridement 1. Right ankle bimalleolar ankle fracture dislocation grade 2 open 2. Right Achilles rupture secondary to fracture dislocation and open wound 3. Status post fall from height 10 feet off a roof 4. Complex medical patient Plan: -Appreciate direct sales consultant and team management. -Activity: Patient is to be nonweightbearing of right lower extremity. Use walker and/or crutches if needed for stability. Ambulate QID, OOB all meals, up and about. -Daily PT/OT, increase ambulation strength and balance. -Brace when up and about, not needed in bed or chair -Pain control: Adequate at this time -Meds: reviewed -GI ppx: senna, Miralax -DVT PPX: Aspirin -Hygiene: Maintain splint clean and dry. -Encourage IS 10x/hr -Dispo: Anticipate discharge home tomorrow with homecare *I reviewed and discussed this case with my attending Dr. Ralph, whom has reviewed this chart and films and is in agreement with assessment and plan of care as outlined above. I have personally seen and examined the patient, performed the documentation and the assessment and plan as written. Number of minutes spent on the visit: 20m.
[2024-03-07] MEDS: ASPIRIN 325 MG TAB PO SCH (09:40)
--- NOTE | 2024-03-07 09:56 | FL ---
EXAMINATION TYPE: FL guidance operating room DATE OF EXAM: 03/06/2024 HISTORY: Fluoroscopy time Total dose area product (DAP) in uGy*m?, mGy*cm? (or similar): 1.4928 IMPRESSION: 1. Fluoroscopy time.
--- NOTE | 2024-03-07 09:57 | XR ---
EXAMINATION TYPE: XR ankle complete RT DATE OF EXAM: 03/06/2024 COMPARISON: NONE HISTORY: Intraoperative images TECHNIQUE: 15 intraoperative images FINDINGS: Limited resolution images demonstrate the previously described multiple fractures involving the tibia and fibula. Fracture along the inferior margin of the talus also suspected. Postsurgical i ntraoperative changes. IMPRESSION: Intraoperative images.
--- NOTE | 2024-03-07 11:59 | P.CONS ---
History of Present Illness - Reason for Consult Consult date: 03/07/24 - History of Present Illness 54 year old M with PMH of ulcer disease presents to the ED after falling from the roof. He denies any head trauma or loss of consciousness. In the ED he underwent extensive evaluation. BP 153/97, HR 71, T97.5F, RR 18, 98% on RA. CBC, Coag panel, CMP performed significant for RBC 4.14, Cl 110, glu 106. UA negative for nitrite or LE. UDS + opiate, amphetamine, methamphetamine, THC. EtOH negati ve. CT head and C-spine no acute process, multilevel DJD. CXR negative. Pelvic and ankle XR bimalleolar ankle fractures of the right ankle, acute fracture of the right tibia and fibula. CT L spine no fracture, spondylolisthesis L5 on S1, vacuum disc phenomenon L5 S1. CT chest Abd Pel no evidence of internal organ injury. CT right ankle shows displaced fracture distal fibula, anterior tibia, medial malleolar fracture. Patient was admitted to [facility]. He underwent ORIF right ankle trimalleolar fracture, right achilles reconstruction. [facility] consulted for medical management. 03/07 Patient was seen and examined. Pain currently well controlled. Difficulty urinating this morning but eventually able to urinate. Passing gas. CBC WBC 12.25, Hg 11.3, Hct 34.4. CMP glu 126, Ca 8.5, T. Bili 0.2, total protein 5.7. General: non toxic, no distress, appears at stated age Derm: warm, dry Head: atraumatic, normocephalic, symmetric Eyes: EOMI, no lid lag, anicteric sclera Mouth: no lip lesion, mucus membranes moist Cardiovascular: S1S2 reg, no murmur Lungs: CTA bilateral, no rhonchi, no rales , no accessory muscle use Ext: no gross muscle atrophy, no edema, no contractures Neuro: no focal neuro deficits Psych: Alert, oriented, appropriate affect Leukocytosis: Likely reactive. No signs of active infection. Monitor fever profile. Acute blood loss anemia: Expected result of surgery. Monitor CBC. Transfuse if Hg < 7. Polysubstance abuse: Advised to quit. History of bleeding ulcer: Protonix 40 mg PO QD. Carafate 1g PO BID. CODE STATUS: FULL CODE DVT Prophylaxis: ASA 325 mg PO BID GI Prophylaxis: Protonix Designated medical POA if patient is not able to make medical decisions for themselves: I have reviewed the following economic consultant notes: Orthopedic. I have reviewed the results of the following tests: CBC, CMP. I have ordered the following tests: I have discussed the care of this patient with the following independent historian: I have independently interpreted the following test below: I have discussed the management of this patient with the following physician: Past Medical History Past Medical History: GERD/Reflux, GI Bleed, Musculoskeletal Disorder Additional Past Medical History / Comment(s): right arm infection/necrosis, bilateral pleural effusions with R thoracentesis/severe pulmonary, GI bleed, gastric ulcers/duodenal ulcer, gastritis, chronic back pain, bilateral carpal tunnel syndrome, gallbladder polyp, past bilateral foot fractures-L foot surgically repaired-pt states it didn't "work" so he chose not to have surgery on his R foot History of Any Multi-Drug Resistant Organisms: None Reported Past Surgical History: Hernia Repair, Orthopedic Surgery Additional Past Surgical History / Comment(s): I&D right forearm/fasciotomy, fracture repair L foot, EGD with repair of perforated ulcer with endo clip, co lonoscopy, pain procedures, carpal tunnel surgery on left hand, left shoulder surgery 2021 Past Anesthesia/Blood Transfusion Reactions: No Reported Reaction Additional Past Anesthesia/Blood Transfusion Reaction / Comm: Pt has received blood without reaction. Past Psychological History: ADD/ADHD, Anxiety, Schizophrenia Additional Psychological History / Comment(s): Pt states his depression has been increased lately d/t back/arm/foot pain Smoking Status: Former smoker Past Alcohol Use History: Rare Additional Past Alcohol Use History / Comment(s): states only drinks a few on the weekends, smokes maybe 3-4 cigs/day Past Drug Use History: Marijuana Additional Drug Use History / Comment(s): Pt tried meth IV through [facility] on 03/24/19 and was the first and only time IV. Pt states only marijuana use currently, daily use - Past Family History Father Family Medical History: Sleep Apnea/CPAP/BIPAP Additional Family Medical History / Comment(s): -suffered from obstructive sleep apnea Mother Family Medical History: No Reported History Additional Family Medical History / Comment(s): Medications and Allergies Home Medications Medication Instructions Recorded Confirmed Type Pantoprazole [Protonix] 40 mg PO DAILY #30 tab 02/11/24 03/06/24 Rx Sucralfate [Carafate] 1 gm PO BID #60 tablet 02/11/24 03/06/24 Rx Allergies Allergy/AdvReac Type Severity Reaction Status Date / Time No Known Allergies Allergy Verified 03/06/24 11:09 Physical Exam Vitals: Vital Signs Temp Pulse Pulse Resp BP BP Pulse Ox 03/07/24 07:00 98.4 F 71 17 128/68 99 03/07/24 01:40 98.3 F 82 15 116/69 98 03/06/24 23:21 80 121/80 99 03/06/24 22:53 86 151/60 100 03/06/24 22:23 80 123/80 100 03/06/24 22:06 59 L 123/76 100 03/06/24 21:36 67 136/78 99 03/06/24 21:21 78 128/77 03/06/24 21:04 77 18 121/70 97 03/06/24 20:53 79 16 118/72 96 03/06/24 20:38 78 16 116/64 97 03/06/24 20:23 97.7 F 64 16 125/66 95 03/06/24 15:32 97.8 F 67 16 136/84 99 03/06/24 15:00 98.0 F 77 18 135/88 96 03/06/24 13:01 61 18 120/45 98 Intake and Output 03/06/24 03/07/24 03/07/24 22:59 06:59 14:59 Intake Total 2052 Output Total 575 Balance 1477 Intake: IV 1452 Oral 600 Output: Urine 500 Estimated Blood Loss 75 Other: Weight 68.039 kg Results CBC & Chem 7: 03/07/24 04:36 03/07/24 04:36 Labs: Abnormal Lab Results - Last 24 Hours (Table) 03/06/24 03/07/24 03/07/24 Range/Units 11:23 04:36 04:36 WBC 12.25 H (4.50-10.00) X 10*3/uL RBC 3.70 L (4.40-5.60) X 10*6/uL Hgb 11.3 L (13.0-17.0) g/dL Hct 34.4 L (39.6-50.0) % Neutrophils # 9.90 H (1.80-7.70) X 10*3/uL Monocytes # 1.11 H (0.20-1.00) X 10*3/uL Eosinophils # 0 L (0.04-0.35) X 10*3/uL Glucose 126 H (70-110) mg/dL Calcium 8.5 L (8.7-10.3) mg/dL Total Bilirubin 0.2 L (0.3-1.2) mg/dL Total Protein 5.7 L (6.2-8.2) g/dL Ur Specific [place] 1.044 H (1.001-1.035) Urine Opiates Screen Detected H (NotDetected) Ur Amphetamines Screen Detected H (NotDetected) U Methamphetamines Scrn Detected H (NotDetected) U Marijuana (THC) Screen Detected H (NotDetected)
[2024-03-07] MEDS: PANTOPRAZOLE 40 MG TABLET PO SCH (12:14)
[2024-03-07] MEDS: SUCRALFATE 1 GM TAB PO SCH (12:15)
[2024-03-07] MEDS: hydrOXYzine pamoate 25 MG CAP PO PRN (13:55)
[2024-03-08] MEDS: ENOXAPARIN 40 MG/0.4 ML SYRINGE SQ SCH (08:17)
[2024-03-08] MEDS: CYCLOBENZAPRINE 5 MG TAB PO SCH (08:37)
[2024-03-08] MEDS: oxyCODONE-APAP 7.5-325MG 1 EACH TAB PO PRN (08:37)
--- NOTE | 2024-03-08 09:09 | P.PN ---
Subjective Progress Note Date: 03/08/24 Principal diagnosis: Open ankle fracture s/p fall from height Patient seen and examined this morning. Patient is resting in bed. He is stating his pain level is worse today. Medications have been adjusted. Patient states he worked with PT yesterday and felt he tolerated well. Patient states he feels comfortable with going home at discharge once his pain is controlled. Band age and splint to the right lower extremity is clean dry and intact. Patient is able to wiggle toes of the right lower extremity and are warm to touch. Continue to encourage patient to utilize incentive spirometer. Objective - Vital Signs Vital signs: Vital Signs Temp 98.7 F 03/07/24 18:09 Pulse 59 L 03/08/24 02:00 Resp 16 03/08/24 02:00 BP 136/81 03/08/24 02:00 Pulse Ox 97 03/08/24 02:00 FiO2 Intake & Output 03/07/24 03/08/24 03/08/24 18:59 06:59 18:59 Output Total 500 Balance -500 Output: Urine 500 Other: Voiding Method Urinal # Voids 4 - Exam Physical Examination General: The patient is awake and alert, in no acute distress Skin: Skin is warm and dry with no obvious rashes or lesions. Surgical incisions to the right lower extremity, splint is clean dry and intact. Eye: Pupils are equal, round and reactive to light, extra-ocular movements are intact; there is normal conjunctiva bilaterally. Neck: The neck is supple, there is no tenderness and ROM intact. Cardiovascular: There is a regular rate and rhythm. No murmur, rub or gallop is appreciated. Respiratory: Respirations are non-labored, breath sounds are equal. Gastrointestinal: Soft, non-distended, non-tender abdomen. Back: There is no tenderness to palpation in the midline, paralumbar, parathoracic or buttocks region. There is no obvious deformity. . Musculoskeletal: ROM limited secondary to pain and stiffness from surgical procedure. Muscle strength in all major muscle groups of bilateral upper e xtremities 5/5, Left lower extremities 5/5, Right lower extremity limited assessment due to splint, 4/5 EHL Neurological: CN 2-12 intact. There are no obvious motor or sensory deficits. Movement and coordination equal and intact. Sensory exam to light touch intact C5-T1 and intact from L2-S1. Reflexes 2/4 in bilateral upper and lower extremities. Negative Hoffmans, babinski, and clonus signs. Psychiatric: Cooperative, appropriate mood & affect, normal judgment. - Labs CBC & Chem 7: 03/07/24 04:36 03/07/24 04:36 Labs: Abnormal Lab Results - Last 24 Hours (Table) 03/07/24 03/07/24 Range/Units 04:36 04:36 WBC 12.25 H (4.50-10.00) X 10*3/uL RBC 3.70 L (4.40-5.60) X 10*6/uL Hgb 11.3 L (13.0-17.0) g/dL Hct 34.4 L (39.6-50.0) % Neutrophils # 9.90 H (1.80-7.70) X 10*3/uL Monocytes # 1.11 H (0.20-1.00) X 10*3/uL Eosinophils # 0 L (0.04-0.35) X 10*3/uL Glucose 126 H (70-110) mg/dL Calcium 8.5 L (8.7-10.3) mg/dL Total Bilirubin 0.2 L (0.3-1.2) mg/dL Total Protein 5.7 L (6.2-8.2) g/dL Assessment and Plan Assessment: Postop day 2: Right ankle ORIF with Right Achilles Reconstruction; Irrigation and Debridement 1. Right ankle bimalleolar ankle fracture dislocation grade 2 open 2. Right Achilles rupture secondary to fracture dislocation and open wound 3. Status post fall from height 10 feet off a roof 4. Complex medical patient Plan: -Appreciate program evaluation consultant and team management. -Activity: Patient is to be nonweightbearing of right lower extremity. Use w alker and/or crutches if needed for stability. Ambulate QID, OOB all meals, up and about. -Daily PT/OT, increase ambulation strength and balance. -Brace when up and about, not needed in bed or chair -Pain control: Adequate at this time -Meds: reviewed -GI ppx: senna, Miralax -DVT PPX: Aspirin -Hygiene: Maintain splint clean and dry. -Encourage IS 10x/hr -Dispo: Anticipate discharge home tomorrow with homecare *I reviewed and discussed this case with my attending Dr. Ralph, whom has reviewed this chart and films and is in agreement with assessment and plan of care as outlined above. I have personally seen and examined the patient, performed the documentation and the assessment and plan as written. Number of minutes spent on the visit: 20m.
--- NOTE | 2024-03-08 17:30 | P.PN ---
Subjective Progress Note Date: 03/08/24 Hospital course: Patient is a very pleasant 54-year-old male who presented to the emergency department after falling from the roof. He was found to have an open displaced fracture of distal fibula, anterior tibia, and medial malleoliar. He was admitted under trauma services with orthopedic surgery team and underwent open reduction and internal fixation of open right ankle trimalleolar fracture and right Achilles reconstruction on 03/06/2024. We were consulted for medical management throughout hospitalization. Physical exam: Patient seen and fully evaluated at bedside this morning. Patient reports uncontrolled postoperative pain at this time. He denies having any numbness/ tingling sensation. Reports nerve block is worn off and pain has been uncontrolled. Patient denies having any headache, lightheadedness, dizziness, chest pain, nausea, vomiting, or any other complaints at this time. Vital signs reviewed and stable. General: Nontoxic, no distress and appears stated age. Derm: Skin warm and dry, normal coloration for ethnicity. Head: Atraumatic, normocephalic and symmetric. Eyes: EOMs intact, no lid lag, and anicteric sclera Mouth: no lip lesions, mucus membranes moist Cardiovascular: regular rate and rhythm with normal S1S2, no murmur, positive posterior tibial pulses bilaterally, and cap refill < 2 seconds. Lungs: Respirations even, regular, and unlabored on room air. Lungs CTA bilaterally, no rhonchi, no rales, no wheezing, and no accessory muscle usage. Abdominal: soft, nontender to palpation, no guarding, no appreciable organomegaly Ext: ROM intact. No gross muscle atrophy, no edema, no contractures. Right lower extremity elevated on pillow with orthopedic/postoperative splint in place. Neuro: Speech clear, face symmetrical and CN II-XII grossly intact with no noted focal neuro deficits Psych: Alert and oriented to person, place, time, and situation. Appropriate and pleasant affect. Assessment and Plan of Care: Fall from roof Open right trimalleolar fracture Status post open reduction and internal fixation of open right ankle trimalleolar fracture and right Achilles reconstruction on 03/06/2024 Management per primary admitting orthopedic surgery team including DVT prophylaxis, pain management, wound/dressing/orthopedic splint management, weightbearing, and PT/OT. Continue cefazolin 2 g every 8 hours Currently DVT prophylaxis with Lovenox Leukocytosis Likely reactive no signs of infection. Recommend continue cefazolin 2 g every 8 hours secondary to open fracture. Acute blood loss anemia Stable and expected outcome of injury and surgery. Order placed for repeat morning CBC. Will transfuse if needed if hemoglobin falls less than 7. Polysubstance abuse UDS positive for opiates, amphetamines, methamphetamines, and marijuana. Recommend cessation of use. Monitor for any signs of withdrawal. GERD with history of bleeding ulcer Continue Protonix 40 mg daily. Data reviewed: Vital signs reviewed. Blood pressure 134/86, heart rate 66, respiratory rate 17, temp 97.5 F, and SpO2 of 98% on room air. Thank you for allowing us to participate in the care of this pleasant patient. Do not hesitate to contact us with questions. Someone can be reached from the [facility] [place] hospitalist group all hours of the day at [phone] or via [employer]. Patient was seen independently by Nurse Pracitioner. This document was prepared using [employer] dictation software. Please allow for errors in emergency nurse, while rare they do occur. Guy Almanzar NP rendered care for this patient independently, reviewed the findings and plan as documented in the note above. I did not physically speak with or examine the patient on this date. Objective - Vital Signs Vital signs: Vital Signs Temp 97.5 F L 03/08/24 07:12 Pulse 66 03/08/24 07:12 Resp 17 03/08/24 07:12 BP 134/86 03/08/24 07:12 Pulse Ox 98 03/08/24 07:12 FiO2 Intake & Output 03/07/24 03/08/24 03/08/24 18:59 06:59 18:59 Output Total 500 Balance -500 Output: Urine 500 Other: Voiding Method Urinal # Voids 4 - Labs CBC & Chem 7: 03/07/24 04:36 03/07/24 04:36
--- NOTE | 2024-03-09 04:27 | HP ---
HISTORY AND PHYSICAL CHIEF COMPLAINT: Fracture of the right ankle. HISTORY OF PRESENT ILLNESS: This is another admission for this 54-year-old. He presented with a compound fracture of the right ankle. He in the past and has been an analgesic abuser. He also smokes. REVIEW OF SYSTEMS: Other than the pain in the ankle, he is doing well. He denies any head injury, headache, loss of consciousness, neck pain, back pain, shortness of breath, abdominal pain, etc. Past medical history, family history, and personal and social histories are otherwise unremarkable. PHYSICAL EXAMINATION: VITAL SIGNS: Normal. HEENT: Head, ears, eyes, nose, mouth, throat were normal. CHEST: Clear. CARDIAC: Normal sinus rhythm. ABDOMEN: Soft and nontender. EXTREMITIES: The right ankle was splinted and wrapped with Juan R wraps. NEUROLOGICAL: intact. IMPRESSION: 1. Compound fracture of the right ankle. 2. Chronic obstructive pulmonary disease. 3. Rotator cuff tendinitis of the shoulder. PLAN: Surgical intervention of the right ankle. He is cleared for surgery. MMODL / IJN: [id number] /
[2024-03-09 08:46] LABS: HCT 37.4 % (39.6-50.0); HGB 12.3 g/dL (13.0-17.0); MCH 30.4 pg (27.0-32.0); MCHC 32.9 g/dL (32.0-37.0); MCV 92.3 FL (80.0-97.0); Mean Platelet Volume 11.6 FL (9.5-12.2); NRBC Per 100 WBC 0 X 10*3/uL (0.00-0.01); Platelet Count 249 X 10*3/uL (140-440); RBC 4.05 X 10*6/uL (4.40-5.60); RDW 13.2 % (11.5-14.5); WBC 11.07 X 10*3/uL (4.50-10.00)
[2024-03-09 09:03] LABS: ALT 15 U/L (10-49); AST 23 U/L (14-35); Albumin 3.8 g/dL (3.8-4.9); Albumin/Globulin Ratio 1.65 Ratio (1.60-3.17); Alkaline Phosphatase 79 U/L (41-126); BUN/Creat Ratio 10.43 Ratio (12.00-20.00); Blood Urea Nitrogen 7.3 mg/dL (9.0-27.0); Calcium 8.8 mg/dL (8.7-10.3); Carbon Dioxide 26.7 mmol/L (21.6-31.8); Chloride 101 mmol/L (96-109); Globulin 2.3 g/dL (1.6-3.3); Glucose 94 mg/dL (70-110); Magnesium 1.9 mg/dL (1.5-2.4); Potassium 3.9 mmol/L (3.5-5.5); Sodium 138 mmol/L (135-145); Total Bilirubin 0.3 mg/dL (0.3-1.2); Total Protein 6.1 g/dL (6.2-8.2)
[2024-03-09] MEDS: oxyCODONE-APAP 10-325MG 1 EACH TAB PO PRN (10:57)
--- NOTE | 2024-03-09 11:28 | P.PN ---
Subjective Progress Note Date: 03/09/24 Principal diagnosis: Open ankle fracture s/p fall from height Patient seen and examined this morning. Patient is resting comfortably in bed. He states his pain is moderately managed on current regimen. Medications will be adjusted. Yesterday evening, 03/08/2024, splint was readjusted and rewrapped to assist with additional swelling. Compartments are soft and palpable. Patient is able to wiggle toes and is warm to touch. Patient is looking forward to going home later today. Informed patient that he needs to obtain walker or crutches prior to discharge. No acute concerns at this time. Objective - Vital Signs Vital signs: Vital Signs Temp 98.3 F 03/09/24 07:35 Pulse 67 03/09/24 07:35 Resp 15 03/09/24 07:35 BP 131/88 03/09/24 07:35 Pulse Ox 98 03/09/24 07:35 FiO2 Intake & Output 03/08/24 03/09/24 03/09/24 18:59 06:59 18:59 Output Total 950 Balance -950 Output: Urine 950 Other: Voiding Method Toilet Urinal # Voids 2 - Exam Physical Examination General: The patient is awake and alert, in no acute distress Skin: Skin is warm and dry with no obvious rashes or lesions. Surgical incisions to the right lower extremity, splint is clean dry and intact. Eye: Pupils are equal, round and reactive to light, extra-ocular movements are intact; there is normal conjunctiva bilaterally. Neck: The neck is supple, there is no tenderness and ROM intact. Cardiovascular: There is a regular rate and rhythm. No murmur, rub or gallop is appreciated. Respiratory: Respirations are non-labored, breath sounds are equal. Gastrointestinal: Soft, non-distended, non-tender abdomen. Back: There is no tenderness to palpation in the midline, paralumbar, p arathoracic or buttocks region. There is no obvious deformity. . Musculoskeletal: ROM limited secondary to pain and stiffness from surgical procedure. Muscle strength in all major muscle groups of bilateral upper extremities 5/5, Left lower extremities 5/5, Right lower extremity limited assessment due to splint, 4/5 EHL Neurological: CN 2-12 intact. There are no obvious motor or sensory deficits. Movement and coordination equal and intact. Sensory exam to light touch intact C5-T1 and intact from L2-S1. Reflexes 2/4 in bilateral upper and lower extremities. Negative Hoffmans, babinski, and clonus signs. Psychiatric: Cooperative, appropriate mood & affect, normal judgment. - Labs CBC & Chem 7: 03/09/24 05:34 03/09/24 05:34 Labs: Abnormal Lab Results - Last 24 Hours (Table) 03/09/24 03/09/24 Range/Units 05:34 05:34 WBC 11.07 H (4.50-10.00) X 10*3/uL RBC 4.05 L (4.40-5.60) X 10*6/uL Hgb 12.3 L (13.0-17.0) g/dL Hct 37.4 L (39.6-50.0) % BUN 7.3 L (9.0-27.0) mg/dL BUN/Creatinine Ratio 10.43 L (12.00-20.00) Ratio Total Protein 6.1 L (6.2-8.2) g/dL Assessment and Plan Assessment: Postop day 3: Right ankle ORIF with Right Achilles Reconstruction; Irrigation and Debridement 1. Right ankle bimalleolar ankle fracture dislocation grade 2 open 2. Right Achilles rupture secondary to fracture dislocation and open wound 3. Status post fall from height 10 feet off a roof 4. Complex medical patient Plan: -Appreciate salesforce consultant and team management. -Activity: Patient is to be nonweightbearing of right lower extremity. Use walker and/or crutches if needed for stability. Ambulate QID, OOB all meals, up and about. -Daily PT/OT, increase ambulation strength and balance. -Pain control: Adequate at this time -Meds: reviewed -GI ppx: senna, Miralax -DVT PPX: Aspirin -Hygiene: Maintain splint clean and dry. -Encourage IS 10x/hr -Dispo: Anticipate discharge home today with homecare *I reviewed and discussed this case with my attending Dr. Ralph, whom has reviewed this chart and films and is in agreement with assessment and plan of care as outlined above. I have personally seen and examined the patient, performed the documentation and the assessment and plan as written. Number of minutes spent on the visit: 20m.
--- NOTE | 2024-03-09 11:30 | P.DS ---
Providers Date of admission: 03/06/24 12:24 Expected date of discharge: 03/09/24 Attending physician: Maximino Ralph DO Consults: 03/06/24 12:22 Consult Physician Routine Consulting Provider: Sina Neville Consult Reason/Comments: medical management Do you want consulting provider notified?: Yes Primary care physician: Stated None Hospital Course: Hospital Course: The patient was evaluated preoperatively and found to have the diagnosis of Open right ankle fracture with achilles rupture. They underwent appropriate preoperative care and were willing to undergo the intended procedure. They underwent a successful Right ankle ORIF with Right Achilles Reconstruction; Irrigation and Debridement, were recovered appropriately and sent to the floor. While on the floor they worked with physical therapy, occupational therapy and nursing to enhance their recovery experience. Their pain was well controlled through their stay and they were started on appropriate medications, DVT ppx modalities, activity and dietary needs. Daily labs were monitored closely, and transfusions were only used when necessary. Medicine as well as other consulting services have made their input and have helped with our team approach and multidisciplinary care. PT milestones have been met and passed and they have made the recommendation of home with homecare for this patient and treating providers agree with this care path. The patient will be discharged home with appropriate medications, instructions and follow-up information and in stable condition. Patient Condition at Discharge: Stable Plan - Discharge Summary Discharge Rx Participant: Yes New Discharge Prescriptions: New Sennosides/Docusate Sodium [Senna Plus 8.6-50 mg Softgel] 1 each PO DAILY PRN #20 capsule PRN Reason: Constipation Cyclobenzaprine [Flexeril] 5 mg PO TID PRN #40 tablet PRN Reason: Muscle Spasm Enoxaparin [Lovenox] 40 mg SQ DAILY #29 each oxyCODONE-APAP 10-325MG [Percocet 10-325 mg] 1 tab PO Q4HR PRN #40 tab PRN Reason: Pain No Action Sucralfate [Carafate] 1 gm PO BID #60 tablet Pantoprazole [Protonix] 40 mg PO DAILY #30 tab Discharge Medication List Pantoprazole [Protonix] 40 mg PO DAILY #30 tab 02/11/24 [Rx] Sucralfate [Carafate] 1 gm PO BID #60 tablet 02/11/24 [Rx] Enoxaparin [Lovenox] 40 mg SQ DAILY #29 each 03/08/24 [Rx] Sennosides/Docusate Sodium [Senna Plus 8.6-50 mg Softgel] 1 each PO DAILY PRN #20 capsule 03/08/24 [Rx] Cyclobenzaprine [Flexeril] 5 mg PO TID PRN #40 tablet 03/09/24 [Rx] oxyCODONE-APAP 10-325MG [Percocet 10-325 mg] 1 tab PO Q4HR PRN #40 tab 03/09/24 [Rx] Follow up Appointment(s)/Referral(s): Iraj Silva MD [STAFF PHYSICIAN] - 03/12/24 3:30 pm Maximino Ralph DO [Doctor of Osteopathic Medicine] - 03/21/24 2:00 pm Activity/Diet/Wound Care/Special Instructions: Orthopedic Discharge Instructions: Wound care and infection precautions, Keep splint dry and covered while showering. Non weight bearing of Right lower extremity with walker / crutches until follow-up. Ice and elevate when necessary. Do not exceed 20 minutes per hour with ice pack. Pain meds and anticoagulants per prescription. Pain medication has potential to cause constipation. Increase oral fluid and fiber intake. Contact primary care provider if you have not had a bowel movement within 48 hours after discharge. No anti-inflammatory medication until discussed at first post operative visit, this including Motrin, Aleve, Mobic, Diclofenac, Aspirin. Follow up in office at 2 weeks postop Follow up with your primary care doctor 7-10 days after discharge. Contact [facility] with any questions, . Discharge Disposition: HOME WITH HOME HEALTH SERVICES
[2024-03-09 14:24] VITALS: BP 136/79; PULSE 79; RESP 18; TEMP 98.2
--- NOTE | 2024-03-09 16:57 | P.PN ---
Subjective Progress Note Date: 03/09/24 Hospital course: Patient is a very pleasant 54-year-old male who presented to the emergency department after falling from the roof. He was found to have an open displaced fracture of distal fibula, anterior tibia, and medial malleoliar. He was admitted under trauma services with orthopedic surgery team and underwent open reduction and internal fixation of open right ankle trimalleolar fracture and right Achilles reconstruction on 03/06/2024. We were consulted for medical management throughout hospitalization. Physical exam: Patient seen and fully evaluated at bedside this morning. Patient reports slightly improved but continued uncontrolled right lower extremity pain. [facility] surgery team evaluated and made changes to current pain medication regimen. Patient denies having any other complaints or needs at this time. Patient hopeful to have pain better controlled so he can be discharged later today. Vital signs reviewed and stable. General: Nontoxic, no distress and appears stated age. Derm: Skin warm and dry, normal coloration for ethnicity. Head: Atraumatic, normocephalic and symmetric. Eyes: EOMs intact, no lid lag, and anicteric sclera Mouth: no lip lesions, mucus membranes moist Cardiovascular: regular rate and rhythm with normal S1S2, no murmur, positive posterior tibial pulses bilaterally, and cap refill < 2 seconds. Lungs: Respirations even, regular, and unlabored on room air. Lungs CTA bilaterally, no rhonchi, no rales, no wheezing, and no accessory muscle usage. Abdominal: soft, nontender to palpation, no guarding, no appreciable o rganomegaly Ext: ROM intact. No gross muscle atrophy, no edema, no contractures. Right lower extremity elevated on pillow with orthopedic/postoperative splint in place. Neuro: Speech clear, face symmetrical and CN II-XII grossly intact with no noted focal neuro deficits Psych: Alert and oriented to person, place, time, and situation. Appropriate and pleasant affect. Assessment and Plan of Care: Fall from roof Open right trimalleolar fracture Status post open reduction and internal fixation of open right ankle trimalleolar fracture and right Achilles reconstruction on 03/06/2024 Management per primary admitting orthopedic surgery team including DVT prophylaxis, pain management, wound/dressing/orthopedic splint management, weightbearing, and PT/OT. Continue cefazolin 2 g every 8 hours Currently DVT prophylaxis with Lovenox Leukocytosis Likely reactive no signs of infection. Recommend continue cefazolin 2 g every 8 hours secondary to open fracture. Acute blood loss anemia Stable and expected outcome of injury and surgery. Order placed for repeat morning CBC. Will transfuse if needed if hemoglobin falls less than 7. Polysubstance abuse UDS positive for opiates, amphetamines, methamphetamines, and marijuana. Recommend cessation of use. Monitor for any signs of withdrawal. GERD with history of bleeding ulcer Continue Protonix 40 mg daily. Data reviewed: Vital signs reviewed. Blood pressure 131/88, heart rate 67, respiratory rate 15, temp 98.3 F, and SpO2 of 98% on room air. Morning labs reviewed. CBC showing improvement of WBC count down to 11.07 this morning and improvement of postoperative blood loss anemia with hemoglobin increasing to 12.3. BMP unremarkable. Magnesium normal findings at 1.9. And liver profile unremarkable. Patient cleared from medical perspective for discharge once cleared by primary admitting orthopedic surgery team. Thank you for allowing us to participate in the care of this pleasant patient. Do not hesitate to contact us with questions. Someone can be reached from the [facility] hospitalist group all hours of the day at [phone] or via [employer]. Patient was seen independently by Nurse Pracitioner. This document was prepared using EGEN dictation software. Please allow for errors in decontaminator, while rare they do occur. I reviewed the documentation as provided by the LIGIA above, who is the original author of this note. I agree with the documented assessment and plan, with the following changes: none Objective - Vital Signs Vital signs: Vital Signs Temp 98.3 F 03/09/24 07:35 Pulse 67 03/09/24 07:35 Resp 15 03/09/24 07:35 BP 131/88 03/09/24 07:35 Pulse Ox 98 03/09/24 07:35 FiO2 Intake & Output 03/08/24 03/09/24 03/09/24 18:59 06:59 18:59 Output Total 950 Balance -950 Output: Urine 950 Other: Voiding Method Toilet Urinal # Voids 2 - Labs CBC & Chem 7: 03/09/24 05:34 03/09/24 05:34
== END 2024-03-09 16:16 | disposition home health service (06) | DRG 493 ==
LOC: EC 09:45 → 4SSUR 12:24
PROVIDERS: ADMIT Orthopaedic Surgery; ATTEND Orthopaedic Surgery
PROC: 0QSJ04Z Reposition Right Fibula with Internal Fixation Device, Open Approach (ICD-10-PCS; principal; 2024-03-06 07:30)
PROC: 0SSF04Z Reposition Right Ankle Joint with Internal Fixation Device, Open Approach (ICD-10-PCS; principal; 2024-03-06 07:30)
PROC: 0SBF0ZZ Excision of Right Ankle Joint, Open Approach (ICD-10-PCS; principal; 2024-03-06 07:30)
PROC: 2W0 Placement, Anatomical Regions, Change (ICD-10-PCS; principal; 2024-03-06 07:30)
PROC: 0LSN0ZZ Reposition Right Lower Leg Tendon, Open Approach (ICD-10-PCS; principal; 2024-03-06 07:30)
PROC: 3E0T3BZ Introduction of Anesthetic Agent into Peripheral Nerves and Plexi, Percutaneous Approach (ICD-10-PCS; principal; 2024-03-06 07:30)
PROC: 0LBN0ZZ Excision of Right Lower Leg Tendon, Open Approach (ICD-10-PCS; principal; 2024-03-06 07:30)
PROC: 0QSG04Z Reposition Right Tibia with Internal Fixation Device, Open Approach (ICD-10-PCS; principal; 2024-03-06 07:30)
DX: S82.841B Displaced bimalleolar fracture of right lower leg, initial encounter for open fracture type I or II (principal); D62 Acute posthemorrhagic anemia; S86.011A Strain of right Achilles tendon, initial encounter; W13.2XXA Fall from, out of or through roof, initial encounter; Z79.899 Other long term (current) drug therapy; G89.29 Other chronic pain; M54.9 Dorsalgia, unspecified; Z87.19 Personal history of other diseases of the digestive system; Z87.891 Personal history of nicotine dependence; F90.9 Attention-deficit hyperactivity disorder, unspecified type; F15.10 Other stimulant abuse, uncomplicated; S93.431A Sprain of tibiofibular ligament of right ankle, initial encounter; F12.10 Cannabis abuse, uncomplicated; Z71.51 Drug abuse counseling and surveillance of drug abuser; S86.091A Other specified injury of right Achilles tendon, initial encounter; M54.2 Cervicalgia
CPT/HCPCS: 36415; 70450; 71045; 71260; 72125; 72128; 72131; 72170; 74177; 80053; 80306; 80320; 81003; 83735; 85025; 85027; 85610; 85730; 86850; 86900; 86901; 90471; 90715; 93005; 94760; 96361; 96365; 96375; 96376; 99291

== ENCOUNTER → 2024-07-10 | Outpatient (CLI) | payer OTHER ==
--- NOTE | 2024-07-10 14:12 | NM ---
EXAMINATION TYPE: NM bone 3 phase DATE OF EXAM: 07/10/2024 COMPARISON: Radiograph 05/23/2024, CT from 724 CLINICAL INDICATION: Male, 54 years old with history of L97.313 pressure ulcer; Triple phase bone scintigraphy was performed following the injection of 24.50 mCi Tc 99m MDP. Immedi ate images and 3 hours post injection images acquired. FINDINGS: Increase uptake around the right ankle and flow, blood pool and delayed imaging. Additional ly there is a created increased uptake on delayed imaging of the left ankle compatible degeneration. IMPRESSION: 1. Three-phase bone scan around the ankle compatible with osteomyelitis. 2. Uptake within the left ankle compatible with degeneration.
== END | disposition home or self-care (01) ==
LOC: RADNMMAIN 07:33
PROVIDERS: ATTEND Thoracic Surgery (Cardiothoracic Vascular Surgery)
DX: L97.313 Non-pressure chronic ulcer of right ankle with necrosis of muscle
CPT/HCPCS: 78315

== ENCOUNTER 2024-08-07 19:50 | Emergency (ER) | payer OTHER ==
--- NOTE | 2024-08-07 20:14 | ED ---
General Adult HPI - General Chief complaint: Extremity Injury, Upper Stated complaint: Rt back pain Time Seen by Provider: 08/07/24 19:56 Source: patient, RN notes reviewed Mode of arrival: EMS Limitations: no limitations - History of Present Illness Initial comments: Patient is a 54-year-old male presenting to the emergency department with right- sided thoracic back pain. Onset of symptoms was prior to arrival. Patient was sitting at the kitchen table. Patient has discomfort that does extend towards the right arm. Discomfort is extremely positional, worse with raising his arm above his head. No chest pain. No dyspnea. No weakness. No history of similar symptoms previously. - Related Data Previous Rx's Medication Instructions Recorded Pantoprazole [Protonix] 40 mg PO DAILY #30 tab 02/11/24 Sucralfate [Carafate] 1 gm PO BID #60 tablet 02/11/24 Enoxaparin [Lovenox] 40 mg SQ DAILY #29 each 03/08/24 Sennosides/Docusate Sodium [Senna 1 each PO DAILY PRN #20 capsule 03/08/24 Plus 8.6-50 mg Softgel] Cyclobenzaprine [Flexeril] 5 mg PO TID PRN #40 tablet 03/09/24 oxyCODONE-APAP 10-325MG [Percocet 1 tab PO Q4HR PRN #40 tab 03/09/24 10-325 mg] Cyclobenzaprine [Flexeril] 10 mg PO TID PRN #20 tablet 08/07/24 Allergies Allergy/AdvReac Type Severity Reaction Status Date / Time No Known Allergies Allergy Verified 08/07/24 19:57 Review of Systems ROS Statement: Those systems with pertinent positive or pertinent negative responses have been documented in the HPI. ROS Other: All systems not noted in ROS Statement are negative. Constitutional: Denies: fever Eyes: Denies: eye pain ENT: Denies: as per HPI Respiratory: Denies: cough, dyspnea Cardiovascular: Denies: chest pain Gastrointestinal: Denies: abdominal pain Genitourinary: Denies: dysuria Musculoskeletal: Reports: as per HPI, back pain Past Medical History Past Medical History: GERD/Reflux, GI Bleed, Musculoskeletal Disorder Additional Past Medical History / Comment(s): right arm infection/necrosis, bilateral pleural effusions with R thoracentesis/severe pulmonary, GI bleed, gastric ulcers/duodenal ulcer, gastritis, chronic back pain, bilateral carpal tunnel syndrome, gallbladder polyp, past bilateral foot fractures-L foot surgically repaired-pt states it didn't "work" so he chose not to have surgery on his R foot History of Any Multi-Drug Resistant Organisms: None Reported Past Surgical History: Hernia Repair, Orthopedic Surgery Additional Past Surgical History / Comment(s): I&D right forearm/fasciotomy, fracture repair L foot, EGD with repair of perforated ulcer with endo clip, colonoscopy, pain procedures, carpal tunnel surgery on left hand, left shoulder surgery 2021 Past Anesthesia/Blood Transfusion Reactions: No Reported Reaction Additional Past Anesthesia/Blood Transfusion Reaction / Comment(s): Pt has received blood without reaction. Past Psychological History: ADD/ADHD, Anxiety, Schizophrenia Smoking Status: Former smoker Past Alcohol Use History: Rare Past Drug Use History: Marijuana - Past Family History Father Family Medical History: Sleep Apnea/CPAP/BIPAP Additional Family Medical History / Comment(s): -suffered from obstructive sleep apnea Mother Family Medical History: No Reported History Additional Family Medical History / Comment(s): General Exam Limitations: no limitations General appearance: alert, in no apparent distress Head exam: Present: normocephalic Eye exam: Present: normal appearance Neck exam: Present: normal inspection Respiratory exam: Present: normal lung sounds bilaterally Cardiovascular Exam: Present: regular rate, normal rhythm Expanded Peripheral pulses: 2+: Radial (R) GI/Abdominal exam: Present: soft. Absent: tenderness Extremities exam: Present: normal inspection. Absent: pedal edema, calf tenderness Back exam: Present: tenderness (Right thoracic between the vertebral and scapular region with muscle spasm.) Neurological exam: Present: alert. Absent: motor sensory deficit Psychiatric exam: Present: normal affect, normal mood Skin exam: Present: normal color Course Vital Signs 08/07/24 19:54 Temperature 98 F Pulse Rate 80 Respiratory 18 Rate Blood Pressure 189/97 O2 Sat by Pulse 100 Oximetry Medical Decision Making - Medical Decision Making Was pt. sent in by a medical professional or institution (, PA, GETTERING OPERATOR, urgent care, hospital, or shelter...) When possible be specific @ -No Did you speak to anyone other than the patient for history (EMS, parent, family, police, friend...)? What history was obtained from this source @ -No Did you review nursing and triage notes (agree or disagree)? Why? @ -I reviewed and agree with nursing and triage notes Were old charts reviewed (outside hosp., previous admission, EMS record, old EKG, old radiological studies, urgent care reports/EKG's, shelter records)? Report findings @ -No old charts were reviewed Differential Diagnosis (chest pain, altered mental status, abdominal pain women, abdominal pain men, vaginal bleeding, weakness, fever, dyspnea, syncope, headache, dizziness, GI bleed, back pain, seizure, CVA, palpatations, mental health, musculoskeletal)? @ -Differential Back Pain: Strain, zoster, cauda equina syndrome, epidural abscess, vertebral osteomyelitis, discitis, fracture, subluxation, disc herniation, DJD, spinal stenosis, dissection, AAA, pancreatitis, peptic ulcer disease, pyelonephritis, kidney stone, this is not meant to be an all-inclusive list. EKG interpreted by me (3pts min.). @ -As above X-rays interpreted by me (1pt min.). @ -Chest x-ray does not reveal acute abnormality. There is some spinal curvature. CT interpreted by me (1pt min.). @ -None done U/S interpreted by me (1pt. min.). @ -None done What testing was considered but not performed or refused? (CT, X-rays, U/S, labs)? Why? @ -None What meds were considered but not given or refused? Why? @ -None Did you discuss the management of the patient with other professionals (professionals i.e. , PA, GETTERING OPERATOR, lab, RT, psych nurse, health and social care teacher, globe mounter, teacher, hydrological technical officer, field nurse case manager)? Give summary @ -No Was smoking cessation discussed for >3mins.? @ -No Was critical care preformed (if so, how long)? @ -No Were there social determinants of health that impacted care today? How? (Homelessness, low income, unemployed, alcoholism, drug addiction, transportation, low edu. Level, literacy, decrease access to med. care, residential, rehab)? @ -No Was there de-escalation of care discussed even if they declined (Discuss DNR or withdrawal of care, Hospice)? DNR status @ -No What co-morbidities impacted this encounter? (DM, HTN, Smoking, COPD, CAD, Cancer, CVA, ARF, Chemo, Hep., AIDS, mental health diagnosis, sleep apnea, morbid obesity)? @ -None Was patient admitted / discharged? Hospital course, mention meds given and route, prescriptions, significant lab abnormalities, going to OR and other pertinent info. @ -Patient presents with thoracic back pain radiating to the right arm that is positional especially with arm movement. No chest pain or dyspnea. Chest x-ray unremarkable, radiologist interpretation still pending and unclear if this will be read tonight. Patient we discharged with follow-up and prescription for muscle x-rays. Patient demonstrates understanding. Undiagnosed new problem with uncertain prognosis? @ -No Drug Therapy requiring intensive monitoring for toxicity (Heparin, Nitro, Insulin, Cardizem)? @ -No Were any procedures done? @ -No Diagnosis/symptom? @ -Thoracic back pain Acute, or Chronic, or Acute on Chronic? @ -Acute Uncomplicated (without systemic symptoms) or Complicated (systemic symptoms)? @ -Default Side effects of treatment? @ -No Exacerbation, Progression, or Severe Exacerbation? @ -No Poses a threat to life or bodily function? How? (Chest pain, [place], [place], pneumonia, PE, COPD, DKA, ARF, appy, cholecystitis, CVA, Diverticulitis, Homicidal, Suicidal, threat to staff... and all critical care pts) @ -No Disposition Clinical Impression: Thoracic back pain Disposition: HOME SELF-CARE Condition: Stable Instructions (If sedation given, give patient instructions): Back Pain (ED) Additional Instructions: Prescription sent to pharmacy. Please do follow-up with your primary care physician in the next day or 2 for recheck. [id number] Motrin as needed. Return for increased pain, difficulty breathing, chest pain, worsening or changing symptoms or other concerns. Prescriptions: Cyclobenzaprine [Flexeril] 10 mg PO TID PRN #20 tablet PRN Reason: Pain Is patient prescribed a controlled substance at d/c from ED?: No Referrals: Iraj Silva MD [Primary Care Provider] - 1-2 days Time of Disposition: 21:53
[2024-08-07] MEDS: HYDROmorphone 1 MG/ML 1 ML SYRINGE IM STA (20:17)
[2024-08-07] MEDS: KETOROLAC 15 MG/ML 1 ML VIAL IM STA (20:19)
[2024-08-07 22:01] VITALS: BP 134/94; PULSE 74; RESP 17; TEMP 97.7
--- NOTE | 2024-08-07 22:11 | XR ---
EXAMINATION TYPE: XR chest 2V DATE OF EXAM: 08/07/2024 8:24 PM CLINICAL INDICATION:Male, 54 years old with history of pain; [facility] COMPARISON: None TECHNIQUE: XR chest 2V. Frontal and lateral views of the chest.. FINDINGS: Lines/Tubes/Devices: Multiple electrode leads over the chest. No indwelling lines are seen. Heart/mediastinum: Heart size is normal. Mediastinum appears normal. Pulmonary vascularity: Not increased, Lungs/Pleura: There is no evidence of pleural effusion, focal consolidation, or pneumothorax. Musculoskeletal: No acute osseous abnormality demonstrated in the limits of the exam. Other findings: None. IMPRESSION: No acute cardiopulmonary abnormality. [facility], , 08/07/2024 10:08 PM
== END 2024-08-07 22:01 | disposition home or self-care (01) ==
LOC: EC 19:50
CPT/HCPCS: 71046; 96372; 99284

== ENCOUNTER → 2024-10-13 | Outpatient (CLI) | payer OTHER ==
--- NOTE | 2024-10-23 09:49 | MR ---
EXAMINATION TYPE: MR ankle RT wo/w con DATE OF EXAM: 10/13/2024 9:33 AM COMPARISON: Radiograph 09/17/2024 CLINICAL INDICATION: Male, 54 years old with history of M86.171 OTHER ACUTE OSTEOMYELITIS, RIGHT ANKL E AND, osteomyelitis, right ankle, metal, TECHNIQUE: Multiplanar, multisequence images of the right ankle were obtained before and after admini stration of 6.5ml mL intravenous Gadobutrol gadolinium contrast. IV Contrast: 6.5ml cc Gadobutrol (None if empty) FINDINGS: There is extensive metal artifact limiting evaluation. Some protocol modifications were utilized to d iminish artifact. There is cortical screw fixation at the level of the medial malleolus. Additional l connor screw fixation distal fibula. Transverse syndesmotic screw fixation also present. Healing is not adequately assessed due to the presence of artifact. There is some focal osteoarthritic change along the mid talar dome. Severe thickening and heterogeneity of the mid to distal third Achilles tendon. Thickening of 2.3 cm surrounding soft tissue edema. Surgical change is present with multiple (estimated at 5-6) anchors wi thin the posterior calcaneus relating to Achilles tendon repair. There is abnormal fluid signal inten sity with corresponding diminished T1-weighted signal at the site of some of these anchors in the pos terior calcaneus especially laterally. Some possible tracts extend to the posterior skin surface and there is also extension of fluid into the mid and deep fibers of the Achilles tendon. This fluid scarlet ures 3.3 cm craniocaudal by 1.3 cm AP by 1.4 cm wide. Further detailed assessment of the support ligaments of the ankle is very limited. IMPRESSION: 1. Evidence of previous Achilles insertional repair with 5-6 anchors present in the posterior calcane us. There is severe thickening and heterogeneity of the mid to distal third Achilles tendon likely co mbination of postsurgical change and tendinosis but also a component of infectious process suspected below. 2. There is abnormal signal/fluid surrounding some of the calcaneal anchors particularly the anchors more lateral in position. Some of these appear to have partially backed out and there may be tracts e xtending to the skin surface. In addition, contiguous fluid extends up into the mid and deep fibers o f the Achilles tendon measuring 3.3 x 1.3 x 1.4 cm. Correlate for loosening due to underlying infecti on with sinus tracts to the posterior skin surface and contiguous abscess extending into the Achilles tendon. [facility], , 10/23/2024 9:47 AM
== END | disposition home or self-care (01) ==
LOC: RADMRIMAIN 08:21
PROVIDERS: ATTEND Orthopaedic Surgery Orthopaedic Trauma
DX: M86.171 Other acute osteomyelitis, right ankle and foot (principal)
CPT/HCPCS: 73723; A9585

== ENCOUNTER 2024-11-30 11:51 | Emergency (ER) | payer OTHER ==
--- NOTE | 2024-11-30 13:23 | ED ---
General Adult HPI - General Chief complaint: Recheck/Abnormal Lab/Rx Stated complaint: infection Time Seen by Provider: 11/30/24 12:18 Source: patient, EMS, RN notes reviewed Mode of arrival: EMS Limitations: physical limitation - History of Present Illness Initial comments: 54-year-old male presents to the emergency department for evaluation of abdomin al pain and vomiting. Patient reports abdominal pain has been going on for 2 days. He notes pain mostly in the epigastric region. He notes that he has had blood in the emesis starting today. He notes a history of perforated ulcers with Endo Clip. He does report that he takes omeprazole daily. Denies recent fever, chills. Patient states that he has a wound to his right foot that he receives IV antibiotics for once weekly. - Related Data Previous Rx's Medication Instructions Recorded Pantoprazole [Protonix] 40 mg PO DAILY #30 tab 02/11/24 Sucralfate [Carafate] 1 gm PO BID #60 tablet 02/11/24 Enoxaparin [Lovenox] 40 mg SQ DAILY #29 each 03/08/24 Sennosides/Docusate Sodium [Senna 1 each PO DAILY PRN #20 capsule 03/08/24 Plus 8.6-50 mg Softgel] Cyclobenzaprine [Flexeril] 5 mg PO TID PRN #40 tablet 03/09/24 oxyCODONE-APAP 10-325MG [Percocet 1 tab PO Q4HR PRN #40 tab 03/09/24 10-325 mg] Cyclobenzaprine [Flexeril] 10 mg PO TID PRN #20 tablet 08/07/24 Allergies Allergy/AdvReac Type Severity Reaction Status Date / Time morphine Allergy Rash/Hives Verified 11/30/24 11:56 Review of Systems ROS Statement: Those systems with pertinent positive or pertinent negative responses have been documented in the HPI. ROS Other: All systems not noted in ROS Statement are negative. Past Medical History Past Medical History: GERD/Reflux, GI Bleed, Musculoskeletal Disorder Additional Past Medical History / Comment(s): right arm infection/necrosis, bilateral pleural effusions with R thoracentesis/severe pulmonary, GI bleed, gastric ulcers/duodenal ulcer, gastritis, chronic back pain, bilateral carpal tunnel syndrome, gallbladder polyp, past bilateral foot fractures-L foot surgically repaired-pt states it didn't "work" so he chose not to have surgery on his R foot History of Any Multi-Drug Resistant Organisms: MRSA Date of last positivie culture/infection: 09/12/24 MDRO Source:: rt ankle Past Surgical History: Hernia Repair, Orthopedic Surgery Additional Past Surgical History / Comment(s): I&D right forearm/fasciotomy, fracture repair L foot, EGD with repair of perforated ulcer with endo clip, colonoscopy, pain procedures, carpal tunnel surgery on left hand, left shoulder surgery 2021 Past Anesthesia/Blood Transfusion Reactions: No Reported Reaction Additional Past Anesthesia/Blood Transfusion Reaction / Comment(s): Pt has received blood without reaction. Past Psychological History: ADD/ADHD, Anxiety, Schizophrenia Smoking Status: Former smoker Past Alcohol Use History: Rare Past Drug Use History: Marijuana - Past Family History Father Family Medical History: Sleep Apnea/CPAP/BIPAP Additional Family Medical History / Comment(s): -suffered from obstructive sleep apnea Mother Family Medical History: No Reported History Additional Family Medical History / Comment(s): General Exam Limitations: physical limitation General appearance: alert, in no apparent distress Head exam: Present: atraumatic, normocephalic, normal inspection Eye exam: Present: normal appearance, PERRL, EOMI. Absent: scleral icterus, conjunctival injection, periorbital swelling ENT exam: Present: normal exam, mucous membranes moist Neck exam: Present: normal inspection. Absent: tenderness, meningismus, lymphadenopathy Respiratory exam: Present: normal lung sounds bilaterally. Absent: respiratory distress, wheezes, rales, rhonchi, stridor Cardiovascular Exam: Present: regular rate, normal rhythm, normal heart sounds. Absent: systolic murmur, diastolic murmur, rubs, gallop, clicks GI/Abdominal exam: Present: soft, tenderness, normal bowel sounds. Absent: distended, guarding, rebound, rigid Extremities exam: Present: normal inspection, full ROM, normal capillary refill. Absent: tenderness, pedal edema, joint swelling, calf tenderness Neurological exam: Present: alert, oriented X3 Psychiatric exam: Present: normal affect, normal mood Skin exam: Present: warm, dry, erythema, other (Open wound to the medial left ankle). Absent: intact, normal color Course Vital Signs 11/30/24 11:54 Temperature 98.3 F Pulse Rate 78 Respiratory 18 Rate Blood Pressure 143/64 O2 Sat by Pulse 97 Oximetry Medical Decision Making - Medical Decision Making Was pt. sent in by a medical professional or institution (, [facility], [facility], urgent care, hospital, or correction...) When possible be specific @ -No Did you speak to anyone other than the patient for history (EMS, parent, family, police, friend...)? What history was obtained from this source @ -No Did you review nursing and triage notes (agree or disagree)? Why? @ -I reviewed and agree with nursing and triage notes Were old charts reviewed (outside hosp., previous admission, EMS record, old EKG, old radiological studies, urgent care reports/EKG's, correction records)? Report findings @ -No old charts were reviewed Differential Diagnosis (chest pain, altered mental status, abdominal pain women, abdominal pain men, vaginal bleeding, weakness, fever, dyspnea, syncope, headache, dizziness, GI bleed, back pain, seizure, CVA, palpatations, mental health, musculoskeletal)? @ -Differential GI Bleed: Esophageal varices, aortoenteric fistula, Sana-Melgar, gastritis, peptic ulcer disease, diverticulosis, inflammatory bowel disease, hemorrhoids, fissure, colitis, malignancy, Meckel's diverticulum, this is not meant to be an all- inclusive list. EKG interpreted by me (3pts min.). @ -None X-rays interpreted by me (1pt min.). @ -None done CT interpreted by me (1pt min.). @ -CT abdomen pelvis shows Possible small bowel ileus with no identified obstruction U/S interpreted by me (1pt. min.). @ -None done What testing was considered but not performed or refused? (CT, X-rays, U/S, labs)? Why? @ -None What meds were considered but not given or refused? Why? @ -None Did you discuss the management of the patient with other professionals (professionals i.e. [facility]AND[facility] Wilkes, [facility], lab, RT, psych nurse, bilingual social worker, live truck operator, teacher, youth corrections officer, case fitter)? Give summary @ -Management discussed with [facility] Case was discussed by Dr. Barrios Was smoking cessation discussed for >3mins.? @ -No Was critical care preformed (if so, how long)? @ -No Were there social determinants of health that impacted care today? How? (Homelessness, low income, unemployed, alcoholism, drug addiction, transportation, low edu. Level, literacy, decrease access to med. care, residential, rehab)? @ -No Was there de-escalation of care discussed even if they declined (Discuss DNR or withdrawal of care, Hospice)? DNR status @ -No What co-morbidities impacted this encounter? (DM, HTN, Smoking, COPD, CAD, Cancer, CVA, ARF, Chemo, Hep., AIDS, mental health diagnosis, sleep apnea, morbid obesity)? @ -Peptic ulcer disease Was patient admitted / discharged? Hospital course, mention meds given and route , prescriptions, significant lab abnormalities, going to OR and other pertinent info. @ -Transferred. Patient presented the emergency department for evaluation of abdominal pain and hematemesis. Patient notes hematemesis starting today. Has a history of GI bleed. Patient's vital signs stable. Laboratory studies obtained.He has no significant leukocytosis, hemoglobin stable at 14.5; normal coagulation studies; CMP shows no significant electrolyte derangement. Elevated lipase at 2738. He received 1 L of IV fluids in the ED along with 1 mg of Dilaudid, 4 mg of Zofran. He received 80 mg of Protonix. Patient has not any active vomiting while in the ED. with the patient's history of peptic ulcer disease the patient will be transferred to a facility with GI coverage. He is understanding agreeable this plan. Patient stable at time of transfer. Case discussed with Dr. Webb Undiagnosed new problem with uncertain prognosis? @ -No Drug Therapy requiring intensive monitoring for toxicity (Heparin, Nitro, Insulin, Cardizem)? @ -No Were any procedures done? @ -No Diagnosis/symptom? @ -GI bleed, pancreatitis, abdominal pain Acute, or Chronic, or Acute on Chronic? @ -Acute Uncomplicated (without systemic symptoms) or Complicated (systemic symptoms)? @ -Gated Side effects of treatment? @ -No Exacerbation, Progression, or Severe Exacerbation? @ -No Poses a threat to life or bodily function? How? (Chest pain, [place], [place], pneumonia, PE, COPD, DKA, ARF, appy, cholecystitis, CVA, Diverticulitis, Homicidal, Suicidal, threat to staff... and all critical care pts) @ -GI bleed - Lab Data Result diagrams: 11/30/24 13:41 11/30/24 13:41 Lab Results 11/30/24 11/30/24 11/30/24 Range/Units 13:41 13:41 13:41 WBC 10.7 H (3.8-10.6) k/uL RBC 4.72 (4.30-5.90) m/uL Hgb 14.5 (13.0-17.5) gm/dL Hct 43.7 (39.0-53.0) % MCV 92.7 (80.0-100.0) fL MCH 30.7 (25.0-35.0) pg MCHC 33.2 (31.0-37.0) g/dL RDW 13.2 (11.5-15.5) % Plt Count 343 (150-450) k/uL MPV 8.6 Neutrophils % 67 % Lymphocytes % 21 % Monocytes % 5 % Eosinophils % 6 % Basophils % 0 % Neutrophils # 7.1 (1.3-7.7) k/uL Lymphocytes # 2.2 (1.0-4.8) k/uL Monocytes # 0.6 (0-1.0) k/uL Eosinophils # 0.6 (0-0.7) k/uL Basophils # 0.0 (0-0.2) k/uL PT 10.2 (10.0-12.5) sec INR 0.9 (<1.2) APTT 23.2 (22.0-30.0) sec Sodium 136 L (137-145) mmol/L Potassium 4.6 (3.5-5.1) mmol/L Chloride 100 (98-107) mmol/L Carbon Dioxide 24 (22-30) mmol/L Anion Gap 12 mmol/L BUN 12 (9-20) mg/dL Creatinine 0.71 (0.66-1.25) mg/dL Est GFR (CKD-EPI)AfAm >90 (>60 ml/min/1.73 sqM) Est GFR (CKD-EPI)NonAf >90 (>60 ml/min/1.73 sqM) Glucose 98 (74-99) mg/dL Plasma Lactic Acid Daquan (0.7-2.0) mmol/L Calcium 9.8 (8.4-10.2) mg/dL Total Bilirubin 0.7 (0.2-1.3) mg/dL AST 24 (17-59) U/L ALT 18 (4-49) U/L Alkaline Phosphatase 87 (38-126) U/L Total Protein 8.0 (6.3-8.2) g/dL Albumin 4.9 (3.5-5.0) g/dL Lipase 2738 H (23-300) U/L 11/30/24 Range/Units 13:41 WBC (3.8-10.6) k/uL RBC (4.30-5.90) m/uL Hgb (13.0-17.5) gm/dL Hct (39.0-53.0) % MCV (80.0-100.0) fL MCH (25.0-35.0) pg MCHC (31.0-37.0) g/dL RDW (11.5-15.5) % Plt Count (150-450) k/uL MPV Neutrophils % % Lymphocytes % % Monocytes % % Eosinophils % % Basophils % % Neutrophils # (1.3-7.7) k/uL Lymphocytes # (1.0-4.8) k/uL Monocytes # (0-1.0) k/uL Eosinophils # (0-0.7) k/uL Basophils # (0-0.2) k/uL PT (10.0-12.5) sec INR (<1.2) APTT (22.0-30.0) sec Sodium (137-145) mmol/L Potassium (3.5-5.1) mmol/L Chloride (98-107) mmol/L Carbon Dioxide (22-30) mmol/L Anion Gap mmol/L BUN (9-20) mg/dL Creatinine (0.66-1.25) mg/dL Est GFR (CKD-EPI)AfAm (>60 ml/min/1.73 sqM) Est GFR (CKD-EPI)NonAf (>60 ml/min/1.73 sqM) Glucose (74-99) mg/dL Plasma Lactic Acid Daquan 1.3 (0.7-2.0) mmol/L Calcium (8.4-10.2) mg/dL Total Bilirubin (0.2-1.3) mg/dL AST (17-59) U/L ALT (4-49) U/L Alkaline Phosphatase (38-126) U/L Total Protein (6.3-8.2) g/dL Albumin (3.5-5.0) g/dL Lipase (23-300) U/L Disposition Clinical Impression: GI bleed Disposition: OTHER INSTITUTION NOT DEFINED Condition: Stable Is patient prescribed a controlled substance at d/c from ED?: No Referrals: Iraj Silva MD [Primary Care Provider] - 1-2 days - Out of Hospital Transfer - Req. Specs Out of Hospital Transfer - Requested Specifics: Other Emergency Center ([facility])
[2024-11-30] MEDS: SODIUM CHLORIDE 0.9% 1,000 ML IV ONE (13:36)
[2024-11-30] MEDS: HYDROmorphone 1 MG/ML 1 ML SYRINGE IVP STA ×2 (13:36→16:57)
[2024-11-30 13:54] LABS: Basophils % (A) 0 %; Eosinophils # (A) 0.6 k/uL (0-0.7); Eosinophils % (A) 6 %; HCT 43.7 % (39.0-53.0); HGB 14.5 gm/dL (13.0-17.5); Lymphocytes # (A) 2.2 k/uL (1.0-4.8); Lymphocytes % (A) 21 %; MCH 30.7 pg (25.0-35.0); MCHC 33.2 g/dL (31.0-37.0); MCV 92.7 fL (80.0-100.0); Mean Platelet Volume 8.6; Monocytes # (A) 0.6 k/uL (0-1.0); Monocytes % (A) 5 %; Neutrophils # (A) 7.1 k/uL (1.3-7.7); Neutrophils % (A) 67 %; Platelet Count 343 k/uL (150-450); RBC 4.72 m/uL (4.30-5.90); RDW 13.2 % (11.5-15.5); WBC 10.7 k/uL (3.8-10.6)
[2024-11-30 14:04] LABS: INR 0.9 (<1.2); Partial Thromboplastin Time 23.2 sec (22.0-30.0); Prothrombin Time 10.2 sec (10.0-12.5)
[2024-11-30 14:11] LABS: ALT 18 U/L (4-49); AST 24 U/L (17-59); African American GFR (CKD) >90 (>60 ml/min/1.73 sqM); Albumin 4.9 g/dL (3.5-5.0); Alkaline Phosphatase 87 U/L (38-126); Anion Gap 12 mmol/L; Blood Urea Nitrogen 12 mg/dL (9-20); Calcium 9.8 mg/dL (8.4-10.2); Carbon Dioxide 24 mmol/L (22-30); Chloride 100 mmol/L (98-107); Glucose 98 mg/dL (74-99); Non-African American GFR(CKD) >90 (>60 ml/min/1.73 sqM); Potassium 4.6 mmol/L (3.5-5.1); Sodium 136 mmol/L (137-145); Total Bilirubin 0.7 mg/dL (0.2-1.3)
[2024-11-30 14:18] LABS: Lipase 2738 U/L (23-300)
[2024-11-30] MEDS: ONDANSETRON 4 MG/2 ML VIAL IVP STA (14:21)
--- NOTE | 2024-11-30 15:20 | CT ---
EXAMINATION TYPE: CT abdomen pelvis w con DATE OF EXAM: 11/30/2024 3:15 PM COMPARISON: 03/06/2024 CLINICAL INDICATION: Male, 54 years old with history of abd pain, TECHNIQUE: Axial images were obtained from above the diaphragm to the pubic rami in the axial plane a t 5 mm thick sections. Reconstructed images are reviewed on the computer in the coronal plane. CONTRAST: 100 mL of Isovue 300. Study performed with Oral Contrast DLP: 547.6 mGycm, Automated exposure control for dose reduction was used. FINDINGS: Limited CT sections are obtained the lung bases. The lung bases are clear. CT ABDOMEN: Liver: Normal Spleen: Normal Pancreas: Normal Adrenal glands: The adrenal glands are normal. Gallbladder: Normal Kidneys: No masses are evident. No hydronephrosis is present. Tiny cortical renal cyst of 0.9 cm in the anterior mid left kidney. A couple of additional smaller cortical renal cysts may be present bet ter visualized on the delayed images.. Delayed images were obtained through the kidneys, which remai n unremarkable. Aorta: Vascular calcification is within the aorta. Inferior vena cava: Normal. CT PELVIS: Loops of bowel within the abdomen and pelvis are normal. There is limited oral contrast present. T here are loops of bowel which are incompletely distended or lack oral contrast limiting their evaluat ion. Fluid filled small bowel loops are present at the upper limits of normal for size. Correlate for ileus. Appendix: Normal as visualized. Urinary bladder: Normal. Genitourinary structures: Prostate appears normal Osseous structures: No suspicious lytic or sclerotic lesions. Spondylolysis of L5. Degenerative disc changes L5-S1 IMPRESSION: 1. Consider small bowel ileus. No obstruction identified. 2. Small cortical renal cysts. [facility], , 11/30/2024 3:17 PM
[2024-11-30] MEDS: PANTOPRAZOLE 40 MG/10 ML VIAL IVP STA (16:29)
[2024-11-30 17:36] VITALS: BP 130/65; PULSE 79; RESP 18; TEMP 98
== END 2024-11-30 17:37 | disposition other institution (70) ==
LOC: EC 11:51
DX: K92.2 Gastrointestinal hemorrhage, unspecified (principal); K85.90 Acute pancreatitis without necrosis or infection, unspecified; Z87.891 Personal history of nicotine dependence; Z88.5 Allergy status to narcotic agent
CPT/HCPCS: 36415; 80053; 83605; 83690; 85025; 85610; 85730; 74177; 99285; 96374; 96375 ×2; 96376; 96361; J2405; J1171; Q9967; J2470

== ENCOUNTER 2025-04-26 11:39 | Day surgery (SDC) | payer OTHER ==
[2025-04-26 12:15] VITALS: BP 143/94; PULSE 79; RESP 16; TEMP 97.9
[2025-04-26 12:41] LABS: African American GFR (CKD) >90 (>60 ml/min/1.73 sqM); Anion Gap 8 mmol/L; Blood Urea Nitrogen 15 mg/dL (9-20); Calcium 9.2 mg/dL (8.4-10.2); Carbon Dioxide 26 mmol/L (22-30); Chloride 102 mmol/L (98-107); Glucose 83 mg/dL (74-99); Non-African American GFR(CKD) >90 (>60 ml/min/1.73 sqM); Potassium 3.9 mmol/L (3.5-5.1); Sodium 136 mmol/L (137-145)
--- NOTE | 2025-04-26 14:23 | XR ---
EXAMINATION TYPE: XR chest 1V confirm line plcmt DATE OF EXAM: 04/26/2025 2:18 PM COMPARISON: 08/07/2024 CLINICAL INDICATION: Male, 55 years old with history of confirm picc line placement, TECHNIQUE: XR chest 1V confirm line plcmt view(s) obtained. FINDINGS: The heart size is normal. The pulmonary vasculature is normal. The lungs are clear. PICC line enters on the left with the tip in the proximal right atrium. IMPRESSION: 1. No acute pulmonary process. 2. PICC line tip in the proximal right atrium [facility], , 04/26/2025 2:21 PM
[2025-04-26] MEDS: CEFEPIME 2 GM in SODIUM CHLORIDE 0.9% 100 ML IVPB STA (14:34)
[2025-04-26 14:50] LABS: Glucose,Whole Blood 73 mg/dL (70-110)
== END 2025-04-26 15:44 | disposition home or self-care (01) ==
LOC: CATHCVL 11:39
PROVIDERS: ATTEND Internal Medicine Infectious Disease
DX: S91.301A Unspecified open wound, right foot, initial encounter (principal); M86.8X6 Other osteomyelitis, lower leg; B95.62 Methicillin resistant Staphylococcus aureus infection as the cause of diseases classified elsewhere; B96.5 Pseudomonas (aeruginosa) (mallei) (pseudomallei) as the cause of diseases classified elsewhere; Z79.2 Long term (current) use of antibiotics; Z79.891 Long term (current) use of opiate analgesic; Z79.899 Other long term (current) drug therapy
CPT/HCPCS: 36573; 80048; C1751; J0692; J0878

== ENCOUNTER → 2025-05-29 | Outpatient (CLI) | payer OTHER ==
--- NOTE | 2025-05-29 20:16 | MR ---
MR ankle RT wo/w con DATE OF EXAM: 05/29/2025 7:30 PM COMPARISON: Right ankle MRI 10/13/2024. Right ankle radiographs 09/17/2024. CLINICAL INDICATION: Male constraint peripherally enhancing fluid collection 55 years old with histor y of L97.314 NON-PRESSURE CHRONIC ULCER OF RIGHT ANKLE; PHH, non-pressure chronic ulcer of right ankl e / pain, redness, swelling and limit movement Technique: Multiplanar, multiecho imaging of the right ankle was performed, including fluid sensitive and pre and postcontrast T1-weighted sequences; IV contrast was administered to potentially improve disease detection. Findings: Extensive susceptibility artifact due to orthopedic hardware despite exam technique optimization degr ades evaluation. Marrow: No new or worsening T1 hypointense marrow replacement to suggest new site of osteomyelitis. S imilar T2 hyperintense/T1 hypointense abnormalities of the subtalar calcaneus and the angle of Gissan e of the calcaneus as the prior exam. Joints: Not significantly changed end-stage subtalar arthrosis. Subtalar joint effusion, predominantl y collecting lateral to the joint space with internal debris suggestive synovitis. Similar appearing calcaneocuboid arthrosis. Ligaments: Grossly intact within the constraints of artifact degradation. Muscles/Tendons: Status post Achilles repair with 5 distinct anchors. Persistent fluid about the late ral and posterior most anchor. The remaining anchors demonstrate trace fluid, though this is notably improved from the prior MR 10/13/2024. Similar thickened and heterogeneous appearance of the distal t hird of the Achilles tendon. Soft tissues: Resolution of previously seen fluid collection in the pre-Achilles fat pad. The post co ntrast images markedly degraded Impression: 1. Overall the exam appears improved compared to the prior right ankle MRI 10/13/2024, however there is persistent morales-hardware fluid predominantly about the posterolateral-most Achilles repair anchor , the sterility of which cannot be determined by imaging. No new or worsening organized fluid collect ion. No new sites suspicious for osteomyelitis. 2. Similar end-stage nonspecific arthrosis of the posterior subtalar joint with joint effusion and s ynovitis. Due to proximity of previously infected surgical hardware/operative site, indolent infectio n (septic arthritis/osteomyelitis) at this site cannot be excluded. [facility], Workstation: [id number], 05/29/2025 8:14 PM
== END | disposition home or self-care (01) ==
LOC: RADMRIMAIN 17:51
PROVIDERS: ATTEND Thoracic Surgery (Cardiothoracic Vascular Surgery)
DX: L97.314 Non-pressure chronic ulcer of right ankle with necrosis of bone (principal); M65.90 Unspecified synovitis and tenosynovitis, unspecified site; M25.471 Effusion, right ankle
CPT/HCPCS: 73723; A9585